=== PATIENT | male | born 1970 | race Caucasian/White ===

== ENCOUNTER 2020-01-08 21:21 | Observation (INO) | payer OTHER, SELFPAY ==
--- NOTE | ~2020-01-08 | XR_ITS ---
EXAMINATION: XR chest 1V portable 01/08/2020 21:52 INDICATION: Chest pain PROCEDURE: AP portable chest COMPARISON: 02/26/2006 FINDINGS: The lungs are clear. The lungs are hyperinflated which is consistent with, but not diagnost ic of chronic obstructive pulmonary disease. The cardiomediastinal silhouette is within normal limit s. There are no pleural effusions. There is no pneumothorax suspected. IMPRESSION: 1: NO ACUTE CARDIOPULMONARY DISEASE. Reviewed, dictated and finalized at location A.
[2020-01-08 21:25] VITALS: BP 181/84; PULSE 105; RESP 21; TEMP 37.5; O2SAT 95
--- NOTE | 2020-01-08 21:37 | ECG_ITS ---
Measurements Intervals [place] Rate: 103 P: 36 RI: 143 QRS: 9 QRSD: 110 T: 38 QT: 373 QTc: 491 Interpretive Statements SINUS TACHYCARDIA POSSIBLE LEFT ATRIAL ENLARGEMENT INCOMPLETE RIGHT BUNDLE BRANCH BLOCK BASELINE ARTIFACT- II, III, AVR, AVL, AVF, V3 BORDERLINE ECG Electronically Signed On 01-09-2020 7:47:16 CDT by Alan Kemp D.O.
[2020-01-08 21:39] VITALS: PULSE 110; O2SAT 100
--- NOTE | 2020-01-08 21:51 | ED.GENADULT ---
HPI - General Adult General Chief complaint: Chest Pain Stated complaint: CP Time Seen by Provider: 01/08/20 21:27 Source: patient Mode of arrival: ambulatory Limitations: no limitations History of Present Illness HPI narrative: 49 yo male with h/o alcoholism, liver disease who presents for evaluation of nausea, vomiting and chest pain. Patient states that he started drinking again 1 week ago. He reports he has been drinking 1 bottle of wine per day and he decided to stop drinking 2 days ago. He reports in the past he drank up to 1 bottle of vodka per day but he stopped drinking last may. He states he started drinking again due to all stress of what is happening with pandemic. He has come to ER today because he develop nausea, vomiting yesterday. He has been unable to keep any thing down. He denies diarrhea or abdominal pain. He denies pain across his chest today. He is seen by liver specialist at [place]. complaint: chest pain Related Data Home Medications Medication Instructions Recorded Confirmed No Home Medications 01/08/20 Allergies Allergy/AdvReac Type Severity Reaction Status Date / Time No Known Allergies Allergy Unknown Verified 11/19/19 13:10 Review of Systems Review of Systems: All systems reviewed & are unremarkable except as noted in HPI and below Constitutional: Constitutional: Denies chills, Denies fever(s) and Denies weakness ENT: Denies dizziness Cardiovascular: Cardiovascular: Reports chest pain and Denies rapid heart rate Respiratory: Respiratory: Denies chest congestion, Denies cough and Denies dyspnea Gastrointestinal: Gastrointestinal: Denies abdominal pain, Denies diarrhea, Reports nausea and Reports vomiting Musculoskeletal: Musculoskeletal: Denies back pain Psychiatric: Psychiatric: Reports anxiety COUNT INCLUDES THE [facility] Past Medical History Medical History (Updated 01/08/20 @ 23:26 by Ayala Willingham MD) Alcoholism Elevated blood pressure reading Jittery Liver disease Surgical History Surgical History (Updated 11/19/19 @ 13:17 by Ileana Tabares CMA) History of appendectomy History of colon resection Family History Family History (Updated 11/19/19 @ 13:14 by Ileana Tabares CMA) Grandparent Diabetes mellitus Social History Social History (Updated 11/19/19 @ 13:16 by Ileana Tabares CMA) Smoking status: Former smoker Second hand tobacco smoke exposure: No Smoking end date: 10/31/16 Alcohol intake: former Substance use: never Substance use type: does not use 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 Gender identity (if verbalized by the patient): Male Spiritual care concerns: Yes Agree to blood products: Yes Exam Const: General: alert and ill appearing acutely Orientation/consciousness: patient oriented x3 Eyes: Sclera: scleral abnormality (icterus) bilateral Pupils: Equal, round and reactive pupils present EOM: EOMs intact bilaterally Neck: Neck: normal visual inspection Chest: Chest palpation & inspection: normal inspection of the chest Resp: Effort & Inspection: normal respiratory effort and no retractions Auscultation: clear to auscultation bilaterally Cardio: Rate: tachycardic Rhythm: regular rhythm Heart sounds: Murmur heart sound present systolic GI: Inspection: non-distended GI Palp: Yes Soft to palpation, No Tenderness to palpation present (GI), No Guarding due to palpation present (GI) and No Rigid due to palpation Back/Spine/Pelvis: Back: no CVA tenderness Skin: General skin exam: normal color Rashes: no rashes Neuro: General: patient oriented x3 and moves all extremities Motor exam (neuro): Tremors during motor activity present Course Reevaluation(s) Reevaluation #1: Patient has been given 4 mg IV ativan in which he has improvement of his symptoms. Date: 01/08/20 Time: 22:38 Consultations Consultation #1: I discussed case with Dr. Orosco who accepts patient to hospitalist service and agr
[2020-01-08] MEDS: ONDANSETRON INJ 4 MG/2 ML VIAL IV PUSH (21:53)
[2020-01-08] MEDS: LORAZEPAM INJ 2 MG/ML VIAL IV PUSH ×2 (21:53→22:22)
[2020-01-08 22:00] LABS: Basophils Absolute Auto 0.1 K/mm3 (0.0-0.1); Basophils Percent Auto 0.9 % (0.2-1.2); Eosinophils Percent Auto 0.6 % (0-4.4); Hematocrit 38.9 % (42.0-52.0); Hemoglobin 13.4 g/dL (14.0-18.0); Immature Granulocyte Absolute 0.04 K/mm3 (0.00-0.031); Immature Granulocyte Percent A 0.6 % (0-0.5); Immature Platelet Fraction Pct 4.6 % (0.9-11.2); Lymphocytes Absolute Auto 1.24 K/mm3 (0.9-3.2); Lymphocytes Percent Auto 18.5 % (18.3-44.2); Mean Corpuscular HGB Conc 34.4 g/dl (32-36); Mean Corpuscular Hemoglobin 34.5 pg (26-34); Mean Corpuscular Volume 100.3 fl (80-100); Mean Platelet Volume 10.5 fl (7.4-10.4); Monocytes Absolute Auto 0.6 K/mm3 (0.1-0.6); Monocytes Percent Auto 8.5 % (2.6-8.5); Neutrophils Absolute Auto 4.7 K/mm3 (1.3-6.7); Neutrophils Percent Auto 70.9 % (45.5-73.1); Platelet Count Result 86 k/mm3 (150-375); Red Blood Count 3.88 M/mm3 (4.6-6.20); Red Cell Distribution Width 13.6 % (11.5-14.5); White Blood Count 6.7 K/mm3 (4.5-10.0)
[2020-01-08 22:09] LABS: INR 1.9; Prothrombin Time 21.7 Seconds (11.1-14.7)
[2020-01-08 22:10] LABS: Partial Thromboplastin Time 42.7 SECONDS (22.3-36.8)
[2020-01-08 22:12] LABS: Alanine Aminotransferase 58 U/L (4-50); Albumin Level 4.5 g/dL (3.5-5.1); Alkaline Phosphatase 158 U/L (38-126); Aspartate Amino Transferase 193 U/L (17-59); Bilirubin,Total 6.3 mg/dL (0.2-1.3); Blood Urea Nitrogen 8 mg/dL (9-20); Calcium 9.6 mg/dL (8.4-10.2); Carbon Dioxide 27 mmol/L (22-30); Chloride 94 mmol/L (98-107); Estimated CRCL calculation 104 ml/min; Estimated Glomerular Filt Rate > 60; Glucose 115 mg/dL (75-110); Lipase 46 U/L (23-300); Magnesium 1.5 mg/dL (1.6-2.3); Potassium 3.8 mmol/L (3.4-5.0); Sodium 134 mmol/L (137-145)
[2020-01-08 22:13] LABS: Ammonia 29 umol/L (9-30); Ethanol 16 mg/dL (<10); Lactic Acid Reflex 3.6 mmol/L (0.7-2.1)
[2020-01-08] MEDS: LACTATED RINGERS 1,000 ML 999 ML IV CONT (22:22)
[2020-01-08 22:24] LABS: Troponin I 0.018 ng/mL (0.000-0.034)
[2020-01-08 22:26] VITALS: BP 167/86; PULSE 104; RESP 15; TEMP 37.3; O2SAT 96
--- NOTE | 2020-01-08 22:41 | PC.NURSE ---
Spoke to Devon in pharmacy, banana bag being mixed at this time.
[2020-01-08 23:20] VITALS: BP 163/79; PULSE 91; RESP 15; TEMP 37.4; O2SAT 94
[2020-01-08 23:55] VITALS: BMI 30.3
--- NOTE | 2020-01-08 23:59 | ADMGEN ---
This patient, Urban Orosco, was admitted to Intensive Care Unit-5. Patient/family oriented to hospital policies and general routines including ID bracelet, bed and alarms, visiting hours, pain management, procedures, bathroom and other care routines, personal items, smoking policy, room service/diet, and visiting hours. Valuables list has been completed. Information on how to activate the Rapid Response Team has been discussed. Patient/Family are encouraged to report perceived risks to care and to ask questions if they do not understand what they are told or what they should do.
[2020-01-09] VITALS (11 sets, daily range): BP systolic 134–159; BP diastolic 67–97; PULSE 63–96; RESP 16–18; TEMP 36.8–37.2; O2SAT 95–97
--- NOTE | 2020-01-09 | ECHO_ITS ---
Patient Info Name: Urban Orosco Age: 49 years : 1970 Gender: Male Ht: 71 in Wt: 217 lbs BSA: 2.24 m2 HR: 67 bpm BP: 155 / 80 mmHg Heart Rhythm: Sinus Rhythm Technical Quality: Good Exam Date: 01/09/2020 9:18 AM Exam Location: [facility] Pulmonary Exam Room: ICU 05 Patient Status: Inpatient Admit Date: 01/08/2020 Staff Ordering Physician: Ricky Herrera MD Wall Scraper: Radha Ramirez RDCS Attending Provider: Joshua Orosco MD Exam Type: CA echo doppler color flow Study Info Indications - nausea vomiting chest pain amor Complete two-dimensional, color flow and Doppler transthoracic echocardiogram is performed. Summary 1. Left ventricular chamber size, systolic function and diastolic function are normal with no regional wall motion abnormalities with an estimated ejection fraction of 65-70%. Mild concentric hypertrophy. No focal wall motion abnormalities. 2. Left atrial chamber dimension is moderately enlarged. 3. There is mild mitral valve regurgitation. 4. There is mild tricuspid valve regurgitation. 5. Moderate pulmonary hypertension, estimated pulmonary arterial systolic pressure is 52 mmHg. 6. Normal sinus rhythm. Left Ventricle Left ventricular chamber dimension is normal. Left ventricular systolic function is normal, estimated at 65-70%. There is mildly increased left ventricular wall thickness. Left ventricular septal wall motion is normal. The left ventricular diastolic function is normal. Left ventricular chamber size, systolic function and diastolic function are normal with no regional wall motion abnormalities with an estimated ejection fraction of 65-70%. Mild concentric hypertrophy. No focal wall motion abnormalities. Right Ventricle Right ventricular chamber dimension is normal. Right ventricular systolic function is normal. Left Atria Left atrial chamber dimension is moderately enlarged. Right Atria Right atrial chamber dimension is normal. Aortic Valve The aortic valve is trileaflet. There is no aortic valve sclerosis. There is no aortic valve stenosis. There is no aortic valve regurgitation. Pulmonic Valve The pulmonic valve is normal. There is no pulmonic valve stenosis. There is no pulmonic regurgitation. Mitral Valve The mitral valve has thickened leaflets. There is no mitral valve stenosis. There is mild mitral valve regurgitation. Tricuspid Valve The tricuspid valve leaflets are normal. There is no significant tricuspid valve stenosis. There is mild tricuspid valve regurgitation. Moderate pulmonary hypertension, estimated pulmonary arterial systolic pressure is 52 mmHg. Pericardium/Pleural The pericardium appears normal. There is no pericardial effusion. Inferior Vena Cava Normal inferior vena cava with >50% collapse upon inspiration consistent with Empty right atrial pressure, 10 mmHg. Aorta The aortic root size at the sinus of Valsalva is normal. The prox ascending aorta size is normal. Left Ventricular Outflow Tract Name Value Normal LVOT 2D LVOT Diameter 2.1 cm LVOT Doppler LVOT Peak Gradient
--- NOTE | 2020-01-09 00:19 | PM.IMHP ---
H&P: HPI History of Present Illness Chief complaint: alcohol withdrawal, Alcoholic hepatitis Narrative: This is a 49 year old male with known history of Alcohlic liver disease and cirrhosis who is followed at [facility] and presented to our ERl with a complaint of nausea, vomiting, shakiness, diaphoresis, chills, and anxiety for the past 2 days. The patient is known to have a history of alcoholism and stopped drinking back in May but remarks that he started drinking wine about 1 week ago. He verbalized that he would like to stop drinking alcohol. Tonight while he was watching television and laying on his bed, he began to experience midsternal chest pain which did not radiate anywhere. The patient has no history of coronary artery disease. He has never had a stress test or a cardiac cath. On my encounter with the patient tonight he no longer has any chest pain. He denies any coughing, sore throat or fever. ER provider has consulted Gluing Machine Adjuster, Dr. Ansari. The patient will be admitted to ICU. Review of Systems Review of Systems: All systems reviewed & are unremarkable except as noted in HPI and below PMFSH Past Medical History Medical History Alcoholism Elevated blood pressure reading Heart murmur, systolic Jittery Liver disease Surgical History Surgical History History of appendectomy History of colon resection Family History Family History Grandparent Diabetes mellitus Social History Social History Smoking packs per day: 2 Smoking cigarettes per day: 40.0 Years smoked: 30 Smoking pack-years: 60.00 Smoking status: Former smoker Tobacco type: cigarettes Second hand tobacco smoke exposure: No Smoking end date: 10/31/16 Alcohol intake: current Substance use: never Substance use type: does not use 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 Gender identity (if verbalized by the patient): Male Spiritual care concerns: No Agree to blood products: Yes Meds Home Medications and Allergies Home Medications Medication Instructions Recorded Confirmed Type No Home Medications 01/08/20 01/09/20 History Allergies Allergy/AdvReac Type Severity Reaction Status Date / Time No Known Allergies Allergy Unknown Verified 01/09/20 00:25 Vital Signs Vital Signs - 24 hr 01/08/20 21:25 01/08/20 21:39 01/08/20 22:26 Temperature 37.5 C 37.3 C Pulse Rate 105 H 110 H 104 H Respiratory Rate 21 H 15 Blood Pressure 181/84 H 167/86 H Pulse Oximetry 95 100 96 01/08/20 23:20 Temperature 37.4 C Pulse Rate 91 Respiratory Rate 15 Blood Pressure 163/79 H Pulse Oximetry 94 Exam Const: General: cooperative, alert, awake and ill appearing chronically Nutritional Appearance: overweight Orientation/consciousness: patient oriented x3 HENMT: Head: normal to inspection General nose exam: Normal external nose present Face and sinus: normal facial exam Mouth: Yes Normal oral and palatal mucosa present and Yes oropharynx normal Eyes: Sclera: scleral abnormality (Jaundiced++ ) bilateral Pupils: Equal, round and reactive pupils present and Other pupil findings EOM: EOMs intact bilaterally Neck: Neck: supple and no JVD Thyroid: thyroid normal Lymphatic: lymphadenopathy not noted Resp: Effort & Inspection: normal respiratory effort Auscultation: clear to auscultation bilaterally Cardio: Rate: tachycardic Rhythm: regular rhythm Heart sounds: Murmur heart sound present systolic GI: Inspection: normal to inspection Auscultation: normal bowel sounds Skin: General skin exam: normal color and no rashes or lesions noted Neuro: General: patient oriented x3 and other (tremors++ ) Cranial nerves: Yes CN's II-XII intact bilaterally and Yes Equal, round
[2020-01-09] MEDS: LORAZEPAM INJ 2 MG/ML VIAL IV PUSH (00:34)
[2020-01-09 00:57] LABS: Reflex Lactic Acid Yes or No Add Lactic
[2020-01-09 03:41] LABS: Lactic Acid Reflex 1.5 mmol/L (0.7-2.1)
[2020-01-09] MEDS: MAGNESIUM SULF 1 GM/D5W 100 ML 1 GM/100 ML BAG IVPB (03:41)
[2020-01-09] MEDS: CHLORDIAZEPOXIDE 25 MG CAPSULE PO (03:42)
[2020-01-09] MEDS: ONDANSETRON INJ 4 MG/2 ML VIAL IV PUSH (03:42)
[2020-01-09 03:43] LABS: Basophils Percent Auto 0.8 % (0.2-1.2); Bilirubin Direct 0.1 mg/dL (0-0.3); Bilirubin,Total 6.3 mg/dL (0.2-1.3); Eosinophils Absolute Auto 0.1 K/mm3 (0-0.3); Eosinophils Percent Auto 2.6 % (0-4.4); Hematocrit 36.7 % (42.0-52.0); Hemoglobin 12.7 g/dL (14.0-18.0); Immature Granulocyte Absolute 0.03 K/mm3 (0.00-0.031); Immature Granulocyte Percent A 0.6 % (0-0.5); Immature Platelet Fraction Pct 4.3 % (0.9-11.2); Lymphocytes Absolute Auto 1.15 K/mm3 (0.9-3.2); Lymphocytes Percent Auto 23.2 % (18.3-44.2); Magnesium 1.8 mg/dL (1.6-2.3); Mean Corpuscular HGB Conc 34.6 g/dl (32-36); Mean Corpuscular Hemoglobin 35.2 pg (26-34); Mean Corpuscular Volume 101.7 fl (80-100); Mean Platelet Volume 10.4 fl (7.4-10.4); Monocytes Absolute Auto 0.5 K/mm3 (0.1-0.6); Monocytes Percent Auto 9.7 % (2.6-8.5); Neutrophils Absolute Auto 3.1 K/mm3 (1.3-6.7); Neutrophils Percent Auto 63.1 % (45.5-73.1); Platelet Count Result 63 k/mm3 (150-375); Red Blood Count 3.61 M/mm3 (4.6-6.20); Red Cell Distribution Width 13.5 % (11.5-14.5)
[2020-01-09 03:44] LABS: Potassium 3.5 mmol/L (3.4-5.0)
[2020-01-09 03:47] LABS: Alanine Aminotransferase 50 U/L (4-50); Albumin Level 3.7 g/dL (3.5-5.1); Alkaline Phosphatase 119 U/L (38-126); Aspartate Amino Transferase 150 U/L (17-59); Bilirubin,Total 6.3 mg/dL (0.2-1.3); Blood Urea Nitrogen 7 mg/dL (9-20); Calcium 8.6 mg/dL (8.4-10.2); Carbon Dioxide 33 mmol/L (22-30); Chloride 96 mmol/L (98-107); Estimated CRCL calculation 116 ml/min; Estimated Glomerular Filt Rate > 60; Glucose 107 mg/dL (75-110); Sodium 135 mmol/L (137-145)
[2020-01-09 03:54] LABS: Troponin I 0.022 ng/mL (0.000-0.034)
--- NOTE | 2020-01-09 08:00 | WPDGICN ---
Assessment and Plan Assessment and plan (1) Alcohol withdrawal: Code(s): F10.239 - Alcohol dependence with withdrawal, unspecified Status: Acute Assessment and Plan: Patient with ongoing alcohol abuse. Now with signs of alcohol withdrawal. He has stopped drinking within the last several days. Plan is to treat conservatively. Watch for signs of alcohol withdrawal and DTs. Advance diet as tolerated. (2) Acute alcoholic hepatitis: Code(s): K70.10 - Alcoholic hepatitis without ascites Status: Acute Assessment and Plan: Alcoholic liver disease evident. Elevated AST greater than ALT consistent with alcoholic liver disease. Patient also has low platelet count suggesting enlarged spleen. Conservative therapy at this time alcohol avoidance strongly encourage. (3) Thrombocytopenia: Code(s): D69.6 - Thrombocytopenia, unspecified Status: Chronic Assessment and Plan: Low platelet count consistent with enlarged spleen. Possible underlying liver damage. Not low enough to contribute to bleeding will continue to observe closely. Continued follow-up with [facility] hepatology Service after discharge encourage. GI Consult Note Consult date/time: 01/09/20 08:00 HPI: Urban Orosco is a 49 year old male seen in evaluation at the request of the intensive care unit service. Patient has a long history of alcoholism. He is known to have alcoholic liver disease. He began drinking more heavily over the last 1 week during the current viral crisis. Drinking a bottle of wine per day. He was tremulous last night but less so this morning. In the past he has been followed at [facility] for his cirrhosis and alcoholic liver disease. Recent ultrasound was unremarkable he reports an EGD several years ago was unremarkable. No varices were identified. Review of Systems Review of Systems: All systems reviewed & are unremarkable except as noted in HPI and below PMFSH Past Medical History Medical History Alcoholism Elevated blood pressure reading Heart murmur, systolic Jittery Liver disease Surgical History Surgical History History of appendectomy History of colon resection Family History Family History Grandparent Diabetes mellitus Social History Social History Smoking packs per day: 2 Smoking cigarettes per day: 40.0 Years smoked: 30 Smoking pack-years: 60.00 Smoking status: Former smoker Tobacco type: cigarettes Second hand tobacco smoke exposure: No Smoking end date: 10/31/16 Alcohol intake: current Substance use: never Substance use type: does not use 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 Gender identity (if verbalized by the patient): Male Spiritual care concerns: No Agree to blood products: Yes Meds Home Medications and Allergies Home Medications Medication Instructions Recorded Confirmed Type No Home Medications 01/08/20 01/09/20 History Allergies Allergy/AdvReac Type Severity Reaction Status Date / Time No Known Allergies Allergy Unknown Verified 01/09/20 00:25 Vital Signs Vital Signs - 24 hr 01/08/20 21:25 01/08/20 21:39 01/08/20 22:26 Temperature 37.5 C 37.3 C Pulse Rate 105 H 110 H 104 H Respiratory Rate 21 H 15 Blood Pressure 181/84 H 167/86 H Pulse Oximetry 95 100 96 01/08/20 23:20 01/09/20 00:00 01/09/20 04:00 Temperature 37.4 C Pulse Rate 91 96 73 Respiratory Rate 15 Blood Pressure 163/79 H Pulse Oximetry 94 01/09/20 06:00 Temperature Pulse Rate 67 Respiratory Rate 18 Blood Pressure 155/80 H Pulse Oximetry 95 Exam Narrative: Exam Narrative: Physical exam reveals patient be alert. Vital signs stable. HEENT exam unremarkable. He is anicteric
[2020-01-09] MEDS: CHLORDIAZEPOXIDE 25 MG CAPSULE 50 MG PO ×4 (08:36→20:44)
[2020-01-09] MEDS: LACTATED RINGERS 1,000 ML 999 ML IV CONT (08:39)
[2020-01-09] MEDS: PANTOPRAZOLE SODIUM IV 40 MG VIAL IV PUSH (09:40)
[2020-01-09] MEDS: SODIUM CHLORIDE 0.9% IV 1,000 ML 125 ML IV CONT (09:46)
--- NOTE | 2020-01-09 12:08 | PM.IMPN ---
Progress Note: A&P Assessment and Plan (1) Chest pain: Code(s): R07.9 - Chest pain, unspecified Status: Acute Assessment and Plan: Troponins are negative and pain reproduced by palpation of chest wall with normal EKG, no coronary syndrome suspected Check echo (2) Alcohol withdrawal: Code(s): F10.239 - Alcohol dependence with withdrawal, unspecified Status: Acute Assessment and Plan: CIWA-AR protocol. Continue Ativan IV prn. Librium PO in am. Antiemetics as needed. Thiamine IV daily. Social Service consult. (3) Acidosis, lactic: Code(s): E87.2 - Acidosis Status: Acute Assessment and Plan: Likely secondary to acute dehydration from N/V, poor PO intake. Continue IV hydration w/ NS. Lactic acid normal. (4) Acute alcoholic hepatitis: Code(s): K70.10 - Alcoholic hepatitis without ascites Status: Acute Assessment and Plan: Monitor LFTs, thought secondary to alcohol with AST greater than ALT. Trend (5) Hyperbilirubinemia: Code(s): E80.6 - Other disorders of bilirubin metabolism Status: Chronic Assessment and Plan: Secondary to cirrhosis and alcoholic hepatitis. (6) Hypomagnesemia: Code(s): E83.42 - Hypomagnesemia Status: Acute Assessment and Plan: replace magnesium. (7) Macrocytic anemia: Code(s): D53.9 - Nutritional anemia, unspecified Status: Chronic Assessment and Plan: Likely secondary to alcoholism. No signs of acute blood loss. Monitor H/H, transfuse prn and check B12 (8) Thrombocytopenia: Code(s): D69.6 - Thrombocytopenia, unspecified Status: Chronic Assessment and Plan: Secondary to chronic alcoholism. Monitor platelets. (9) Heart murmur, systolic: Code(s): R01.1 - Cardiac murmur, unspecified Status: Chronic Assessment and Plan: We will obtain Echocardiogram . Subjective Date/time seen: 01/09/20 12:08 Interval history: Date of visit 01/08. 49 y/o alcoholic recently started drinking again presented to the emergency room with chest discomfort and found to have elevated LFTs compatible with alcoholic hepatitis. He was tremulous and admitted for possible withdrawal. This a.m. feels better and describes the pain is uncomfortable or with worse with change in position and no associated symptoms. Exam Narrative: Exam Narrative: Blood pressure 148/76 pulse is 78 regular respirations 16 and afebrile saturating 97% A pupils equal reactive to light sclera anicteric Neck is soft Lungs clear CV regular rate rhythm systolic ejection murmur Some tenderness on palpation to chest wall at the sternal costal junction Abdomen soft nontender Extremities without edema good distal pulses Neuro alert oriented not tremulous at present time Objective Data Vital Signs Vital Signs: Vital Signs - 24 hr 01/08/20 21:25 01/08/20 21:39 01/08/20 22:26 Temperature 37.5 C 37.3 C Pulse Rate 105 H 110 H 104 H Respiratory Rate 21 H 15 Blood Pressure 181/84 H 167/86 H Pulse Oximetry 95 100 96 01/08/20 23:20 01/09/20 00:00 01/09/20 04:00 Temperature 37.4 C Pulse Rate 91 96 73 Respiratory Rate 15 Blood Pressure 163/79 H Pulse Oximetry 94 01/09/20 06:00 01/09/20 08:00 01/09/20 10:00 Temperature 36.8 C Pulse Rate 67 63 79 Respiratory Rate 18 18 16 Blood Pressure 155/80 H 144/67 H 149/77 H Pulse Oximetry 95 95 97 Intake/Output Intake/Output: Intake & Output 01/06/20 01/07/20 01/08/20 01/09/20 23:59 23:59 23:59 23:59 Intake Total 1000 Output Total 400 Balance 1000 -400 Meds/Results Medications: Active Medications Generic Name Dose Route Start Last Admin Trade Name Freq PRN Reason Stop Dose Admin Chlordiazepoxide HCl 50 mg 01/09/20 09:00 01/09/20 08:36 Librium Po PO 50 mg Q6H SCARLETT Administration Sodium Chloride 1,000 mls @ 125 mls/hr 01/09/20 02:45 01/09/20 09:46 Normal Saline Iv IV CONT 125
--- NOTE | 2020-01-09 12:42 | WPDCNINT ---
Assessment and Plan Assessment and plan (1) Alcohol withdrawal: Code(s): F10.239 - Alcohol dependence with withdrawal, unspecified Status: Acute Assessment and Plan: patient was transferred in the ED to the ICU for alcohol withdrawal and possible Precedex infusion. - Patient given additional IV fluid bolus this morning - patient is tremulous but not combative or agitated - increase Librium (2) Chest pain: Code(s): R07.9 - Chest pain, unspecified Status: Acute Assessment and Plan: patient presented with atypical chest pain most likely related to nausea, vomiting. 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 Additional Plan Discussed with patient updated with his condition and plan of care. Will start patient on a soft diet and he does not have his teeth code status: Full code Critical care time spent: 39 minutes Due to a high probability of clinically significant, life threatening deterioration, the patient required my highest level of preparedness to intervene emergently and I personally spent this critical care time directly and personally managing the patient. This critical care time included obtaining a history; examining the patient; pulse oximetry; ordering and review of studies; arranging urgent treatment with development of a management plan; evaluation of patient's response to treatment; frequent reassessment; and discussions with other providers. It was exclusive of separately billable procedures and treating other patients and teaching time. Please see Assessment and Plan section and the rest of the note for further information on patient assessment and treatment Top Printing Press Operator Consult Note Consult date: 01/09/20 Time Seen: 07:11 Reason for consult: Chest pain, alcohol withdrawal, nausea, vomiting HPI: Urban Orosco is a 49 year old male with history of alcoholism, dry blood pressure, alcoholic liver disease and cirrhosis which he has been followed at [facility], presented to the ED on 01/08/2020 with complains of nausea, vomiting, shakiness, diaphoresis, chills and anxiety for Two days prior to admission. Patient has had history of alcoholism and had stop drinking back in May 2019 with started to drink again 1 week ago. He has been drinking about 1 bottle of wine daily as he stressed out due to the coronavirus pandemic. Patient decided to stops drinking 2 days back and started develop the above symptoms along with chest pain. Patient does not have a known history of coronary artery disease. Patient was transferred to the ICU for possible Precedex infusion due to alcohol withdrawal and chest pain. patient seen and examined the ICU, is awake, alert, answers to questions and follows simple commands appropriately. Patient has not required Precedex infusion. Denies any chest pain, shortness of breath, abdominal pain, nausea vomiting at this time. He states he is hungry and would like to try to eat something, he does not have his teeth is been vomiting at home. Patient is tremulous but calm, not laci
[2020-01-09] MEDS: POTASSIUM CHLORIDE 20 MEQ TABLET 40 MEQ PO (12:49)
--- NOTE | 2020-01-09 13:23 | PC.NURSE ---
Gave report to Chepe on 3rd m/s
--- NOTE | 2020-01-09 13:32 | PC.NURSE ---
Transferred patient to [facility] at 1330.
--- NOTE | 2020-01-09 13:54 | PC.NURSE ---
This patient, Urban Orosco, was received from ICU on 01/09/20 at 1340. Personal belongings list checked and signed. Patient/family oriented to unit policies and routines
[2020-01-10] VITALS: PULSE 71
[2020-01-10] MEDS: CHLORDIAZEPOXIDE 25 MG CAPSULE 50 MG PO ×2 (03:03→08:15)
[2020-01-10 03:59] VITALS: PULSE 67
[2020-01-10 05:16] LABS: Basophils Percent Auto 0.6 % (0.2-1.2); Eosinophils Absolute Auto 0.4 K/mm3 (0-0.3); Eosinophils Percent Auto 8.8 % (0-4.4); Hematocrit 33.8 % (42.0-52.0); Hemoglobin 11.6 g/dL (14.0-18.0); Immature Granulocyte Absolute 0.03 K/mm3 (0.00-0.031); Immature Granulocyte Percent A 0.6 % (0-0.5); Lymphocytes Absolute Auto 1.01 K/mm3 (0.9-3.2); Lymphocytes Percent Auto 20.2 % (18.3-44.2); Mean Corpuscular HGB Conc 34.3 g/dl (32-36); Mean Corpuscular Hemoglobin 35.3 pg (26-34); Mean Corpuscular Volume 102.7 fl (80-100); Mean Platelet Volume 11.2 fl (7.4-10.4); Monocytes Absolute Auto 0.4 K/mm3 (0.1-0.6); Monocytes Percent Auto 8.2 % (2.6-8.5); Neutrophils Absolute Auto 3.1 K/mm3 (1.3-6.7); Neutrophils Percent Auto 61.6 % (45.5-73.1); Platelet Count Result 55 k/mm3 (150-375); Red Blood Count 3.29 M/mm3 (4.6-6.20); Red Cell Distribution Width 13.8 % (11.5-14.5)
[2020-01-10 06:00] VITALS: BP 142/80; PULSE 91; RESP 16; TEMP 37.3; O2SAT 95
[2020-01-10 06:02] LABS: Alanine Aminotransferase 45 U/L (4-50); Albumin Level 3.3 g/dL (3.5-5.1); Alkaline Phosphatase 146 U/L (38-126); Aspartate Amino Transferase 113 U/L (17-59); Bilirubin Direct 0.2 mg/dL (0-0.3); Blood Urea Nitrogen 8 mg/dL (9-20); Calcium 8.4 mg/dL (8.4-10.2); Carbon Dioxide 26 mmol/L (22-30); Chloride 105 mmol/L (98-107); Estimated CRCL calculation 104 ml/min; Estimated Glomerular Filt Rate > 60; Glucose 98 mg/dL (75-110); Magnesium 1.8 mg/dL (1.6-2.3); Phosphorus 3.3 mg/dL (2.5-4.5); Potassium 3.8 mmol/L (3.4-5.0); Sodium 136 mmol/L (137-145)
[2020-01-10 08:00] VITALS: BP 142/80; PULSE 90
--- NOTE | 2020-01-10 08:04 | WPDGIPROGNO ---
Progress Note: A&P Additional Plan Patient alert and comfortable this morning. Denies abdominal pain. Tolerating diet. Physical exam reveals Vital Signs stable. He is alert and oriented x3. He is anicteric. Lungs are clear to auscultation percussion. Heart without murmur. Abdomen is soft and nontender. Labs reveal hemoglobin 11, hematocrit 33, MCV 102. Platelets 68201. Total bilirubin 7, direct bilirubin 0.2, AST 113, ALT 45, alk-phos 146. Impression 1. Alcohol abuse. Patient will need to have stain from alcohol. 2. Alcoholic hepatitis. He may have a component of cirrhosis. Manifested by low platelet count. Strict alcohol avoidance advised. Plan is to increase diet as tolerated. Early discharged advised with alcohol avoidance encourage. He may need alcohol rehab if necessary. Outpatient follow-up suggested. Subjective Date/time seen: 01/10/20 08:04 Objective Data Vital Signs Vital Signs: Vital Signs - 24 hr 01/09/20 10:00 01/09/20 12:00 01/09/20 13:00 Temperature 36.9 C Pulse Rate 79 63 Pulse Rate [Left Radial Palpation] Respiratory Rate 16 18 Blood Pressure 149/77 H 159/97 H Pulse Oximetry 97 95 01/09/20 13:57 01/09/20 14:22 01/09/20 16:00 Temperature 37.2 C Pulse Rate 89 Pulse Rate [Left Radial Palpation] 65 68 Respiratory Rate 18 Blood Pressure 148/78 H 140/68 Pulse Oximetry 97 01/09/20 22:00 01/10/20 00:00 01/10/20 03:59 Temperature 36.8 C Pulse Rate 88 Pulse Rate [Left Radial Palpation] 71 67 Respiratory Rate 16 Blood Pressure 134/75 Pulse Oximetry 97 01/10/20 06:00 Temperature 37.3 C Pulse Rate 91 Pulse Rate [Left Radial Palpation] Respiratory Rate 16 Blood Pressure 142/80 H Pulse Oximetry 95 Intake/Output Intake/Output: Intake & Output 01/07/20 01/08/20 01/09/20 01/10/20 23:59 23:59 23:59 23:59 Intake Total 1000 2210 350 Output Total 1550 Balance 1000 660 350 Meds/Results Medications: Active Medications Generic Name Dose Route Start Last Admin Trade Name Freq PRN Reason Stop Dose Admin Chlordiazepoxide HCl 50 mg 01/09/20 09:00 01/10/20 03:03 Librium Po PO 50 mg Q6H SCARLETT Administration Lorazepam 1 mg 01/09/20 02:38 Ativan Inj IV PUSH Q4H PRN Withdrawal Ondansetron HCl 4 mg 01/08/20 22:41 01/09/20 03:42 Zofran Inj IV PUSH 4 mg Q4H PRN Administration Nausea Pantoprazole Sodium 40 mg 01/10/20 09:00 Protonix PO QAM [facility] Thiamine HCl 100 mg 01/10/20 09:00 Vitamin B-1 PO QAM [facility] Radiology Results: ITS Impressions Chest X-Ray 01/08/20 21:53 IMPRESSION: 1: NO ACUTE CARDIOPULMONARY DISEASE. Labs Labs: Laboratory Results - last 24 hr 01/10/20 01/10/20 01/10/20 04:56 04:56 04:56 WBC 5.0 RBC 3.29 L Hgb 11.6 L Hct 33.8 L MCV 102.7 H MCH 35.3 H MCHC 34.3 RDW 13.8 Plt Count 55 L MPV 11.2 H Immature Gran % (Auto) 0.6 H Neut % (Auto) 61.6 Lymph % (Auto) 20.2 [place] % (Auto) 8.2 Eos % (Auto) 8.8 H Baso % (Auto) 0.6 Lymph # (Auto) 1.01 [place] # (Auto) 0.4 Eos # (Auto) 0.4 H Baso # (Auto) 0.0 Abs Immat Gran (auto) 0.03 Absolute Neuts (auto) 3.1 Absolute Nucleated RBC 0.0 Nucleated RBC % 0.0 % Immature Plt Fraction 5.0 Sodium 136 L Potassium 3.8 Chloride 105 Carbon Dioxide 26 BUN 8 L Creatinine 0.90 Estim Creat Clear Calc 104 Estimated GFR > 60 Glucose 98 Calcium 8.4 Phosphorus 3.3 Magnesium 1.8 Total Bilirubin 7.0 H Direct Bilirubin 0.2 AST 113 H ALT 45 Alkaline Phosphatase 146 H Total Protein 7.0 Albumin 3.3 L Vitamin B12 935.0 H
[2020-01-10] MEDS: THIAMINE HCL 100 MG TABLET PO (08:15)
[2020-01-10] MEDS: PANTOPRAZOLE 40 MG TABLET PO (08:15)
--- NOTE | 2020-01-10 18:02 | PM.DS ---
DS: Diagnosis Admitting Diagnosis Admitting Diagnosis: Alcohol dependence with withdrawal, unspecified Discharge Diagnosis (1) Chest pain: Code(s): R07.9 - Chest pain, unspecified Status: Acute Assessment and Plan: Troponins are negative and pain reproduced by palpation of chest wall with normal EKG, no coronary syndrome suspected Echocardiogram no no wall motion abnormalities with normal ejection fraction and mild aortic stenosis (2) Alcohol withdrawal: Code(s): F10.239 - Alcohol dependence with withdrawal, unspecified Status: Acute Assessment and Plan: Controlled with p.o. Librium. At discharge not agitated at all. An alert and oriented. 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 (3) Acidosis, lactic: Code(s): E87.2 - Acidosis Status: Acute Assessment and Plan: Likely secondary to acute dehydration from N/V, poor PO intake. Continued IV hydration w/ NS. Lactic acid returned to normal . (4) Acute alcoholic hepatitis: Code(s): K70.10 - Alcoholic hepatitis without ascites Status: Acute Assessment and Plan: Bilirubin remains elevated but AST fell for 191 to 113 and alkaline phosphatase fell from 240 to 146 (5) Hyperbilirubinemia: Code(s): E80.6 - Other disorders of bilirubin metabolism Status: Chronic Assessment and Plan: Secondary to cirrhosis and alcoholic hepatitis. (6) Hypomagnesemia: Code(s): E83.42 - Hypomagnesemia Status: Acute Assessment and Plan: replaced magnesium. 1.8 today an 01/08 (7) Macrocytic anemia: Code(s): D53.9 - Nutritional anemia, unspecified Status: Chronic Assessment and Plan: Likely secondary to alcoholism. No signs of acute blood loss. check B12 normal (8) Thrombocytopenia: Code(s): D69.6 - Thrombocytopenia, unspecified Status: Chronic Assessment and Plan: Secondary to chronic alcoholism. 55K at discharge (9) Heart murmur, systolic: Code(s): R01.1 - Cardiac murmur, unspecified Status: Chronic Assessment and Plan: Echocardiogram .mild with normal EF DS: Summary Time Spent with Patient Time attestation: Total time spent providing and/or coordinating discharge services: 35 minutes Exam Narrative: Exam Narrative: Condition on discharge Blood pressure 142/80 pulse 86 sat above 95% on room air temp 37.3? Lungs clear CV regular rate rhythm systolic ejection murmur Abdomen is soft nontender Extremities without edema distal pulse 2 + Neuro alert pleasant cooperative no focal deficits her agitation at time of discharge DS: Data Data Completed and Pending Labs on day of discharge: Labs from last 24 hours 01/10/20 01/10/20 01/10/20 04:56 04:56 04:56 WBC 5.0 RBC 3.29 L Hgb 11.6 L Hct 33.8 L MCV 102.7 H MCH 35.3 H MCHC 34.3 RDW 13.8 Plt Count 55 L MPV 11.2 H Immature Gran % (Auto) 0.6 H Neut % (Auto) 61.6 Lymph % (Auto) 20.2 [place] % (Auto) 8.2 Eos % (Auto) 8.8 H Baso % (Auto) 0.6 Lymph # (Auto) 1.01 [place] # (Auto) 0.4 Eos # (Auto) 0.4 H Baso # (Auto) 0.0 Abs Immat Gran (auto) 0.03 Absolute Neuts (auto) 3.1 Absolute Nucleated RBC 0.0 Nucleated RBC % 0.0 % Immature Plt Fraction 5.0 Sodium 136 L Potassium 3.8 Chloride 105 Carbon Dioxide 26 BUN 8 L Creatinine 0.90 Estim Creat Clear Calc 104 Estimated GFR > 60 Glucose 98 Calcium 8.4 Phosphorus 3.3 Magnesium 1.8 Total Bilirubin 7.0 H Direct Bilirubin 0.2 AST 113 H ALT 45 Alkaline Phosphatase 146 H Total Protein 7.0 Albumin 3.3 L Vitamin B12 935.0 H Discharge Plan Discharge Attending physician on discharge: Ricky Herrera Consulting providers: Dennise Ansari ; Ankit Nguyen Discharging Clinician: Ricky Herrera Patient Disposition: Home,
== END 2020-01-10 12:40 | disposition home or self-care (01) ==
LOC: ANHED 22:44 → ANHICU 23:26 → ANH3MEDSUR 01-09 18:59 → ANHICU 01-11 12:03
PROVIDERS: Admitting Provider Family Medicine; Emergency Provider General Practice; PCP Family Medicine; Visit Provider Internal Medicine
DX: R07.9 Chest pain, unspecified (principal); F10.239 Alcohol dependence with withdrawal, unspecified; K70.10 Alcoholic hepatitis without ascites; K74.60 Unspecified cirrhosis of liver; R11.2 Nausea with vomiting, unspecified; E87.2 Acidosis; E80.6 Other disorders of bilirubin metabolism; D53.9 Nutritional anemia, unspecified; D69.6 Thrombocytopenia, unspecified; R01.1 Cardiac murmur, unspecified; Z87.891 Personal history of nicotine dependence
CPT/HCPCS: 36415; 71045; 80048; 80053; 80076; 80307; 82140; 82247; 82248; 82607; 83605; 83690; 83735; 84100; 84484; 85025; 85055; 85610; 85730; 93005; 93306; 96361; 96374; 96375; 96376; 99285; A9270; C9113; G0378; J2060; J2405; J3411; J3475; J7030; J7120; J7121

== ENCOUNTER 2020-01-29 10:18 | Observation (INO) | payer OTHER, SELFPAY ==
[2020-01-29] VITALS (23 sets, daily range): BP systolic 83–126; BP diastolic 30–89; PULSE 86–113; RESP 16–24; TEMP 36.2–37.3; O2SAT 94–100; BMI 27.2
--- NOTE | ~2020-01-29 | XR_ITS ---
XR abdomen NG/feed tube insert DATE: 01/29/2020 15:40 INDICATION: Nasogastric tube insertion TECHNIQUE: Portable upright AP view on 01/29/2020 at 1541 hours COMPARISON: None FINDINGS: An NG tube is present in the body of the stomach, the proximal port approximately 9 cm dist al to the diaphragmatic hiatus. Only the upper abdomen is included; the bowel gas pattern is nonspecific, without apparent obstructio n. IMPRESSION: NG tube in body of stomach Reviewed, dictated and finalized at [facility]. Reviewed, dictated and finalized at location [facility]. IMPRESSION: NG tube in body of stomach
--- NOTE | ~2020-01-29 | XR_ITS ---
XR abdomen NG/feed tube insert INDICATION: Evaluate NG tube position. TECHNIQUE: Limited KUB perform for evaluating NG tube . COMPARISON: 01/29/2020 FINDINGS: NG tube tip in the stomach. Visualized bowel gas pattern is unremarkable.There are surgica l clips in the right mid abdomen. IMPRESSION: 1: NG tube tip in the stomach. Reviewed, dictated and finalized at location [facility].
[2020-01-29 10:34] LABS: Basophils Absolute Auto 0.1 K/mm3 (0.0-0.1); Basophils Percent Auto 1.4 % (0.2-1.2); Eosinophils Absolute Auto 0.4 K/mm3 (0-0.3); Eosinophils Percent Auto 5.9 % (0-4.4); Hematocrit 32.1 % (42.0-52.0); Hemoglobin 10.7 g/dL (14.0-18.0); Immature Granulocyte Absolute 0.03 K/mm3 (0.00-0.031); Immature Granulocyte Percent A 0.4 % (0-0.5); Lymphocytes Absolute Auto 1.63 K/mm3 (0.9-3.2); Lymphocytes Percent Auto 23.1 % (18.3-44.2); Mean Corpuscular HGB Conc 33.3 g/dl (32-36); Mean Corpuscular Hemoglobin 35.4 pg (26-34); Mean Corpuscular Volume 106.3 fl (80-100); Mean Platelet Volume 9.9 fl (7.4-10.4); Monocytes Absolute Auto 0.5 K/mm3 (0.1-0.6); Monocytes Percent Auto 6.5 % (2.6-8.5); Neutrophils Absolute Auto 4.4 K/mm3 (1.3-6.7); Neutrophils Percent Auto 62.7 % (45.5-73.1); Platelet Count Result 180 k/mm3 (150-375); Red Blood Count 3.02 M/mm3 (4.6-6.20); Red Cell Distribution Width 16.4 % (11.5-14.5); White Blood Count 7.1 K/mm3 (4.5-10.0)
[2020-01-29] MEDS: PANTOPRAZOLE SODIUM IV 40 MG VIAL IV PUSH ×2 (10:34→23:00)
[2020-01-29] MEDS: SODIUM CHLORIDE 0.9% IV 1,000 ML 999 ML IV CONT ×2 (10:34→15:17)
--- NOTE | 2020-01-29 10:40 | ED.GIBLEED ---
HPI - GI Bleed General Chief complaint: GI Bleed Stated complaint: DARK STOOLS Source: RN notes reviewed History of Present Illness HPI Narrative: Patient presents emergency department from home for GI bleed. Patient states he had an episode approximately 1 hour ago of emesis that was dark red in color. States that he has had black tarry bowel movements starting yesterday. States that last night he had some abdominal pain in the upper abdomen and took Pepto-Bismol with relief. Patient does state he has a history of alcoholic cirrhosis and states that he does not currently drink alcohol. Denies any current fevers or chills abdominal pain nausea or any other symptoms Related Data Home Medications Medication Instructions Recorded Confirmed No Home Medications 01/08/20 01/09/20 Allergies Allergy/AdvReac Type Severity Reaction Status Date / Time No Known Allergies Allergy Unknown Verified 01/29/20 10:24 Review of Systems Review of Systems: Narrative: Gen.: Denies fevers or chills Eyes: Denies eye pain or visual change ENT: Denies congestion Respiratory: Denies shortness of breath or cough CV: Denies chest pain or palpitations GI: See HPI Musculoskeletal: Denies back pain or muscle pain Neuro: Denies numbness, tingling, weakness or focal weakness Skin: Denies rash Except as documented, all other systems reviewed and negative [facility] Past Medical History Medical History Alcoholism Elevated blood pressure reading Heart murmur, systolic Jittery Liver disease Social History Social History Smoking packs per day: 2 Smoking cigarettes per day: 40.0 Years smoked: 30 Smoking pack-years: 60.00 Smoking status: Former smoker Tobacco type: cigarettes Second hand tobacco smoke exposure: No Smoking end date: 10/31/16 Alcohol intake: current Substance use: never Substance use type: does not use 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 CARDIOVASCULAR: Regular rate and rhythm without murmurs rubs or gallops. ABDOMINAL: Soft, nontender, nondistended, no rebound or guarding Rectal: No hemorrhoids or fissures, no active bleeding, black stool that is Hemoccult positive MUSCULOSKELETAl: Moves all extremities. No clubbing, cyanosis or edema. NEURO: Awake and alert. Following commands, speech normal, no focal deficits SKIN:: Warm, dry. No rashes lesions or abrasions PSYCHIATRIC: Normal affect/mood, Course Course Emergency Course: Reviewed old records Discussed with Dr. Nguyen presentation work-up. Agrees with consult at this time. Request Protonix 40 mg twice daily Discussed with Dr. Muller presentation work-up. Agrees with admission at this time Discussed with patient and family results of workup and diagnosis. Discussed need for admission. Patient and family understand and agree to current treatment plan Vital Signs Vital signs: Vital Signs Temperature 98.3 F 01/29/20 10:07 Pulse Rate 110 H 01/29/20 10:07 Respiratory Rate 19 01/29/20 10:07 Blood Pressure 124/64 01/29/20 10:07 Pulse Oximetry 96 01/29/20 10:07 Temperature 98.3 F 01/29/20 10:07 Pulse Rate 105 H 01/29/20 10:27 Respiratory Rate 19 01/29/20 10:07 Blood Pressure 119/60 01/29/20 10:27 Pulse Oximetry 96 01/29/20 10:07 MDM - GI Bleed Lab Data Result diagrams: 01/29/20 10:24 01/29/20 10:24 Labs: Lab Results 01/29/20 01/29/20 01/29/20 Range/Units 10:24 10:24 10:24 WBC 7.1 (4.5-10
[2020-01-29 10:43] LABS: INR 1.7; Prothrombin Time 19.2 Seconds (11.1-14.7)
[2020-01-29 10:44] LABS: Partial Thromboplastin Time 36.2 SECONDS (22.3-36.8)
[2020-01-29 10:47] LABS: Alanine Aminotransferase 38 U/L (4-50); Albumin Level 3.6 g/dL (3.5-5.1); Alkaline Phosphatase 138 U/L (38-126); Aspartate Amino Transferase 72 U/L (17-59); Bilirubin,Total 3.3 mg/dL (0.2-1.3); Blood Urea Nitrogen 22 mg/dL (9-20); Calcium 9.5 mg/dL (8.4-10.2); Carbon Dioxide 26 mmol/L (22-30); Chloride 107 mmol/L (98-107); Estimated CRCL calculation 84 ml/min; Estimated Glomerular Filt Rate > 60; Glucose 151 mg/dL (75-110); Magnesium 1.8 mg/dL (1.6-2.3); Potassium 4.8 mmol/L (3.4-5.0); Sodium 139 mmol/L (137-145)
[2020-01-29 10:50] LABS: Ethanol < 10 mg/dL (<10)
--- NOTE | 2020-01-29 10:51 | PC.NURSE ---
PER ERP EVELIA PT DOES NOT NEED TO HAVE ORTHOSTATS DONE.
[2020-01-29] MEDS: SODIUM CHLORIDE 0.9% IV 1,000 ML 125 ML IV CONT (12:25)
--- NOTE | 2020-01-29 12:35 | WPDGICN ---
Assessment and Plan Assessment and plan (1) Acute GI bleeding: Code(s): K92.2 - Gastrointestinal hemorrhage, unspecified Status: Acute Assessment and Plan: Hematemesis identified this morning in the ER and ambulance. Given his history of alcoholic liver disease. We are somewhat suspicious about the potential for esophageal varices. He also is at risk for peptic ulcers. Plan is to keep patient on proton pump inhibitor. Hemoglobin will be monitored closely and transfused if hemoglobin more to fall. An EGD will be performed in the morning. Unless more urgent endoscopy tonight required. We will follow with you during this hospital stay. (2) Anemia: Code(s): D64.9 - Anemia, unspecified Status: Acute Assessment and Plan: Mild anemia identified. Current hemoglobin 10.7. At the time of discharge from the hospital , previous hemoglobin was 11.6 approximately 2 weeks ago. (3) Alcoholism: Code(s): F10.20 - Alcohol dependence, uncomplicated Status: Acute Assessment and Plan: Patient reports no alcohol intake over the last 1 month. Continued alcohol avoidance is strongly encourage. (4) Cirrhosis: Code(s): K74.60 - Unspecified cirrhosis of liver Status: Acute Assessment and Plan: Patient presumed to have alcohol-induced cirrhosis of the liver. Patient now followed at [facility] hepatology. By Dr. Mena. Anticipate them to continue follow-up with him post discharge. GI Consult Note Consult date/time: 01/29/20 12:35 HPI: Urban Orosco is a 49 year old male seen in evaluation at the request of the emergency room. Patient has a long history of alcohol abuse. Admitted to the hospital 2-3 weeks ago found to have alcoholic cirrhosis of the liver. Since that time he has been abstinent from alcohol. Typically drink wine or other alcoholic beverage rather heavily in the past. Patient reports dark stools 1 week ago associated with some loose diarrhea stools after taking Pepto-Bismol. He developed lower abdominal pain last evening. He attributed this to Pepto-Bismol. This morning he vomited dark to maroonish colored emesis. He felt somewhat lightheaded and woozy and for this reason went to the emergency room where he was admitted for further evaluation. He states he has had no alcohol intake over the last month. Previously he has been followed for his cirrhosis at [facility] by Dr. Mena.. He reports an EGD 2 years ago was unremarkable. Review of Systems Review of Systems: All systems reviewed & are unremarkable except as noted in HPI and below PMFSH Past Medical History Medical History Alcoholism Elevated blood pressure reading Heart murmur, systolic Jittery Liver disease Surgical History Surgical History History of appendectomy History of colon resection Family History Family History Grandparent Diabetes mellitus Social History Social History Smoking packs per day: 2 Smoking cigarettes per day: 40.0 Years smoked: 30 Smoking pack-years: 60.00 Smoking status: Former smoker Tobacco type: cigarettes Second hand tobacco smoke exposure: No Smoking end date: 10/31/16 Alcohol intake: current Substance use: never Substance use type: does not use 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
--- NOTE | 2020-01-29 13:00 | PC.NURSE ---
This patient, Urban Orosco, was admitted to Medical Room 250-01. Patient/family oriented to hospital policies and general routines including ID bracelet, bed and alarms, visiting hours, pain management, procedures, bathroom and other care routines, personal items, smoking policy, room service/diet, and visiting hours. Valuables list has been completed. Information on how to activate the Rapid Response Team has been discussed. Patient/Family are encouraged to report perceived risks to care and to ask questions if they do not understand what they are told or what they should do.
[2020-01-29] MEDS: ONDANSETRON INJ 4 MG/2 ML VIAL IV PUSH ×2 (13:59→16:43)
--- NOTE | 2020-01-29 14:45 | PM.IMHP ---
H&P: HPI History of Present Illness Chief complaint: Hematemesis. Narrative: Urban Orosco is a 49-year-old male with alcoholic cirrhosis of the liver, a patient of Dr. Nathalia Purvis at [facility] in [place], who presented to the emergency department earlier this morning from home for evaluation of hematemesis. He is known to the hospitalist service as he was admitted to us January 08, 2020 after presenting to the emergency department with complaints of chest pain as well symptoms of alcohol withdrawal. He was quite dehydrated and was treated with supportive care to include IV fluid rehydration and antiemetics. Chest pain was felt to be noncardiac in etiology, and may have been due to nausea and vomiting. Not long after discharge, he did have several days of diarrhea for which he took Pepto-Bismol and he mentions having dark stools while taking that. His stools are now normal and he has not noticed any further dark stools. In any regard, last evening he developed a cramping discomfort in the periumbilical region for which he once again took Pepto-Bismol. He slept poorly last night due to the abdominal discomfort in addition to getting up every hour to urinate. For some reason, he reports extreme thirst last night and tells me that he drinks 3 glasses of milk, glass of orange juice, and 2 cans of Mountain Dew. Not long after waking this morning at 08:00, he developed nausea and reports 1 fairly large episode of hematemesis described as ?bloody water? which filled almost half of his 13 gallon trash can. Since admission, he has had 1 further episode of hematemesis, and according to the nurse he vomited nearly 1 liter of dark red blood admixed with clots not long prior to my arrival. Currently his blood pressure is 83/30 and he feels lightheaded and weak with some mild nausea. He has no known history of esophageal varices, gastritis, or peptic ulcers. He will on occasion take ibuprofen but typically takes acetaminophen for aches and pains. He is not very forthcoming with his alcohol consumption, as he told me that he quit drinking 3 years ago, however he was just admitted for alcohol withdrawals within the last several weeks as detailed above. Review of Systems Review of Systems: Narrative: Twelve systems were reviewed with pertinent positives and negatives as per HPI. No fever, chills, or sweats. He denies cold and flu symptoms. No recent travel or sick contacts. He was tested for COVID-19 and influenza within the last month or so, both which were negative. He denies chest pain, palpitations, pleuritic pain, and shortness of breath. No significant indigestion. He had a normal bowel movement yesterday. No dysuria or hematuria. Except as documented, all other systems were reviewed and are negative. [facility] Past Medical History Medical History Alcoholic cirrhosis of liver Alcoholism Heart murmur, systolic Echocardiogram from 01/09/2020 done at [facility] showed ejection fraction of 65 to 70%, mild concentric hypertrophy, no regional wall motion abnormalities, moderate pulmonary hypertension with RVSP of 52 millimeters of mercury, and mild aortic stenosis. History of depression Admitted for suicidal ideation in January 2013. Surgical History Surgical History History of appendectomy History of colon resection Related to ruptured appendicitis. Family History Family History Grandparent Diabetes mellitus Legally blind Pneumonia Mother Migraines Sibling Migraines Sibling Pre-diabetes Grandparent Diabetes mellitus Social History Social History Social History: The patient is and shares a home in [place] with his and 2 dogs, a Yorkie and a min-pin. He owns
--- NOTE | 2020-01-29 16:19 | PC.NURSE ---
This patient, Urban Orosco, was transferred to ICU on 01/29/20 at 1619. Personal belongings sent with patient. Belongings list checked and signed with receiving ICU. Report given to NORRIS Serra. Appropriate documentation sent with patient.
[2020-01-29] MEDS: OCTREOTIDE ACETATE 0.1 MG/ML AMP 0.05 MG IV PUSH (16:45)
--- NOTE | 2020-01-29 16:47 | WPDANESEPPF ---
Anes - Initial Pre Proc Eval Procedure: Operation Date: 01/29/20 16:45 Proposed Procedures p Esophagogastroduodenoscopy - Ankit Nguyen MD Operation Date: 01/30/20 07:30 Proposed Procedures p Esophagogastroduodenoscopy - Ankit Nguyen MD Date/Time: 01/29/20 16:47 Surgeon: Justin Muller MD Pre Op Diagnosis: Hematemesis. Patient Data Age: 49 Gender: M Height: 5 ft 11 in Weight: 88.7 kg Last Vital Signs Temp 36.2 C L 01/29/20 15:15 Pulse 96 01/29/20 15:15 Resp 20 01/29/20 15:15 BP 117/42 L 01/29/20 15:15 Pulse Ox 97 01/29/20 15:15 Allergies Allergy/AdvReac Type Severity Reaction Status Date / Time No Known Allergies Allergy Unknown Verified 01/29/20 13:22 Home Medications Medication Instructions Recorded Confirmed Type melatonin 5 mg PO HS PRN 01/29/20 01/29/20 History Laboratory Tests 01/29/20 01/29/20 01/29/20 10:24 10:24 10:24 WBC 7.1 K/mm3 K/mm3 (4.5-10.0) RBC 3.02 M/mm3 L M/mm3 (4.6-6.20) Hgb 10.7 g/dL L g/dL (14.0-18.0) Hct 32.1 % L % (42.0-52.0) MCV 106.3 fl H fl (80-100) MCH 35.4 pg H pg (26-34) MCHC 33.3 g/dl g/dl (32-36) RDW 16.4 % H % (11.5-14.5) Plt Count 180 k/mm3 D k/mm3 (150-375) MPV 9.9 fl fl (7.4-10.4) Immature Gran % (Auto) 0.4 % % (0-0.5) Neut % (Auto) 62.7 % % (45.5-73.1) Lymph % (Auto) 23.1 % % (18.3-44.2) [place] % (Auto) 6.5 % % (2.6-8.5) Eos % (Auto) 5.9 % H % (0-4.4) Baso % (Auto) 1.4 % H % (0.2-1.2) Lymph # (Auto) 1.63 K/mm3 K/mm3 (0.9-3.2) [place] # (Auto) 0.5 K/mm3 K/mm3 (0.1-0.6) Eos # (Auto) 0.4 K/mm3 H K/mm3 (0-0.3) Baso # (Auto) 0.1 K/mm3 K/mm3 (0.0-0.1) Abs Immat Gran (auto) 0.03 K/mm3 K/mm3 (0.00-0.031) Absolute Neuts (auto) 4.4 K/mm3 K/mm3 (1.3-6.7) Absolute Nucleated RBC 0.0 K/mm3 K/mm3 (0.0-0.012) Nucleated RBC % 0.0 % % (0.0-0.2) PT 19.2 Seconds H Seconds (11.1-14.7) INR 1.7 APTT 36.2 SECONDS SECONDS (22.3-36.8) Sodium 139 mmol/L mmol/L (137-145) Potassium 4.8 mmol/L mmol/L (3.4-5.0) Chloride 107 mmol/L mmol/L (98-107) Carbon Dioxide 26 mmol/L mmol/L (22-30) BUN 22 mg/dL H D mg/dL (9-20) Creatinine 1.00 mg/dL mg/dL (0.7-1.3) Estim Creat Clear Calc 84 ml/min ml/min Estimated GFR > 60 (59 - ) Glucose 151 mg/dL H mg/dL (75-110) Calcium 9.5 mg/dL mg/dL (8.4-10.2) Magnesium 1.8 mg/dL mg/dL (1.6-2.3) Total Bilirubin 3.3 mg/dL H mg/dL (0.2-1.3) AST 72 U/L H U/L (17-59) ALT 38 U/L U/L (4-50) Alkaline Phosphatase 138 U/L H U/L (38-126) Total Protein 7.0 g/dL g/dL (6.3-8.2) Albumin 3.6 g/dL g/dL (3.5-5.1) Ethyl Alcohol Blood Type Antibody Screen Crossmatch 01/29/20 01/29/20 01/29/20 10:24 10:25 14:50 WBC RBC Hgb 9.0 g/dL L g/dL (14.0-18.0) Hct 27.0 % L % (42.0-52.0) MCV MCH MCHC RDW Plt Count MPV Immature Gran % (Auto) Neut % (Auto) Lymph % (Auto) [place] % (Auto) Eos % (Auto) Baso % (Auto) Lymph # (Auto) [place] # (Auto) Eos # (Auto) Baso # (Auto) Abs Immat Gran (auto) Absolute Neuts (auto) Absolute Nucleated RBC Nucleated RBC % PT INR APTT Sodium Potassium Chloride Carbon Dioxide BUN Creat
[2020-01-29 16:50] LABS: Hematocrit 26.1 % (42.0-52.0); Hemoglobin 8.7 g/dL (14.0-18.0)
[2020-01-29 17:02] LABS: INR 1.9; Prothrombin Time 21.7 Seconds (11.1-14.7)
[2020-01-29 17:09] LABS: Fibrinogen 157 mg/dl (215-510)
[2020-01-29 17:16] LABS: D Dimer 0.24 ug/mL (<0.48)
[2020-01-29] MEDS: PHYTONADIONE ADULT INJ 10 MG in DEXTROSE 5% IN WATER 50 ML 100 MG IVPB (17:39)
--- NOTE | 2020-01-29 17:43 | P.OPB_ITS ---
Procedure Note - Brief Procedure Note - Brief Date of procedure: 01/29/20 Pre-op diagnosis: Hematemesis. Hematemesis, upper GI bleeding, alcoholic cirrhosis. Procedure performed: EGD. Description of procedure: Informed consent for the procedure is obtained from the patient. Risks benefits alternatives indications are discussed agree 2. Risks include but are not limited to adverse reaction to medications. The risk of bleeding. The risk of perforation. The risk of missed pathology. Based patient voiced clear understanding agreed to proceed. Sedation per anesthesia Fujinon video endoscope is passed to the esophagus. Significant ulcerations at the GE junction are noted but not actively bleeding. Stomach his hands entirety including U-turn reveals large gastric varices. Stigmata of bleeding is noted o n 1 particularly large gastric varix. Visible vessel is present but no bleeding at the time the procedure. The remainder of the stomach unremarkable aside from some residual blood. Duodenum reveals normal bulb sweep 2nd portion. Anesthesia: MAC Surgeon: Ankit Nguyen MD Estimated blood loss (mL): 0 Pathology: none sent Complications: No immediate complications Condition: critical Findings: 1. Distal esophageal ulcerations. Not actively bleeding at this time. Follow-up EGD at some point is advised. Proton pump inhibitor therapy will be implemented. Two. Gastric varices. These are quite large. Stigmata of recent bleeding is identified. These do not respond to banding nor injection therapy by endoscopy. At this point would consider transfer to tertiary care center [facility]. He may benefit from TI PS procedure for decompression. CT scan to evaluate to exclude splenic vein thrombus is advised. Octreotide drip will be started. Continue monitor hemoglobin transfuse as necessary.
[2020-01-29] MEDS: SODIUM CHLORIDE 0.9% IV 250 ML 30 ML IV CONT (18:00)
[2020-01-29] MEDS: THIAMINE HCL 200 MG/2 ML VIAL 100 MG IV PUSH (18:19)
--- NOTE | 2020-01-29 18:41 | PC.NURSE ---
This patient, Urban Orosco, was received from [facility] on 01/29/20 at 1610. Personal belongings list checked and signed. Patient/family oriented to unit policies and routines
--- NOTE | 2020-01-29 20:10 | ECG_ITS ---
Measurements Intervals [place] Rate: 92 P: 48 AK: 147 QRS: 6 QRSD: 100 T: 29 QT: 387 QTc: 480 Interpretive Statements SINUS RHYTHM DELAYED PRECORDIAL R/S TRANSITION BORDERLINE T WAVE ABNORMALITY- INFERIOR LEADS BORDERLINE ECG Electronically Signed On 01-30-2020 7:14:29 CDT by Alan Kemp D.O.
[2020-01-29] MEDS: LORAZEPAM INJ 2 MG/ML VIAL 1 MG IV PUSH (21:32)
--- NOTE | 2020-01-29 22:03 | OP_ITS ---
DATE OF PROCEDURE: 01/29/2020 PROCEDURE: Esophagogastroduodenoscopy. PREOPERATIVE DIAGNOSES: 1. Hematemesis. 2. Upper GI bleeding. 3. Alcoholic cirrhosis. POSTOPERATIVE DIAGNOSES: 1. Distal esophageal ulcerations. 2. Gastric varices. DESCRIPTION OF PROCEDURE: Informed consent for the procedure is obtained from the patient. The risks, benefits, alternatives, and indications are discussed thoroughly with the patient prior to starting the procedure. The risks include, but are not limited to, adverse reaction to medications including allergies, the risk of bleeding and possible need for transfusion, the risk for missed pathology. The patient voiced clear understanding, agreed to proceed. The patient is given anesthesia after intubation by the Anesthesia Service. Following findings, the [facility]ros video endoscope was passed through the esophagus, NG tube in place is removed. At the GE junction, several significant ulcerations are identified, but no active bleeding is noted in this area. Stomach is seen in its entirety including U-turn reveals several large gastric varices, 1 particularly large gastric varix in the gastric cardia have stigmata of recent bleeding. In fact, a visible vessel is present, not active bleeding at the time of the procedure. The remainder of the stomach reveals modest amount of blood. This does not obscure visualization of most of the gastric mucosa. No other lesions. No ulcers are identified. The duodenum reveals normal bulb at the sweep to 2nd portion. IMPRESSION: 1. Gastric varices appear to be etiology for recent bleeding, large varices were identified. These are not injected nor banded because of epigastric nature of these varices. Plan is to obtain a CT scan of the abdomen to exclude splenic vein thrombus. Consider referral to [facility] for possible TIPS decompression shunt. 2. Distal esophageal ulcerations. These are significant, not felt to be the source of recent bleeding. No biopsies were taken at this time because of recent massive blood loss. Plan is for followup EGD at some point to further evaluate. At this time, the patient will be treated with both octreotide drip and intravenous proton pump inhibitor. Continue to monitor hemoglobin. Transfuse as necessary. Consider plasma as needed if the ProTime becomes prolonged. Further recommendations, he will be monitored in the ICU. D I MT: Mathew
[2020-01-29 22:58] LABS: Hematocrit 31.3 % (42.0-52.0); Hemoglobin 10.4 g/dL (14.0-18.0)
--- NOTE | 2020-01-29 23:44 | PM.TDS ---
Transfer Discharge Sum: Prov Provider Date of admission: 01/29/20 11:30 Primary care physician: Eugenia Avalos MD Admitting clinician: Justin Muller MD Consults: 01/29/20 Consult to Physician Routine Consulting Provider: Ankit Nguyen Reason for consultation: GI bleed Consult to Physician Routine Consulting Provider: Dennise Ansari control room agent/MD group to consult: Coty Reason for consultation: Upper GI bleed DS: Diagnosis Admitting Diagnosis Admitting Diagnosis: Gastrointestinal hemorrhage, unspecified Transfer Discharge Sum: Med Medications Active and Home Medications: Home Medications melatonin 5 mg PO HS PRN 01/29/20 [History Confirmed 01/29/20] Active Medications Sodium Chloride (Normal Saline Iv) 1,000 mls @ 999 mls/hr IV CONT .Q1H1M [facility] Last Admin: 01/29/20 17:58 Dose: Not Given Documented by: Sodium Chloride (Normal Saline Iv) 250 mls @ 30 mls/hr IV CONT .Q8H20M STA Stop: 01/30/20 00:01 Last Admin: 01/29/20 18:00 Dose: 30 mls/hr Documented by: Ceftriaxone Sodium/Dextrose (Rocephin 1 Gm/D5w 50 Ml) 1 gm in 50 mls @ 100 mls/hr IVPB Q24H [facility] Last Infusion: 01/29/20 19:41 Dose: Infused Documented by: Octreotide Acetate 0.5 mg/ (Dextrose) 100 mls @ 10 mls/hr IV CONT .Q10H STA Stop: 01/30/20 01:46 Last Admin: 01/29/20 16:52 Dose: 0.05 mg/hr, 10 mls/hr Documented by: Lorazepam (Ativan Inj) 1 mg IV PUSH Q6H PRN PRN Reason: Anxiety Last Admin: 01/29/20 21:32 Dose: 1 mg Documented by: Ondansetron HCl (Zofran Inj) 4 mg IV PUSH Q4H PRN PRN Reason: Nausea Last Admin: 01/29/20 16:43 Dose: 4 mg Documented by: Pantoprazole Sodium (Protonix Iv) 40 mg IV PUSH Q12HR [facility] Last Admin: 01/29/20 23:00 Dose: 40 mg Documented by: Thiamine HCl (Thiamine Hcl Inj) 100 mg IV PUSH QAM [facility] Transfer Discharge Sum: Hosp Hospital Course Hospital course: Urban Orosco is a 49-year-old male with alcoholic cirrhosis of the liver who was admitted to the hospital after having an episode of hematemesis not long prior to arrival. Hemoglobin and hematocrit on arrival to the emergency department were 10.7 and 32.1% respectively. His metabolic panel was essentially unremarkable. He was slightly jaundiced with a total bilirubin of 3.3 and his AST was mildly elevated at 72. Not long after being admitted to the floor, he vomited approximately 1 liter of dark red blood admixed with clots, became diaphoretic, and hypotensive. NG tube was placed and he was lavaged, but unfortunately he continued to have large amounts of bloody output through the NG. He was transferred to the intensive care unit and was started on Protonix IV b.i.d. as well as an octreotide drip. Endoscopy done in the ICU per Dr. Nguyen revealed gastric varices, with one showing evidence of recent bleed, as well as severe ulcerations along GE junction. It was decided that he would need a higher level of care for definitive treatment of these gastric varices, and he was transferred to the medical ICU at [facility] (accepting physician Dr. Washington). Throughout the course of his stay, the patient received 2 units of packed red blood cells with improvement in his hypotension. His hemoglobin and hematocrit post transfusion were 10.4 and 31.3% respectively. The patient was reexamined at the time of transfer, and he reports feeling much better. He was then transferred to [facility] via [facility] ambulance in stable but guarded condition. Time Spent with Patient Time attestation: Total time spent providing and/or coordinating transfer services: 45 minutes. Exam Narrative: Exam Narrative: General: On discharge, the patient appeared much better than he did on admission. He was resting comfortably in bed in no distress. HEENT: Pupils reactive. Extraocular motions intact. Mild scleral icterus. NG tube in the right naris with minimal amounts of old, dark blood. No significant output in canister. Oral mucosa
--- NOTE | 2020-03-28 10:37 | WPDINTPN ---
Subjective Date/time seen: 03/28/20 10:37 Interval history: CONSULT WAS PLACED ON 01/29/2020, NOT ABLE TO SEE THE PATIENT BEFORE HE WAS TRANSFERRED TO THE OUTSIDE HOSPITAL Objective Data Meds/Results Radiology Results: ITS Impressions Abdomen X-Ray 01/29/20 19:33 IMPRESSION: 1: NG tube tip in the stomach. Quality VTE Prophylaxis VTE prophylaxis: mechanical ordered
== END 2020-01-29 23:51 | disposition short-term general hospital (02) ==
LOC: ANHED 11:40 → ANH2MED 12:46 → ANHICU 16:18
PROVIDERS: Internal Medicine Gastroenterology; Physician Assistant; Admitting Provider Internal Medicine; Emergency Provider Emergency Medicine; PCP Family Medicine; Visit Provider Internal Medicine
PROC: 0DJ08ZZ Inspection of Upper Intestinal Tract, Via Natural or Artificial Opening Endoscopic (ICD-10-PCS; CPT 43235; principal; 2020-01-29 16:45)
DX: K92.0 Hematemesis (principal); D62 Acute posthemorrhagic anemia; K22.10 Ulcer of esophagus without bleeding; I86.4 Gastric varices; K70.30 Alcoholic cirrhosis of liver without ascites; F10.20 Alcohol dependence, uncomplicated; Z87.891 Personal history of nicotine dependence
CPT/HCPCS: 43235; 36415; 36430; 80053; 80307; 83735; 85014; 85018; 85025; 85380; 85384; 85610; 85730; 86850; 86900; 86901; 86923; 93005; 96361; 96365; 96374; 96375; 96376; 99285; C9113; G0378; J0696; J2060; J2354; J2370; J2405; J2704; J3411; J3430; J7030; J7050; P9016

== ENCOUNTER 2025-07-04 16:07 | Inpatient (IN) | payer OTHER, SELFPAY ==
[2025-07-04] VITALS (7 sets, daily range): BP systolic 104–145; BP diastolic 55–76; PULSE 83–115; RESP 21–38; TEMP 37.1–37.3; O2SAT 89–99; BMI 25.9
--- NOTE | ~2025-07-04 | CT_ITS ---
EXAMINATION: CT brain wo joel, 07/04/2025 17:20 CDT HISTORY: AMS COMPARISON: No comparisons available. Technique: Axial images obtained of the brain without contrast. One or more of the following dose reduction techniques were used: automated exposure control, adjustment of the mA and/or kV according to patient size, use of iterative reconstruction technique. Findings: No acute infarct or parenchymal hemorrhage. No abnormal mass or mass effect. No midline shift. No extra-axial fluid collections. No hydrocephalus. Mastoid air cells unremarkable. Sinuses and orbits unremarkable. No acute fracture. No significant facial or scalp soft tissue swelling evident. No radiopaque foreign body is seen. Impression: 1.No acute intracranial abnormality. Reviewed, dictated and finalized at location P. Impression: 1.No acute intracranial abnormality.
--- NOTE | ~2025-07-04 | US_ITS ---
EXAMINATION: US venous doppler UE RT, 07/05/2025 16:10 CDT HISTORY: Edema right hand Comparison: None Technique: Multiple de la torre scale and color Doppler sonographic images were obtained of the internal jugular, subclavian, axillary, brachial, basilar, radial and ulnar veins. Findings: Venous System:Normal flow, augmentation and compressibility. No echogenic thrombus identified. Soft tissues: Soft tissues are unremarkable. Impression: Negative for DVT. Reviewed, dictated and finalized at location P. Impression: Negative for DVT.
--- NOTE | ~2025-07-04 | CT_ITS ---
EXAMINATION: CT chest abdomen pelvis w con, 07/04/2025 18:15 CDT HISTORY: sepsis, ams COMPARISON: No comparisons available. TECHNIQUE: CT scan of the chest, abdomen and pelvis was performed with contrast Isovue 300, 92cc injected IV. One or more of the following dose reduction techniques were used: automated exposure control, adjustment of the mA and/or kV according to patient size, use of iterative reconstruction technique. Unless otherwise stated, incidental findings do not require dedicated follow up imaging FINDINGS: CT chest: No significant coronary calcification is present ([id number]) LUNGS: No tracheomalacia. No bronchiectasis. Minimal emphysematous changes. Minimal pulmonary fibrotic changes. Apical scarring bilaterally. Small simple appearing left pleural effusion. Trace simple appearing appearing right pleural effusion. HEART AND PERICARDIUM: Within normal limits. AORTA: Normal caliber aorta. MEDIASTINUM: Calcified mediastinal and hilar lymph nodes. THYROID: The thyroid is unremarkable. CT abdomen: LIVER: The liver contours are nodular with innumerable solid-appearing liver lesions the largest right lobe liver 7 x 8 cm incompletely evaluated. The main portal vein is patent. No intrahepatic biliary duct dilatation. SPLEEN: The spleen appears enlarged.. KIDNEYS: Right Kidney: Unremarkable. No calculi. No hydronephrosis. Left Kidney: There is a device noted within the left renal vein, correlate with clinical history is required. ADRENAL GLANDS: Unremarkable. PANCREAS: Moderate pancreatic atrophy. GALLBLADDER/BILIARY: Cholelithiasis. STOMACH AND ESOPHAGUS: Mild thickening of the esophagus may represent mild esophagitis. The stomach appears decompressed. BOWEL/MESENTERY: Moderate fecal content. No colitis or diverticulitis. Ill- defined stranding throughout the mesentery. Appendix normal. No dilated small bowel loops. RETROPERITONEUM: Unremarkable AORTA/VASCULATURE: Normal caliber aorta. FREE FLUID OR FREE AIR: Moderate free fluid.. CT pelvis: SOLID ORGANS/REPRODUCTIVE: Prostate is enlarged, correlate with PSA BLADDER: Circumferential thickening of the bladder with mucosal hyperemia. LYMPHADENOPATHY: There are no enlarged lymph nodes in the gastrohepatic ligament and peripancreatic space the largest 1.6 x 1.5 cm. OSSEOUS STRUCTURES: No sclerotic or lytic lesions. Adjacent to the left iliac bone there is a cystic focus measuring 2.5 x 2 cm adjacent to the inferior pubic ramus posteriorly possibly a ganglion cyst, other etiologies not excluded, follow-up recommended. OVERLYING SOFT TISSUES: There are multiple collateral vessels within the soft tissues. There is a large supraumbilical ventral hernia containing fat, defect in the abdominal wall 1 cm. IMPRESSION: 1. Chronic changes in the lungs with small pleural effusions. 2. 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 Contrast-enhanced MRI recommended. 3. Incidental findings above Reviewed, dictated and finalized at location P. IMPRESSION: 1. Chronic changes in the lungs with small pleural effusions. 2. Parotid disease of the liver with multiple liver lesions incompletely evalua porfirio. Contrast-enhanced MRI recommended. 3. Incidental findings above
--- NOTE | ~2025-07-04 | XR_ITS ---
EXAMINATION: XR chest 1V portable COMPARISON: No comparisons available. HISTORY: AMS FINDINGS: Scattered bilateral small interstitial airspace opacities. No pneumothorax. Heart is normal size. Mediastinal and hilar contours are within normal limits. Bony thorax no acute abnormality. Miscellaneous: None Impression: Probable viral pneumonitis Reviewed, dictated and finalized at location P. Impression: Probable viral pneumonitis
--- NOTE | ~2025-07-04 | XR_ITS ---
EXAMINATION: XR hand RT 2V, 07/04/2025 22:35 CDT HISTORY: swollenred hand COMPARISON: No comparisons available. Findings: No acute fracture or malalignment. No significant degenerative changes. Soft tissues unremarkable. Impression: No acute fracture or malalignment. Reviewed, dictated and finalized at location P. Impression: No acute fracture or malalignment.
--- NOTE | ~2025-07-04 | US_ITS ---
EXAMINATION: US renal BI DATE: 07/05/2025 17:22 INDICATION: Unknown renal vein device TECHNIQUE: Multiple ultrasound grayscale images of the kidneys were obtained. COMPARISON: CT dated FINDINGS: The right kidney measures 14.7 x 7.2 x 7.4 cm. The left kidney measures 12.4 x 6.5 x 5.8 cm. The kidneys demonstrate normal echogenicity. There is no hydronephrosis in either kidney. No stones identified. The bladder is decompressed with a Clements catheter reportedly in place which limits evaluation. Small amount of ascites. IMPRESSION: 1. Normal kidneys without hydronephrosis. 2. Small amount of ascites likely related to cirrhosis. 3. Review of prior CT images demonstrate a device situated between the cephalad margin of the left renal vein and the left adrenal gland which is not visualized on the provided images. Given the findings of cirrhosis with portal venous hypertension. This could represent occlusion/embolization device for treatment of splenorenal collaterals. Correlate with clinical history. Reviewed, dictated and finalized at location A. IMPRESSION: 1. Normal kidneys without hydronephrosis. 2. Small amount of ascites likely related to cirrhosis. 3. Review of prior CT images demonstrate a device situated between the cephalad margin of the left renal vein and the left adrenal gland which is not visualiz ed on the provided images. Given the findings of cirrhosis with portal venous h ypertension. This could represent occlusion/embolization device for treatment o f splenorenal collaterals. Correlate with clinical history.
--- NOTE | ~2025-07-04 | XR_ITS ---
EXAMINATION: XR abdomen gastric tube insert DATE: 07/13/2025 14:35 INDICATION: Nasogastric tube placement TECHNIQUE: A supine view of the abdomen and lower chest was obtained for evaluation of feeding tube placement. COMPARISON: 07/13/2025 FINDINGS: Again seen is a nasogastric tube with distal tip in proximal side port in the body the stomach. There is a device projecting slightly to the left of the L1 vertebral body appears to correspond to a venous occlusion device positioned along the cephalad margin of the left renal vein on prior CT which may be for treatment of portal venous hypertension related renal collaterals. Ovoid collection of multiple small gallstones projecting to the right side of the L1 vertebral body. There are surgical clips in right lower quadrant suggesting prior appendectomy. No dilated loops of gas-filled bowel to suggest obstruction. Mild opacities in the left lung base which are small left pleural effusion, atelectasis or pneumonia. IMPRESSION: 1. Nasogastric tube in stomach. 2. Mild opacities at the left lung base which could represent small left pleural effusion, atelectasis, pneumonia or some combination thereof. 3. Cholelithiasis. Reviewed, dictated and finalized at location A. IMPRESSION: 1. Nasogastric tube in stomach. 2. Mild opacities at the left lung base which could represent small left pleura l effusion, atelectasis, pneumonia or some combination thereof. 3. Cholelithiasis.
--- NOTE | ~2025-07-04 | US_ITS ---
EXAMINATION: US abdomen limited DATE: 07/05/2025 17:22 INDICATION: Liver mass TECHNIQUE: Multiple grayscale and Doppler ultrasound images of the abdomen were obtained. COMPARISON: CT dated 07/04/2025 FINDINGS: The pancreatic head and body are normal in appearance. The pancreatic tail is not visualized. Nodular cirrhotic liver with heterogeneous echogenicity characterized by masslike hyperechoic regions by intervening hypoechoic likely fibrous septations. The regions of increased echogenicity demonstrate corresponding decreased attenuation on prior CT suggesting regenerative nodules with hepatic steatosis. No intrahepatic biliary duct dilation suspected. Turbulent bidirectional flow is seen within the main portal vein. There is a large recanalized umbilical vein with anterior abdominal wall collaterals. Both findings are consistent with secondary portal venous hypertension. Small amount of perihepatic ascites. There is hypoechoic sludge layering over multiple echogenic and shadowing gallstones in the dependent aspect of the gallbladder. No gallbladder dilation or abnormal wall thickening to suggest acute cholecystitis. The common bile duct measures 5-6 mm diameter which is normal. Sonographic Bojorquez sign was reported as negative by the lineman a class. Right kidney demonstrates normal contour with no hydronephrosis. IMPRESSION: 1. Constellation of findings most consistent with a nodular cirrhotic liver with multiple nodular regions of increased echogenicity with corresponding decreased attenuation on CT suggesting dysplastic/regenerative nodules with hepatic steatosis and intervening hypoechoic fibrous septations. Differential for any given nodule would include hepatocellular carcinoma or metastatic disease if there is known history of prior malignancy. Could consider multiphase pre and postcontrast MRI for further evaluation as clinically indicated. 2. Bidirectional flow in the main portal vein and large recanalized umbilical vein with abdominal wall collaterals consistent with secondary portal venous hypertension. 3. Small amount perihepatic ascites. 4. Cholelithiasis. Reviewed, dictated and finalized at location A. IMPRESSION: 1. Constellation of findings most consistent with a nodular cirrhotic liver wit h multiple nodular regions of increased echogenicity with corresponding decreas ed attenuation on CT suggesting dysplastic/regenerative nodules with hepatic st eatosis and intervening hypoechoic fibrous septations. Differential for any giv en nodule would include hepatocellular carcinoma or metastatic disease if there is known history of prior malignancy. Could consider multiphase pre and postco ntrast MRI for further evaluation as clinically indicated. 2. Bidirectional flow in the main portal vein and large recanalized umbilical v ein with abdominal wall collaterals consistent with secondary portal venous hyp ertension. 3. Small amount perihepatic ascites. 4. Cholelithiasis.
--- NOTE | ~2025-07-04 | XR_ITS ---
EXAMINATION: XR abdomen gastric tube insert, 07/13/2025 11:25 CDT HISTORY: NG tube placement COMPARISON: No comparisons available. Technique: 3 view. Findings: Bowel gas pattern unremarkable. No obstruction. No free air. No abnormal calcifications No acute osseous abnormality. The nasogastric tube terminates overlying the GE junction and should be advanced approximately 5 cm. Impression: 1. No acute abnormality. Reviewed, dictated and finalized at location P. Impression: 1. No acute abnormality.
--- NOTE | 2025-07-04 16:16 | ECG_ITS ---
Test Date: 2025-07-04 16:29:03 Measurements Intervals [place] Rate: 85 P: 35 TX: 202 QRS: -3 QRSD: 100 T: 28 QT: 318 QTc: 379 Interpretive Statements SINUS RHYTHM POSSIBLE LEFT ATRIAL ENLARGEMENT BORDERLINE AV CONDUCTION DELAY INCOMPLETE RIGHT BUNDLE BRANCH BLOCK NONSPECIFIC ST-T WAVE ABNORMALITY- ANT/HIGH LAT LEADS BASELINE ARTIFACT- I, II, III, AVR, AVL, AVF BORDERLINE ECG No previous ECG available for comparison Electronically Signed On 07-04-2025 19:28:23 CDT by Alan Kemp D.O.
--- NOTE | 2025-07-04 16:26 | ED_ITS ---
HPI - Altered Mental Status General Chief Complaint: Altered Mental Status <Hermann Mehta MD - Last Filed: 07/04/25 20:27> Stated Complaint: found on floor, pain all over, trouble speaking, j <Hermann Mehta MD - Last Filed: 07/04/25 20:27> Time Seen by Provider: 07/04/25 16:09 <Hermann Mehta MD - Last Filed: 07/04/25 20:27> History of Present Illness HPI narrative: Patient is a 55-year-old male who presents ER with reports of pain all over and altered mental status. He was found on the floor of his bedroom by his . He apparently has not been seen since sometime yesterday. Patient is oriented to self and place but cannot provide history of what has occurred or why he may have been on the floor or why he hurts. He does have very dry mucous membranes. His eyes are yellow. The patient's was unable to provide any additional information to the paramedics. <Hermann Mehta MD - Last Filed: 07/04/25 20:27> Related Data Allergies/Adverse Reactions: Allergies Allergy/AdvReac Type Severity Reaction Status Date / Time No Known Allergies Allergy Unknown Verified 11/21/20 15:50 <Hermann Mehta MD - Last Filed: 07/04/25 20:27> Review of Systems 2 Review of Systems: ROS unobtainable: Yes unobtainable due to mental status <Hermann Mehta MD - Last Filed: 07/04/25 20:27> [facility] Past Medical History Medical History: Medical History (Updated 07/04/25 @ 20:26 by Hermann Mehta MD) History of depression Admitted for suicidal ideation in January 2013. Alcoholic cirrhosis of liver Heart murmur, systolic Echocardiogram from 01/09/2020 done at [facility] showed ejection fraction of 65 to 70%, mild concentric hypertrophy, no regional wall motion abnormalities, moderate pulmonary hypertension with RVSP of 52 millimeters of mercury, and mild aortic stenosis. Alcoholism <Hermann Mehta MD - Last Filed: 07/04/25 20:27> Surgical History Surgical History: Surgical History History of colon resection Related to ruptured appendicitis. History of appendectomy <Hermann Mehta MD - Last Filed: 07/04/25 20:27> Family History Family History: Family History Grandparent Diabetes mellitus Legally blind Pneumonia Mother Migraines Sibling Migraines Sibling Pre-diabetes Grandparent Diabetes mellitus Grandparent Diabetes mellitus Father Family history of alcoholism Sibling Family history of alcoholism <Hermann Mehta MD - Last Filed: 07/04/25 20:27> Social History Social History: Social History Social History: The patient is and shares a home in [place] with his and 2 dogs, a Yorkie and a min-pin. 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 He also helps care for his , who has early-onset dementia. He smoked between 2 and 3 packs of cigarettes a day for 30 years and he reportedly quit in October 2016. He has a history of alcoholism, but he is not forthcoming with his alcohol consumption and fact told me he quit drinking 3 years ago when he was hospitalized at this facility 3 weeks ago with alcohol withdrawal. He denies drug use. Designates his , Ken Orosco, as his surrogate decision maker and he wishes to be a full code. 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 HEAD: Normocephalic, atraumatic. EYES: PERRL, EOMI, scleral icterus. ENT: Dry mucous membrane CHEST: Clear to auscultation. No respiratory distress. HEART: Regular rate and rhythm. Normal peripheral pulses. ABDOMEN: Soft, nontender, nondistended. Caput medusa present. EXTREMITIES: Normal range of motion. No edema. SKIN: Warm, dry, psoriasis skin changes to arms/legs. NEURO: Alert and oriented x2. <Hermann Mehta MD - Last Filed: 07/04/25 20:27> Course Course Emergency Course: 1939: Patient hyperosmolar hyperglycemic state. He is altered. would like patient treated but should patient code he is a DNR/DNI. I have discussed the case with Dr. Singh with ICU. He recommend the patient be transferred to [place] for further evaluation given significant liver disease on top of the [facility]. He does recommend insulin drip from the antrum showed patient need to be placed in ICU here awaiting a bed at an outside hospital he would be happy to assist. Patient started on Cefepime and Vancomycin. 2017: Patient is on a waitlist at [place] because there are no beds at this time. Discussed with Yadira MCMAHAN, accepts admission while the patient waits for a bed in [place] MICU. 3L fluid given. <Hermann Mehta MD - Last Filed: 07/04/25 20:27> 1940: Patient hyperosmolar hyperglycemic state. He is altered. would like patient treated but should patient code he is a DNR/DNI. I have discussed the case with Dr. Singh with ICU. He recommend the patient be transferred to [place] for further evaluation given significant liver disease on top of the [facility]. He does recommend insulin drip from the antrum showed patient need to be placed in ICU here awaiting a bed at an outside hospital he would be happy to assist. Patient started on Cefepime and Vancomycin. 2017: Patient is on a waitlist at [place] because there are no beds at this time. Discussed with Yadira MCMAHAN, accepts admission while the patient waits for a bed in [place] MICU. 3L fluid given. JOSIAH: Patient remained boarded in the ED. At the time of transportation upstairs to ICU bed, RN does note he is in pain. Morhpine ordered. <Joellen Cabrera MD - Last Filed: 07/04/25 21:55> Vital Signs Vital signs: Vital Signs Pulse Rate 83 07/04/25 16:17 Respiratory Rate 30 H 07/04/25 16:17 Blood Pressure 145/76 H 07/04/25 16:17 Pulse Oximetry 98 07/04/25 16:17 Oxygen Delivery Room Air 07/04/25 16:17 Temperature 99.1 F 07/04/25 21:27 Pulse Rate 94 07/04/25 21:07 Respiratory Rate 38 H 07/04/25 21:07 Blood Pressure 118/63 07/04/25 21:07 Pulse Oximetry 93 07/04/25 21:07 Oxygen Delivery Room Air 07/04/25 16:17 <Hermann Mehta MD - Last Filed: 07/04/25 20:27> Vital Signs Pulse Rate 83 07/04/25 16:17 Respiratory Rate 30 H 07/04/25 16:17 Blood Pressure 145/76 H 07/04/25 16:17 Pulse Oximetry 98 07/04/25 16:17 Oxygen Delivery Room Air 07/04/25 16:17 Temperature 99.1 F 07/04/25 21:27 Pulse Rate 94 07/04/25 21:07 Respiratory Rate 38 H 07/04/25 21:07 Blood Pressure 118/63 07/04/25 21:07 Pulse Oximetry 93 07/04/25 21:07 Oxygen Delivery Room Air 07/04/25 16:17 <Joellen Cabrera MD - Last Filed: 07/04/25 21:55> MDM - Altered Mental Status Lab Data Result diagrams: 07/04/25 16:33 07/04/25 17:25 <Hermann Mehta MD - Last Filed: 07/04/25 20:27> Labs: Lab Results 07/04/25 07/04/25 07/04/25 Range/Units 16:33 16:34 17:25 WBC 15.7 H (4.5-10.0) K/mm3 RBC 4.24 L (4.6-6.20) M/mm3 Hgb 15.2 D (14.0-18.0) g/dL Hct 41.7 L (42.0-52.0) % MCV 98.3 (80-100) fl MCH 35.8 H (26-34) pg MCHC 36.5 H (32-36) g/dl RDW 13.5 (11.5-14.5) % Plt Count 81 L D (150-375) k/mm3 MPV 11.9 H (7.4-10.4) fl Immature Gran % (Auto) 2.9 H (0-0.5) % Neut % (Auto) 88.0 H (45.5-73.1) % Lymph % (Auto) 2.8 L (18.3-44.2) % Dickinson % (Auto) 5.4 (2.6-8.5) % Eos % (Auto) 0.8 (0-4.4) % Baso % (Auto) 0.1 L (0.2-1.2) % Lymph # (Auto) 0.44 L (0.9-3.2) K/mm3 Dickinson # (Auto) 0.9 H (0.1-0.6) K/mm3 Eos # (Auto) 0.1 (0-0.3) K/mm3 Baso # (Auto) 0.0 (0.0-0.1) K/mm3 Abs Immat Gran (auto) 0.45 H (0.00-0.031) K/mm3 Absolute Neuts (auto) 13.8 H (1.3-6.7) K/mm3 Absolute Nucleated RBC 0.000 (0.0-0.012) K/mm3 Band Neutrophils % Not Reportable Nucleated RBC % 0.0 (0.0-0.2) % Platelet Estimate Decreased (Adequate) Clumped Platelets Present % Immature Plt Fraction 7.5 (0.9-11.2) % Schistocytes None seen PT 22.3 H (11.1-14.7) Seconds INR 2.0 APTT 32.8 (22.3-36.8) Seconds Sodium 120 L (137-145) mmol/L Potassium 3.9 (3.4-5.0) mmol/L Chloride 90 L (98-107) mmol/L Carbon Dioxide 19 L (22-30) mmol/L Anion Gap 11 (4-12) mmol/L BUN 86 H D (9-20) mg/dL Creatinine 1.51 H (0.7-1.3) mg/dL Estim Creat Clear Calc 53 ml/min Estimated GFR 48 L (59 - ) Glucose 624 H* (65-110) mg/dL POC Capillary Glucose (65-105) mg/dl Lactic Acid 5.3 H* (0.7-2.0) mmol/L Calcium 7.4 L (8.4-10.2) mg/dL Total Bilirubin 11.8 H (0.2-1.3) mg/dL AST 85 H (17-59) U/L ALT 61 H (6-50) U/L Alkaline Phosphatase 250 H (38-126) U/L Ammonia 31 H (9-30) umol/L Total Creatine Kinase Cancelled 254 H Troponin I 0.035 H* (0.000-0.034) ng/mL NT-Pro-B Natriuret Pep 1030 H (19.9-100) pg/mL Total Protein 6.5 (6.3-8.2) g/dL Albumin 2.4 L (3.5-5.1) g/dL TSH Cancelled 1.050 Urine Color (Yellow) Urine Appearance (Clear) Urine pH (5.0-9.0) Ur Specific Hubbard (1.001-1.035) Urine Protein (Negative) mg/dL Urine Glucose (UA) (Negative) mg/dL Urine Ketones (Negative) mg/dL Ur Blood (Man) (Negative) Urine Nitrate (Negative) Urine Bilirubin (Negative) Urine Urobilinogen (<2.0) mg/dL Add Ur Microanalysis Leukocyte Esterase Rfl (Negative) RINA/UL Urine RBC (0-2) /hpf Urine WBC (0-3) /hpf Ur Squamous Epith Cells (Few) /hpf Urine Bacteria /hpf Urine Casts Salicylates 1.4 L (2-20) mg/dL Urine Opiates Screen (Negative) Urine Methadone Screen (Negative) Acetaminophen < 10 L (10-30) ug/mL Ur Barbiturates Screen (Negative) Ur Phencyclidine Scrn (Negative) Ur Amphetamine Screen (Negative) U Benzodiazepines Scrn (Negative) Urine Cocaine Screen (Negative) U Cannabinoids Screen (Negative) Ethyl Alcohol < 10 (<10) mg/dL Hepatitis A IgM Ab (Negative) Hep Bs Antigen (Negative) Hep B Core IgM Ab (Negative) Hepatitis C Ab Screen (Negative) Influenza A (RT-PCR) Negative (Negative) Influenza B (RT-PCR) Negative (Negative) RSV (RT-PCR) Negative (Negative) SARS-CoV-2 RNA (RT-PCR) Negative (Negative) 10/05/25 10/05/25 10/05/25 Range/Units 19:02 19:36 20:20 WBC (4.5-10.0) K/mm3 RBC (4.6-6.20) M/mm3 Hgb (14.0-18.0) g/dL Hct (42.0-52.0) % MCV (80-100) fl MCH (26-34) pg MCHC (32-36) g/dl RDW (11.5-14.5) % Plt Count (150-375) k/mm3 MPV (7.4-10.4) fl Immature Gran % (Auto) (0-0.5) % Neut % (Auto) (45.5-73.1) % Lymph % (Auto) (18.3-44.2) % Dickinson % (Auto) (2.6-8.5) % Eos % (Auto) (0-4.4) % Baso % (Auto) (0.2-1.2) % Lymph # (Auto) (0.9-3.2) K/mm3 Dickinson # (Auto) (0.1-0.6) K/mm3 Eos # (Auto) (0-0.3) K/mm3 Baso # (Auto) (0.0-0.1) K/mm3 Abs Immat Gran (auto) (0.00-0.031) K/mm3 Absolute Neuts (auto) (1.3-6.7) K/mm3 Absolute Nucleated RBC (0.0-0.012) K/mm3 Band Neutrophils % Nucleated RBC % (0.0-0.2) % Platelet Estimate (Adequate) Clumped Platelets % Immature Plt Fraction (0.9-11.2) % Schistocytes PT (11.1-14.7) Seconds INR APTT (22.3-36.8) Seconds Sodium (137-145) mmol/L Potassium (3.4-5.0) mmol/L Chloride (98-107) mmol/L Carbon Dioxide (22-30) mmol/L Anion Gap (4-12) mmol/L BUN (9-20) mg/dL Creatinine (0.7-1.3) mg/dL Estim Creat Clear Calc ml/min Estimated GFR (59 - ) Glucose (65-110) mg/dL POC Capillary Glucose > 500 H* > 500 H* (65-105) mg/dl Lactic Acid (0.7-2.0) mmol/L Calcium (8.4-10.2) mg/dL Total Bilirubin (0.2-1.3) mg/dL AST (17-59) U/L ALT (6-50) U/L Alkaline Phosphatase (38-126) U/L Ammonia (9-30) umol/L Total Creatine Kinase Troponin I (0.000-0.034) ng/mL NT-Pro-B Natriuret Pep (19.9-100) pg/mL Total Protein (6.3-8.2) g/dL Albumin (3.5-5.1) g/dL TSH Urine Color Dark yellow (Yellow) Urine Appearance Turbid H (Clear) Urine pH 6.0 (5.0-9.0) Ur Specific Hubbard 1.031 (1.001-1.035) Urine Protein 1+ H (Negative) mg/dL Urine Glucose (UA) 3+ H (Negative) mg/dL Urine Ketones Negative (Negative) mg/dL Ur Blood (Man) 3+ H (Negative) Urine Nitrate Positive H (Negative) Urine Bilirubin 3+ H (Negative) Urine Urobilinogen 2.0 H (<2.0) mg/dL Add Ur Microanalysis Reviewed Leukocyte Esterase Rfl 3+ H (Negative) RINA/UL Urine RBC >100 H (0-2) /hpf Urine WBC >100 H (0-3) /hpf Ur Squamous Epith Cells None seen (Few) /hpf Urine Bacteria 4+ /hpf Urine Casts 11-20 Salicylates (2-20) mg/dL Urine Opiates Screen Negative (Negative) Urine Methadone Screen Negative (Negative) Acetaminophen (10-30) ug/mL Ur Barbiturates Screen Negative (Negative) Ur Phencyclidine Scrn Negative (Negative) Ur Amphetamine Screen Negative (Negative) U Benzodiazepines Scrn Negative (Negative) Urine Cocaine Screen Negative (Negative) U Cannabinoids Screen Negative (Negative) Ethyl Alcohol (<10) mg/dL Hepatitis A IgM Ab (Negative) Hep Bs Antigen (Negative) Hep B Core IgM Ab (Negative) Hepatitis C Ab Screen (Negative) Influenza A (RT-PCR) (Negative) Influenza B (RT-PCR) (Negative) RSV (RT-PCR) (Negative) SARS-CoV-2 RNA (RT-PCR) (Negative) 07/04/25 Range/Units 20:22 WBC (4.5-10.0) K/mm3 RBC (4.6-6.20) M/mm3 Hgb (14.0-18.0) g/dL Hct (42.0-52.0) % MCV (80-100) fl MCH (26-34) pg MCHC (32-36) g/dl RDW (11.5-14.5) % Plt Count (150-375) k/mm3 MPV (7.4-10.4) fl Immature Gran % (Auto) (0-0.5) % Neut % (Auto) (45.5-73.1) % Lymph % (Auto) (18.3-44.2) % Dickinson % (Auto) (2.6-8.5) % Eos % (Auto) (0-4.4) % Baso % (Auto) (0.2-1.2) % Lymph # (Auto) (0.9-3.2) K/mm3 Dickinson # (Auto) (0.1-0.6) K/mm3 Eos # (Auto) (0-0.3) K/mm3 Baso # (Auto) (0.0-0.1) K/mm3 Abs Immat Gran (auto) (0.00-0.031) K/mm3 Absolute Neuts (auto) (1.3-6.7) K/mm3 Absolute Nucleated RBC (0.0-0.012) K/mm3 Band Neutrophils % Nucleated RBC % (0.0-0.2) % Platelet Estimate (Adequate) Clumped Platelets % Immature Plt Fraction (0.9-11.2) % Schistocytes PT (11.1-14.7) Seconds INR APTT (22.3-36.8) Seconds Sodium (137-145) mmol/L Potassium (3.4-5.0) mmol/L Chloride (98-107) mmol/L Carbon Dioxide (22-30) mmol/L Anion Gap (4-12) mmol/L BUN (9-20) mg/dL Creatinine (0.7-1.3) mg/dL Estim Creat Clear Calc ml/min Estimated GFR (59 - ) Glucose (65-110) mg/dL POC Capillary Glucose (65-105) mg/dl Lactic Acid 5.3 H* (0.7-2.0) mmol/L Calcium (8.4-10.2) mg/dL Total Bilirubin (0.2-1.3) mg/dL AST (17-59) U/L ALT (6-50) U/L Alkaline Phosphatase (38-126) U/L Ammonia (9-30) umol/L Total Creatine Kinase Troponin I (0.000-0.034) ng/mL NT-Pro-B Natriuret Pep (19.9-100) pg/mL Total Protein (6.3-8.2) g/dL Albumin (3.5-5.1) g/dL TSH Urine Color (Yellow) Urine Appearance (Clear) Urine pH (5.0-9.0) Ur Specific Hubbard (1.001-1.035) Urine Protein (Negative) mg/dL Urine Glucose (UA) (Negative) mg/dL Urine Ketones (Negative) mg/dL Ur Blood (Man) (Negative) Urine Nitrate (Negative) Urine Bilirubin (Negative) Urine Urobilinogen (<2.0) mg/dL Add Ur Microanalysis Leukocyte Esterase Rfl (Negative) RINA/UL Urine RBC (0-2) /hpf Urine WBC (0-3) /hpf Ur Squamous Epith Cells (Few) /hpf Urine Bacteria /hpf Urine Casts Salicylates (2-20) mg/dL Urine Opiates Screen (Negative) Urine Methadone Screen (Negative) Acetaminophen (10-30) ug/mL Ur Barbiturates Screen (Negative) Ur Phencyclidine Scrn (Negative) Ur Amphetamine Screen (Negative) U Benzodiazepines Scrn (Negative) Urine Cocaine Screen (Negative) U Cannabinoids Screen (Negative) Ethyl Alcohol (<10) mg/dL Hepatitis A IgM Ab Negative (Negative) Hep Bs Antigen Negative (Negative) Hep B Core IgM Ab Negative (Negative) Hepatitis C Ab Screen Negative (Negative) Influenza A (RT-PCR) (Negative) Influenza B (RT-PCR) (Negative) RSV (RT-PCR) (Negative) SARS-CoV-2 RNA (RT-PCR) (Negative) <Hermann Mehta MD - Last Filed: 07/04/25 20:27> Lab Results 1007/04/25 07/04/25 Range/Units 16:33 16:34 17:25 WBC 15.7 H (4.5-10.0) K/mm3 RBC 4.24 L (4.6-6.20) M/mm3 Hgb 15.2 D (14.0-18.0) g/dL Hct 41.7 L (42.0-52.0) % MCV 98.3 (80-100) fl MCH 35.8 H (26-34) pg MCHC 36.5 H (32-36) g/dl RDW 13.5 (11.5-14.5) % Plt Count 81 L D (150-375) k/mm3 MPV 11.9 H (7.4-10.4) fl Immature Gran % (Auto) 2.9 H (0-0.5) % Neut % (Auto) 88.0 H (45.5-73.1) % Lymph % (Auto) 2.8 L (18.3-44.2) % Dickinson % (Auto) 5.4 (2.6-8.5) % Eos % (Auto) 0.8 (0-4.4) % Baso % (Auto) 0.1 L (0.2-1.2) % Lymph # (Auto) 0.44 L (0.9-3.2) K/mm3 Dickinson # (Auto) 0.9 H (0.1-0.6) K/mm3 Eos # (Auto) 0.1 (0-0.3) K/mm3 Baso # (Auto) 0.0 (0.0-0.1) K/mm3 Abs Immat Gran (auto) 0.45 H (0.00-0.031) K/mm3 Absolute Neuts (auto) 13.8 H (1.3-6.7) K/mm3 Absolute Nucleated RBC 0.000 (0.0-0.012) K/mm3 Band Neutrophils % Not Reportable Nucleated RBC % 0.0 (0.0-0.2) % Platelet Estimate Decreased (Adequate) Clumped Platelets Present % Immature Plt Fraction 7.5 (0.9-11.2) % Schistocytes None seen PT 22.3 H (11.1-14.7) Seconds INR 2.0 APTT 32.8 (22.3-36.8) Seconds Sodium 120 L (137-145) mmol/L Potassium 3.9 (3.4-5.0) mmol/L Chloride 90 L (98-107) mmol/L Carbon Dioxide 19 L (22-30) mmol/L Anion Gap 11 (4-12) mmol/L BUN 86 H D (9-20) mg/dL Creatinine 1.51 H (0.7-1.3) mg/dL Estim Creat Clear Calc 53 ml/min Estimated GFR 48 L (59 - ) Glucose 624 H* (65-110) mg/dL POC Capillary Glucose (65-105) mg/dl Lactic Acid 5.3 H* (0.7-2.0) mmol/L Calcium 7.4 L (8.4-10.2) mg/dL Total Bilirubin 11.8 H (0.2-1.3) mg/dL AST 85 H (17-59) U/L ALT 61 H (6-50) U/L Alkaline Phosphatase 250 H (38-126) U/L Ammonia 31 H (9-30) umol/L Total Creatine Kinase Cancelled 254 H Troponin I 0.035 H* (0.000-0.034) ng/mL NT-Pro-B Natriuret Pep 1030 H (19.9-100) pg/mL Total Protein 6.5 (6.3-8.2) g/dL Albumin 2.4 L (3.5-5.1) g/dL TSH Cancelled 1.050 Urine Color (Yellow) Urine Appearance (Clear) Urine pH (5.0-9.0) Ur Specific Hubbard (1.001-1.035) Urine Protein (Negative) mg/dL Urine Glucose (UA) (Negative) mg/dL Urine Ketones (Negative) mg/dL Ur Blood (Man) (Negative) Urine Nitrate (Negative) Urine Bilirubin (Negative) Urine Urobilinogen (<2.0) mg/dL Add Ur Microanalysis Leukocyte Esterase Rfl (Negative) RINA/UL Urine RBC (0-2) /hpf Urine WBC (0-3) /hpf Ur Squamous Epith Cells (Few) /hpf Urine Bacteria /hpf Urine Casts Salicylates 1.4 L (2-20) mg/dL Urine Opiates Screen (Negative) Urine Methadone Screen (Negative) Acetaminophen < 10 L (10-30) ug/mL Ur Barbiturates Screen (Negative) Ur Phencyclidine Scrn (Negative) Ur Amphetamine Screen (Negative) U Benzodiazepines Scrn (Negative) Urine Cocaine Screen (Negative) U Cannabinoids Screen (Negative) Ethyl Alcohol < 10 (<10) mg/dL Hepatitis A IgM Ab (Negative) Hep Bs Antigen (Negative) Hep B Core IgM Ab (Negative) Hepatitis C Ab Screen (Negative) Influenza A (RT-PCR) Negative (Negative) Influenza B (RT-PCR) Negative (Negative) RSV (RT-PCR) Negative (Negative) SARS-CoV-2 RNA (RT-PCR) Negative (Negative) 07/04/25 07/04/25 07/04/25 Range/Units 19:02 19:36 20:20 WBC (4.5-10.0) K/mm3 RBC (4.6-6.20) M/mm3 Hgb (14.0-18.0) g/dL Hct (42.0-52.0) % MCV (80-100) fl MCH (26-34) pg MCHC (32-36) g/dl RDW (11.5-14.5) % Plt Count (150-375) k/mm3 MPV (7.4-10.4) fl Immature Gran % (Auto) (0-0.5) % Neut % (Auto) (45.5-73.1) % Lymph % (Auto) (18.3-44.2) % Dickinson % (Auto) (2.6-8.5) % Eos % (Auto) (0-4.4) % Baso % (Auto) (0.2-1.2) % Lymph # (Auto) (0.9-3.2) K/mm3 Dickinson # (Auto) (0.1-0.6) K/mm3 Eos # (Auto) (0-0.3) K/mm3 Baso # (Auto) (0.0-0.1) K/mm3 Abs Immat Gran (auto) (0.00-0.031) K/mm3 Absolute Neuts (auto) (1.3-6.7) K/mm3 Absolute Nucleated RBC (0.0-0.012) K/mm3 Band Neutrophils % Nucleated RBC % (0.0-0.2) % Platelet Estimate (Adequate) Clumped Platelets % Immature Plt Fraction (0.9-11.2) % Schistocytes PT (11.1-14.7) Seconds INR APTT (22.3-36.8) Seconds Sodium (137-145) mmol/L Potassium (3.4-5.0) mmol/L Chloride (98-107) mmol/L Carbon Dioxide (22-30) mmol/L Anion Gap (4-12) mmol/L BUN (9-20) mg/dL Creatinine (0.7-1.3) mg/dL Estim Creat Clear Calc ml/min Estimated GFR (59 - ) Glucose (65-110) mg/dL POC Capillary Glucose > 500 H* > 500 H* (65-105) mg/dl Lactic Acid (0.7-2.0) mmol/L Calcium (8.4-10.2) mg/dL Total Bilirubin (0.2-1.3) mg/dL AST (17-59) U/L ALT (6-50) U/L Alkaline Phosphatase (38-126) U/L Ammonia (9-30) umol/L Total Creatine Kinase Troponin I (0.000-0.034) ng/mL NT-Pro-B Natriuret Pep (19.9-100) pg/mL Total Protein (6.3-8.2) g/dL Albumin (3.5-5.1) g/dL TSH Urine Color Dark yellow (Yellow) Urine Appearance Turbid H (Clear) Urine pH 6.0 (5.0-9.0) Ur Specific Hubbard 1.031 (1.001-1.035) Urine Protein 1+ H (Negative) mg/dL Urine Glucose (UA) 3+ H (Negative) mg/dL Urine Ketones Negative (Negative) mg/dL Ur Blood (Man) 3+ H (Negative) Urine Nitrate Positive H (Negative) Urine Bilirubin 3+ H (Negative) Urine Urobilinogen 2.0 H (<2.0) mg/dL Add Ur Microanalysis Reviewed Leukocyte Esterase Rfl 3+ H (Negative) RINA/UL Urine RBC >100 H (0-2) /hpf Urine WBC >100 H (0-3) /hpf Ur Squamous Epith Cells None seen (Few) /hpf Urine Bacteria 4+ /hpf Urine Casts 11-20 Salicylates (2-20) mg/dL Urine Opiates Screen Negative (Negative) Urine Methadone Screen Negative (Negative) Acetaminophen (10-30) ug/mL Ur Barbiturates Screen Negative (Negative) Ur Phencyclidine Scrn Negative (Negative) Ur Amphetamine Screen Negative (Negative) U Benzodiazepines Scrn Negative (Negative) Urine Cocaine Screen Negative (Negative) U Cannabinoids Screen Negative (Negative) Ethyl Alcohol (<10) mg/dL Hepatitis A IgM Ab (Negative) Hep Bs Antigen (Negative) Hep B Core IgM Ab (Negative) Hepatitis C Ab Screen (Negative) Influenza A (RT-PCR) (Negative) Influenza B (RT-PCR) (Negative) RSV (RT-PCR) (Negative) SARS-CoV-2 RNA (RT-PCR) (Negative) 07/04/25 Range/Units 20:22 WBC (4.5-10.0) K/mm3 RBC (4.6-6.20) M/mm3 Hgb (14.0-18.0) g/dL Hct (42.0-52.0) % MCV (80-100) fl MCH (26-34) pg MCHC (32-36) g/dl RDW (11.5-14.5) % Plt Count (150-375) k/mm3 MPV (7.4-10.4) fl Immature Gran % (Auto) (0-0.5) % Neut % (Auto) (45.5-73.1) % Lymph % (Auto) (18.3-44.2) % Dickinson % (Auto) (2.6-8.5) % Eos % (Auto) (0-4.4) % Baso % (Auto) (0.2-1.2) % Lymph # (Auto) (0.9-3.2) K/mm3 Dickinson # (Auto) (0.1-0.6) K/mm3 Eos # (Auto) (0-0.3) K/mm3 Baso # (Auto) (0.0-0.1) K/mm3 Abs Immat Gran (auto) (0.00-0.031) K/mm3 Absolute Neuts (auto) (1.3-6.7) K/mm3 Absolute Nucleated RBC (0.0-0.012) K/mm3 Band Neutrophils % Nucleated RBC % (0.0-0.2) % Platelet Estimate (Adequate) Clumped Platelets % Immature Plt Fraction (0.9-11.2) % Schistocytes PT (11.1-14.7) Seconds INR APTT (22.3-36.8) Seconds Sodium (137-145) mmol/L Potassium (3.4-5.0) mmol/L Chloride (98-107) mmol/L Carbon Dioxide (22-30) mmol/L Anion Gap (4-12) mmol/L BUN (9-20) mg/dL Creatinine (0.7-1.3) mg/dL Estim Creat Clear Calc ml/min Estimated GFR (59 - ) Glucose (65-110) mg/dL POC Capillary Glucose (65-105) mg/dl Lactic Acid 5.3 H* (0.7-2.0) mmol/L Calcium (8.4-10.2) mg/dL Total Bilirubin (0.2-1.3) mg/dL AST (17-59) U/L ALT (6-50) U/L Alkaline Phosphatase (38-126) U/L Ammonia (9-30) umol/L Total Creatine Kinase Troponin I (0.000-0.034) ng/mL NT-Pro-B Natriuret Pep (19.9-100) pg/mL Total Protein (6.3-8.2) g/dL Albumin (3.5-5.1) g/dL TSH Urine Color (Yellow) Urine Appearance (Clear) Urine pH (5.0-9.0) Ur Specific Hubbard (1.001-1.035) Urine Protein (Negative) mg/dL Urine Glucose (UA) (Negative) mg/dL Urine Ketones (Negative) mg/dL Ur Blood (Man) (Negative) Urine Nitrate (Negative) Urine Bilirubin (Negative) Urine Urobilinogen (<2.0) mg/dL Add Ur Microanalysis Leukocyte Esterase Rfl (Negative) RINA/UL Urine RBC (0-2) /hpf Urine WBC (0-3) /hpf Ur Squamous Epith Cells (Few) /hpf Urine Bacteria /hpf Urine Casts Salicylates (2-20) mg/dL Urine Opiates Screen (Negative) Urine Methadone Screen (Negative) Acetaminophen (10-30) ug/mL Ur Barbiturates Screen (Negative) Ur Phencyclidine Scrn (Negative) Ur Amphetamine Screen (Negative) U Benzodiazepines Scrn (Negative) Urine Cocaine Screen (Negative) U Cannabinoids Screen (Negative) Ethyl Alcohol (<10) mg/dL Hepatitis A IgM Ab Negative (Negative) Hep Bs Antigen Negative (Negative) Hep B Core IgM Ab Negative (Negative) Hepatitis C Ab Screen Negative (Negative) Influenza A (RT-PCR) (Negative) Influenza B (RT-PCR) (Negative) RSV (RT-PCR) (Negative) SARS-CoV-2 RNA (RT-PCR) (Negative) <Joellen Cabrera MD - Last Filed: 07/04/25 21:55> ABG Data ABG results: 07/04/25 16:37 Puncture Site Left radial ABG pH 7.477 H ABG pCO2 30.5 L ABG pO2 64.7 L ABG PO2/FiO2 Ratio 3.08 ABG HCO3 22.1 ABG O2 Saturation 94.2 L ABG O2 Content 20.2 ABG Base Excess -0.3 A-a Gradient 48.5 Oxyhemoglobin 90.9 Total Hemoglobin 15.8 O2 Delivery Device Room air O2 Liters/Min Not Reportable FiO2 21 <Hermann Mehta MD - Last Filed: 07/04/25 20:27> 07/04/25 16:37 Puncture Site Left radial ABG pH 7.477 H ABG pCO2 30.5 L ABG pO2 64.7 L ABG PO2/FiO2 Ratio 3.08 ABG HCO3 22.1 ABG O2 Saturation 94.2 L ABG O2 Content 20.2 ABG Base Excess -0.3 A-a Gradient 48.5 Oxyhemoglobin 90.9 Total Hemoglobin 15.8 O2 Delivery Device Room air O2 Liters/Min Not Reportable FiO2 21 <Joellen Cabrera MD - Last Filed: 07/04/25 21:55> Imaging Data Radiologist's impression: ITS Impressions Chest X-Ray 07/04/25 16:48 Impression: Probable viral pneumonitis Head CT 07/04/25 17:47 Impression: 1.No acute intracranial abnormality. Chest/Abdomen/Pelvis CT 07/04/25 18:37 IMPRESSION: 1. Chronic changes in the lungs with small pleural effusions. 2. 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 Contrast-enhanced MRI recommended. 3. Incidental findings above <Hermann Mehta MD - Last Filed: 07/04/25 20:27> ECG Data EKG #1: ECG completion date: 07/04/25 <Hermann Mehta MD - Last Filed: 07/04/25 20:27> ECG completion time: 16:29 <Hermann Mehta MD - Last Filed: 07/04/25 20:27> EKG Interpretation: normal rate (85), sinus rhythm, non-specific ST changes, normal QRS and RBBB (incomplete) <Hermann Mehta MD - Last Filed: 07/04/25 20:27> Critical Care Time Critical Care Time Critical Care Time: Yes <Hermann Mehta MD - Last Filed: 07/04/25 20:27> Total Critical Care Time: 45 <Hermann Mehta MD - Last Filed: 07/04/25 20:27> Discharge Plan Discharge Clinical Impression: Hyperosmolar hyperglycemic state (HHS), Acute UTI, Sepsis, AMS (altered mental status) <Hermann Mehta MD - Last Filed: 07/04/25 20:27> Patient Disposition: Still a Patient <Hermann Mehta MD - Last Filed: 07/04/25 20:27> Condition: Critical <Hermann Mehta MD - Last Filed: 07/04/25 20:27>
[2025-07-04] MEDS: SODIUM CHLORIDE 0.9% IV 2,000 ML 999 ML IV CONT (16:35)
[2025-07-04] MEDS: THIAMINE HCL 200 MG/2 ML VIAL 100 MG IV PUSH (16:35)
[2025-07-04 16:43] LABS: Hematocrit 41.7 % (42.0-52.0); Hemoglobin 15.2 g/dL (14.0-18.0); Immature Granulocyte Percent A 2.9 % (0-0.5); Immature Platelet Fraction Pct 7.5 % (0.9-11.2); Lymphocytes Absolute Auto 0.44 K/mm3 (0.9-3.2); Mean Corpuscular HGB Conc 36.5 g/dl (32-36); Mean Corpuscular Hemoglobin 35.8 pg (26-34); Mean Corpuscular Volume 98.3 fl (80-100); Nucleated Red Blood Cells Absolute Auto 0.000 K/mm3 (0.0-0.012); Nucleated Red Blood Cells Perc 0.0 % (0.0-0.2); Platelet Count Result 81 k/mm3 (150-375); Red Blood Count 4.24 M/mm3 (4.6-6.20); White Blood Count 15.7 K/mm3 (4.5-10.0)
[2025-07-04 16:44] LABS: Alveolar/Arterial O2 Gradient 48.5 mmHg; Fractional Inspired Oxygen 21 %; HCO3 ABG 22.1 mEq/l (22.0-26.0); Modified Allen's Test Pass; Oxygen Content ABG 20.2 %vol (16.0-22.0); Oxygen Saturation ABG 94.2 % (95.0-100.0); PCO2 ABG 30.5 mmHg (35.0-45.0); PO2 ABG 64.7 mmHg (80.0-100.0); PO2 FiO2 Ratio Arterial Blood 3.08 %; Site Drawn LEFT RADIAL
[2025-07-04 16:52] LABS: INR 2.0; Prothrombin Time 22.3 Seconds (11.1-14.7)
[2025-07-04 16:53] LABS: Partial Thromboplastin Time 32.8 Seconds (22.3-36.8)
[2025-07-04 16:55] LABS: Acetaminophen < 10 ug/mL (10-30); Salicylate 1.4 mg/dL (2-20)
[2025-07-04 16:58] LABS: Schistocytes None Seen
[2025-07-04 17:44] LABS: Ammonia 31 umol/L (9-30)
[2025-07-04 17:55] LABS: Alanine Aminotransferase 61 U/L (6-50); Albumin Level 2.4 g/dL (3.5-5.1); Alkaline Phosphatase 250 U/L (38-126); Anion Gap 11 mmol/L (4-12); Aspartate Amino Transferase 85 U/L (17-59); Bilirubin,Total 11.8 mg/dL (0.2-1.3); Blood Urea Nitrogen 86 mg/dL (9-20); Calcium 7.4 mg/dL (8.4-10.2); Carbon Dioxide 19 mmol/L (22-30); Chloride 90 mmol/L (98-107); Creatine Kinase 254 U/L (55-170); Estimated CRCL calculation 53 ml/min; Estimated Glomerular Filt Rate 48; Glucose 624 mg/dL (65-110); Potassium 3.9 mmol/L (3.4-5.0); Sodium 120 mmol/L (137-145); Total Protein 6.5 g/dL (6.3-8.2)
[2025-07-04 18:01] LABS: NT Pro B Type Natriuretic Pept 1030 pg/mL (19.9-100); Troponin I 0.035 ng/mL (0.000-0.034)
[2025-07-04 18:08] LABS: Influenza A QL RT-PCR Negative (Negative); Influenza B QL RT-PCR Negative (Negative); RSV RNA, RT-PCR Negative (Negative); SARS-CoV-2 RNA PCR Negative (Negative)
[2025-07-04] MEDS: INSULIN HUMAN REGULAR (*BKC) 100 UNITS/ML 10 UNITS IV PUSH (18:16)
[2025-07-04 18:19] LABS: Thyroid Stimulating Hormone 1.050 uIU/mL (0.465-4.680)
[2025-07-04 19:56] LABS: Add Urine Microscopic? YES; Appearance Urine Turbid (Clear); Glucose Urine UA 3+ mg/dL (Negative); Leukocyte Esterase Ur 3+ LEU/UL (Negative); Need Manual Microscopic Reviewed; Nitrate Urine Positive (Negative); Specific Grav Ur 1.031 (1.001-1.035)
[2025-07-04 20:01] LABS: Cannabinoid Screen Urine Negative (Negative)
[2025-07-04] MEDS: SODIUM CHLORIDE 0.9% IV 1,000 ML 999 ML IV CONT (20:24)
[2025-07-04] MEDS: CEFEPIME 2 GM in SODIUM CHLORIDE 0.9% IV 50 ML 100 ML IVPB (20:25)
[2025-07-04] MEDS: INSULIN HUMAN REGULAR (*BKC) 100 UNITS in SODIUM CHLORIDE 0.9% IV 99 ML 8.5 UNITS IV CONT (20:26)
[2025-07-04] MEDS: VANCOMYCIN 1,250 MG/NS 250 ML 1,250 MG/250 ML BAG 166.67 MG IVPB (21:11)
[2025-07-04 21:18] LABS: Hepatitis B Surface Antigen Negative (Negative)
[2025-07-04 21:24] LABS: HAV RESULT Negative (Negative); Hepatitis B Core IgM Result Negative (Negative)
[2025-07-04 21:45] LABS: Troponin I 0.059 ng/mL (0.000-0.034)
[2025-07-04] MEDS: MORPHINE SULFATE (*CRX) 2 MG/ML INJ (21:50)
--- NOTE | 2025-07-04 22:22 | WNDPHOTO ---
PHOTO ONLY - See Nursing Notes and/ or assessments for documentation.
[2025-07-04 22:32] LABS: MRSA (PCR) NOT DETECTED (NOT DETECTE)
--- NOTE | 2025-07-04 22:32 | ADMGEN ---
This patient, Urban Orosco, was admitted to Intensive Care Unit-3. Patient/family oriented to hospital policies and general routines including ID bracelet, bed and alarms, visiting hours, pain management, procedures, bathroom and other care routines, personal items, smoking policy, room service/diet, and visiting hours. Information on how to activate the Rapid Response Team has been discussed. Patient/Family are encouraged to report perceived risks to care and to ask questions if they do not understand what they are told or what they should do.
--- NOTE | 2025-07-04 22:36 | P.HP_ITS ---
H&P: HPI History of Present Illness Date/Time: 07/04/25 22:36 Chief Complaint: Altered mental status Narrative: This is a 55-year-old male patient who lives at home with his . The patient came to the emergency room with complaints of pain all over and altered mental status. EMS was brought to the residence in the patient apparently had not been seen since yesterday. He was only orientated to himself and the patient was found to be on the floor. He has icterus. He has only orientated to himself. He lives with his who has early dementia. His white count is noted to be 15.7. Platelet count 81. Sodium is 120. BUN 86 with creatinine 1.51. His blood sugar was greater than 500 with point care. According to labs his glucose is 624. Lactic acid is 5.3. Calcium 7.4. Troponin 0.035 with a repeat of 0.059. BNP 1030. Urinalysis 3+ blood, 3+ glucose, positive nitrates, 3+ bilirubin, 3+ leukocyte esterase, RBCs greater than 100, urine wbc's greater than 100. Total CK was 254, ammonia 31,and total bilirubin 11.8 Toxicology screen negative. Viral serology negative. Chest x-ray was read as probable viral pneumonitis. Head CT was read as no acute intracranial abnormality. Hea d/abdomen/pelvis CT was read as1. Chronic changes in the lungs with small pleural effusions. 2. 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 Contrast-enhanced MRI recommended. 3. Incidental findings above The patient was placed on an insulin drip. He was given 3 L of IV boluses and started on cefepime and vancomycin. The ER consulted elevator examiner and adjuster who recommended that the patient be transferred to [facility] for further evaluation given significant liver disease. The patient is to be placed in the ICU awaiting bed to [facility]. Patient is being admitted to ICU S observation status on the date of service of 07/04/2025. Review of Systems Review of Systems: ROS unobtainable: Yes unobtainable due to medical condition and unobtainable due to mental status PMFSH Past Medical History Medical History (Updated 07/10/25 @ 16:27 by Macho Gamboa MD) Encephalopathy Bacteremia due to Staphylococcus History of depression Admitted for suicidal ideation in January 2013. Alcoholic cirrhosis of liver Heart murmur, systolic Echocardiogram from 01/09/2020 done at [facility] showed ejection fraction of 65 to 70%, mild concentric hypertrophy, no regional wall motion abnormalities, moderate pulmonary hypertension with RVSP of 52 millimeters of mercury, and mild aortic stenosis. Alcoholism Surgical History Surgical History History of colon resection Related to ruptured appendicitis. History of appendectomy Family History Family History Grandparent Diabetes mellitus Legally blind Pneumonia Mother Migraines Sibling Migraines Sibling Pre-diabetes Grandparent Diabetes mellitus Grandparent Diabetes mellitus Father Family history of alcoholism Sibling Family history of alcoholism Social History Social History Social History: The patient is and shares a home in [place] with his and 2 dogs, a Yorkie and a min-pin. 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 He also helps care for his , who has early-onset dementia. He smoked between 2 and 3 packs of cigarettes a day for 30 years and he reportedly quit in October 2016. He has a history of alcoholism. He denies drug use. Designates his , Ken Orosco, as his surrogate decision maker and he wishes to be a full code. Smoking packs per day: 2 Smoking cigarettes per day: 40.0 Years smoked: 30 Smoking pack-years: 60.00 Smoking status: Former smoker Tobacco type: cigarettes and e-cigarettes/vaping Second hand tobacco smoke exposure: No Smoking end date: 10/31/16 Alcohol intake: former Substance use: former Substance use type: does not use Lack of Transportation: No Lack of Food: Never True Current Housing: I Have Housing Concerned About Future Housing: No Difficulty Paying Gas/Electric Bills: No Difficulty Paying for Meds: No Currently Unemployed: No Education: Trade/Vocational Certificate Difficulty w/ Childcare or Family Care: No Living arrangements: with family 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 Gender identity (if verbalized by the patient): Male Spiritual care concerns: No Agree to blood products: Yes Meds Home Medications and Allergies Home Medications ?Medication ?Instructions ?Recorded ?Confirmed ?Type No Home Medications 07/04/25 07/04/25 H istory Allergies Allergy/AdvReac Type Severity Reaction Status Date / Time No Known Allergies Allergy Unknown Verified 07/04/25 22:59 Vital Signs Vital Signs - 24 hr 07/04/25 16:17 07/04/25 21:07 07/04/25 21:07 Temperature Pulse Rate 83 94 94 Respiratory Rate 30 H 38 H Blood Pressure 145/76 H 118/63 Pulse Oximetry 98 93 Oxygen Delivery Room Air 07/04/25 21:27 07/04/25 22:13 Temperature 99.1 F Pulse Rate 98 Respiratory Rate 37 H Blood Pressure 113/55 L Pulse Oximetry 89 L Oxygen Delivery Exam Const: General: cooperative Orientation/consciousness: oriented to person HENMT: Head: normal to inspection Eyes: General: appearance normal, both eyes and all related structures Alignment and Position: alignment normal Neck: Neck: normal visual inspection and full ROM Chest: Chest palpation & inspection: normal inspection of the chest Resp: Effort & Inspection: normal respiratory effort Auscultation: clear to auscultation bilaterally Percussion: percussion normal Cardio: Palpation: normal PMI Rate: regular rate Rhythm: regular rhythm Heart sounds: S1 normal heart sound present and S2 normal heart sound present Peripheral pulses: Peripheral pulses 2+ throughout GI: Inspection: normal to inspection Back/Spine/Pelvis: Back: no CVA tenderness Cervical Spine: cervical ROM normal Skin: Other: Patient has small round pustules noted on arms, legs, abdomen, feet, and hands. He also has multiple patches to lower extremity and bilateral forearms with patches of white dry flaky skin on top of a brown colored bed. He has a purplish red area noted to left buttocks approximately 1 x 1. Irregular edges with bloody discharge. right hand red and edematous . jaudice skin and scelera Neuro: General: oriented to person Cranial nerves: Yes Normal hearing present Extrem: General: normal to inspection Left upper extremity: normal to inspection and shoulder/upper arm Right lower extremity: normal to inspection Left lower extremity: normal to inspection Other: Right hand red and edematous. Capillary refill within normal limits. Positive radial pulse noted. Psych: Mental Status: other (Altered) H&P: Results Labs Labs: Short CBC 07/04/25 Range/Units 16:33 WBC 15.7 H (4.5-10.0) K/mm3 Hgb 15.2 D (14.0-18.0) g/dL Hct 41.7 L (42.0-52.0) % Plt Count 81 L D (150-375) k/mm3 BMP 07/04/25 17:25 Sodium 120 L Potassium 3.9 Chloride 90 L Carbon Dioxide 19 L BUN 86 H D Creatinine 1.51 H Glucose 624 H* Calcium 7.4 L Cardiac Enzymes 07/04/25 07/04/25 07/04/25 Range/Units 16:34 17:25 21:15 Total Creatine Kinase Cancelled 254 H Troponin I 0.035 H* 0.059 H* D (0.000-0.034) ng/mL Liver Function 07/04/25 Range/Units 17:25 Total Bilirubin 11.8 H (0.2-1.3) mg/dL AST 85 H (17-59) U/L ALT 61 H (6-50) U/L Alkaline Phosphatase 250 H (38-126) U/L Albumin 2.4 L (3.5-5.1) g/dL Urine 07/04/25 Range/Units 19:36 Urine Color Dark yellow (Yellow) Urine Appearance Turbid H (Clear) Urine pH 6.0 (5.0-9.0) Ur Specific [place] 1.031 (1.001-1.035) Urine Protein 1+ H (Negative) mg/dL Urine Glucose (UA) 3+ H (Negative) mg/dL ECG Interpretation: Impressions SINUS RHYTHM POSSIBLE LEFT ATRIAL ENLARGEMENT BORDERLINE AV CONDUCTION DELAY INCOMPLETE RIGHT BUNDLE BRANCH BLOCK NONSPECIFIC ST-T WAVE ABNORMALITY- ANT/HIGH LAT LEADS BASELINE ARTIFACT- I, II, III, AVR, AVL, AVF BORDERLINE ECG No previous ECG available for comparison Electronically Signed On 07-04-2025 19:28:23 CDT by Alan Kemp D.O. Imaging CT scan - abdomen: Radiologist's impression: Impressions Chest X-Ray 07/04/25 16:48 Impression: Probable viral pneumonitis Head CT 07/04/25 17:47 Impression: 1.No acute intracranial abnormality. Chest/Abdomen/Pelvis CT 07/04/25 18:37 IMPRESSION: 1. Chronic changes in the lungs with small pleural effusions. 2. 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 Contrast-enhanced MRI recommended. 3. Incidental findings above Assessment and Plan Assessment and plan (1) Hyperosmolar hyperglycemic state (HHS): Code(s): E11.00 - Type 2 diabetes mellitus with hyperosmolarity without nonketotic hyperglycemic-hyperosmolar coma (NKHHC) Status: Acute Assessment and Plan: -the patient is admitted to ICU while awaiting bed at [facility]. -A1c is 11.3. -DKA protocol. -no previous history of diabetes. -lactic is 5.2 -BMPs every 4 hours. -the patient will require diabetic education and dietitian when he is more awake. -continue with IV fluids as per DKA protocol -sodium 120 with glucose 624. According to med calc calculated sodium is 133 mEq per L considering blood glucose. The elevator examiner and adjuster has been consulted and further recommendations and treatment plan would greatly be appreciated. - (2) Alcoholic cirrhosis of liver: Code(s): K70.30 - Alcoholic cirrhosis of liver without ascites Status: Acute Assessment and Plan: -the patient is awaiting transfer to [facility]. -he has a longstanding history of alcoholism. His a history of binge drinking. -CT of the abdomenCT abdomen: LIVER: The liver contours are nodular with innumerable solid-appearing liver lesions the largest right lobe liver 7 x 8 cm incompletely evaluated. The main portal vein is patent. No intrahepatic biliary duct dilatation. SPLEEN: The spleen appears enlarged.. -continue with CIWA -IV folic acid and IV thiamine. -awaiting bed for [facility]. Meld score according the med calculator is 37 with a 52.6% mortality rate. The patient is a DNI/ DNR. (3) Acute UTI: Code(s): N39.0 - Urinary tract infection, site not specified Status: Acute Assessment and Plan: -blood and urine cultures are pending -the patient is on cefepime, doxycycline, and vancomycin. Pending cultures -lactic is elevated. -patient was given IV fluids. (4) Acidosis, lactic: Code(s): E87.2 - Acidosis Status: Acute Assessment and Plan: -could be multiple factorial. Could be related to dehydration, could be related to the hyper osmolar hyperglycemia, liver failure, alcoholism, and or infection. -continue with IV fluids and continue to monitor lactic acid. Patient's lactic acid continues to be 5.3. -check for HIV. - (5) Hyponatremia: Code(s): E87.1 - Hypo-osmolality and hyponatremia Status: Acute Assessment and Plan: -also multifactorial. Chronic alcoholism, hyperglycemia, and or dehydration -check urine sodium -check urine osmolality and blood osmolality. -corrected sodium with hyperglycemia as per med calc. Sodium 120 with a glucose of 628 equals 133. He has a baseline somewhere between 134 and 136. -continue with IV hydration. -BMPs every 4 hours. (6) Rhabdomyolysis: Code(s): M62.82 - Rhabdomyolysis Status: Acute Assessment and Plan: -creatinine kinase was 254 and then increased to 373. Is was reported that the patient had laid on the floor for over a day. He also has a history of alcoholism. Could be related to infectious disease as well. Could also be related to his electrolyte abnormalities. (7) Pustular rash: Code(s): L08.0 - Pyoderma Status: Acute Assessment and Plan: -will check him for RSV as well as HIV. -doxycycline added for possibility of syphilis? -the patient also appears to have some aphthous ulcers in the mouth as well. This could Coxsackie disease? Could possibly be chickenpox? Although they appear to be more pustular than they are vesicles. -patient also has some on the palms of his hands and feet. - monkey pox? (8) Leukocytosis: Code(s): D72.829 - Elevated white blood cell count, unspecified Status: Acute Assessment and Plan: -the patient was covered with broad-spectrum antibiotics he is on cefepime, doxycycline, and vancomycin. Pending cultures. -blood and urine cultures are pending. -could also be stress induced . -CT LUNGS: No tracheomalacia. No bronchiectasis. Minimal emphysematous changes. Minimal pulmonary fibrotic changes. Apical scarring bilaterally. Small simple appearing left pleural effusion. Trace simple appearing appearing right pleural effusion. -urine was positive for 2+ urine bacteria, 2+ urine leukocyte esterase, urine wbc's 11-20 -CT abdomen: LIVER: The liver contours are nodular with innumerable solid-appearing liver lesions the largest right lobe liver 7 x 8 cm incompletely evaluated. The main portal vein is patent. No intrahepatic biliary duct dilatation. SPLEEN: The spleen appears enlarged.. -he also erythema and edema to right hand. Possible cellulitis. (9) Acute renal failure: Code(s): N17.9 - Acute kidney failure, unspecified Status: Acute Assessment and Plan: -his BUN is 89 now with a previous value of 22 on 01/29/2020 -creatinine is 1.63 now with a normal baseline from 01/29/2020 (10) Elevated troponin: Code(s): R79.89 - Other specified abnormal findings of blood chemistry Status: Acute Assessment and Plan: Initial troponin 0.035, 3 hour troponin 0.059 and 6 hour troponin 0.061. We check in a.m.. -EKG read asSINUS RHYTHM POSSIBLE LEFT ATRIAL ENLARGEMENT BORDERLINE AV CONDUCTION DELAY INCOMPLETE RIGHT BUNDLE BRANCH BLOCK NONSPECIFIC ST-T WAVE ABNORMALITY- ANT/HIGH LAT LEADS BASELINE ARTIFACT- I, II, III, AVR, AVL, AVF BORDERLINE ECG No previous ECG available for comparison Electronically Signed On 07-04-2025 19:28:23 CDT by Alan Kemp D.O. There is some change from previous EKG on 01/29/2020 -repeat troponin in the a.m. -could be heart strain. Could be related to the rhabdo. He also has acute kidney injury which could be elevating the troponins as well. Quality VTE Prophylaxis VTE prophylaxis: mechanical ordered
[2025-07-04] MEDS: SODIUM CHLORIDE 0.9% IV 1,000 ML 150 ML IV CONT (22:49)
[2025-07-04] MEDS: VANCOMYCIN HCL 1,000 MG in SODIUM CHLORIDE 0.9% IV 250 ML 250 MG IVPB (22:55)
[2025-07-04] MEDS: DOXYCYCLINE IV 100 MG in SODIUM CHLORIDE 0.9% IV 100 ML IVPB (23:02)
[2025-07-04 23:05] LABS: Creatine Kinase 373 U/L (55-170)
[2025-07-04 23:13] LABS: Hemoglobin A1C 11.3 % (<5.7)
[2025-07-04 23:20] LABS: Add Urine Microscopic? YES
[2025-07-04 23:22] LABS: Appearance Urine Cloudy (Clear); Specific Grav Ur 1.005 (1.001-1.035)
[2025-07-04 23:23] LABS: Glucose Urine UA Trace mg/dL (Negative); Nitrate Urine Negative (Negative)
[2025-07-04 23:27] LABS: Leukocyte Esterase Ur 2+ LEU/UL (Negative); Need Manual Microscopic Yes
[2025-07-04 23:33] LABS: Anion Gap 12 mmol/L (4-12); Blood Urea Nitrogen 89 mg/dL (9-20); Calcium 7.5 mg/dL (8.4-10.2); Carbon Dioxide 18 mmol/L (22-30); Chloride 94 mmol/L (98-107); Estimated CRCL calculation 49 ml/min; Estimated Glomerular Filt Rate 44; Glucose 403 mg/dL (65-110); Magnesium 3.4 mg/dL (1.6-2.3); Potassium 3.3 mmol/L (3.4-5.0); Sodium 124 mmol/L (137-145)
[2025-07-04 23:34] LABS: Syphilis IgG/IgM Antibody Non-Reactive (Nonreactive)
[2025-07-04 23:51] LABS: Troponin I 0.061 ng/mL (0.000-0.034)
--- NOTE | 2025-07-04 23:54 | PC.NURSE ---
Silver colored ring in ICU safe
[2025-07-04 23:55] LABS: HIV 1/2 Ab P24 Ag Result Negative (Negative)
[2025-07-05] VITALS (21 sets, daily range): BP systolic 103–127; BP diastolic 61–79; PULSE 88–101; RESP 18–37; TEMP 36.1–37.3; O2SAT 89–95; BMI 26.9
--- NOTE | 2025-07-05 | ECHO_ITS ---
Patient Info Name: Urban Orosco Age: 55 years : 1970 Gender: Male Ht: 28 in Wt: 408 lbs BSA: 2.18 m2 HR: 91 bpm BP: 108 / 79 mmHg Heart Rhythm: Sinus Rhythm Technical Quality: Fair Exam Date: 07/05/2025 1:51 PM Patient Status: I Admit Date: 07/05/2025 Exam Type: CA echo doppler color flow Complete two-dimensional, color flow and Doppler transthoracic echocardiogram is performed. Staff Referring Physician: Yadira Vázquez [employer] Jelly Maker: Dana Adair Attending Provider: Daily Penn Summary 1. Complete two-dimensional, color flow and Doppler transthoracic echocardiogram is performed. 2. Left ventricular chamber dimension is normal. 3. Left ventricular systolic function is normal, estimated at 65-70. 4. The left ventricular diastolic function is grade I diastolic dysfunction. 5. E/e' 6 is not elevated. 6. Left atrial chamber dimension is mildly enlarged. 7. There is moderate aortic valve sclerosis. 8. There is trace tricuspid valve regurgitation. 9. Mild pulmonary hypertension, estimated pulmonary arterial systolic pressure is 40 mmHg. Left Ventricle E/e' 6 is not elevated. Left ventricular chamber dimension is normal. Left ventricular systolic function is normal, estimated at 65-70. The left ventricular diastolic function is grade I diastolic dysfunction. Right Ventricle Right ventricular chamber dimension is normal. Right ventricular systolic function is normal and with normal TAPSE 2.5 cm. Left Atria Left atrial chamber dimension is mildly enlarged. Right Atria Right atrial chamber dimension is normal. Aortic Valve The aortic valve is trileaflet. There is moderate aortic valve sclerosis. There is no aortic valve stenosis. There is no aortic valve regurgitation. Pulmonic Valve There is no pulmonic regurgitation. Mitral Valve There is no mitral valve stenosis. There is no mitral valve regurgitation. Tricuspid Valve There is trace tricuspid valve regurgitation. Mild pulmonary hypertension, estimated pulmonary arterial systolic pressure is 40 mmHg. Pericardium/Pleural There is no pericardial effusion. Inferior Vena Cava Normal inferior vena cava with >50% collapse upon inspiration consistent with normal right atrial pressure, 5 mmHg. Aorta The aortic root size at the sinus of Valsalva is normal. Left Ventricular Outflow Tract Name Value Normal LVOT 2D LVOT Diameter 2.0 cm LVOT Doppler LVOT Peak Velocity 155 cm/s LVOT Peak Gradient 10 mmHg LVOT Mean Gradient 6 mmHg LVOT VTI 23 cm LVOT VTI/AV VTI Ratio 0.7 LVOT Stroke Volume 70 ml LVOT CO 6.7 l/min LVOT CI 3.1 l/min/m2 Pulmonic Valve Name Value Normal RVOT Doppler RVOT Peak Velocity 125 cm/s RVOT Peak Gradient 6 mmHg PV Doppler PV Peak Velocity 155 cm/s PV Peak Gradient 10 mmHg Mitral Valve Name Value Normal MV Diastolic Function MV E Peak Velocity 62 cm/s MV A Peak Velocity 72 cm/s MV E/A 0.9 MV Decel Time (PW) 146 ms MV Annular TDI MV E/e' (Septal) 11.9 MV E/e' (Lateral) 4.8 MV E/e' (Average) 8.4 Tricuspid Valve Name Value Normal TV Regurgitation Doppler TR Peak Velocity 297 cm/s TR Peak Gradient 26 mmHg Estimated PAP/RSVP RA Pressure 5 mmHg <=5 PA Systolic Pressure 40 mmHg <36 RV Systolic Pressure 40 mmHg <36 TV Annular TDI TV Lateral Marilynn s' Velocity 22.5 cm/s >=9.5 Aorta Name Value Normal Ascending Aorta Ao Root Diameter (MM) 3.1 cm Ao Root Diam Index (MM) 1.4 cm/m2 Aortic Valve Name Value Normal AV Doppler AV Peak Velocity 227 cm/s AV Peak Gradient 21 mmHg AV Mean Gradient 9 mmHg AV VTI 33 cm AV Area (Cont Eq VTI) 2.1 cm2 >=3.0 AV Area (Cont Eq Linus) 2.1 cm2 AV DI (Linus) 0.68 AV Regurgitation 2D LVOT Area 3.0 cm2 Ventricles Name Value Normal LV Dimensions 2D/MM IVS Diastolic Thickness (2D) 1.1 cm 0.6-1.0 LVID Diastole (2D) 4.0 cm 4.2-5.8 LVIW Diastolic Thickness (2D) 1.1 cm 0.6-1.0 LVID Systole (2D) 2.6 cm 2.5-4.0 LVOT Diameter 2.0 cm LV Mass (2D Cubed) 150.06 g 88.00-224.00 LV Mass Index (2D Cubed) 69 g/m2 49-115 Relative Wall Thickness (2D) 0.54 <=0.42 LV Fractional Shortening/Ejection Fraction 2D/MM LV Fractional Shortening (2D) 35 % 25-43 LV EF (2D Teichholz) 65 % LV Diastolic Volume (4C MOD) 91 ml LV EF (4C MOD) 68 % LV Diastolic Volume (2C MOD) 75 ml LV EF (2C MOD) 80 % LV Diastolic Volume (BP MOD) 83 ml 62-150 LV Diastolic Volume Index (BP MOD) 38 ml/m2 34-74 LV Systolic Volume (BP MOD) 21 ml 21-61 LV Systolic Volume Index (BP MOD) 10 ml/m2 11-31 LV EF (BP MOD) 74 % 52-72 LV Diastolic Length (4C) 9.0 cm LV Systolic Length (4C) 6.7 cm LV Stroke Volume (4C MOD) 62 ml Atria Name Value Normal LA Dimensions LA Dimension (MM) 4.0 cm 3.0-4.0 LA Volume (4C A-L) 78 ml LA Volume (BP A-L) 76 ml RA Dimensions RA Systolic Major Gary Length (4C) 5.9 cm 2.1-2.7 RA Area (4C) 20.6 cm2 <=18.0 Report Signatures
[2025-07-05 02:17] LABS: Alanine Aminotransferase 62 U/L (6-50); Albumin Level 2.3 g/dL (3.5-5.1); Alkaline Phosphatase 212 U/L (38-126); Anion Gap 11 mmol/L (4-12); Aspartate Amino Transferase 95 U/L (17-59); Bilirubin,Total 12.9 mg/dL (0.2-1.3); Blood Urea Nitrogen 92 mg/dL (9-20); Calcium 7.7 mg/dL (8.4-10.2); Carbon Dioxide 18 mmol/L (22-30); Chloride 99 mmol/L (98-107); Estimated CRCL calculation 50 ml/min; Estimated Glomerular Filt Rate 45; Glucose 231 mg/dL (65-110); Potassium 3.3 mmol/L (3.4-5.0); Sodium 128 mmol/L (137-145); Total Protein 6.5 g/dL (6.3-8.2)
[2025-07-05] MEDS: KCL 20 MEQ/D5/0.45% SOD CHL 1,000 ML 150 ML IV CONT ×2 (02:25→09:10)
[2025-07-05] MEDS: INSULIN HUMAN REGULAR (*BKC) 100 UNITS in SODIUM CHLORIDE 0.9% IV 99 ML 9 UNITS IV CONT (03:43)
[2025-07-05 05:50] LABS: Hematocrit 38.9 % (42.0-52.0); Hemoglobin 14.1 g/dL (14.0-18.0); Immature Platelet Fraction Pct 6.2 % (0.9-11.2); Mean Corpuscular HGB Conc 36.2 g/dl (32-36); Mean Corpuscular Hemoglobin 36.0 pg (26-34); Mean Corpuscular Volume 99.2 fl (80-100); Platelet Count Result 68 k/mm3 (150-375); Red Blood Count 3.92 M/mm3 (4.6-6.20); White Blood Count 20.2 K/mm3 (4.5-10.0)
[2025-07-05 06:09] LABS: Anion Gap 8 mmol/L (4-12); Blood Urea Nitrogen 90 mg/dL (9-20); Calcium 7.4 mg/dL (8.4-10.2); Carbon Dioxide 22 mmol/L (22-30); Chloride 98 mmol/L (98-107); Estimated CRCL calculation 49 ml/min; Estimated Glomerular Filt Rate 44; Glucose 187 mg/dL (65-110); Potassium 3.7 mmol/L (3.4-5.0); Sodium 128 mmol/L (137-145)
[2025-07-05 06:24] LABS: Troponin I 0.057 ng/mL (0.000-0.034)
[2025-07-05 06:36] LABS: Band Neutrophils Percent 11 % (0-6); Lymphocytes Absolute Manual 0.40 K/mm3 (1.1-4.5); Lymphocytes Percent Manual 2.0 % (18-44); Monocytes Absolute Manual 0.40 K/mm3 (0.1-0.90); Monocytes Percent Manual 2 % (3-9); Neutrophils Absolute Manual 19.39 K/mm3 (1.3-6.7); Neutrophils Percent Manual 85 % (46-73); Total Cells Counted 100
[2025-07-05 06:43] LABS: Crenated RBC 1+
[2025-07-05 06:44] LABS: Schistocytes None Seen
[2025-07-05] MEDS: THIAMINE HCL 200 MG/2 ML VIAL 100 MG IV PUSH (08:18)
[2025-07-05] MEDS: CEFEPIME 2 GM in SODIUM CHLORIDE 0.9% IV 50 ML 100 ML IVPB ×2 (08:18→20:08)
[2025-07-05] MEDS: FOLIC ACID 1 MG/0.2 ML INJ IV PUSH (08:19)
[2025-07-05] MEDS: FAMOTIDINE 20 MG/2 ML VIAL IV PUSH ×2 (08:19→20:08)
[2025-07-05] MEDS: INSULIN GLARGINE (*BKC) 100 UNITS/ML 20 UNITS SUB-Q (09:12)
[2025-07-05] MEDS: CALCIUM GLUC 2,000 MG/NS 100ML 2,000 MG/100 ML BAG 100 MG IVPB (09:13)
[2025-07-05] MEDS: PHYTONADIONE INJ 10 MG/ML AMP IM (09:14)
--- NOTE | 2025-07-05 09:40 | P.CONGI_ITS ---
Assessment and Plan Assessment and plan (1) Alcoholic cirrhosis of liver: Qualifiers: Ascites presence: without ascites Qualified Code(s): K70.30 - Alcoholic cirrhosis of liver without ascites Code(s): K70.30 - Alcoholic cirrhosis of liver without ascites Status: Acute (2) Liver mass: Code(s): R16.0 - Hepatomegaly, not elsewhere classified Status: Acute (3) Thrombocytopenia: Code(s): D69.6 - Thrombocytopenia, unspecified Status: Chronic (4) Elevated LFTs: Code(s): R79.89 - Other specified abnormal findings of blood chemistry Status: Acute (5) Hyponatremia: Code(s): E87.1 - Hypo-osmolality and hyponatremia Status: Acute (6) Sepsis: Qualifiers: Sepsis acute organ dysfunction status: unspecified Sepsis type: sepsis due to unspecified organism Qualified Code(s): A41.9 - Sepsis, unspecified organism Code(s): A41.9 - Sepsis, unspecified organism Status: Acute (7) AMS (altered mental status): Qualifiers: Altered mental status type: unspecified Qualified Code(s): R41.82 - Altered mental status, unspecified Code(s): R41.82 - Altered mental status, unspecified Status: Acute Plan 1. Cirrhosis-Alcohol related/hyponatremia/thrombocytopenia/elevated LFT's: MELD NA 32. Decompensated. Patient was previously seeing gastroenterology/hepatology at [facility] in [id number] for known alcoholic hepatitis and cirrhosis. According to prior records patient had previously been recommended for a TIPS procedure but given his current meld score this is no longer an option for him. Prior records show that the patient had side effects to Xifaxan and Aldactone but S/E unknown. There is a large gap in the patient care history for cirrhosis as he was seen while inpatient at [facility] December of 2019 but that is the only other records we have regarding his cirrhosis management. CT chest/abd/pelvis 07/04/2025 showed the liver contours are nodular with innumerable solid-appearing liver lesions the largest right lobe liver 7 x 8 cm incompletely evaluated. The main portal vein is patent. No intrahepatic biliary duct dilatation. The spleen appears enlarged, Moderate pancreatic atrophy, cholelithiasis. 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 Contrast-enhanced MRI recommended. Labs today show total bilirubin 13, AST 95, ALT 62, alkaline phosphatase 212, albumin 2.3, ammonia 31, INR 2.0, platelets 68. Sodium 128 (was 120 in admission), potassium 3.7, BUN 90, creatinine 1.64, GFR 44, calcium 7.4 and magnesium 3.4. WBC's 20, HGB 15, HCT 39, MCV 99 and platelets 68. Drug screen negative. HIV, syphilis and hepatitis panel negative. Coxsackie and HSV pending. * More likely metabolic encephalopathy than hepatic encephalopathy as mild ammonia elevation does not exclude hepatic encephalopathy nor reliably distinguish should from other causes of altered mental status * History of HE: Hx of HX in 2018 and per [facility] notes patient was weaned off lactulose therapy in November 2018 * Elevated LFT's secondary to acute on chronic liver failure vs sepsis induced vs cholestasis vs rhabdo vs multifactorial. Lab records available to us show chronic LFT elevation but these labs were normally done during a hospitalization/acute illness * Pancreatic atrophy noted on CT likely secondary to history of EtOH abuse but no CT findings consistent with chronic pancreatitis * RUQ ultrasound previously ordered, pending completion. MRI once more stable to further assess liver lesions * Variceal screening: No prior history of esophageal varices but was noted to have large bleeding gastric varices on EGD January of 2020. Beta aracelis: Unknown if patient has been on BB. * Last paracentesis: Prior Hx on 06/06/2018 but unknown if he has had one since then * Current diuretics: No current diuretics and home medications prior to admission unknown * Diet: 2 gram sodium diet once able to tolerate PO intake * Check AFP and PETH 2. Abnormal imaging digestive/esophagitis/Hx of gastric varices: Last EGD 01/29/2020 revealed no esophageal varices but large gastric varices thought to be previously bleeding along with esophageal ulcers. CT showing mild thickening of the esophagus may represent mild esophagitis. The stomach appears decompressed. * continue acid suppression. Patient is a poor endoscopy candidate at this time Thank you very much for allowing me to share in the care of this very nice patient. This report may have been done utilizing a voice recognition system. Attempts have been made to correct errors. However, there may be uncorrected grammatical, spelling, and recognition errors present. GI Consult Note Consult date/time: 07/05/25 09:40 Reason for consult: Cirrhosis, liver mass and jaundice HPI: Urban Orosco is a 55 year old male with history of EtOH abuse, heart murmur, alcoholic cirrhosis, depression, colon resection 2/2 ruptured appendicitis and history of appendectomy. He presented to the ER yesterday for altered mental status status after being found on the floor of his bedroom by his . Apparently the patient had not been seen since sometime 07/03. Patient was admitted for acute UTI, sepsis, HHS, and AMS. GI has been consulted for cirrhosis, liver mass and jaundice. Unable to obtain subjective information from patient. ENDOSCOPY HISTORY: EGD: 01/29/[address] Nguyen for hematemesis, upper GI bleed, EtOH cirrhosis Findings: One. Gastric varices appear to be etiology for recent bleeding, large varices were identified. These were not injected nor banded because of epigastric nature of these varices. Plan is to obtain CT scan of abdomen to expose include splenic vein thrombus. Consider referral to tertiary care center [facility] for possible tips decompensation shunt 2. Distal esophageal ulceration. These are significant, not felt to be the source of recent bleeding. No biopsies were taken at this time because of recent massive blood loss. Plan for follow-up EGD at some point to further evaluate. COLONOSCOPY: Unknown LABS AND STOOL STUDIES: Labs 07/05/2025: Sodium 128, potassium 3.7, BUN 90, creatinine 1..64, GFR 44, calcium 7.4 WBC 20, Hgb 14, Hct 39, MCV 99, platelets 68 Total bilirubin 13, AST 95, ALT 62, Alkaline Phos 212, albumin 2.3 Labs 07/04/2025: Sodium 120, potassium 3.9, BUN 86, creatinine 1.51, GFR 48, calcium 7.4, magnesium 3.4 WBC 16, Hgb 15, Hct 42, MCV 98, platelets 81, INR 2.0 Total bilirubin 12, AST 85, ALT 61, Alkaline Phos 250, albumin 2.3 IMAGING: CT chest/abd/pelvis w/contrast 07/04/2025: Findings: CT chest: No significant coronary calcification is present ([id number]) LUNGS: No tracheomalacia. No bronchiectasis. Minimal emphysematous changes. Minimal pulmonary fibrotic changes. Apical scarring bilaterally. Small simple appearing left pleural effusion. Trace simple appearing appearing right pleural effusion. HEART AND PERICARDIUM: Within normal limits. AORTA: Normal caliber aorta. MEDIASTINUM: Calcified mediastinal and hilar lymph nodes. THYROID: The thyroid is unremarkable. CT abdomen: LIVER: The liver contours are nodular with innumerable solid-appearing liver lesions the largest right lobe liver 7 x 8 cm incompletely evaluated. The main portal vein is patent. No intrahepatic biliary duct dilatation. SPLEEN: The spleen appears enlarged.. KIDNEYS: Right Kidney: Unremarkable. No calculi. No hydronephrosis. Left Kidney: There is a device noted within the left renal vein, correlate with clinical history is required. ADRENAL GLANDS: Unremarkable. PANCREAS: Moderate pancreatic atrophy. GALLBLADDER/BILIARY: Cholelithiasis. STOMACH AND ESOPHAGUS: Mild thickening of the esophagus may represent mild esophagitis. The stomach appears decompressed. BOWEL/MESENTERY: Moderate fecal content. No colitis or diverticulitis. Ill- defined stranding throughout the mesentery. Appendix normal. No dilated small bowel loops. RETROPERITONEUM: Unremarkable AORTA/VASCULATURE: Normal caliber aorta. FREE FLUID OR FREE AIR: Moderate free fluid.. CT pelvis: SOLID ORGANS/REPRODUCTIVE: Prostate is enlarged, correlate with PSA BLADDER: Circumferential thickening of the bladder with mucosal hyperemia. LYMPHADENOPATHY: There are no enlarged lymph nodes in the gastrohepatic ligament and peripancreatic space the largest 1.6 x 1.5 cm. OSSEOUS STRUCTURES: No sclerotic or lytic lesions. Adjacent to the left iliac bone there is a cystic focus measuring 2.5 x 2 cm adjacent to the inferior pubic ramus posteriorly possibly a ganglion cyst, other etiologies not excluded, follow-up recommended. OVERLYING SOFT TISSUES: There are multiple collateral vessels within the soft tissues. There is a large supraumbilical ventral hernia containing fat, defect in the abdominal wall 1 cm. IMPRESSION: 1. Chronic changes in the lungs with small pleural effusions. 2. 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 Contrast-enhanced MRI recommended. 3. Incidental findings above Review of Systems 2 Review of Systems: ROS unobtainable: Yes unobtainable due to medical condition and unobtainable due to mental status [facility] Past Medical History Medical History History of depression Admitted for suicidal ideation in January 2013. Alcoholic cirrhosis of liver Heart murmur, systolic Echocardiogram from 01/09/2020 done at [facility] showed ejection fraction of 65 to 70%, mild concentric hypertrophy, no regional wall motion abnormalities, moderate pulmonary hypertension with RVSP of 52 millimeters of mercury, and mild aortic stenosis. Alcoholism Surgical History Surgical History History of colon resection Related to ruptured appendicitis. History of appendectomy Family History Family History Grandparent Diabetes mellitus Legally blind Pneumonia Mother Migraines Sibling Migraines Sibling Pre-diabetes Grandparent Diabetes mellitus Grandparent Diabetes mellitus Father Family history of alcoholism Sibling Family history of alcoholism Social History Social History Social History: The patient is and shares a home in [place] with his and 2 dogs, a Yorkie and a min-pin. 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 He also helps care for his , who has early-onset dementia. He smoked between 2 and 3 packs of cigarettes a day for 30 years and he reportedly quit in October 2016. He has a history of alcoholism. He denies drug use. Designates his , Ken Orosco, as his surrogate decision maker and he wishes to be a full code. Smoking packs per day: 2 Smoking cigarettes per day: 40.0 Years smoked: 30 Smoking pack-years: 60.00 Smoking status: Former smoker Tobacco type: cigarettes and e-cigarettes/vaping Second hand tobacco smoke exposure: No Smoking end date: 10/31/16 Alcohol intake: former Substance use: former Substance use type: does not use Lack of Transportation: No Lack of Food: Never True Current Housing: I Have Housing Concerned About Future Housing: No Difficulty Paying Gas/Electric Bills: No Difficulty Paying for Meds: No Currently Unemployed: No Education: Trade/Vocational Certificate Difficulty w/ Childcare or Family Care: No Living arrangements: with family 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 Gender identity (if verbalized by the patient): Male Spiritual care concerns: No Agree to blood products: Yes Meds Home Medications and Allergies Home Medications ?Medication ?Instructions ?Recorded ?Confirmed ?Type No Home Medications 07/04/25 07/04/25 H istory Allergies Allergy/AdvReac Type Severity Reaction Status Date / Time No Known Allergies Allergy Unknown Verified 07/04/25 22:59 Vital Signs Vital Signs - 24 hr 07/04/25 16:17 07/04/25 21:07 07/04/25 21:07 Temperature Pulse Rate 83 94 94 Respiratory Rate 30 H 38 H Blood Pressure 145/76 H 118/63 Pulse Oximetry 98 93 Oxygen Delivery Room Air Oxygen Flow Rate 07/04/25 21:27 07/04/25 22:12 07/04/25 22:13 Temperature 99.1 F 98.8 F Pulse Rate 95 98 Respiratory Rate 37 H Blood Pressure 135/74 113/55 L Pulse Oximetry 89 L Oxygen Delivery Oxygen Flow Rate 07/04/25 23:00 07/04/25 23:10 07/05/25 00:00 Temperature Pulse Rate 115 H 92 Respiratory Rate 21 H Blood Pressure 104/73 Pulse Oximetry 99 94 Oxygen Delivery Nasal Cannula Oxygen Flow Rate 2 07/05/25 00:00 07/05/25 01:00 07/05/25 02:00 Temperature 99.0 F Pulse Rate 92 93 94 Respiratory Rate 34 H 37 H Blood Pressure 114/64 124/68 Pulse Oximetry 93 91 Oxygen Delivery Oxygen Flow Rate 07/05/25 02:00 07/05/25 03:00 07/05/25 04:00 Temperature 98.6 F 98.2 F 97.9 F Pulse Rate 94 93 92 Respiratory Rate 30 H 32 H 30 H Blood Pressure 103/61 109/64 108/69 Pulse Oximetry 90 90 89 L Oxygen Delivery Oxygen Flow Rate 07/05/25 04:00 07/05/25 04:00 07/05/25 05:00 Temperature 97.4 F L Pulse Rate 91 92 Respiratory Rate 31 H Blood Pressure 113/68 Pulse Oximetry 89 L 90 Oxygen Delivery Nasal Cannula Oxygen Flow Rate 3 07/05/25 06:00 07/05/25 06:00 07/05/25 07:00 Temperature 97.2 F L 98.2 F Pulse Rate 90 90 93 Respiratory Rate 30 H 34 H Blood Pressure 106/70 109/64 Pulse Oximetry 91 93 Oxygen Delivery Oxygen Flow Rate 07/05/25 07:38 07/05/25 09:00 Temperature 96.9 F L 96.9 F L Pulse Rate 88 97 Respiratory Rate 18 24 H Blood Pressure 105/66 108/68 Pulse Oximetry 95 91 Oxygen Delivery Oxygen Flow Rate Exam 2 Const: General: comfortable and no acute distress HENMT: Mouth: Yes moist mucous membranes Eyes: Sclera: scleral abnormality (icterus) bilateral Pupils: Equal, round and reactive pupils present Neck: Neck: supple Resp: Effort & Inspection: normal respiratory effort and tachypneic Other: nasal cannula. Cardio: Rhythm: regular rhythm Urinary Catheter: Urinary Catheter: patent and draining and urine dark Skin: General skin exam: No normal color (jaundice) Results Labs 07/05/25 05:40 07/05/25 05:40 Labs: Short CBC 07/04/25 07/05/25 Range/Units 16:33 05:40 WBC 15.7 H 20.2 H (4.5-10.0) K/mm3 Hgb 15.2 D 14.1 (14.0-18.0) g/dL Hct 41.7 L 38.9 L (42.0-52.0) % Plt Count 81 L D 68 L (150-375) k/mm3 BMP 07/04/25 07/04/25 07/05/25 17:25 23:15 01:53 Sodium 120 L 124 L 128 L Potassium 3.9 3.3 L 3.3 L Chloride 90 L 94 L 99 Carbon Dioxide 19 L 18 L 18 L BUN 86 H D 89 H 92 H Creatinine 1.51 H 1.63 H 1.61 H Glucose 624 H* 403 H 231 H Calcium 7.4 L 7.5 L 7.7 L 07/05/25 05:40 Sodium 128 L Potassium 3.7 Chloride 98 Carbon Dioxide 22 BUN 90 H Creatinine 1.64 H Glucose 187 H Calcium 7.4 L Cardiac Enzymes 07/04/25 07/04/25 07/04/25 Range/Units 16:34 17:25 21:14 Total Creatine Kinase Cancelled 254 H 373 H Troponin I 0.035 H* (0.000-0.034) ng/mL 07/04/25 07/04/25 07/05/25 Range/Units 21:15 23:15 05:40 Total Creatine Kinase Troponin I 0.059 H* D 0.061 H* 0.057 H* (0.000-0.034) ng/mL Liver Function 07/04/25 07/05/25 Range/Units 17:25 01:53 Total Bilirubin 11.8 H 12.9 H (0.2-1.3) mg/dL AST 85 H 95 H (17-59) U/L ALT 61 H 62 H (6-50) U/L Alkaline Phosphatase 250 H 212 H (38-126) U/L Albumin 2.4 L 2.3 L (3.5-5.1) g/dL Urine 07/04/25 07/04/25 Range/Units 19:36 22:34 Urine Color Dark yellow Red H (Yellow) Urine Appearance Turbid H Cloudy H (Clear) Urine pH 6.0 6.0 (5.0-9.0) Ur Specific [place] 1.031 1.005 (1.001-1.035) Urine Protein 1+ H 2+ H (Negative) mg/dL Urine Glucose (UA) 3+ H Trace H (Negative) mg/dL
--- NOTE | 2025-07-05 10:02 | P.CONNP_ITS ---
Assessment and Plan Assessment and plan (1) Acute kidney injury: Code(s): N17.9 - Acute kidney failure, unspecified Status: Acute Assessment and Plan: * as noted by admission labs * however, only previous labs for comparison are from August 2021 at [facility] (creatinine was 0.71mg/dL) * suspect multifactorial etiology: * prerenal factors * possible mild rhabdomyolysis * progression of liver disease (element of HRS?) * possible underlying CKD (?) * infection/early sepsis (UTI +/- skin infection) * other (?) * check urine studies and renal ultrasound * follow trend of CPK * continue IVFs * follow trend of repeat labs and UOP (2) Hyperosmolar hyperglycemic state (HHS): Code(s): E11.00 - Type 2 diabetes mellitus with hyperosmolarity without nonketotic hyperglycemic-hyperosmolar coma (N[facility]) Status: Acute Assessment and Plan: * as noted by presentation with hyperglycemia with normal gap * s/p IVF resuscitation and initiation of insulin gtt * poor glycemic control at baseline - A1c 11.3 * plan trasition to SQ insulin therapy * advance diet within limits of mentation (3) Sepsis: Qualifiers: Sepsis acute organ dysfunction status: unspecified Sepsis type: sepsis due to unspecified organism Qualified Code(s): A41.9 - Sepsis, unspecified organism Code(s): A41.9 - Sepsis, unspecified organism Status: Acute Assessment and Plan: * possibly due to UTI versus skin infection * follow trend of hemodynamics * follow culture data * on antibiotic therapy (4) Hyponatremia: Code(s): E87.1 - Hypo-osmolality and hyponatremia Status: Acute Assessment and Plan: * due to several issues: * partly due to hyperglycemia -- admission sodium corrects to 133 given glucose of 624 * liver disease * volume depletion * alcohol (?) * suspect a chronic component present at baseline * follow trend of repeat sodium levels (5) AMS (altered mental status): Qualifiers: Altered mental status type: unspecified Qualified Code(s): R41.82 - Altered mental status, unspecified Code(s): R41.82 - Altered mental status, unspecified Status: Acute Assessment and Plan: * likely due to several issues: * PAPA/ARF * possible uremia * hyperglycemia/HHS * early sepsis/infection * elevated ammonia * other (?) * CT of head negative * minimize sedation/sedative medications * continue supportive therapy (6) Alcoholic cirrhosis of liver: Qualifiers: Ascites presence: without ascites Qualified Code(s): K70.30 - Alcoholic cirrhosis of liver without ascites Code(s): K70.30 - Alcoholic cirrhosis of liver without ascites Status: Acute Assessment and Plan: * known issues since as far back as 2018 (if not longer) * acute decline versus progression of disease(?) * elevated LFTs noted on admission * elevated ammonia noted as well * started on lactulose * Vitamin K for coagulopathy * right upper quadrant ultrasound ordered * complicated by acute on chronic thrombocytopenia * acute drop due to sepsis * chronic component due to liver cirrhosis and alcohol abuse (7) Acute UTI: Code(s): N39.0 - Urinary tract infection, site not specified Status: Acute Assessment and Plan: * admission UA suggestive * follow culture data * on antibiotics (8) Pustular rash: Code(s): L08.0 - Pyoderma Status: Acute Assessment and Plan: * noted on exam * etiology not clear * follow cultures * on antibiotics (9) Rhabdomyolysis: Code(s): M62.82 - Rhabdomyolysis Status: Acute Assessment and Plan: * noted history of being found laying on the floor * duration not clear * mildly elevated CPK noted * follow trend * on IVFs (10) Alcoholism: Code(s): F10.20 - Alcohol dependence, uncomplicated Status: Acute Assessment and Plan: * known history of alcohol abuse * on IV thiamine and folic acid * monitor for withdrawal I will continue to follow the patient with you while he remains hospitalized and make further recommendations as deemed necessary. Thank you for allowing me to participate in the care of this patient. L History of Present Illness Reason for Consult Consult date: 07/05/25 Reason for consult: acute renal failure Chief Complaint Chief complaint: hhs, ams, sepsis, uti, liver lesion, elevated ammo History of Present Illness Narrative: All the information I have obtained is from review of the electronic medical record as well as discussion with the physician/nurses involved in the patient's care as is difficult to get a full and complete history from the patient due to his altered mental status / encephalopathy. The patient is a 55-year-old male with a past medical history as outlined below who presented to [facility] Emergency Room yesterday via EMS due to altered mental status. Apparently, the patient's called EMS after finding the patient on the floor and confused. By report, he had been laying on the 4 for at least 24 hours if not longer although the exact duration is not clear. When the patient's found him, he was complaining of pain all over his body but was quite confused - He was only oriented to himself. Unfortunately, the patient's reportedly has early-onset dementia and was not available when the patient was brought to the ER. Workup and evaluation emergency room demonstrated the patient to be hemodynamically stable and afebrile but was slightly tachypneic. Subsequent testing was significant for white blood cell count of 15.7, hemoglobin 15.2, platelet count of 81, sodium 120, potassium 3.9, bicarb 19, BUN 86, creatinine 1.51, glucose 624, calcium 7.4, elevated liver function tests with a total bilirubin 11.8, AST of 85, ALT 61, alkaline phosphatase of 250 along with an albumin of 2.4, lactic acid of 5.3, ammonia of 31, CPK of 254, and initial troponin of 0.035. His urinalysis was significant for turbid appearance and 1+ protein, 3+ blood, positive nitrates, 3+ leukocyte esterase, greater than 100 red blood cells, and greater than 100 white blood cells and 3+ glucose. Urine tox screen was negative and viral testing for RSV, influenza, and COVID was negative. Subsequent imaging studies included chest x-ray that demonstrated probable viral pneumonitis, a head CT without any acute intracranial abnormality, and a CT scan of the chest/abdomen /pelvis with minimal emphysematous changes, minimal pulmonary fibrotic changes, apical scarring bilaterally, and the small left pleural effusion and a trace simple right pleural effusion, nodular liver with innumerable solid appearing liver lesions with the largest in the right lobe measuring 7 x 8 cm, splenomegaly, unremarkable right kidney, a device noted within the left renal vein mild thickening of the esophagus, moderate fecal content but no evidence of colitis or diverticulitis enlarged prostate, some circumferential thickening of the bladder with mucosal hyperemia and a large supraumbilical ventral hernia containing fat. Given his significant liver dysfunction as noted by his admission labs, it was recommended that the patient be transferred to another facility for further evaluation. Unfortunately, there was no bed availability at [facility] and the patient was subsequent admitted to the intensive care unit unit here at [facility] for further evaluation therapy. Since his admission, he was placed on insulin drip and was given aggressive IV fluid resuscitation and after appropriate cultures were obtained, started on broad-spectrum IV antibiotics due to concerns of possible sepsis. Renal consultation was requested due to his acute kidney injury/acute renal failure. Unfortunately, the only labs I have available to me in comparison to his admission labs were from 2020 that demonstrated his kidney function be well within normal limits. However, it is very possible that he does have some underlying renal insufficiency secondary to his known history of poorly controlled diabetes in association with his known alcoholic liver disease. His hyponatremia is felt to be secondary to his significant hyperglycemia in the context of his known liver dysfunction as it has improved with stabilization of his blood sugar. In spite of his renal insufficiency, he appears to be making reasonable urine output at this time and has no other critical electrolyte abnormalities aside from the admission hyponatremia which, as already mentioned, is already improving. Currently, at the time my evaluation, the patient is somewhat confused and making nonsensical comments when asked questions but in no acute distress Review of Systems 2 Review of Systems: As per HPI. PMF Past Medical History Medical History History of depression Admitted for suicidal ideation in January 2013. Alcoholic cirrhosis of liver Heart murmur, systolic Echocardiogram from 01/09/2020 done at [facility] showed ejection fraction of 65 to 70%, mild concentric hypertrophy, no regional wall motion abnormalities, moderate pulmonary hypertension with RVSP of 52 millimeters of mercury, and mild aortic stenosis. Alcoholism Surgical History Surgical History History of colon resection Related to ruptured appendicitis. History of appendectomy Family History Family History Grandparent Diabetes mellitus Legally blind Pneumonia Mother Migraines Sibling Migraines Sibling Pre-diabetes Grandparent Diabetes mellitus Grandparent Diabetes mellitus Father Family history of alcoholism Sibling Family history of alcoholism Social History Social History Social History: The patient is and shares a home in [place] with his and 2 dogs, a Yorkie and a min-pin. 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 He also helps care for his , who has early-onset dementia. He smoked between 2 and 3 packs of cigarettes a day for 30 years and he reportedly quit in October 2016. He has a history of alcoholism. He denies drug use. Designates his , Ken Orosco, as his surrogate decision maker and he wishes to be a full code. Smoking packs per day: 2 Smoking cigarettes per day: 40.0 Years smoked: 30 Smoking pack-years: 60.00 Smoking status: Former smoker Tobacco type: cigarettes and e-cigarettes/vaping Second hand tobacco smoke exposure: No Smoking end date: 10/31/16 Alcohol intake: former Substance use: former Substance use type: does not use Lack of Transportation: No Lack of Food: Never True Current Housing: I Have Housing Concerned About Future Housing: No Difficulty Paying Gas/Electric Bills: No Difficulty Paying for Meds: No Currently Unemployed: No Education: Trade/Vocational Certificate Difficulty w/ Childcare or Family Care: No Living arrangements: with family 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 Gender identity (if verbalized by the patient): Male Spiritual care concerns: No Agree to blood products: Yes Meds Home Medications and Allergies Home Medications ?Medication ?Instructions ?Recorded ?Confirmed ?Type No Home Medications 07/04/25 07/04/25 H istory Allergies Allergy/AdvReac Type Severity Reaction Status Date / Time No Known Allergies Allergy Unknown Verified 07/04/25 22:59 Vital Signs Vital Signs Temp Pulse Resp BP Pulse Ox O2 Del Method O2 Flow Rate 07/05/25 10:00 98.8 F 98 31 H 120/69 91 07/05/25 09:00 96.9 F L 97 24 H 108/68 91 07/05/25 08:00 88 07/05/25 08:00 97 24 H 91 Nasal Cannula 3 07/05/25 07:38 96.9 F L 88 18 105/66 95 07/05/25 07:00 98.2 F 93 34 H 109/64 93 07/05/25 06:00 90 07/05/25 06:00 97.2 F L 90 30 H 106/70 91 07/05/25 05:00 97.4 F L 92 31 H 113/68 90 07/05/25 04:00 89 L Nasal Cannula 3 07/05/25 04:00 91 07/05/25 04:00 97.9 F 92 30 H 108/69 89 L 07/05/25 03:00 98.2 F 93 32 H 109/64 90 07/05/25 02:00 98.6 F 94 30 H 103/61 90 07/05/25 02:00 94 07/05/25 01:00 93 37 H 124/68 91 07/05/25 00:00 99.0 F 92 34 H 114/64 93 07/05/25 00:00 92 07/04/25 23:10 94 Nasal Cannula 2 07/04/25 23:00 115 H 21 H 104/73 99 07/04/25 22:13 98.8 F 98 37 H 113/55 L 89 L 07/04/25 22:12 95 135/74 07/04/25 21:27 99.1 F 07/04/25 21:07 94 07/04/25 21:07 94 38 H 118/63 93 07/04/25 16:17 83 30 H 145/76 H 98 Room Air Exam 2 Narrative: GENERAL APPEARANCE: middle aged male in no acute distress (but confused HEENT: normocephalic, atraumatic, + scleral icterus, nares patient NECK: no lymphadenopathy, thyromegaly, or JVD MOUTH: dry mucous membranes noted CARDIOVASCULAR: RRR, normal S1 and S2, no rub RESPIRATORY: clear to auscultation bilaterally ABDOMEN: soft, nontender, nondistended, positive bowel sounds present EXTREMITIES: no evidence of cyanosis, clubbing, or edema; erythema noted in right hand/arm NEUROLOGICAL: not oriented and with incomprehensible, mumbling speech Results Lab Results 07/06/25 03:45 07/06/25 03:45 Lab results: Most recent lab results ABG pH 7.477 (7.350-7.450) H 07/04/25 16:37 ABG pCO2 30.5 mmHg (35.0-45.0) L 07/04/25 16:37 ABG pO2 64.7 mmHg (80.0-100.0) L 07/04/25 16:37 ABG HCO3 22.1 mEq/l (22.0-26.0) 07/04/25 16:37 ABG O2 Saturation 94.2 % (95.0-100.0) L 07/04/25 16:37 Calcium 7.4 mg/dL (8.4-10.2) L 07/05/25 05:40 Phosphorus 2.9 mg/dL (2.5-4.5) 07/04/25 23:15 Magnesium 3.4 mg/dL (1.6-2.3) H 07/04/25 23:15
--- NOTE | 2025-07-05 10:23 | PCFNICU ---
ICU Rounding Note: Pt current nutrition is Clear liquids. Nutrition recommendation: Advance diet as medically able per MD. Agree with current nutrition care plan and orders. Last recorded weight is 87.4 kg. Bowel Motility: No BMs are charted Labs Reviewed: Hct 38.9, Alb 2.3, Na 128, BUN 90, Cre 1.64, Glu 187, Mag 3.4 Meds Noted : Thiamine, folic acid, Novolog, Lantus Skin: No pressure injuries Additional Notes: MD consult for DKA. Discussed with MD. Pt is confused and not appropriate for education. Pt is pending transfer to [place]. Will continue to follow and educate if pt's mental status improves. Following daily in ICU rounds. .
--- NOTE | 2025-07-05 10:40 | WPDCNINT ---
Assessment and Plan Assessment and plan (1) Hyperosmolar hyperglycemic state (HHS): Code(s): E11.00 - Type 2 diabetes mellitus with hyperosmolarity without nonketotic hyperglycemic-hyperosmolar coma (NKHHC) Status: Acute Assessment and Plan: Presented with finding consistent with HHS as patient had high blood glucose but normal anion gap Patient was started on insulin infusion and IV fluid Blood sugars have improved Transition to subcutaneous insulin but continue IV fluids Under of nose diabetes mellitus with HbA1c 11.3 Start liquid diet and advance as tolerated (2) AMS (altered mental status): Code(s): R41.82 - Altered mental status, unspecified Status: Acute Assessment and Plan: Patient likely has multifactorial encephalopathy with HHS, sepsis, uremia and very mildly elevated ammonia level Head CT was negative Avoid sedative Treatment of individual problems as below (3) Alcoholism: Code(s): F10.20 - Alcohol dependence, uncomplicated Status: Acute Assessment and Plan: History of alcohol abuse Thiamine folic acid Monitor for signs of withdrawal (4) Thrombocytopenia: Code(s): D69.6 - Thrombocytopenia, unspecified Status: Chronic Assessment and Plan: Chronic thrombocytopenia likely secondary to cirrhosis and alcohol abuse which is now exacerbated by sepsis Monitor platelet counts. Transfuse if needed Hold anticoagulation (5) Hyponatremia: Code(s): E87.1 - Hypo-osmolality and hyponatremia Status: Acute Assessment and Plan: Partially pseudohyponatremia secondary to HHS and secondary to cirrhosis Getting IV fluids for dehydration and acute kidney injury Monitor sodium level Nephrology consultation (6) Hyperbilirubinemia: Code(s): E80.6 - Other disorders of bilirubin metabolism Status: Chronic Assessment and Plan: Secondary to cirrhosis Right upper quadrant ultrasound pending (7) Alcoholic cirrhosis of liver: Code(s): K70.30 - Alcoholic cirrhosis of liver without ascites Status: Acute Assessment and Plan: Lactulose for elevated ammonia Vitamin K for elevated INR Right upper quadrant ultrasound (8) Acute renal failure: Code(s): N17.9 - Acute kidney failure, unspecified Status: Acute Assessment and Plan: Presented with acute kidney injury Patient has mild rhabdomyolysis and likely dehydrated and hypovolemic Getting IV fluids Monitor urine output electrolytes and creatinine Monitor CK level Consult nephrology Check renal ultrasound (9) Acute UTI: Code(s): N39.0 - Urinary tract infection, site not specified Status: Acute Assessment and Plan: Urine culture, cefepime (10) Sepsis: Code(s): A41.9 - Sepsis, unspecified organism Status: Acute Assessment and Plan: Sepsis secondary to UTI and pustular skin infection Continue vanc and cefepime Blood and urine cultures (11) Pustular rash: Code(s): L08.0 - Pyoderma Status: Acute Assessment and Plan: Etiology unknown. Treatment with vancomycin and cultures pending HIV screen ordered ? Viral infection (12) Rhabdomyolysis: Code(s): M62.82 - Rhabdomyolysis Status: Acute Assessment and Plan: Mild rhabdomyolysis from laying on the floor IV fluid Monitor CK level (13) Liver mass: Code(s): R16.0 - Hepatomegaly, not elsewhere classified Status: Acute Assessment and Plan: CT scan shows multiple per liver lesions. Right upper quadrant ultrasound ordered by portal vein is patent. Patient waiting for transfer to tertiary facility for further evaluation. (14) Abnormal CT scan, kidney: Code(s): R93.429 - Abnormal radiologic findings on diagnostic imaging of unspecified kidney Status: Acute Assessment and Plan: CT scan read as device within left renal vein. Ultrasound ordered nephrology consult or Plan DVT prophylaxis -SCD Stress ulcer prophylaxis -protonic Nutrition -start clear liquid diet and advance as tolerated Code Status - DNR/ DNI No family at bedside. Patient is waiting for a bed at [facility]. Spoke to transfer line and hospitalist Dr. Hu. Updated him with events and patient's current status. Patient is waiting for a bed at [facility]. Will wait for another 24 hours may have to call [facility] if no bed is available. Total Critical Care Time - 35 minutes Due to a high probability of clinically significant, life threatening deterioration, the patient required my highest level of preparedness to intervene emergently and I personally spent this critical care time directly and personally managing the patient. This critical care time included obtaining a history; examining the patient; pulse oximetry; ordering and review of studies; arranging urgent treatment with development of a management plan; evaluation of patient's response to treatment; frequent reassessment; and discussions with other providers. It was exclusive of separately billable procedures and treating other patients and teaching time. Please see Assessment and Plan section and the rest of the note for further information on patient assessment and treatment Director Equipment Consult Note Consult date: 07/05/25 Reason for consult: HHS, altered mental status, sepsis HPI: Urban Orosco is a 55 year old male with known past medical history of alcoholic cirrhosis of liver and alcohol abuse was brought to ER yesterday EMS after being called by his with altered mental status. History was provided by patient's significant other to the ER physician was not available at this time and it was reported the patient had been lying on floor for more than 24 hours and was confused. Patient was complaining of pain all over his body. Full history was not obtainable as patient was confused. Apparently his also has early-onset dementia. Workup in the ER showed WBC 15.7. Platelet count 81. Sodium is 120. BUN 86 with creatinine 1.51. His blood sugar was greater than 500 with point care. According to labs his glucose is 624. Lactic acid is 5.3. Calcium 7.4. Troponin 0.035 with a repeat of 0.059. BNP 1030. Urinalysis 3+ blood, 3+ glucose, positive nitrates, 3+ bilirubin, 3+ leukocyte esterase, RBCs greater than 100, urine wbc's greater than 100. Total CK was 254, ammonia 31,and total bilirubin 11.8 Toxicology screen negative. Viral serology negative. Chest x-ray was read as probable viral pneumonitis. Head CT was read as no acute intracranial abnormality. Head/abdomen/pelvis CT was read as 1. Chronic changes in the lungs with small pleural effusions. 2. 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 Contrast-enhanced MRI recommended. 3. Incidental findings above Attempt was made to transfer patient to [facility] but no metacarpal hence patient was placed on the waitlist and then admitted to ICU. Patient was given fluid bolus started on insulin infusion and broad-spectrum antibiotics in the form of cefepime and vancomycin. This morning patient is more awake and following commands but he still confused and not oriented. He is unable to provide any meaningful history and mumbles but does answer some questions by yes and no he. He admitted to drinking alcohol, smoking cigarettes and smoking marijuana daily. He states he has pain all over his body. He states he is hungry and would like to eat food and drink water. He will not answer other questions or provide any meaningful history. Review of Systems Review of Systems: ROS unobtainable: Yes unobtainable due to medical condition and unobtainable due to mental status [facility] Past Medical History Medical History History of depression Admitted for suicidal ideation in January 2013. Alcoholic cirrhosis of liver Heart murmur, systolic Echocardiogram from 01/09/2020 done at [facility] showed ejection fraction of 65 to 70%, mild concentric hypertrophy, no regional wall motion abnormalities, moderate pulmonary hypertension with RVSP of 52 millimeters of mercury, and mild aortic stenosis. Alcoholism Surgical History Surgical History History of colon resection Related to ruptured appendicitis. History of appendectomy Family History Family History Grandparent Diabetes mellitus Legally blind Pneumonia Mother Migraines Sibling Migraines Sibling Pre-diabetes Grandparent Diabetes mellitus Grandparent Diabetes mellitus Father Family history of alcoholism Sibling Family history of alcoholism Social History Social History Social History: The patient is and shares a home in [place] with his and 2 dogs, a Yorkie and a min-pin. 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 He also helps care for his , who has early-onset dementia. He smoked between 2 and 3 packs of cigarettes a day for 30 years and he reportedly quit in October 2016. He has a history of alcoholism. He denies drug use. Designates his , Ken Orosco, as his surrogate decision maker and he wishes to be a full code. Smoking packs per day: 2 Smoking cigarettes per day: 40.0 Years smoked: 30 Smoking pack-years: 60.00 Smoking status: Former smoker Tobacco type: cigarettes and e-cigarettes/vaping Second hand tobacco smoke exposure: No Smoking end date: 10/31/16 Alcohol intake: former Substance use: former Substance use type: does not use Lack of Transportation: No Lack of Food: Never True Current Housing: I Have Housing Concerned About Future Housing: No Difficulty Paying Gas/Electric Bills: No Difficulty Paying for Meds: No Currently Unemployed: No Education: Trade/Vocational Certificate Difficulty w/ Childcare or Family Care: No Living arrangements: with family 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 Gender identity (if verbalized by the patient): Male Spiritual care concerns: No Agree to blood products: Yes Meds Home Medications and Allergies Home Medications ?Medication ?Instructions ?Recorded ?Confirmed ?Type No Home Medications 07/04/25 07/04/25 History Allergies Allergy/AdvReac Type Severity Reaction Status Date / Time No Known Allergies Allergy Unknown Verified 07/04/25 22:59 Vital Signs Vital Signs - 24 hr 07/04/25 16:17 07/04/25 21:07 07/04/25 21:07 Temperature Pulse Rate 83 94 94 Respiratory Rate 30 H 38 H Blood Pressure 145/76 H 118/63 Pulse Oximetry 98 93 Oxygen Delivery Room Air Oxygen Flow Rate 07/04/25 21:27 07/04/25 22:12 07/04/25 22:13 Temperature 37.3 C 37.1 C Pulse Rate 95 98 Respiratory Rate 37 H Blood Pressure 135/74 113/55 L Pulse Oximetry 89 L Oxygen Delivery Oxygen Flow Rate 07/04/25 23:00 07/04/25 23:10 07/05/25 00:00 Temperature Pulse Rate 115 H 92 Respiratory Rate 21 H Blood Pressure 104/73 Pulse Oximetry 99 94 Oxygen Delivery Nasal Cannula Oxygen Flow Rate 2 07/05/25 00:00 07/05/25 01:00 07/05/25 02:00 Temperature 37.2 C Pulse Rate 92 93 94 Respiratory Rate 34 H 37 H Blood Pressure 114/64 124/68 Pulse Oximetry 93 91 Oxygen Delivery Oxygen Flow Rate 07/05/25 02:00 07/05/25 03:00 07/05/25 04:00 Temperature 37.0 C 36.8 C 36.6 C Pulse Rate 94 93 92 Respiratory Rate 30 H 32 H 30 H Blood Pressure 103/61 109/64 108/69 Pulse Oximetry 90 90 89 L Oxygen Delivery Oxygen Flow Rate 07/05/25 04:00 07/05/25 04:00 07/05/25 05:00 Temperature 36.3 C L Pulse Rate 91 92 Respiratory Rate 31 H Blood Pressure 113/68 Pulse Oximetry 89 L 90 Oxygen Delivery Nasal Cannula Oxygen Flow Rate 3 07/05/25 06:00 07/05/25 06:00 07/05/25 07:00 Temperature 36.2 C L 36.8 C Pulse Rate 90 90 93 Respiratory Rate 30 H 34 H Blood Pressure 106/70 109/64 Pulse Oximetry 91 93 Oxygen Delivery Oxygen Flow Rate 07/05/25 07:38 07/05/25 08:00 07/05/25 08:00 Temperature 36.1 C L Pulse Rate 88 97 88 Respiratory Rate 18 24 H Blood Pressure 105/66 Pulse Oximetry 95 91 Oxygen Delivery Nasal Cannula Oxygen Flow Rate 3 07/05/25 09:00 07/05/25 10:00 07/05/25 10:00 Temperature 36.1 C L 37.1 C Pulse Rate 97 98 97 Respiratory Rate 24 H 31 H Blood Pressure 108/68 120/69 Pulse Oximetry 91 91 Oxygen Delivery Oxygen Flow Rate Exam Narrative: General: Pt is awake in no distress but confused Lungs/Chest: Trachea central Clear BS B/L, No crackles or wheezing. Cardiac: RRR. Normal S1 S2. No murmurs Circulation: Pedal pulses are intact and symmetrical. Abdomen: Normal bowel sounds.. Soft. NT. ND. Extremities: Redness in right hand and arm : Clements in place Neurologic: Follows commands. Moves all 4 extremities PERRL AO x0, mumbles with speech often incomprehensible Skin: Several small pustules all over his body including legs and arms, spider nevi on the chest, macerations in the groin, sodium take dry eczematous skin on the arms HEENT: Oral mucosa is dry Results Labs 07/05/25 05:40 07/05/25 05:40 Labs: Impressions Chest X-Ray 07/04/25 16:48 Impression: Probable viral pneumonitis Head CT 07/04/25 17:47 Impression: 1.No acute intracranial abnormality. Chest/Abdomen/Pelvis CT 07/04/25 18:37 IMPRESSION: 1. Chronic changes in the lungs with small pleural effusions. 2. 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 Contrast-enhanced MRI recommended. 3. Incidental findings above Hand X-Ray 07/05/25 08:18 Impression: No acute fracture or malalignment. Short CBC 07/04/25 07/05/25 Range/Units 16:33 05:40 WBC 15.7 H 20.2 H (4.5-10.0) K/mm3 Hgb 15.2 D 14.1 (14.0-18.0) g/dL Hct 41.7 L 38.9 L (42.0-52.0) % Plt Count 81 L D 68 L (150-375) k/mm3 BMP 07/04/25 07/04/25 07/05/25 17:25 23:15 01:53 Sodium 120 L 124 L 128 L Potassium 3.9 3.3 L 3.3 L Chloride 90 L 94 L 99 Carbon Dioxide 19 L 18 L 18 L BUN 86 H D 89 H 92 H Creatinine 1.51 H 1.63 H 1.61 H Glucose 624 H* 403 H 231 H Calcium 7.4 L 7.5 L 7.7 L 07/05/25 05:40 Sodium 128 L Potassium 3.7 Chloride 98 Carbon Dioxide 22 BUN 90 H Creatinine 1.64 H Glucose 187 H Calcium 7.4 L Cardiac Enzymes 07/04/25 07/04/25 07/04/25 Range/Units 16:34 17:25 21:14 Total Creatine Kinase Cancelled 254 H 373 H Troponin I 0.035 H* (0.000-0.034) ng/mL 07/04/25 07/04/25 07/05/25 Range/Units 21:15 23:15 05:40 Total Creatine Kinase Troponin I 0.059 H* D 0.061 H* 0.057 H* (0.000-0.034) ng/mL Liver Function 07/04/25 07/05/25 Range/Units 17:25 01:53 Total Bilirubin 11.8 H 12.9 H (0.2-1.3) mg/dL AST 85 H 95 H (17-59) U/L ALT 61 H 62 H (6-50) U/L Alkaline Phosphatase 250 H 212 H (38-126) U/L Albumin 2.4 L 2.3 L (3.5-5.1) g/dL Urine 07/04/25 07/04/25 Range/Units 19:36 22:34 Urine Color Dark yellow Red H (Yellow) Urine Appearance Turbid H Cloudy H (Clear) Urine pH 6.0 6.0 (5.0-9.0) Ur Specific [place] 1.031 1.005 (1.001-1.035) Urine Protein 1+ H 2+ H (Negative) mg/dL Urine Glucose (UA) 3+ H Trace H (Negative) mg/dL ECG Interpretation: Sinus rhythm with AV conduction delay incomplete right bundle-branch block, nonspecific ST-T changes Quality VTE Prophylaxis VTE prophylaxis: mechanical ordered Hospitalist [facility] Advance Care Plan I have confirmed that the patient's Advanced Care Plan is present, code status is documented, or surrogate decision maker is listed in patient medical record.: Yes Medication Reconciliation I have utilized all available resources to obtain, update and review the patients current medications (includes all prescriptions, OTC, herbals, cannabis, and nutritional supplements).: Yes
[2025-07-05] MEDS: KCL 20 MEQ/0.45% NS 1,000 ML 100 ML IV CONT ×2 (11:08→20:03)
[2025-07-05] MEDS: DOXYCYCLINE IV 100 MG in SODIUM CHLORIDE 0.9% IV 100 ML IVPB ×2 (11:12→23:20)
[2025-07-05] MEDS: INSULIN ASPART (*BKC) 100 UNITS/ML SUB-Q ×3 (12:10→20:45)
[2025-07-05 12:40] LABS: Total Protein Urine Random 29 mg/dL; Ur Ttl Prot Creatinine Ratio 0.38 mg/mg (0-0.20)
[2025-07-05 12:42] LABS: Total Protein Urine Random 29 mg/dL; Urea Random Urine 701 MG/DL
[2025-07-05 12:52] LABS: Urine Eos QC 2nd Tech Confirmed
[2025-07-05] MEDS: VANCOMYCIN 1,500 MG/NS 500 ML 1,500 MG/500 ML BAG 250 MG IVPB (20:08)
[2025-07-06] VITALS (13 sets, daily range): BP systolic 119–141; BP diastolic 54–75; PULSE 92–104; RESP 18–24; TEMP 36.6–36.8; O2SAT 92–96
[2025-07-06] MEDS: INSULIN ASPART (*BKC) 100 UNITS/ML SUB-Q ×3 (00:51→12:35)
[2025-07-06 04:12] LABS: Hematocrit 37.1 % (42.0-52.0); Hemoglobin 13.3 g/dL (14.0-18.0); Mean Corpuscular HGB Conc 35.8 g/dl (32-36); Mean Corpuscular Hemoglobin 35.9 pg (26-34); Mean Corpuscular Volume 100.3 fl (80-100); Platelet Count Result 64 k/mm3 (150-375); Red Blood Count 3.70 M/mm3 (4.6-6.20); White Blood Count 15.2 K/mm3 (4.5-10.0)
[2025-07-06 04:27] LABS: Alanine Aminotransferase 59 U/L (6-50); Albumin Level 2.2 g/dL (3.5-5.1); Alkaline Phosphatase 235 U/L (38-126); Anion Gap 6 mmol/L (4-12); Aspartate Amino Transferase 118 U/L (17-59); Bilirubin,Total 14.1 mg/dL (0.2-1.3); Blood Urea Nitrogen 94 mg/dL (9-20); Calcium 7.4 mg/dL (8.4-10.2); Carbon Dioxide 19 mmol/L (22-30); Chloride 103 mmol/L (98-107); Creatine Kinase 384 U/L (55-170); Estimated CRCL calculation 53 ml/min; Estimated Glomerular Filt Rate 48; Glucose 297 mg/dL (65-110); Magnesium 3.4 mg/dL (1.6-2.3); Potassium 4.3 mmol/L (3.4-5.0); Sodium 128 mmol/L (137-145); Total Protein 6.4 g/dL (6.3-8.2)
[2025-07-06 06:07] LABS: HSV 1 IgG, Type Spec Reactive (Non Reactive); HSV 2 IgG, Type Spec Reactive (Non Reactive)
[2025-07-06] MEDS: KCL 20 MEQ/0.45% NS 1,000 ML 100 ML IV CONT ×2 (06:20→18:23)
[2025-07-06 08:09] LABS: RPR Non Reactive (Non Reactive)
[2025-07-06 08:27] LABS: INR 2.1; Prothrombin Time 23.3 Seconds (11.1-14.7)
[2025-07-06] MEDS: LACTULOSE 20 GM/30 ML UDC PO ×3 (08:54→18:23)
[2025-07-06] MEDS: THIAMINE HCL 200 MG/2 ML VIAL 100 MG IV PUSH (08:54)
[2025-07-06] MEDS: FAMOTIDINE 20 MG/2 ML VIAL IV PUSH ×2 (08:54→20:25)
[2025-07-06] MEDS: FOLIC ACID 1 MG/0.2 ML INJ IV PUSH (08:55)
[2025-07-06] MEDS: CEFEPIME 2 GM in SODIUM CHLORIDE 0.9% IV 50 ML 100 ML IVPB ×2 (09:17→20:25)
--- NOTE | 2025-07-06 10:00 | P.PNNP_ITS ---
Progress Note: A&P Assessment and Plan (1) Acute kidney injury: Code(s): N17.9 - Acute kidney failure, unspecified Status: Acute Assessment and Plan: * as noted by admission labs * however, only previous labs for comparison are from August 2021 at [facility] (creatinine was 0.71mg/dL) * suspect multifactorial etiology: * prerenal factors * possible mild rhabdomyolysis * progression of liver disease * possible underlying CKD (?) * infection/early sepsis (UTI +/- skin infection) * other (?) * evaluation to date: * renal ultrasound w/o hydronephrosis * urine electrolytes are prerenal * negative urine eosinophils * CPK mildly elevated but no high enough to affect kidney function * UA suggestive of infection * mild proteinuria * continue trial of IVFs * follow trend of repeat labs and UOP (2) Hyperosmolar hyperglycemic state (HHS): Code(s): E11.00 - Type 2 diabetes mellitus with hyperosmolarity without nonketotic hyperglycemic-hyperosmolar coma (NKHHC) Status: Acute Assessment and Plan: * resolved * as noted by presentation with hyperglycemia with normal gap * s/p IVF resuscitation and insulin gtt * poor glycemic control at baseline - A1c 11.3 * transitioned to SQ insulin therapy * advance diet within limits of mentation (3) Sepsis: Qualifiers: Sepsis acute organ dysfunction status: unspecified Sepsis type: sepsis due to unspecified organism Qualified Code(s): A41.9 - Sepsis, unspecified organism Code(s): A41.9 - Sepsis, unspecified organism Status: Acute Assessment and Plan: * possibly due to UTI versus skin infection versus other(?) * follow trend of hemodynamics * follow culture data * on antibiotic therapy (4) Hyponatremia: Code(s): E87.1 - Hypo-osmolality and hyponatremia Status: Acute Assessment and Plan: * due to several issues: * partly due to hyperglycemia -- admission sodium corrects to 133 given glucose of 624 * liver disease * volume depletion * alcohol (?) * suspect a chronic component present at baseline * follow trend of repeat sodium levels (5) AMS (altered mental status): Qualifiers: Altered mental status type: unspecified Qualified Code(s): R41.82 - Altered mental status, unspecified Code(s): R41.82 - Altered mental status, unspecified Status: Acute Assessment and Plan: * likely due to several issues: * PAPA/ARF * possible uremia * hyperglycemia/HHS * early sepsis/infection * elevated ammonia * other (?) * CT of head negative * minimize sedation/sedative medications * continue supportive therapy (6) Alcoholic cirrhosis of liver: Qualifiers: Ascites presence: without ascites Qualified Code(s): K70.30 - Alcoholic cirrhosis of liver without ascites Code(s): K70.30 - Alcoholic cirrhosis of liver without ascites Status: Acute Assessment and Plan: * known issues since as far back as 2017 (if not longer) * acute decline versus progression of disease(?) * elevated LFTs and INR noted on admission * elevated ammonia noted as well on admission * on lactulose * s/p vitamin K for coagulopathy * right upper quadrant ultrasound results noted * complicated by acute on chronic thrombocytopenia * acute drop in platelets due to sepsis * chronic component due to liver cirrhosis and alcohol abuse (7) Acute UTI: Code(s): N39.0 - Urinary tract infection, site not specified Status: Acute Assessment and Plan: * admission UA suggestive * follow culture data * on antibiotics (8) Pustular rash: Code(s): L08.0 - Pyoderma Status: Acute Assessment and Plan: * noted on exam * etiology not clear * follow cultures * on antibiotics (9) Rhabdomyolysis: Code(s): M62.82 - Rhabdomyolysis Status: Acute Assessment and Plan: * noted history of being found laying on the floor * duration not clear * mildly elevated CPK noted * follow trend * on IVFs (10) Alcoholism: Code(s): F10.20 - Alcohol dependence, uncomplicated Status: Acute Assessment and Plan: * known history of alcohol abuse * on IV thiamine and folic acid * monitor for withdrawal Will continue to follow. L Subjective Date/time seen: 07/06/25 10:00 Interval history: Follow-up for acute kidney injury/acute renal failure. Renal function/creatinine slightly better if not about the same as on admission; reasonable urine output noted in the last 24 hours; transferred out of ICU yesterday evening; mentation somewhat better (more awake when seen) but still confused in general; no apparent distress noted when seen. Exam 2 Narrative: General: middle aged male in NAD Heart: normal S1 and S2; no rub Lungs: clear anteriorly Abdomen: soft, nontender, nondistended, positive bowel sounds Extremities: no cyanosis or clubbing; no edema Skin: warm and dry Objective Data Vital Signs Vital Signs: Vital Signs Temp Pulse Resp BP Pulse Ox O2 Del Method O2 Flow Rate 07/06/25 08:00 98.3 F 101 H 20 124/66 95 07/06/25 06:00 94 07/06/25 04:00 92 07/06/25 04:00 94 Nasal Cannula 4 07/06/25 04:00 97.8 F 100 18 119/58 L 94 07/06/25 02:00 99 07/06/25 00:00 96 07/06/25 00:00 92 Nasal Cannula 4 07/05/25 23:54 97.8 F 95 18 120/65 92 07/05/25 22:00 93 07/05/25 20:00 90 07/05/25 20:00 97.7 F 91 18 127/78 93 07/05/25 20:00 91 18 93 Nasal Cannula 4 07/05/25 18:00 96 07/05/25 16:00 93 07/05/25 16:00 93 26 H 92 Nasal Cannula 3 07/05/25 16:00 98.1 F 93 26 H 122/79 92 07/05/25 14:00 97 Intake/Output Intake/Output: Intake & Output 07/03/25 07/04/25 07/05/25 07/06/25 23:59 23:59 23:59 23:59 Intake Total 3587.1 3905.0 1450 Output Total 75 1400 1600 Balance 3512.1 2505.0 -150 Meds/Results Medications: Active Medications Generic Name Dose Route Start Last Admin Trade Name Mitra PRN Reason Stop Dose Admin Acetaminophen 650 mg 07/04/25 20:27 Acetaminophen 325 Mg Tablet PO Q4H PRN Mild Pain (1-3) or Fever Dextrose 12.5 gm 07/04/25 22:26 Dextrose 50% 25 Gm/50 Ml Syringe IV PUSH PRN PRN Hypoglycemia Protocol Famotidine 20 mg 07/05/25 09:00 07/06/25 08:54 Famotidine 20 Mg/2 Ml Vial IV PUSH 20 mg Q12HR SCARLETT Administration Folic Acid 1 mg 07/05/25 09:00 07/06/25 08:55 Folic Acid 1 Mg/0.2 Ml Inj IV PUSH 1 mg QAM SCARLETT Administration Glucagon 1 mg 07/04/25 22:26 Glucagon For Inj 1 Mg Vial IM PRN PRN Hypoglycemia Protocol Glucose 15 gm 07/04/25 22:26 Glucose Oral Gel 15 Gm Of Glucse In 37.5 Gm Tube PO PRN PRN Hypoglycemia Protocol Cefepime HCl 2 gm/ Sodium 50 mls @ 100 mls/hr 07/05/25 09:00 07/06/25 09:17 Chloride IVPB 100 mls/hr Q12H SCARLETT Administration Vancomycin HCl 1,500 mg in 500 mls @ 250 mls/hr 07/05/25 21:00 07/05/25 22:08 Vancomycin 1,500 Mg/Ns 500 Ml IVPB Infused Q24H SCARLETT Infusion Dextrose 1,000 mls @ 100 mls/hr 07/04/25 22:26 Dextrose 5% 1,000 Ml IVPB PRN PRN Hypoglycemia Protocol Doxycycline Hyclate 100 mg/ 100 mls @ 100 mls/hr 07/04/25 23:00 07/06/25 00:20 Sodium Chloride IVPB Infused Q12H SCARLETT Infusion Potassium Chloride/Sodium Chloride 1,000 mls @ 100 mls/hr 07/05/25 08:55 07/06/25 06:20 Kcl 20 Meq/0.45% Ns IV CONT 100 mls/hr .Q10H SCARLETT Administration Insulin Aspart 3 - 6 units 07/05/25 08:55 07/06/25 11:24 Insulin Aspart (*Bkc) 100 Units/Ml SUB-Q Not Given Q4H SCARLETT Protocol Insulin Glargine 20 units 07/05/25 09:00 07/05/25 09:12 Insulin Glargine (*Bkc) 100 Units/Ml SUB-Q 20 units QAM SCARLETT Administration Lactulose 20 gm 07/06/25 08:15 07/06/25 08:54 Lactulose 20 Gm/30 Ml Udc PO 20 gm Q8HR SCARLETT Administration Ondansetron HCl 4 mg 07/04/25 20:27 Ondansetron Inj 4 Mg/2 Ml Vial IV PUSH Q4H PRN Nausea Perflutren Lipid Microsphere 0 ml 07/05/25 00:12 Perflutren Lipid Microspheres 1.5 Ml Vial Diluted To 10 Ml Total Volume IV PUSH 07/08/25 00:12 ONCE PRN adequate visualization Protocol Rifaximin 550 mg 07/06/25 09:00 07/06/25 08:54 Rifaximin 550 Mg Tablet PO 550 mg Q12HR SCARLETT Administration Thiamine HCl 100 mg 07/05/25 09:00 07/06/25 08:54 Thiamine Hcl 200 Mg/2 Ml Vial IV PUSH 100 mg QAM SCARLETT Administration Radiology Results: ITS Impressions Chest X-Ray 07/04/25 16:48 Impression: Probable viral pneumonitis Head CT 07/04/25 17:47 Impression: 1.No acute intracranial abnormality. Chest/Abdomen/Pelvis CT 07/04/25 18:37 IMPRESSION: 1. Chronic changes in the lungs with small pleural effusions. 2. 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 Contrast-enhanced MRI recommended. 3. Incidental findings above Hand X-Ray 07/05/25 08:18 Impression: No acute fracture or malalignment. Venous Doppler Study 07/05/25 17:31 Impression: Negative for DVT. Abdomen Ultrasound 07/05/25 22:21 IMPRESSION: 1. Constellation of findings most consistent with a nodular cirrhotic liver with multiple nodular regions of increased echogenicity with corresponding decreased attenuation on CT suggesting dysplastic/regenerative nodules with hepatic steatosis and intervening hypoechoic fibrous septations. Differential for any given nodule would include hepatocellular carcinoma or metastatic disease if there is known history of prior malignancy. Could consider multiphase pre and postcontrast MRI for further evaluation as clinically indicated. 2. Bidirectional flow in the main portal vein and large recanalized umbilical vein with abdominal wall collaterals consistent with secondary portal venous hypertension. 3. Small amount perihepatic ascites. 4. Cholelithiasis. Renal Ultrasound 07/05/25 22:38 IMPRESSION: 1. Normal kidneys without hydronephrosis. 2. Small amount of ascites likely related to cirrhosis. 3. Review of prior CT images demonstrate a device situated between the cephalad margin of the left renal vein and the left adrenal gland which is not visualized on the provided images. Given the findings of cirrhosis with portal venous hypertension. This could represent occlusion/embolization device for treatment of splenorenal collaterals. Correlate with clinical history. Labs Labs: Laboratory Tests 07/06/25 03:45 07/06/25 03:45 Calcium 7.4 L Phosphorus 4.8 H Magnesium 3.4 H Total Bilirubin 14.1 H AST 118 H ALT 59 H Alkaline Phosphatase 235 H Total Creatine Kinase 384 H Total Protein 6.4 Albumin 2.2 L
[2025-07-06] MEDS: DOXYCYCLINE IV 100 MG in SODIUM CHLORIDE 0.9% IV 100 ML IVPB ×2 (12:34→23:17)
[2025-07-06] MEDS: INSULIN GLARGINE (*BKC) 100 UNITS/ML 20 UNITS SUB-Q (12:35)
--- NOTE | 2025-07-06 15:34 | P.PNIM_ITS ---
Progress Note: A&P Assessment and Plan (1) Hyperosmolar hyperglycemic state (HHS): Code(s): E11.00 - Type 2 diabetes mellitus with hyperosmolarity without nonketotic hyperglycemic-hyperosmolar coma (NKHHC) Status: Acute Assessment and Plan: Presented with finding consistent with HHS as patient had high blood glucose but normal anion gap Patient was started on insulin infusion and IV fluid Blood sugars have improved Transition to subcutaneous insulin but continue IV fluids On diagnosed diabetes mellitus with HbA1c 11.3 Start liquid diet and advance as tolerated (2) AMS (altered mental status): Qualifiers: Altered mental status type: unspecified Qualified Code(s): R41.82 - Altered mental status, unspecified Code(s): R41.82 - Altered mental status, unspecified Status: Acute Assessment and Plan: Patient likely has multifactorial encephalopathy with HHS, sepsis, uremia and very mildly elevated ammonia level, hyponatremia Head CT was negative Avoid sedative Treatment of individual problems as below (3) Alcoholism: Code(s): F10.20 - Alcohol dependence, uncomplicated Status: Acute Assessment and Plan: History of alcohol abuse Thiamine folic acid Monitor for signs of withdrawal (4) Thrombocytopenia: Code(s): D69.6 - Thrombocytopenia, unspecified Status: Chronic Assessment and Plan: Chronic thrombocytopenia likely secondary to cirrhosis and alcohol abuse which is now exacerbated by sepsis Monitor platelet counts. Transfuse if needed Hold anticoagulation (5) Hyponatremia: Code(s): E87.1 - Hypo-osmolality and hyponatremia Status: Acute Assessment and Plan: Partially pseudohyponatremia secondary to HHS and secondary to cirrhosis Getting IV fluids for dehydration and acute kidney injury Monitor sodium level Nephrology consultation (6) Hyperbilirubinemia: Code(s): E80.6 - Other disorders of bilirubin metabolism Status: Chronic Assessment and Plan: Secondary to cirrhosis Right upper quadrant ultrasound with findings consistent with nodular cirrhotic liver with multiple nodular regions of increased echogenicity with corresponding decreased attenuation on CT suggestive of dysplastic/knees regenerative nodules with hepatic steatosis and intervening hypoechoic fibrosis septations. Differential for any given nodule would include hepatocellular carcinoma or metastatic disease. Bidirectional flow in the main portal vein and large recanalized umbilical vein with a abdominal wall collaterals consistent with secondary portal venous hypertension. Small amount of perihepatic ascites. Also noted cholelithiasis (7) Alcoholic cirrhosis of liver: Qualifiers: Ascites presence: without ascites Qualified Code(s): K70.30 - Alcoholic cirrhosis of liver without ascites Code(s): K70.30 - Alcoholic cirrhosis of liver without ascites Status: Acute Assessment and Plan: Lactulose for elevated ammonia Vitamin K for elevated INR Right upper quadrant ultrasound as noted above (8) Acute renal failure: Code(s): N17.9 - Acute kidney failure, unspecified Status: Acute Assessment and Plan: Presented with acute kidney injury Patient has mild rhabdomyolysis and likely dehydrated and hypovolemic Getting IV fluids Monitor urine output electrolytes and creatinine Monitor CK level Consult nephrology Renal ultrasound with no hydronephrosis (9) Acute UTI: Code(s): N39.0 - Urinary tract infection, site not specified Status: Acute Assessment and Plan: Urine culture, cefepime (10) Sepsis: Qualifiers: Sepsis acute organ dysfunction status: unspecified Sepsis type: sepsis due to unspecified organism Qualified Code(s): A41.9 - Sepsis, unspecified organism Code(s): A41.9 - Sepsis, unspecified organism Status: Acute Assessment and Plan: Sepsis secondary to UTI and pustular skin infection Continue vanc and cefepime Blood and urine cultures (11) Pustular rash: Code(s): L08.0 - Pyoderma Status: Acute Assessment and Plan: Etiology unknown. Treatment with vancomycin and cultures pending HIV screen negative ? Viral infection Blood culture came back positive for Gram-positive cocci Continue vancomycin RPR negative (12) Rhabdomyolysis: Code(s): M62.82 - Rhabdomyolysis Status: Acute Assessment and Plan: Mild rhabdomyolysis from laying on the floor IV fluid Monitor CK level (13) Liver mass: Code(s): R16.0 - Hepatomegaly, not elsewhere classified Status: Acute Assessment and Plan: CT scan shows multiple per liver lesions. Right upper quadrant ultrasound ordered by portal vein is patent. Patient waiting for transfer to tertiary facility for further evaluation. AFP less than 1.8 Hepatitis panel negative (14) Abnormal CT scan, kidney: Code(s): R93.429 - Abnormal radiologic findings on diagnostic imaging of unspecified kidney Status: Acute Assessment and Plan: CT scan read as device within left renal vein. Ultrasound ordered nephrology consult or Plan Elevated troponin with flat trend next DVT prophylaxis -SCD Stress ulcer prophylaxis -protonix Nutrition -start clear liquid diet and advance as tolerated Code Status - DNR/ DNI Patient is waiting for a bed at [facility] under hospitalist Dr. Hu. Subjective Date/time seen: 07/06/25 15:34 Interval history: Patient transferred out of the ICU yesterday. Remains confused. Answers on the some questions. Review of Systems Review of Systems: ROS unobtainable: Yes unobtainable due to mental status Exam Narrative: General: Pt is awake in no distress but confused Lungs/Chest: Trachea central Clear BS B/L, No crackles or wheezing. Cardiac: RRR. Normal S1 S2. No murmurs Circulation: Pedal pulses are intact and symmetrical. Abdomen: Normal bowel sounds.. Soft. NT. ND. Extremities: Redness in right hand and arm : Clements in place Neurologic: Follows commands. Moves all 4 extremities PERRL AO x 1, mumbles with speech often incomprehensible Skin: Several small pustules all over his body including legs and arms, spider nevi on the chest, macerations in the groin, sodium take dry eczematous skin on the arms HEENT: Oral mucosa is dry Objective Data Vital Signs Vital Signs: Vital Signs - 24 hr 07/05/25 16:00 07/05/25 16:00 07/05/25 16:00 Temperature 98.1 F Pulse Rate 93 93 93 Respiratory Rate 26 H 26 H Blood Pressure 122/79 Pulse Oximetry 92 92 Oxygen Delivery Nasal Cannula Oxygen Flow Rate 3 07/05/25 18:00 07/05/25 20:00 07/05/25 20:00 Temperature 97.7 F Pulse Rate 96 91 91 Respiratory Rate 18 18 Blood Pressure 127/78 Pulse Oximetry 93 93 Oxygen Delivery Nasal Cannula Oxygen Flow Rate 4 07/05/25 20:00 07/05/25 22:00 07/05/25 23:54 Temperature 97.8 F Pulse Rate 90 93 95 Respiratory Rate 18 Blood Pressure 120/65 Pulse Oximetry 92 Oxygen Delivery Oxygen Flow Rate 07/06/25 00:00 07/06/25 00:00 07/06/25 02:00 Temperature Pulse Rate 96 99 Respiratory Rate Blood Pressure Pulse Oximetry 92 Oxygen Delivery Nasal Cannula Oxygen Flow Rate 4 07/06/25 04:00 07/06/25 04:00 07/06/25 04:00 Temperature 97.8 F Pulse Rate 100 92 Respiratory Rate 18 Blood Pressure 119/58 L Pulse Oximetry 94 94 Oxygen Delivery Nasal Cannula Oxygen Flow Rate 4 07/06/25 06:00 07/06/25 08:00 07/06/25 08:00 Temperature 98.3 F Pulse Rate 94 101 H 98 Respiratory Rate 20 Blood Pressure 124/66 Pulse Oximetry 95 Oxygen Delivery Oxygen Flow Rate 07/06/25 10:00 07/06/25 12:00 07/06/25 12:00 Temperature 98.3 F Pulse Rate 104 H 102 H 101 H Respiratory Rate 20 Blood Pressure 126/63 Pulse Oximetry 96 Oxygen Delivery Oxygen Flow Rate 07/06/25 14:00 Temperature Pulse Rate 99 Respiratory Rate Blood Pressure Pulse Oximetry Oxygen Delivery Oxygen Flow Rate Intake/Output Intake/Output: Intake & Output 07/03/25 07/04/25 07/05/25 07/06/25 23:59 23:59 23:59 23:59 Intake Total 3587.1 3905.0 1690 Output Total 75 1400 1600 Balance 3512.1 2505.0 90 Meds/Results Medications: Active Medications Generic Name Dose Route Start Last Admin Trade Name Freq PRN Reason Stop Dose Admin Acetaminophen 650 mg 07/04/25 20:27 Acetaminophen 325 Mg Tablet PO Q4H PRN Mild Pain (1-3) or Fever Dextrose 12.5 gm 07/04/25 22:26 Dextrose 50% 25 Gm/50 Ml Syringe IV PUSH PRN PRN Hypoglycemia Protocol Famotidine 20 mg 07/05/25 09:00 07/06/25 08:54 Famotidine 20 Mg/2 Ml Vial IV PUSH 20 mg Q12HR SCARLETT Administration Folic Acid 1 mg 07/05/25 09:00 07/06/25 08:55 Folic Acid 1 Mg/0.2 Ml Inj IV PUSH 1 mg QAM SCARLETT Administration Glucagon 1 mg 07/04/25 22:26 Glucagon For Inj 1 Mg Vial IM PRN PRN Hypoglycemia Protocol Glucose 15 gm 07/04/25 22:26 Glucose Oral Gel 15 Gm Of Glucse In 37.5 Gm Tube PO PRN PRN Hypoglycemia Protocol Cefepime HCl 2 gm/ Sodium 50 mls @ 100 mls/hr 07/05/25 09:00 07/06/25 09:17 Chloride IVPB 100 mls/hr Q12H SCARLETT Administration Vancomycin HCl 1,500 mg in 500 mls @ 250 mls/hr 07/05/25 21:00 07/05/25 22:08 Vancomycin 1,500 Mg/Ns 500 Ml IVPB Infused Q24H SCARLETT Infusion Dextrose 1,000 mls @ 100 mls/hr 07/04/25 22:26 Dextrose 5% 1,000 Ml IVPB PRN PRN Hypoglycemia Protocol Doxycycline Hyclate 100 mg/ 100 mls @ 100 mls/hr 07/04/25 23:00 07/06/25 12:34 Sodium Chloride IVPB 100 mls/hr Q12H SCARLETT Administration Potassium Chloride/Sodium Chloride 1,000 mls @ 100 mls/hr 07/05/25 08:55 07/06/25 06:20 Kcl 20 Meq/0.45% Ns IV CONT 100 mls/hr .Q10H SCARLETT Administration Insulin Aspart 3 - 6 units 07/05/25 08:55 07/06/25 12:35 Insulin Aspart (*Bkc) 100 Units/Ml SUB-Q 5 units Q4H SCARLETT Administration Protocol Insulin Glargine 20 units 07/05/25 09:00 07/06/25 12:35 Insulin Glargine (*Bkc) 100 Units/Ml SUB-Q 20 units QAM SCARLETT Administration Lactulose 20 gm 07/06/25 08:15 07/06/25 13:42 Lactulose 20 Gm/30 Ml Udc PO 20 gm Q8HR SCARLETT Administration Ondansetron HCl 4 mg 07/04/25 20:27 Ondansetron Inj 4 Mg/2 Ml Vial IV PUSH Q4H PRN Nausea Perflutren Lipid Microsphere 0 ml 07/05/25 00:12 Perflutren Lipid Microspheres 1.5 Ml Vial Diluted To 10 Ml Total Volume IV PUSH 07/08/25 00:12 ONCE PRN adequate visualization Protocol Rifaximin 550 mg 07/06/25 09:00 07/06/25 08:54 Rifaximin 550 Mg Tablet PO 550 mg Q12HR SCARLETT Administration Thiamine HCl 100 mg 07/05/25 09:00 07/06/25 08:54 Thiamine Hcl 200 Mg/2 Ml Vial IV PUSH 100 mg QAM SCARLETT Administration Radiology Results: ITS Impressions Chest X-Ray 07/04/25 16:48 Impression: Probable viral pneumonitis Head CT 07/04/25 17:47 Impression: 1.No acute intracranial abnormality. Chest/Abdomen/Pelvis CT 07/04/25 18:37 IMPRESSION: 1. Chronic changes in the lungs with small pleural effusions. 2. 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 Contrast-enhanced MRI recommended. 3. Incidental findings above Hand X-Ray 07/05/25 08:18 Impression: No acute fracture or malalignment. Venous Doppler Study 07/05/25 17:31 Impression: Negative for DVT. Abdomen Ultrasound 07/05/25 22:21 IMPRESSION: 1. Constellation of findings most consistent with a nodular cirrhotic liver with multiple nodular regions of increased echogenicity with corresponding decreased attenuation on CT suggesting dysplastic/regenerative nodules with hepatic steatosis and intervening hypoechoic fibrous septations. Differential for any given nodule would include hepatocellular carcinoma or metastatic disease if there is known history of prior malignancy. Could consider multiphase pre and postcontrast MRI for further evaluation as clinically indicated. 2. Bidirectional flow in the main portal vein and large recanalized umbilical vein with abdominal wall collaterals consistent with secondary portal venous hypertension. 3. Small amount perihepatic ascites. 4. Cholelithiasis. Renal Ultrasound 07/05/25 22:38 IMPRESSION: 1. Normal kidneys without hydronephrosis. 2. Small amount of ascites likely related to cirrhosis. 3. Review of prior CT images demonstrate a device situated between the cephalad margin of the left renal vein and the left adrenal gland which is not visualized on the provided images. Given the findings of cirrhosis with portal venous hypertension. This could represent occlusion/embolization device for treatment of splenorenal collaterals. Correlate with clinical history. Labs Labs: Laboratory Results - last 24 hr 07/04/25 07/05/25 07/05/25 23:15 05:39 05:40 WBC RBC Hgb Hct MCV MCH MCHC RDW Plt Count MPV PT INR Sodium Potassium Chloride Carbon Dioxide Anion Gap BUN Creatinine Estim Creat Clear Calc Estimated GFR Glucose POC Capillary Glucose Calcium Phosphorus Magnesium Total Bilirubin AST ALT Alkaline Phosphatase Total Creatine Kinase Total Protein Albumin Tumor Marker AFP <1.8 RPR Non reactive HSV1 IgG Type-Specific Ab Reactive A HSV2 IgG Type-Specific Ab Reactive A 07/05/25 07/05/25 07/05/25 15:58 19:47 23:19 WBC RBC Hgb Hct MCV MCH MCHC RDW Plt Count MPV PT INR Sodium Potassium Chloride Carbon Dioxide Anion Gap BUN Creatinine Estim Creat Clear Calc Estimated GFR Glucose POC Capillary Glucose 257 H 270 H 290 H Calcium Phosphorus Magnesium Total Bilirubin AST ALT Alkaline Phosphatase Total Creatine Kinase Total Protein Albumin Tumor Marker AFP RPR HSV1 IgG Type-Specific Ab HSV2 IgG Type-Specific Ab 07/06/25 07/06/25 07/06/25 03:45 07:31 08:54 WBC 15.2 H RBC 3.70 L Hgb 13.3 L Hct 37.1 L MCV 100.3 H MCH 35.9 H MCHC 35.8 RDW 13.9 Plt Count 64 L MPV 11.9 H PT 23.3 H INR 2.1 Sodium 128 L Potassium 4.3 Chloride 103 Carbon Dioxide 19 L Anion Gap 6 BUN 94 H Creatinine 1.52 H Estim Creat Clear Calc 53 Estimated GFR 48 L Glucose 297 H POC Capillary Glucose 302 H Calcium 7.4 L Phosphorus 4.8 H Magnesium 3.4 H Total Bilirubin 14.1 H AST 118 H ALT 59 H Alkaline Phosphatase 235 H Total Creatine Kinase 384 H Total Protein 6.4 Albumin 2.2 L Tumor Marker AFP RPR HSV1 IgG Type-Specific Ab HSV2 IgG Type-Specific Ab 07/06/25 12:13 WBC RBC Hgb Hct MCV MCH MCHC RDW Plt Count MPV PT INR Sodium Potassium Chloride Carbon Dioxide Anion Gap BUN Creatinine Estim Creat Clear Calc Estimated GFR Glucose POC Capillary Glucose 326 H Calcium Phosphorus Magnesium Total Bilirubin AST ALT Alkaline Phosphatase Total Creatine Kinase Total Protein Albumin Tumor Marker AFP RPR HSV1 IgG Type-Specific Ab HSV2 IgG Type-Specific Ab
--- NOTE | 2025-07-06 16:07 | P.PNGI_ITS ---
Progress Note: A&P Assessment and Plan (1) Cirrhosis: Code(s): K74.60 - Unspecified cirrhosis of liver Status: Acute Assessment and Plan: The patient's condition is marked by progressive clinical deterioration due to advanced liver disease, with laboratory findings showing a daily rise in total bilirubin (approximately 1 point/day) and INR, signifying severe and worsening hepatic synthetic dysfunction, resulting in a poor prognosis. As discussed yesterday, he has [id number] liver failure (ACLF-2) with cerebral, and liver failures. HIs estimated mortality according to his ACLF-WESLEY score is 40% in 1 month. A percutaneous biopsy of the multiple liver lesions is being considered especially to provide a definitive tissue diagnosis (e.g., primary HCC vs. metastatic neoplasm) that can further define the etiology and inform about future plans.. In terms of management, we will continue the treatment of hepatic encephalopathy with titrated doses of Lactulose and Rifaximin. Subjective Date/time seen: 07/06/25 16:07 Objective Data Vital Signs Vital Signs: Vital Signs - 24 hr 07/05/25 18:00 07/05/25 20:00 07/05/25 20:00 Temperature 97.7 F Pulse Rate 96 91 91 Respiratory Rate 18 18 Blood Pressure 127/78 Pulse Oximetry 93 93 Oxygen Delivery Nasal Cannula Oxygen Flow Rate 4 07/05/25 20:00 07/05/25 22:00 07/05/25 23:54 Temperature 97.8 F Pulse Rate 90 93 95 Respiratory Rate 18 Blood Pressure 120/65 Pulse Oximetry 92 Oxygen Delivery Oxygen Flow Rate 07/06/25 00:00 07/06/25 00:00 07/06/25 02:00 Temperature Pulse Rate 96 99 Respiratory Rate Blood Pressure Pulse Oximetry 92 Oxygen Delivery Nasal Cannula Oxygen Flow Rate 4 07/06/25 04:00 07/06/25 04:00 07/06/25 04:00 Temperature 97.8 F Pulse Rate 100 92 Respiratory Rate 18 Blood Pressure 119/58 L Pulse Oximetry 94 94 Oxygen Delivery Nasal Cannula Oxygen Flow Rate 4 07/06/25 06:00 07/06/25 08:00 07/06/25 08:00 Temperature 98.3 F Pulse Rate 94 101 H 98 Respiratory Rate 20 Blood Pressure 124/66 Pulse Oximetry 95 Oxygen Delivery Oxygen Flow Rate 07/06/25 10:00 07/06/25 12:00 07/06/25 12:00 Temperature 98.3 F Pulse Rate 104 H 102 H 101 H Respiratory Rate 20 Blood Pressure 126/63 Pulse Oximetry 96 Oxygen Delivery Oxygen Flow Rate 07/06/25 14:00 Temperature Pulse Rate 99 Respiratory Rate Blood Pressure Pulse Oximetry Oxygen Delivery Oxygen Flow Rate Intake/Output Intake/Output: Intake & Output 07/03/25 07/04/25 07/05/25 07/06/25 23:59 23:59 23:59 23:59 Intake Total 3587.1 3905.0 1690 Output Total 75 1400 1600 Balance 3512.1 2505.0 90 Meds/Results Medications: Active Medications Generic Name Dose Route Start Last Admin Trade Name Freq PRN Reason Stop Dose Admin Acetaminophen 650 mg 07/04/25 20:27 Acetaminophen 325 Mg Tablet PO Q4H PRN Mild Pain (1-3) or Fever Dextrose 12.5 gm 07/04/25 22:26 Dextrose 50% 25 Gm/50 Ml Syringe IV PUSH PRN PRN Hypoglycemia Protocol Famotidine 20 mg 07/05/25 09:00 07/06/25 08:54 Famotidine 20 Mg/2 Ml Vial IV PUSH 20 mg Q12HR SCARLETT Administration Folic Acid 1 mg 07/05/25 09:00 07/06/25 08:55 Folic Acid 1 Mg/0.2 Ml Inj IV PUSH 1 mg QAM SCARLETT Administration Glucagon 1 mg 07/04/25 22:26 Glucagon For Inj 1 Mg Vial IM PRN PRN Hypoglycemia Protocol Glucose 15 gm 07/04/25 22:26 Glucose Oral Gel 15 Gm Of Glucse In 37.5 Gm Tube PO PRN PRN Hypoglycemia Protocol Cefepime HCl 2 gm/ Sodium 50 mls @ 100 mls/hr 07/05/25 09:00 07/06/25 09:17 Chloride IVPB 100 mls/hr Q12H SC[facility]TT Administration Vancomycin HCl 1,500 mg in 500 mls @ 250 mls/hr 07/05/25 21:00 07/05/25 22:08 Vancomycin 1,500 Mg/Ns 500 Ml IVPB Infused Q24H SCARLETT Infusion Dextrose 1,000 mls @ 100 mls/hr 07/04/25 22:26 Dextrose 5% 1,000 Ml IVPB PRN PRN Hypoglycemia Protocol Doxycycline Hyclate 100 mg/ 100 mls @ 100 mls/hr 07/04/25 23:00 07/06/25 1 2:34 Sodium Chloride IVPB 100 mls/hr Q12H SCAR[facility]TT Administration Potassium Chloride/Sodium Chloride 1,000 mls @ 100 mls/hr 07/05/25 08:55 07/06/25 06:20 Kcl 20 Meq/0.45% Ns IV CONT 100 mls/hr .Q10H SCARLETT Administration Insulin Aspart 8 units 07/06/25 17:00 Insulin Aspart (*Bkc) 100 Units/Ml 0.083 units/kg (8 units) SUB-Q TIDWM SCAR[facility]TT Insulin Aspart 2 - 5 units 07/06/25 17:00 Insulin Aspart (*Bkc) 100 Units/Ml SUB-Q TIDWM [facility] Protocol Insulin Glargine 26 units 07/07/25 09:00 Insulin Glargine (*Bkc) 100 Units/Ml SUB-Q QAM SCARLETT Lactulose 20 gm 07/06/25 18:00 Lactulose 20 Gm/30 Ml Udc PO Q6HR SCARLETT Ondansetron HCl 4 mg 07/04/25 20:27 Ondansetron Inj 4 Mg/2 Ml Vial IV PUSH Q4H PRN Nausea Perflutren Lipid Microsphere 0 ml 07/05/25 00:12 Perflutren Lipid Microspheres 1.5 Ml Vial Diluted To 10 Ml Total Volume IV PUSH 07/08/25 00:12 ONCE PRN adequate visualization Protocol Rifaximin 550 mg 07/06/25 09:00 07/06/25 08:54 Rifaximin 550 Mg Tablet PO 550 mg Q12HR SCARLETT Administration Thiamine HCl 100 mg 07/05/25 09:00 07/06/25 08:54 Thiamine Hcl 200 Mg/2 Ml Vial IV PUSH 100 mg QAM SCARLETT Administration Radiology Results: ITS Impressions Chest X-Ray 07/04/25 16:48 Impression: Probable viral pneumonitis Head CT 07/04/25 17:47 Impression: 1.No acute intracranial abnormality. Chest/Abdomen/Pelvis CT 07/04/25 18:37 IMPRESSION: 1. Chronic changes in the lungs with small pleural effusions. 2. 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 Contrast-enhanced MRI recommended. 3. Incidental findings above Hand X-Ray 07/05/25 08:18 Impression: No acute fracture or malalignment. Venous Doppler Study 07/05/25 17:31 Impression: Negative for DVT. Abdomen Ultrasound 07/05/25 22:21 IMPRESSION: 1. Constellation of findings most consistent with a nodular cirrhotic liver with multiple nodular regions of increased echogenicity with corresponding decreased attenuation on CT suggesting dysplastic/regenerative nodules with hepatic steatosis and intervening hypoechoic fibrous septations. Differential for any given nodule would include hepatocellular carcinoma or metastatic disease if there is known history of prior malignancy. Could consider multiphase pre and postcontrast MRI for further evaluation as clinically indicated. 2. Bidirectional flow in the main portal vein and large recanalized umbilical vein with abdominal wall collaterals consistent with secondary portal venous hypertension. 3. Small amount perihepatic ascites. 4. Cholelithiasis. Renal Ultrasound 07/05/25 22:38 IMPRESSION: 1. Normal kidneys without hydronephrosis. 2. Small amount of ascites likely related to cirrhosis. 3. Review of prior CT images demonstrate a device situated between the cephalad margin of the left renal vein and the left adrenal gland which is not visualized on the provided images. Given the findings of cirrhosis with portal venous hypertension. This could represent occlusion/embolization device for treatment of splenorenal collaterals. Correlate with clinical history. Labs Labs: Laboratory Results - last 24 hr 07/04/25 07/05/25 07/05/25 23:15 05:39 05:40 WBC RBC Hgb Hct MCV MCH MCHC RDW Plt Count MPV PT INR Sodium Potassium Chloride Carbon Dioxide Anion Gap BUN Creatinine Estim Creat Clear Calc Estimated GFR Glucose POC Capillary Glucose Calcium Phosphorus Magnesium Total Bilirubin AST ALT Alkaline Phosphatase Total Creatine Kinase Total Protein Albumin Tumor Marker AFP <1.8 RPR Non reactive HSV1 IgG Type-Specific Ab Reactive A HSV2 IgG Type-Specific Ab Reactive A 07/05/25 07/05/25 07/06/25 19:47 23:19 03:45 WBC 15.2 H RBC 3.70 L Hgb 13.3 L Hct 37.1 L MCV 100.3 H MCH 35.9 H MCHC 35.8 RDW 13.9 Plt Count 64 L MPV 11.9 H PT INR Sodium 128 L Potassium 4.3 Chloride 103 Carbon Dioxide 19 L Anion Gap 6 BUN 94 H Creatinine 1.52 H Estim Creat Clear Calc 53 Estimated GFR 48 L Glucose 297 H POC Capillary Glucose 270 H 290 H Calcium 7.4 L Phosphorus 4.8 H Magnesium 3.4 H Total Bilirubin 14.1 H AST 118 H ALT 59 H Alkaline Phosphatase 235 H Total Creatine Kinase 384 H Total Protein 6.4 Albumin 2.2 L Tumor Marker AFP RPR HSV1 IgG Type-Specific Ab HSV2 IgG Type-Specific Ab 07/06/25 07/06/25 07/06/25 07:31 08:54 12:13 WBC RBC Hgb Hct MCV MCH MCHC RDW Plt Count MPV PT 23.3 H INR 2.1 Sodium Potassium Chloride Carbon Dioxide Anion Gap BUN Creatinine Estim Creat Clear Calc Estimated GFR Glucose POC Capillary Glucose 302 H 326 H Calcium Phosphorus Magnesium Total Bilirubin AST ALT Alkaline Phosphatase Total Creatine Kinase Total Protein Albumin Tumor Marker AFP RPR HSV1 IgG Type-Specific Ab HSV2 IgG Type-Specific Ab 07/06/25 15:44 WBC RBC Hgb Hct MCV MCH MCHC RDW Plt Count MPV PT INR Sodium Potassium Chloride Carbon Dioxide Anion Gap BUN Creatinine Estim Creat Clear Calc Estimated GFR Glucose POC Capillary Glucose 403 H Calcium Phosphorus Magnesium Total Bilirubin AST ALT Alkaline Phosphatase Total Creatine Kinase Total Protein Albumin Tumor Marker AFP RPR HSV1 IgG Type-Specific Ab HSV2 IgG Type-Specific Ab
[2025-07-06 16:22] LABS: Ammonia 30 umol/L (9-30)
[2025-07-06] MEDS: INSULIN ASPART (*BKC) 100 UNITS/ML 10 UNITS SUB-Q (16:44)
[2025-07-06] MEDS: PHYTONADIONE INJ 10 MG/ML AMP IM (16:44)
[2025-07-06] MEDS: INSULIN GLARGINE (*BKC) 100 UNITS/ML 6 UNITS SUB-Q (16:44)
[2025-07-06] MEDS: INSULIN HUMAN REGULAR (*BKC) 100 UNITS/ML 12 UNITS SUB-Q (20:37)
[2025-07-06] MEDS: VANCOMYCIN 1,500 MG/NS 500 ML 1,500 MG/500 ML BAG 250 MG IVPB (21:59)
[2025-07-06] MEDS: INSULIN HUMAN REGULAR (*BKC) 100 UNITS/ML 20 UNITS SUB-Q (23:19)
[2025-07-07] VITALS (17 sets, daily range): BP systolic 118–146; BP diastolic 63–77; PULSE 92–112; RESP 18–25; TEMP 36.4–36.9; O2SAT 90–100
[2025-07-07 00:25] LABS: INR 2.0; Prothrombin Time 22.8 Seconds (11.1-14.7)
[2025-07-07] MEDS: INSULIN ASPART (*BKC) 100 UNITS/ML 8 UNITS SUB-Q ×3 (01:32→18:35)
[2025-07-07 04:22] LABS: Hematocrit 39.1 % (42.0-52.0); Hemoglobin 13.8 g/dL (14.0-18.0); Immature Platelet Fraction Pct 4.8 % (0.9-11.2); Mean Corpuscular HGB Conc 35.3 g/dl (32-36); Mean Corpuscular Hemoglobin 35.8 pg (26-34); Mean Corpuscular Volume 101.3 fl (80-100); Platelet Count Result 57 k/mm3 (150-375); Red Blood Count 3.86 M/mm3 (4.6-6.20); White Blood Count 14.1 K/mm3 (4.5-10.0)
[2025-07-07 04:32] LABS: Alanine Aminotransferase 79 U/L (6-50); Albumin Level 2.3 g/dL (3.5-5.1); Alkaline Phosphatase 301 U/L (38-126); Anion Gap 6 mmol/L (4-12); Aspartate Amino Transferase 140 U/L (17-59); Bilirubin,Total 17.4 mg/dL (0.2-1.3); Blood Urea Nitrogen 71 mg/dL (9-20); Calcium 7.8 mg/dL (8.4-10.2); Carbon Dioxide 18 mmol/L (22-30); Chloride 108 mmol/L (98-107); Creatine Kinase 190 U/L (55-170); Estimated CRCL calculation 66 ml/min; Estimated Glomerular Filt Rate > 60; Glucose 295 mg/dL (65-110); Magnesium 3.3 mg/dL (1.6-2.3); Potassium 4.0 mmol/L (3.4-5.0); Sodium 132 mmol/L (137-145); Total Protein 7.0 g/dL (6.3-8.2)
[2025-07-07] MEDS: KCL 20 MEQ/0.45% NS 1,000 ML 100 ML IV CONT ×2 (04:56→15:26)
--- NOTE | 2025-07-07 08:12 | PM.IMPN ---
Progress Note: A&P Assessment and Plan (1) Hyperosmolar hyperglycemic state (HHS): Code(s): E11.00 - Type 2 diabetes mellitus with hyperosmolarity without nonketotic hyperglycemic-hyperosmolar coma (NKHHC) Status: Acute Assessment and Plan: Presented with finding consistent with HHS as patient had high blood glucose but normal anion gap Patient was started on insulin infusion and IV fluid Blood sugars have improved Transition to subcutaneous insulin but continue IV fluids On diagnosed diabetes mellitus with HbA1c 11.3 Start liquid diet and advance as tolerated (2) AMS (altered mental status): Qualifiers: Altered mental status type: unspecified Qualified Code(s): R41.82 - Altered mental status, unspecified Code(s): R41.82 - Altered mental status, unspecified Status: Acute Assessment and Plan: Patient likely has multifactorial encephalopathy with HHS, sepsis, uremia and very mildly elevated ammonia level, hyponatremia Head CT was negative Avoid sedative Treatment of individual problems as below (3) Alcoholism: Code(s): F10.20 - Alcohol dependence, uncomplicated Status: Acute Assessment and Plan: History of alcohol abuse Thiamine folic acid Monitor for signs of withdrawal (4) Thrombocytopenia: Code(s): D69.6 - Thrombocytopenia, unspecified Status: Chronic Assessment and Plan: Chronic thrombocytopenia likely secondary to cirrhosis and alcohol abuse which is now exacerbated by sepsis Monitor platelet counts. Transfuse if needed Hold anticoagulation (5) Hyponatremia: Code(s): E87.1 - Hypo-osmolality and hyponatremia Status: Acute Assessment and Plan: Partially pseudohyponatremia secondary to HHS and secondary to cirrhosis Getting IV fluids for dehydration and acute kidney injury Monitor sodium level Nephrology consultation (6) Hyperbilirubinemia: Code(s): E80.6 - Other disorders of bilirubin metabolism Status: Chronic Assessment and Plan: Secondary to cirrhosis Right upper quadrant ultrasound with findings consistent with nodular cirrhotic liver with multiple nodular regions of increased echogenicity with corresponding decreased attenuation on CT suggestive of dysplastic/knees regenerative nodules with hepatic steatosis and intervening hypoechoic fibrosis septations. Differential for any given nodule would include hepatocellular carcinoma or metastatic disease. Bidirectional flow in the main portal vein and large recanalized umbilical vein with a abdominal wall collaterals consistent with secondary portal venous hypertension. Small amount of perihepatic ascites. Also noted cholelithiasis Liver biopsy pending INR improvement Will give 2 units of FFP (7) Alcoholic cirrhosis of liver: Qualifiers: Ascites presence: without ascites Qualified Code(s): K70.30 - Alcoholic cirrhosis of liver without ascites Code(s): K70.30 - Alcoholic cirrhosis of liver without ascites Status: Acute Assessment and Plan: Lactulose for elevated ammonia Vitamin K for elevated INR Right upper quadrant ultrasound as noted above (8) Acute renal failure: Code(s): N17.9 - Acute kidney failure, unspecified Status: Acute Assessment and Plan: Presented with acute kidney injury Patient has mild rhabdomyolysis and likely dehydrated and hypovolemic Getting IV fluids Monitor urine output electrolytes and creatinine Monitor CK level Consult nephrology Renal ultrasound with no hydronephrosis (9) Acute UTI: Code(s): N39.0 - Urinary tract infection, site not specified Status: Acute Assessment and Plan: Urine culture, cefepime (10) Sepsis: Qualifiers: Sepsis acute organ dysfunction status: unspecified Sepsis type: sepsis due to unspecified organism Qualified Code(s): A41.9 - Sepsis, unspecified organism Code(s): A41.9 - Sepsis, unspecified organism Status: Acute Assessment and Plan: Sepsis secondary to UTI and pustular skin infection Continue vanc and cefepime Blood and urine cultures (11) Pustular rash: Code(s): L08.0 - Pyoderma Status: Acute Assessment and Plan: Etiology unknown. Treatment with vancomycin and cultures pending HIV screen negative ? Viral infection Blood culture came back positive for Gram-positive cocci Continue vancomycin RPR negative (12) Rhabdomyolysis: Code(s): M62.82 - Rhabdomyolysis Status: Acute Assessment and Plan: Mild rhabdomyolysis from laying on the floor IV fluid Monitor CK level (13) Liver mass: Code(s): R16.0 - Hepatomegaly, not elsewhere classified Status: Acute Assessment and Plan: CT scan shows multiple per liver lesions. Right upper quadrant ultrasound ordered by portal vein is patent. Patient waiting for transfer to tertiary facility for further evaluation. AFP less than 1.8 Hepatitis panel negative (14) Abnormal CT scan, kidney: Code(s): R93.429 - Abnormal radiologic findings on diagnostic imaging of unspecified kidney Status: Acute Assessment and Plan: CT scan read as device within left renal vein. Ultrasound ordered nephrology consult or Plan Elevated troponin with flat trend next DVT prophylaxis -SCD Stress ulcer prophylaxis -protonix Nutrition -start clear liquid diet and advance as tolerated Code Status - DNR/ DNI Patient is waiting for a bed at [facility] under hospitalist Dr. Hu. Subjective Date/time seen: 07/07/25 08:12 Interval history: Patient more alert and conversive. Knows he is in the hospital Tells me his Name. remains afebrile. Labs reviewed. Review of Systems Review of Systems: ROS unobtainable: Yes unobtainable due to mental status Exam Narrative: General: Pt is awake in no distress but confused Lungs/Chest: Trachea central Clear BS B/L, No crackles or wheezing. Cardiac: RRR. Normal S1 S2. No murmurs Circulation: Pedal pulses are intact and symmetrical. Abdomen: Normal bowel sounds.. Soft. NT. ND. Extremities: Redness in right hand and arm : Clements in place Neurologic: Follows commands. Moves all 4 extremities PERRL AO x 1, mumbles with speech often incomprehensible Skin: Several small pustules all over his body including legs and arms, spider nevi on the chest, macerations in the groin, sodium take dry eczematous skin on the arms HEENT: Oral mucosa is dry Objective Data Vital Signs Vital Signs: Vital Signs - 24 hr 07/06/25 10:00 07/06/25 12:00 07/06/25 12:00 Temperature 98.3 F Pulse Rate 104 H 102 H 101 H Respiratory Rate 20 Blood Pressure 126/63 Pulse Oximetry 96 Oxygen Delivery Oxygen Flow Rate 07/06/25 14:00 07/06/25 16:00 07/06/25 16:00 Temperature 98.3 F Pulse Rate 99 100 Respiratory Rate 24 H Blood Pressure 131/75 Pulse Oximetry 96 96 Oxygen Delivery Nasal Cannula Oxygen Flow Rate 3 07/06/25 16:00 07/06/25 18:00 07/06/25 20:00 Temperature Pulse Rate 97 102 H Respiratory Rate Blood Pressure Pulse Oximetry 95 Oxygen Delivery Nasal Cannula Oxygen Flow Rate 3 07/06/25 20:00 07/06/25 20:00 07/06/25 22:00 Temperature 98.2 F Pulse Rate 103 H 97 99 Respiratory Rate 24 H Blood Pressure 141/54 H Pulse Oximetry 95 Oxygen Delivery Oxygen Flow Rate 07/06/25 23:36 07/07/25 00:00 07/07/25 00:00 Temperature 98.1 F Pulse Rate 92 93 Respiratory Rate 22 H Blood Pressure 124/67 Pulse Oximetry 96 96 Oxygen Delivery Nasal Cannula Oxygen Flow Rate 5 07/07/25 02:00 07/07/25 03:51 07/07/25 04:00 Temperature 98.1 F Pulse Rate 96 97 Respiratory Rate 22 H Blood Pressure 146/63 H Pulse Oximetry 96 96 Oxygen Delivery Nasal Cannula Oxygen Flow Rate 4 07/07/25 04:00 07/07/25 06:00 07/07/25 06:54 Temperature Pulse Rate 94 97 Respiratory Rate Blood Pressure Pulse Oximetry 93 Oxygen Delivery Nasal Cannula Oxygen Flow Rate 3 Intake/Output Intake/Output: Intake & Output 07/04/25 07/05/25 07/06/25 07/07/25 23:59 23:59 23:59 23:59 Intake Total 3587.1 3905.0 3870 1100 Output Total 75 1400 3750 1575 Balance 3512.1 2505.0 120 -475 Meds/Results Medications: Active Medications Generic Name Dose Route Start Last Admin Trade Name Freq PRN Reason Stop Dose Admin Acetaminophen 650 mg 07/04/25 20:27 Acetaminophen 325 Mg Tablet PO Q4H PRN Mild Pain (1-3) or Fever Dextrose 12.5 gm 07/04/25 22:26 Dextrose 50% 25 Gm/50 Ml Syringe IV PUSH PRN PRN Hypoglycemia Protocol Famotidine 20 mg 07/05/25 09:00 07/06/25 20:25 Famotidine 20 Mg/2 Ml Vial IV PUSH 20 mg Q12HR SCARLETT Administration Folic Acid 1 mg 07/05/25 09:00 07/06/25 08:55 Folic Acid 1 Mg/0.2 Ml Inj IV PUSH 1 mg QAM SCARLETT Administration Glucagon 1 mg 07/04/25 22:26 Glucagon For Inj 1 Mg Vial IM PRN PRN Hypoglycemia Protocol Glucose 15 gm 07/04/25 22:26 Glucose Oral Gel 15 Gm Of Glucse In 37.5 Gm Tube PO PRN PRN Hypoglycemia Protocol Cefepime HCl 2 gm/ Sodium 50 mls @ 100 mls/hr 07/05/25 09:00 07/06/25 20:55 Chloride IVPB Infused Q12H SCARLETT Infusion Dextrose 1,000 mls @ 100 mls/hr 07/04/25 22:26 Dextrose 5% 1,000 Ml IVPB PRN PRN Hypoglycemia Protocol Doxycycline Hyclate 100 mg/ 100 mls @ 100 mls/hr 07/04/25 23:00 07/07/25 00:17 Sodium Chloride IVPB Infused Q12H SCARLETT Infusion Potassium Chloride/Sodium Chloride 1,000 mls @ 100 mls/hr 07/05/25 08:55 07/07/25 04:56 Kcl 20 Meq/0.45% Ns IV CONT 100 mls/hr .Q10H SCARLETT Administration Vancomycin HCl 1,500 mg in 500 mls @ 250 mls/hr 07/06/25 21:00 07/06/25 23:59 Vancomycin 1,500 Mg/Ns 500 Ml IVPB Infused Q18H SCARLETT Infusion Insulin Aspart 8 units 07/06/25 17:00 07/06/25 16:10 Insulin Aspart (*Bkc) 100 Units/Ml 0.083 units/kg (8 units) Not Given SUB-Q TIDWM [facility] Insulin Aspart 2 - 5 units 07/06/25 17:00 07/06/25 16:10 Insulin Aspart (*Bkc) 100 Units/Ml SUB-Q Not Given TIDWM [facility] Protocol Insulin Glargine 26 units 07/07/25 09:00 Insulin Glargine (*Bkc) 100 Units/Ml SUB-Q QAM SCARLETT Lactulose 20 gm 07/06/25 18:00 07/07/25 06:23 Lactulose 20 Gm/30 Ml Udc PO Not Given Q6HR [facility] Ondansetron HCl 4 mg 07/04/25 20:27 Ondansetron Inj 4 Mg/2 Ml Vial IV PUSH Q4H PRN Nausea Perflutren Lipid Microsphere 0 ml 07/05/25 00:12 Perflutren Lipid Microspheres 1.5 Ml Vial Diluted To 10 Ml Total Volume IV PUSH 07/08/25 00:12 ONCE PRN adequate visualization Protocol Rifaximin 550 mg 07/06/25 09:00 07/06/25 20:25 Rifaximin 550 Mg Tablet PO 550 mg Q12HR SCARLETT Administration Thiamine HCl 100 mg 07/05/25 09:00 07/06/25 08:54 Thiamine Hcl 200 Mg/2 Ml Vial IV PUSH 100 mg QAM SCARLETT Administration Radiology Results: ITS Impressions Chest X-Ray 07/04/25 16:48 Impression: Probable viral pneumonitis Head CT 07/04/25 17:47 Impression: 1.No acute intracranial abnormality. Chest/Abdomen/Pelvis CT 07/04/25 18:37 IMPRESSION: 1. Chronic changes in the lungs with small pleural effusions. 2. 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 Contrast-enhanced MRI recommended. 3. Incidental findings above Hand X-Ray 07/05/25 08:18 Impression: No acute fracture or malalignment. Venous Doppler Study 07/05/25 17:31 Impression: Negative for DVT. Abdomen Ultrasound 07/05/25 22:21 IMPRESSION: 1. Constellation of findings most consistent with a nodular cirrhotic liver with multiple nodular regions of increased echogenicity with corresponding decreased attenuation on CT suggesting dysplastic/regenerative nodules with hepatic steatosis and intervening hypoechoic fibrous septations. Differential for any given nodule would include hepatocellular carcinoma or metastatic disease if there is known history of prior malignancy. Could consider multiphase pre and postcontrast MRI for further evaluation as clinically indicated. 2. Bidirectional flow in the main portal vein and large recanalized umbilical vein with abdominal wall collaterals consistent with secondary portal venous hypertension. 3. Small amount perihepatic ascites. 4. Cholelithiasis. Renal Ultrasound 07/05/25 22:38 IMPRESSION: 1. Normal kidneys without hydronephrosis. 2. Small amount of ascites likely related to cirrhosis. 3. Review of prior CT images demonstrate a device situated between the cephalad margin of the left renal vein and the left adrenal gland which is not visualized on the provided images. Given the findings of cirrhosis with portal venous hypertension. This could represent occlusion/embolization device for treatment of splenorenal collaterals. Correlate with clinical history. Labs Labs: Laboratory Results - last 24 hr 07/06/25 07/06/25 07/06/25 07:31 08:54 12:13 WBC RBC Hgb Hct MCV MCH MCHC RDW Plt Count MPV % Immature Plt Fraction PT 23.3 H INR 2.1 Sodium Potassium Chloride Carbon Dioxide Anion Gap BUN Creatinine Estim Creat Clear Calc Estimated GFR Glucose POC Capillary Glucose 302 H 326 H Calcium Phosphorus Magnesium Total Bilirubin AST ALT Alkaline Phosphatase Ammonia Total Creatine Kinase Total Protein Albumin Vancomycin Trough 07/06/25 07/06/25 07/06/25 15:44 16:05 19:28 WBC RBC Hgb Hct MCV MCH MCHC RDW Plt Count MPV % Immature Plt Fraction PT INR Sodium Potassium Chloride Carbon Dioxide Anion Gap BUN Creatinine Estim Creat Clear Calc Estimated GFR Glucose POC Capillary Glucose 403 H 488 H Calcium Phosphorus Magnesium Total Bilirubin AST ALT Alkaline Phosphatase Ammonia 30 Total Creatine Kinase Total Protein Albumin Vancomycin Trough 07/06/25 07/06/25 07/06/25 20:10 21:37 22:50 WBC RBC Hgb Hct MCV MCH MCHC RDW Plt Count MPV % Immature Plt Fraction PT INR Sodium Potassium Chloride Carbon Dioxide Anion Gap BUN Creatinine Estim Creat Clear Calc Estimated GFR Glucose POC Capillary Glucose 479 H 478 H Calcium Phosphorus Magnesium Total Bilirubin AST ALT Alkaline Phosphatase Ammonia Total Creatine Kinase Total Protein Albumin Vancomycin Trough 11.7 07/07/25 07/07/25 07/07/25 00:11 00:26 01:21 WBC RBC Hgb Hct MCV MCH MCHC RDW Plt Count MPV % Immature Plt Fraction PT 22.8 H INR 2.0 Sodium Potassium Chloride Carbon Dioxide Anion Gap BUN Creatinine Estim Creat Clear Calc Estimated GFR Glucose POC Capillary Glucose 428 H 359 H Calcium Phosphorus Magnesium Total Bilirubin AST ALT Alkaline Phosphatase Ammonia Total Creatine Kinase Total Protein Albumin Vancomycin Trough 07/07/25 07/07/25 07/07/25 02:21 03:31 03:51 WBC 14.1 H RBC 3.86 L Hgb 13.8 L Hct 39.1 L MCV 101.3 H MCH 35.8 H MCHC 35.3 RDW 14.3 Plt Count 57 L MPV 11.2 H % Immature Plt Fraction 4.8 PT INR Sodium 132 L Potassium 4.0 Chloride 108 H Carbon Dioxide 18 L Anion Gap 6 BUN 71 H D Creatinine 1.21 Estim Creat Clear Calc 66 Estimated GFR > 60 Glucose 295 H POC Capillary Glucose 353 H 272 H Calcium 7.8 L Phosphorus 3.4 Magnesium 3.3 H Total Bilirubin 17.4 H AST 140 H ALT 79 H Alkaline Phosphatase 301 H Ammonia Total Creatine Kinase 190 H Total Protein 7.0 Albumin 2.3 L Vancomycin Trough
--- NOTE | 2025-07-07 09:28 | WNDPHOTO ---
PHOTO ONLY - See Nursing Notes and/ or assessments for documentation.
--- NOTE | 2025-07-07 09:34 | WNDPHOTO ---
PHOTO ONLY - See Nursing Notes and/ or assessments for documentation.
--- NOTE | 2025-07-07 09:35 | WNDPHOTO ---
PHOTO ONLY - See Nursing Notes and/ or assessments for documentation.
--- NOTE | 2025-07-07 09:36 | WNDPHOTO ---
PHOTO ONLY - See Nursing Notes and/ or assessments for documentation.
--- NOTE | 2025-07-07 09:37 | WNDPHOTO ---
PHOTO ONLY - See Nursing Notes and/ or assessments for documentation.
--- NOTE | 2025-07-07 09:38 | WNDPHOTO ---
PHOTO ONLY - See Nursing Notes and/ or assessments for documentation.
--- NOTE | 2025-07-07 09:38 | WNDPHOTO ---
PHOTO ONLY - See Nursing Notes and/ or assessments for documentation.
--- NOTE | 2025-07-07 09:39 | WNDPHOTO ---
PHOTO ONLY - See Nursing Notes and/ or assessments for documentation.
--- NOTE | 2025-07-07 09:40 | WNDPHOTO ---
PHOTO ONLY - See Nursing Notes and/ or assessments for documentation.
--- NOTE | 2025-07-07 09:41 | WNDPHOTO ---
PHOTO ONLY - See Nursing Notes and/ or assessments for documentation.
--- NOTE | 2025-07-07 09:42 | WNDPHOTO ---
PHOTO ONLY - See Nursing Notes and/ or assessments for documentation.
[2025-07-07] MEDS: INSULIN GLARGINE (*BKC) 100 UNITS/ML 30 UNITS SUB-Q (10:15)
[2025-07-07] MEDS: FOLIC ACID 1 MG/0.2 ML INJ IV PUSH (10:16)
[2025-07-07] MEDS: CEFEPIME 2 GM in SODIUM CHLORIDE 0.9% IV 50 ML 100 ML IVPB ×2 (10:16→21:47)
[2025-07-07] MEDS: FAMOTIDINE 20 MG/2 ML VIAL IV PUSH ×2 (10:18→21:48)
[2025-07-07] MEDS: THIAMINE HCL 200 MG/2 ML VIAL 100 MG IV PUSH (10:19)
[2025-07-07] MEDS: DOXYCYCLINE IV 100 MG in SODIUM CHLORIDE 0.9% IV 100 ML IVPB ×2 (11:47→23:54)
[2025-07-07] MEDS: INSULIN ASPART (*BKC) 100 UNITS/ML SUB-Q ×2 (11:53→18:35)
[2025-07-07] MEDS: LACTULOSE 20 GM/30 ML UDC PO ×2 (12:07→21:48)
[2025-07-07] MEDS: DEXTROSE 5% IVPB ×2 (12:52→20:14)
[2025-07-07] MEDS: WATER IVPB ×2 (12:52→20:14)
[2025-07-07] MEDS: ACYCLOVIR SODIUM IVPB ×2 (12:52→20:14)
--- NOTE | 2025-07-07 13:29 | P.PNGI_ITS ---
Progress Note: A&P Assessment and Plan (1) Alcoholic cirrhosis of liver: Qualifiers: Ascites presence: without ascites Qualified Code(s): K70.30 - Alcoholic cirrhosis of liver without ascites Code(s): K70.30 - Alcoholic cirrhosis of liver without ascites Status: Acute Assessment and Plan: The patient remains disoriented from a complex encephalopathy, showing only slight clinical improvement with lactulose and rifaximin, strongly suggesting a hepatic etiology. Current lab data show INR 2.0, Albumin 2.3, and a significantly elevated and rising Bilirubin of 17.4, indicating poor synthetic function despite an improving Creatinine (1.21). Treatment for potential alcohol-related hepatitis (i.e., steroids) is currently contraindicated by the patient's ongoing sepsis. The urgent finding of multiple liver masses requires prompt investigation; a biopsy has been requested, and an MRI will be attempted to better characterize the lesions now that the patient is more cooperative. Subjective Date/time seen: 07/07/25 13:29 Interval history: The patient is somewhat more oriented than yesterday but unable to give accurate information. He had several diarrheal bowel movement yesterday. Exam Narrative: Abdomen: Soft, nontender, nondistended, bowel sounds present. Rest of the exam unchanged from yesterday. Objective Data Vital Signs Vital Signs: Vital Signs - 24 hr 07/06/25 14:00 07/06/25 16:00 07/06/25 16:00 Temperature 98.3 F Pulse Rate 99 100 Respiratory Rate 24 H Blood Pressure 131/75 Pulse Oximetry 96 96 Oxygen Delivery Nasal Cannula Oxygen Flow Rate 3 07/06/25 16:00 07/06/25 18:00 07/06/25 20:00 Temperature Pulse Rate 97 102 H Respiratory Rate Blood Pressure Pulse Oximetry 95 Oxygen Delivery Nasal Cannula Oxygen Flow Rate 3 07/06/25 20:00 07/06/25 20:00 07/06/25 22:00 Temperature 98.2 F Pulse Rate 103 H 97 99 Respiratory Rate 24 H Blood Pressure 141/54 H Pulse Oximetry 95 Oxygen Delivery Oxygen Flow Rate 07/06/25 23:36 07/07/25 00:00 07/07/25 00:00 Temperature 98.1 F Pulse Rate 92 93 Respiratory Rate 22 H Blood Pressure 124/67 Pulse Oximetry 96 96 Oxygen Delivery Nasal Cannula Oxygen Flow Rate 5 07/07/25 02:00 07/07/25 03:51 07/07/25 04:00 Temperature 98.1 F Pulse Rate 96 97 Respiratory Rate 22 H Blood Pressure 146/63 H Pulse Oximetry 96 96 Oxygen Delivery Nasal Cannula Oxygen Flow Rate 4 07/07/25 04:00 07/07/25 06:00 07/07/25 06:54 Temperature Pulse Rate 94 97 Respiratory Rate Blood Pressure Pulse Oximetry 93 Oxygen Delivery Nasal Cannula Oxygen Flow Rate 3 07/07/25 08:00 07/07/25 08:52 07/07/25 11:56 Temperature 97.8 F 97.8 F Pulse Rate 92 99 Respiratory Rate 25 H 20 Blood Pressure 118/69 119/67 Pulse Oximetry 97 97 100 Oxygen Delivery Room Air Oxygen Flow Rate Intake/Output Intake/Output: Intake & Output 07/04/25 07/05/25 07/06/25 07/07/25 23:59 23:59 23:59 23:59 Intake Total 3587.1 3905.0 3870 1250 Output Total 75 1400 3750 1575 Balance 3512.1 2505.0 120 -325 Meds/Results Medications: Active Medications Generic Name Dose Route Start Last Admin Trade Name Freq PRN Reason Stop Dose Admin Acetaminophen 650 mg 07/04/25 20:27 Acetaminophen 325 Mg Tablet PO Q4H PRN Mild Pain (1-3) or Fever Dextrose 12.5 gm 07/04/25 22:26 Dextrose 50% 25 Gm/50 Ml Syringe IV PUSH PRN PRN Hypoglycemia Protocol Famotidine 20 mg 07/05/25 09:00 07/07/25 10:18 Famotidine 20 Mg/2 Ml Vial IV PUSH 20 mg Q12HR SCARLETT Administration Folic Acid 1 mg 07/05/25 09:00 07/07/25 10:16 Folic Acid 1 Mg/0.2 Ml Inj IV PUSH 1 mg QAM SCARLETT Administration Glucagon 1 mg 07/04/25 22:26 Glucagon For Inj 1 Mg Vial IM PRN PRN Hypoglycemia Protocol Glucose 15 gm 07/04/25 22:26 Glucose Oral Gel 15 Gm Of Glucse In 37.5 Gm Tube PO PRN PRN Hypoglycemia Protocol Cefepime HCl 2 gm/ Sodium 50 mls @ 100 mls/hr 07/05/25 09:00 07/07/25 10:50 Chloride IVPB Infused Q12H SCARLETT Infusion Dextrose 1,000 mls @ 100 mls/hr 07/04/25 22:26 Dextrose 5% 1,000 Ml IVPB PRN PRN Hypoglycemia Protocol Doxycycline Hyclate 100 mg/ 100 mls @ 100 mls/hr 07/04/25 23:00 07/07/25 12:52 Sodium Chloride IVPB Infused Q12H SCARLETT Infusion Potassium Chloride/Sodium Chloride 1,000 mls @ 100 mls/hr 07/05/25 08:55 07/07/25 12:06 Kcl 20 Meq/0.45% Ns IV CONT Not Given .Q10H SCARLETT Vancomycin HCl 1,500 mg in 500 mls @ 250 mls/hr 07/06/25 21:00 07/06/25 23:59 Vancomycin 1,500 Mg/Ns 500 Ml IVPB Infused Q18H SCARLETT Infusion Sodium Chloride 250 mls @ 30 mls/hr 07/07/25 08:13 Normal Saline Iv IV CONT 07/07/25 16:32 .Q8H20M STA Acyclovir Sodium 905 mg/ 268.1 mls @ 250 mls/hr 07/07/25 12:00 07/07/25 12:52 Dextrose IVPB 07/10/25 06:00 250 mls/hr Q8H SCARLETT Administration Insulin Aspart 8 units 07/06/25 17:00 07/07/25 11:52 Insulin Aspart (*Bkc) 100 Units/Ml 0.083 units/kg (8 units) 8 units SUB-Q Administration [facility] Insulin Aspart 2 - 5 units 07/06/25 17:00 07/07/25 11:53 Insulin Aspart (*Bkc) 100 Units/Ml SUB-Q 3 units TIDWM SC[facility]TT Administration Protocol Insulin Glargine 30 units 07/07/25 09:00 07/07/25 10:15 Insulin Glargine (*Bkc) 100 Units/Ml SUB-Q 30 units QAM SCARLETT Administration Lactulose 20 gm 07/07/25 11:50 07/07/25 12:07 Lactulose 20 Gm/30 Ml Udc PO 20 gm Q12HR SCARLETT Administration Ondansetron HCl 4 mg 07/04/25 20:27 Ondansetron Inj 4 Mg/2 Ml Vial IV PUSH Q4H PRN Nausea Perflutren Lipid Microsphere 0 ml 07/05/25 00:12 Perflutren Lipid Microspheres 1.5 Ml Vial Diluted To 10 Ml Total Volume IV PUSH 07/08/25 00:12 ONCE PRN adequate visualization Protocol Rifaximin 550 mg 07/06/25 09:00 07/07/25 10:20 Rifaximin 550 Mg Tablet PO 550 mg Q12HR SCARLETT Administration Thiamine HCl 100 mg 07/05/25 09:00 07/07/25 10:19 Thiamine Hcl 200 Mg/2 Ml Vial IV PUSH 100 mg QAM SCARLETT Administration Radiology Results: ITS Impressions Chest X-Ray 07/04/25 16:48 Impression: Probable viral pneumonitis Head CT 07/04/25 17:47 Impression: 1.No acute intracranial abnormality. Chest/Abdomen/Pelvis CT 07/04/25 18:37 IMPRESSION: 1. Chronic changes in the lungs with small pleural effusions. 2. 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 Contrast-enhanced MRI recommended. 3. Incidental findings above Hand X-Ray 07/05/25 08:18 Impression: No acute fracture or malalignment. Venous Doppler Study 07/05/25 17:31 Impression: Negative for DVT. Abdomen Ultrasound 07/05/25 22:21 IMPRESSION: 1. Constellation of findings most consistent with a nodular cirrhotic liver with multiple nodular regions of increased echogenicity with corresponding decreased attenuation on CT suggesting dysplastic/regenerative nodules with hepatic steatosis and intervening hypoechoic fibrous septations. Differential for any given nodule would include hepatocellular carcinoma or metastatic disease if there is known history of prior malignancy. Could consider multiphase pre and postcontrast MRI for further evaluation as clinically indicated. 2. Bidirectional flow in the main portal vein and large recanalized umbilical vein with abdominal wall collaterals consistent with secondary portal venous hypertension. 3. Small amount perihepatic ascites. 4. Cholelithiasis. Renal Ultrasound 07/05/25 22:38 IMPRESSION: 1. Normal kidneys without hydronephrosis. 2. Small amount of ascites likely related to cirrhosis. 3. Review of prior CT images demonstrate a device situated between the cephalad margin of the left renal vein and the left adrenal gland which is not visualized on the provided images. Given the findings of cirrhosis with portal venous hypertension. This could represent occlusion/embolization device for treatment of splenorenal collaterals. Correlate with clinical history. Labs Labs: Laboratory Results - last 24 hr 07/06/25 07/06/25 07/06/25 15:44 16:05 19:28 WBC RBC Hgb Hct MCV MCH MCHC RDW Plt Count MPV % Immature Plt Fraction PT INR Sodium Potassium Chloride Carbon Dioxide Anion Gap BUN Creatinine Estim Creat Clear Calc Estimated GFR Glucose POC Capillary Glucose 403 H 488 H Calcium Phosphorus Magnesium Total Bilirubin AST ALT Alkaline Phosphatase Ammonia 30 Total Creatine Kinase Total Protein Albumin Vancomycin Trough Blood Type 07/06/25 07/06/25 07/06/25 20:10 21:37 22:50 WBC RBC Hgb Hct MCV MCH MCHC RDW Plt Count MPV % Immature Plt Fraction PT INR Sodium Potassium Chloride Carbon Dioxide Anion Gap BUN Creatinine Estim Creat Clear Calc Estimated GFR Glucose POC Capillary Glucose 479 H 478 H Calcium Phosphorus Magnesium Total Bilirubin AST ALT Alkaline Phosphatase Ammonia Total Creatine Kinase Total Protein Albumin Vancomycin Trough 11.7 Blood Type 07/07/25 07/07/25 07/07/25 00:11 00:26 01:21 WBC RBC Hgb Hct MCV MCH MCHC RDW Plt Count MPV % Immature Plt Fraction PT 22.8 H INR 2.0 Sodium Potassium Chloride Carbon Dioxide Anion Gap BUN Creatinine Estim Creat Clear Calc Estimated GFR Glucose POC Capillary Glucose 428 H 359 H Calcium Phosphorus Magnesium Total Bilirubin AST ALT Alkaline Phosphatase Ammonia Total Creatine Kinase Total Protein Albumin Vancomycin Trough Blood Type 07/07/25 07/07/25 07/07/25 02:21 03:31 03:51 WBC 14.1 H RBC 3.86 L Hgb 13.8 L Hct 39.1 L MCV 101.3 H MCH 35.8 H MCHC 35.3 RDW 14.3 Plt Count 57 L MPV 11.2 H % Immature Plt Fraction 4.8 PT INR Sodium 132 L Potassium 4.0 Chloride 108 H Carbon Dioxide 18 L Anion Gap 6 BUN 71 H D Creatinine 1.21 Estim Creat Clear Calc 66 Estimated GFR > 60 Glucose 295 H POC Capillary Glucose 353 H 272 H Calcium 7.8 L Phosphorus 3.4 Magnesium 3.3 H Total Bilirubin 17.4 H AST 140 H ALT 79 H Alkaline Phosphatase 301 H Ammonia Total Creatine Kinase 190 H Total Protein 7.0 Albumin 2.3 L Vancomycin Trough Blood Type 07/07/25 07/07/25 07/07/25 07:58 08:53 11:38 WBC RBC Hgb Hct MCV MCH MCHC RDW Plt Count MPV % Immature Plt Fraction PT INR Sodium Potassium Chloride Carbon Dioxide Anion Gap BUN Creatinine Estim Creat Clear Calc Estimated GFR Glucose POC Capillary Glucose 240 H 286 H Calcium Phosphorus Magnesium Total Bilirubin AST ALT Alkaline Phosphatase Ammonia Total Creatine Kinase Total Protein Albumin Vancomycin Trough Blood Type A Negative
--- NOTE | 2025-07-07 13:37 | P.PNNP_ITS ---
Progress Note: A&P Assessment and Plan (1) Acute kidney injury: Code(s): N17.9 - Acute kidney failure, unspecified Status: Acute Assessment and Plan: * slow improvement noted * as noted by admission labs * however, only previous labs for comparison are from August 2021 at [facility] (creatinine was 0.71mg/dL) * suspect multifactorial etiology: * prerenal factors * possible mild rhabdomyolysis * progression of liver disease * possible underlying CKD (?) * infection/early sepsis (UTI +/- skin infection) * other (?) * evaluation to date: * renal ultrasound w/o hydronephrosis * urine electrolytes are prerenal * negative urine eosinophils * CPK mildly elevated but no high enough to affect kidney function * UA suggestive of infection * mild proteinuria * continue trial of IVFs for another 24 hours * wean off as oral intake improves * follow trend of repeat labs and UOP (2) Hyperosmolar hyperglycemic state (HHS): Code(s): E11.00 - Type 2 diabetes mellitus with hyperosmolarity without nonketotic hyperglycemic-hyperosmolar coma (N[facility]) Status: Acute Assessment and Plan: * resolved * as noted by presentation with hyperglycemia with normal gap * s/p IVF resuscitation and insulin gtt * poor glycemic control at baseline - A1c 11.3 * transitioned to SQ insulin therapy * advance diet within limits of mentation (3) Sepsis: Qualifiers: Sepsis acute organ dysfunction status: unspecified Sepsis type: sepsis due to unspecified organism Qualified Code(s): A41.9 - Sepsis, unspecified organism Code(s): A41.9 - Sepsis, unspecified organism Status: Acute Assessment and Plan: * possibly due to UTI versus skin infection versus other(?) * follow trend of hemodynamics * follow culture data * blood culture (07/04) - Gram positive cocci * urine culture noted * Infectious Disease consulted * on antibiotic therapy (4) Hyponatremia: Code(s): E87.1 - Hypo-osmolality and hyponatremia Status: Acute Assessment and Plan: * improving * due to several issues: * partly due to hyperglycemia -- admission sodium corrects to 133 given glucose of 624 * liver disease * volume depletion * alcohol (?) * suspect a chronic component present at baseline * follow trend of repeat sodium levels (5) AMS (altered mental status): Qualifiers: Altered mental status type: unspecified Qualified Code(s): R41.82 - Altered mental status, unspecified Code(s): R41.82 - Altered mental status, unspecified Status: Acute Assessment and Plan: * ongoing improvement * likely due to several issues: * PAPA/ARF * possible uremia * hyperglycemia/HHS * early sepsis/infection * elevated ammonia * other (?) * CT of head negative * minimize sedation/sedative medications * continue supportive therapy (6) Alcoholic cirrhosis of liver: Qualifiers: Ascites presence: without ascites Qualified Code(s): K70.30 - Alcoholic cirrhosis of liver without ascites Code(s): K70.30 - Alcoholic cirrhosis of liver without ascites Status: Acute Assessment and Plan: * known issues since as far back as 2018 (if not longer) * acute decline versus progression of disease(?) * elevated LFTs and INR noted on admission * elevated ammonia noted as well on admission * on lactulose * s/p vitamin K for coagulopathy * right upper quadrant ultrasound results noted * complicated by acute on chronic thrombocytopenia * acute drop in platelets due to sepsis * chronic component due to liver cirrhosis and alcohol abuse (7) Acute UTI: Code(s): N39.0 - Urinary tract infection, site not specified Status: Acute Assessment and Plan: * admission UA suggestive * follow culture data * on antibiotics (8) Pustular rash: Code(s): L08.0 - Pyoderma Status: Acute Assessment and Plan: * noted on exam * etiology not clear * follow cultures * on antibiotics (9) Rhabdomyolysis: Code(s): M62.82 - Rhabdomyolysis Status: Acute Assessment and Plan: * noted history of being found laying on the floor * duration not clear * mildly elevated CPK noted * follow trend * on IVFs (10) Alcoholism: Code(s): F10.20 - Alcohol dependence, uncomplicated Status: Acute Assessment and Plan: * known history of alcohol abuse * on IV thiamine and folic acid * monitor for withdrawal Will continue to follow. L Subjective Date/time seen: 07/07/25 13:37 Interval history: Follow-up for acute kidney injury/acute renal failure. Mentation appears to be doing better as he is more awake and talkative/communicative at the time of visit; renal function/creatinine continues to improve with reasonable urine output noted; no apparent distress noted at this tin. Exam 2 Narrative: General: middle aged male in NAD Heart: normal S1 and S2; no rub Lungs: clear anteriorly Abdomen: soft, nontender, nondistended, positive bowel sounds Extremities: no cyanosis or clubbing; no edema Skin: warm and intact Objective Data Vital Signs Vital Signs: Vital Signs Temp Pulse Pulse Resp BP Pulse Ox O2 Del Method 07/07/25 11:56 97.8 F 99 20 119/67 100 07/07/25 08:52 97 Room Air 07/07/25 08:00 94 07/07/25 08:00 94 24 H 97 Nasal Cannula 07/07/25 08:00 94 118/69 07/07/25 08:00 97.8 F 92 25 H 118/69 97 07/07/25 06:54 93 Nasal Cannula 07/07/25 06:00 97 07/07/25 04:00 94 07/07/25 04:00 96 Nasal Cannula 07/07/25 03:51 98.1 F 97 22 H 146/63 H 96 07/07/25 02:00 96 07/07/25 00:00 93 07/07/25 00:00 96 Nasal Cannula 07/06/25 23:36 98.1 F 92 22 H 124/67 96 07/06/25 22:00 99 07/06/25 20:00 97 07/06/25 20:00 98.2 F 103 H 24 H 141/54 H 95 07/06/25 20:00 95 Nasal Cannula Intake/Output Intake/Output: Intake & Output 07/04/25 07/05/25 07/06/25 07/07/25 23:59 23:59 23:59 23:59 Intake Total 3587.1 3905.0 3870 2638.1 Output Total 75 1400 3750 2325 Balance 3512.1 2505.0 120 313.1 Meds/Results Medications: Active Medications Generic Name Dose Route Start Last Admin Trade Name Freq PRN Reason Stop Dose Admin Acetaminophen 650 mg 07/04/25 20:27 Acetaminophen 325 Mg Tablet PO Q4H PRN Mild Pain (1-3) or Fever Dextrose 12.5 gm 07/04/25 22:26 Dextrose 50% 25 Gm/50 Ml Syringe IV PUSH PRN PRN Hypoglycemia Protocol Famotidine 20 mg 07/05/25 09:00 07/07/25 10:18 Famotidine 20 Mg/2 Ml Vial IV PUSH 20 mg Q12HR SCARLETT Administration Folic Acid 1 mg 07/05/25 09:00 07/07/25 10:16 Folic Acid 1 Mg/0.2 Ml Inj IV PUSH 1 mg QAM SCARLETT Administration Glucagon 1 mg 07/04/25 22:26 Glucagon For Inj 1 Mg Vial IM PRN PRN Hypoglycemia Protocol Glucose 15 gm 07/04/25 22:26 Glucose Oral Gel 15 Gm Of Glucse In 37.5 Gm Tube PO PRN PRN Hypoglycemia Protocol Cefepime HCl 2 gm/ Sodium 50 mls @ 100 mls/hr 07/05/25 09:00 07/07/25 10:50 Chloride IVPB Infused Q12H SCARLETT Infusion Dextrose 1,000 mls @ 100 mls/hr 07/04/25 22:26 Dextrose 5% 1,000 Ml IVPB PRN PRN Hypoglycemia Protocol Doxycycline Hyclate 100 mg/ 100 mls @ 100 mls/hr 07/04/25 23:00 07/07/25 12:52 Sodium Chloride IVPB Infused Q12H SCARLETT Infusion Potassium Chloride/Sodium Chloride 1,000 mls @ 100 mls/hr 07/05/25 08:55 07/07/25 15:26 Kcl 20 Meq/0.45% Ns IV CONT 100 mls/hr .Q10H SCARLETT Administration Vancomycin HCl 1,500 mg in 500 mls @ 250 mls/hr 07/06/25 21:00 07/07/25 15:28 Vancomycin 1,500 Mg/Ns 500 Ml IVPB 250 mls/hr Q18H SCARLETT Administration Acyclovir Sodium 905 mg/ 268.1 mls @ 250 mls/hr 07/07/25 12:00 07/07/25 14:26 Dextrose IVPB 07/10/25 06:00 Infused Q8H SCARLETT Infusion Insulin Aspart 8 units 07/06/25 17:00 07/07/25 11:52 Insulin Aspart (*Bkc) 100 Units/Ml 0.083 units/kg (8 units) 8 units SUB-Q Administration TIDWM [facility] Insulin Aspart 2 - 5 units 07/06/25 17:00 07/07/25 11:53 Insulin Aspart (*Bkc) 100 Units/Ml SUB-Q 3 units TIDWM [facility] Administration Protocol Insulin Glargine 30 units 07/07/25 09:00 07/07/25 10:15 Insulin Glargine (*Bkc) 100 Units/Ml SUB-Q 30 units QAM SCARLETT Administration Lactulose 20 gm 07/07/25 11:50 07/07/25 12:07 Lactulose 20 Gm/30 Ml Udc PO 20 gm Q12HR SCARLETT Administration Ondansetron HCl 4 mg 07/04/25 20:27 Ondansetron Inj 4 Mg/2 Ml Vial IV PUSH Q4H PRN Nausea Perflutren Lipid Microsphere 0 ml 07/05/25 00:12 Perflutren Lipid Microspheres 1.5 Ml Vial Diluted To 10 Ml Total Volume IV PUSH 07/08/25 00:12 ONCE PRN adequate visualization Protocol Rifaximin 550 mg 07/06/25 09:00 07/07/25 10:20 Rifaximin 550 Mg Tablet PO 550 mg Q12HR SCARLETT Administration Thiamine HCl 100 mg 07/05/25 09:00 07/07/25 10:19 Thiamine Hcl 200 Mg/2 Ml Vial IV PUSH 100 mg QAM SCARLETT Administration Radiology Results: ITS Impressions Chest X-Ray 07/04/25 16:48 Impression: Probable viral pneumonitis Head CT 07/04/25 17:47 Impression: 1.No acute intracranial abnormality. Chest/Abdomen/Pelvis CT 07/04/25 18:37 IMPRESSION: 1. Chronic changes in the lungs with small pleural effusions. 2. 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 Contrast-enhanced MRI recommended. 3. Incidental findings above Hand X-Ray 07/05/25 08:18 Impression: No acute fracture or malalignment. Venous Doppler Study 07/05/25 17:31 Impression: Negative for DVT. Abdomen Ultrasound 07/05/25 22:21 IMPRESSION: 1. Constellation of findings most consistent with a nodular cirrhotic liver with multiple nodular regions of increased echogenicity with corresponding decreased attenuation on CT suggesting dysplastic/regenerative nodules with hepatic steatosis and intervening hypoechoic fibrous septations. Differential for any given nodule would include hepatocellular carcinoma or metastatic disease if there is known history of prior malignancy. Could consider multiphase pre and postcontrast MRI for further evaluation as clinically indicated. 2. Bidirectional flow in the main portal vein and large recanalized umbilical vein with abdominal wall collaterals consistent with secondary portal venous hypertension. 3. Small amount perihepatic ascites. 4. Cholelithiasis. Renal Ultrasound 07/05/25 22:38 IMPRESSION: 1. Normal kidneys without hydronephrosis. 2. Small amount of ascites likely related to cirrhosis. 3. Review of prior CT images demonstrate a device situated between the cephalad margin of the left renal vein and the left adrenal gland which is not visualized on the provided images. Given the findings of cirrhosis with portal venous hypertension. This could represent occlusion/embolization device for treatment of splenorenal collaterals. Correlate with clinical history. Labs Labs: Laboratory Tests 07/07/25 03:51 07/07/25 03:51 Calcium 7.8 L Phosphorus 3.4 Magnesium 3.3 H Total Bilirubin 17.4 H AST 140 H ALT 79 H Alkaline Phosphatase 301 H Total Creatine Kinase 190 H Total Protein 7.0 Albumin 2.3 L Microbiology 07/04/25 20:22 Blood Blood Culture - Preliminary 07/04/25 20:22 Blood Blood Culture - Preliminary 07/05/25 12:14 Urine Catheterized Urine Culture - Preliminary 07/04/25 19:36 Urine Clean Catch - Preliminary
[2025-07-07 15:09] LABS: Myoglobin, Urine 8 ng/mL (0-13)
[2025-07-07] MEDS: VANCOMYCIN 1,500 MG/NS 500 ML 1,500 MG/500 ML BAG 250 MG IVPB (15:28)
--- NOTE | 2025-07-07 16:30 | P.CONINF_ITS ---
Assessment and Plan Assessment and plan (1) Leukocytosis: Code(s): D72.829 - Elevated white blood cell count, unspecified Status: Acute (2) Pustular rash: Code(s): L08.0 - Pyoderma Status: Acute Plan #Bacteremia. Gram-positive cocci. Would be concerned for Staph aureus bacteremia. Patient with underlying hepatic encephalitis/ hepatitis. Otherwise Gram-positive could also include strep species although would be more consistent change. Enteric strep/ oral strep as a possibility. Would then need to also consider endocarditis in the setting of both staph or strep bacteremia. Awaiting formal identification. #disseminated rash. More thin walled. M pox a consideration based on local case but no exposures and lesions are not quite consistent. varicella could also present similar fashion. More disseminated. With increased confusion with underlying hepatic encephalopathy. Cannot rule out the possibility of encephalitis. Had a VZV encephalitis would seem more likely than HSV. LP may be contraindicated early but will need to treat empirically pending further workup. Lb sign acute hepatic hepatitis. Workup ongoing with GI. Considering liver biopsy and possible transfer to tertiary care center. Plan: Maintain vancomycin pending ID of the Gram-positive cocci in blood. Repeat blood cultures x2. Continue ceftriaxone. Add acyclovir IV treatment dose for encephalitis /disseminated VZV. Lesion sent for M Pereira PCR, HSV and VZV PCR. Discussed with infection prevention. No clear indication for M Pereira treatment without clear diagnosis in this patient. It is likely immunocompromised with underlying hepatic status but would not give empirically at this point for dual therapy. Will continue monitor closely. If he has persistent bacteremia, will need to consider ADALBERTO. Patient seen via hippa-protected audio/visual interface with patient at [facility] and me in my office in [place]. HPI Data of Consult Date/Time: 07/07/25 16:30 Requesting Physician: Daily Penn MD Primary Care Provider: Sade Sadler MD Consult Narrative Reason for consult: 1. bacteremia. 2. vesicular/pustular rash. Rule out Mpox/vzv. Narrative: 55 y/o m with a history of alcohol abuse presenting with encephalopathy. he presented with increased confusion. With leukocytosis. Blood cultures on admission are growing Gram-positive cocci in clusters. Awaiting identification. Was started on broad-spectrum antibiotics with ceftriaxone and vancomycin. Noted having some pustular /in [place] vesicular areas in his lower extremities and buttock. Older lesions on his back. Unclear how long these have been occurring but more likely acute. brought him in. States that they have not left the house. No other sexual partners. Patient HIV negative. Mental status waxing and waning. Placed on contact isolation due to concern of Nahomy Pereira with the recent local case. No known exposures with this case. Patient still confused. Workup pending for alcoholic hepatitis. Transfer possible to [facility]. Also having some oral ulcerations specially left tooth. Unclear whether this had been inciting event for the bacteremia. Patient edentulous otherwise. Two pets. Two dogs. No travel. Heavy alcohol use. Apparently recently at a treatment center for withdrawal. No obvious phlebitis related to any recent medical treatments. No acute back pain. No other focal neurological deficits PMFSH Past Medical History Medical History History of depression Admitted for suicidal ideation in January 2013. Alcoholic cirrhosis of liver Heart murmur, systolic Echocardiogram from 01/09/2020 done at [facility] showed ejection fraction of 65 to 70%, mild concentric hypertrophy, no regional wall motion abnormalities, moderate pulmonary hypertension with RVSP of 52 millimeters of mercury, and mild aortic stenosis. Alcoholism Surgical History Surgical History History of colon resection Related to ruptured appendicitis. History of appendectomy Family History Family History Grandparent Diabetes mellitus Legally blind Pneumonia Mother Migraines Sibling Migraines Sibling Pre-diabetes Grandparent Diabetes mellitus Grandparent Diabetes mellitus Father Family history of alcoholism Sibling Family history of alcoholism Social History Social History Social History: The patient is and shares a home in [place] with his and 2 dogs, a Yorkie and a min-pin. 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 He also helps care for his , who has early-onset dementia. He smoked between 2 and 3 packs of cigarettes a day for 30 years and he reportedly quit in October 2016. He has a history of alcoholism. He denies drug use. Designates his , Ken Orosco, as his surrogate decision maker and he wishes to be a full code. Smoking packs per day: 2 Smoking cigarettes per day: 40.0 Years smoked: 30 Smoking pack-years: 60.00 Smoking status: Former smoker Tobacco type: cigarettes and e-cigarettes/vaping Second hand tobacco smoke exposure: No Smoking end date: 10/31/16 Alcohol intake: former Substance use: former Substance use type: does not use Lack of Transportation: No Lack of Food: Never True Current Housing: I Have Housing Concerned About Future Housing: No Difficulty Paying Gas/Electric Bills: No Difficulty Paying for Meds: No Currently Unemployed: No Education: Trade/Vocational Certificate Difficulty w/ Childcare or Family Care: No Living arrangements: with family 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 Gender identity (if verbalized by the patient): Male Spiritual care concerns: No Agree to blood products: Yes Meds Home Medications and Allergies Home Medications ?Medication ?Instructions ?Recorded ?Confirmed ?Type No Home Medications 07/04/25 07/04/25 H istory Allergies Allergy/AdvReac Type Severity Reaction Status Date / Time No Known Allergies Allergy Unknown Verified 07/04/25 22:59 Vital Signs Vital Signs - 24 hr 07/06/25 18:00 07/06/25 20:00 07/06/25 20:00 Temperature 36.8 C Pulse Rate 102 H 103 H Respiratory Rate 24 H Blood Pressure 141/54 H Pulse Oximetry 95 95 Oxygen Delivery Nasal Cannula Oxygen Flow Rate 3 07/06/25 20:00 07/06/25 22:00 07/06/25 23:36 Temperature 36.7 C Pulse Rate 97 99 92 Respiratory Rate 22 H Blood Pressure 124/67 Pulse Oximetry 96 Oxygen Delivery Oxygen Flow Rate 07/07/25 00:00 07/07/25 00:00 07/07/25 02:00 Temperature Pulse Rate 93 96 Respiratory Rate Blood Pressure Pulse Oximetry 96 Oxygen Delivery Nasal Cannula Oxygen Flow Rate 5 07/07/25 03:51 07/07/25 04:00 07/07/25 04:00 Temperature 36.7 C Pulse Rate 97 94 Respiratory Rate 22 H Blood Pressure 146/63 H Pulse Oximetry 96 96 Oxygen Delivery Nasal Cannula Oxygen Flow Rate 4 07/07/25 06:00 07/07/25 06:54 07/07/25 08:00 Temperature 36.6 C Pulse Rate 97 92 Respiratory Rate 25 H Blood Pressure 118/69 Pulse Oximetry 93 97 Oxygen Delivery Nasal Cannula Oxygen Flow Rate 3 07/07/25 08:52 07/07/25 11:56 Temperature 36.6 C Pulse Rate 99 Respiratory Rate 20 Blood Pressure 119/67 Pulse Oximetry 97 100 Oxygen Delivery Room Air Oxygen Flow Rate Exam 2 Narrative: via telemedicine. Very jaundice. Will follow some executive commands. With the aid of resource rounder, left lower jaw with a pustule area in the gumline. Edentulous. Abdomen protuberant. No rebound or guarding. In addition to direct exam, photos of lesions over the pretibial areas bilaterally with some thin walled pus filled vesicles. No clear umbilicated areas or firm based rash. Old lesions on the back over both sides. Symmetric. Not dermatomal. No focal deficits noted neurologically. Patient is confused. Scaly rashes in the left arm consistent with psoriatic process. More chronic. Results Labs 07/07/25 03:51 07/07/25 03:51 Labs: Short CBC 07/07/25 Range/Units 03:51 WBC 14.1 H (4.5-10.0) K/mm3 Hgb 13.8 L (14.0-18.0) g/dL Hct 39.1 L (42.0-52.0) % Plt Count 57 L (150-375) k/mm3 BMP 07/07/25 03:51 Sodium 132 L Potassium 4.0 Chloride 108 H Carbon Dioxide 18 L BUN 71 H D Creatinine 1.21 Glucose 295 H Calcium 7.8 L Cardiac Enzymes 07/07/25 Range/Units 03:51 Total Creatine Kinase 190 H (55-170) U/L Liver Function 07/07/25 Range/Units 03:51 Total Bilirubin 17.4 H (0.2-1.3) mg/dL AST 140 H (17-59) U/L ALT 79 H (6-50) U/L Alkaline Phosphatase 301 H (38-126) U/L Albumin 2.3 L (3.5-5.1) g/dL
--- NOTE | 2025-07-07 21:22 | PC.NURSE ---
[facility] called No bed available, updated with pt condition and new isolation requirements
[2025-07-08] VITALS (15 sets, daily range): BP systolic 120–139; BP diastolic 67–92; PULSE 91–120; RESP 18–22; TEMP 36.3–36.8; O2SAT 90–99
[2025-07-08] MEDS: ACYCLOVIR SODIUM IVPB ×3 (07:16→22:50)
[2025-07-08] MEDS: WATER IVPB ×3 (07:16→22:50)
[2025-07-08] MEDS: DEXTROSE 5% IVPB ×3 (07:16→22:50)
[2025-07-08 08:17] LABS: Hematocrit 39.7 % (42.0-52.0); Hemoglobin 14.0 g/dL (14.0-18.0); Immature Granulocyte Percent A 2.4 % (0-0.5); Immature Platelet Fraction Pct 5.4 % (0.9-11.2); Lymphocytes Absolute Auto 0.54 K/mm3 (0.9-3.2); Mean Corpuscular HGB Conc 35.3 g/dl (32-36); Mean Corpuscular Hemoglobin 35.8 pg (26-34); Mean Corpuscular Volume 101.5 fl (80-100); Nucleated Red Blood Cells Absolute Auto 0.000 K/mm3 (0.0-0.012); Nucleated Red Blood Cells Perc 0.0 % (0.0-0.2); Platelet Count Result 47 k/mm3 (150-375); Red Blood Count 3.91 M/mm3 (4.6-6.20); White Blood Count 11.9 K/mm3 (4.5-10.0)
[2025-07-08 08:29] LABS: INR 2.1; Prothrombin Time 23.3 Seconds (11.1-14.7)
[2025-07-08 08:43] LABS: Alanine Aminotransferase 88 U/L (6-50); Albumin Level 2.3 g/dL (3.5-5.1); Alkaline Phosphatase 302 U/L (38-126); Anion Gap 7 mmol/L (4-12); Aspartate Amino Transferase 128 U/L (17-59); Bilirubin,Total 19.5 mg/dL (0.2-1.3); Blood Urea Nitrogen 47 mg/dL (9-20); Calcium 8.2 mg/dL (8.4-10.2); Carbon Dioxide 20 mmol/L (22-30); Chloride 108 mmol/L (98-107); Creatine Kinase 113 U/L (55-170); Estimated CRCL calculation 79 ml/min; Estimated Glomerular Filt Rate > 60; Glucose 289 mg/dL (65-110); Magnesium 2.6 mg/dL (1.6-2.3); Potassium 4.5 mmol/L (3.4-5.0); Sodium 135 mmol/L (137-145); Total Protein 7.2 g/dL (6.3-8.2)
[2025-07-08] MEDS: LACTULOSE 20 GM/30 ML UDC PO ×2 (09:54→22:49)
[2025-07-08] MEDS: FAMOTIDINE 20 MG/2 ML VIAL IV PUSH ×2 (09:54→22:49)
[2025-07-08] MEDS: THIAMINE HCL 200 MG/2 ML VIAL 100 MG IV PUSH (09:54)
[2025-07-08] MEDS: FOLIC ACID 1 MG/0.2 ML INJ IV PUSH (10:06)
[2025-07-08] MEDS: INSULIN GLARGINE (*BKC) 100 UNITS/ML 30 UNITS SUB-Q (10:06)
[2025-07-08] MEDS: CEFEPIME 2 GM in SODIUM CHLORIDE 0.9% IV 50 ML 100 ML IVPB ×2 (10:07→21:15)
[2025-07-08] MEDS: VANCOMYCIN 2,000 MG/NS 500 ML 2,000 MG/500 ML BAG 250 MG IVPB (10:20)
[2025-07-08] MEDS: DOXYCYCLINE IV 100 MG in SODIUM CHLORIDE 0.9% IV 100 ML IVPB (12:58)
[2025-07-08] MEDS: INSULIN ASPART (*BKC) 100 UNITS/ML 8 UNITS SUB-Q ×2 (13:04→17:04)
[2025-07-08] MEDS: INSULIN ASPART (*BKC) 100 UNITS/ML SUB-Q ×2 (13:05→17:04)
--- NOTE | 2025-07-08 13:38 | P.PNNP_ITS ---
Progress Note: A&P Assessment and Plan (1) Acute kidney injury: Code(s): N17.9 - Acute kidney failure, unspecified Status: Acute Assessment and Plan: * slow improvement noted * as noted by admission labs * however, only previous labs for comparison are from August 2021 at [facility] (creatinine was 0.71mg/dL) * suspect multifactorial etiology: * prerenal factors * possible mild rhabdomyolysis * progression of liver disease * possible underlying CKD (?) * infection/early sepsis (UTI +/- skin infection) * other (?) * evaluation to date: * renal ultrasound w/o hydronephrosis * urine electrolytes are prerenal * negative urine eosinophils * CPK mildly elevated but no high enough to affect kidney function * UA suggestive of infection * mild proteinuria * wean off IVFs as oral intake improves * follow trend of repeat labs and UOP (2) Hyperosmolar hyperglycemic state (HHS): Code(s): E11.00 - Type 2 diabetes mellitus with hyperosmolarity without nonketotic hyperglycemic-hyperosmolar coma ([facility]) Status: Acute Assessment and Plan: * resolved * as noted by presentation with hyperglycemia with normal gap * s/p IVF resuscitation and insulin gtt * poor glycemic control at baseline - A1c 11.3 * transitioned to SQ insulin therapy * advance diet within limits of mentation (3) Sepsis: Qualifiers: Sepsis acute organ dysfunction status: unspecified Sepsis type: sepsis due to unspecified organism Qualified Code(s): A41.9 - Sepsis, unspecified organism Code(s): A41.9 - Sepsis, unspecified organism Status: Acute Assessment and Plan: * possibly due to UTI versus skin infection versus other(?) * follow trend of hemodynamics * follow culture data * blood culture (07/04) - Staphylococcus aureus * blood culture (07/08) - pending * urine culture noted * Infectious Disease following * on antibiotic therapy (4) Hyponatremia: Code(s): E87.1 - Hypo-osmolality and hyponatremia Status: Acute Assessment and Plan: * improving * due to several issues: * partly due to hyperglycemia -- admission sodium corrects to 133 given glucose of 624 * liver disease * volume depletion * alcohol (?) * suspect a chronic component present at baseline * follow trend of repeat sodium levels (5) AMS (altered mental status): Qualifiers: Altered mental status type: unspecified Qualified Code(s): R41.82 - Altered mental status, unspecified Code(s): R41.82 - Altered mental status, unspecified Status: Acute Assessment and Plan: * fluctuating * likely due to several issues: * PAPA/ARF * possible uremia * hyperglycemia/HHS * early sepsis/infection * elevated ammonia * alcohol withdrawal * other (?) * CT of head negative * minimize sedation/sedative medications * continue supportive therapy (6) Alcoholic cirrhosis of liver: Qualifiers: Ascites presence: without ascites Qualified Code(s): K70.30 - Alcoholic cirrhosis of liver without ascites Code(s): K70.30 - Alcoholic cirrhosis of liver without ascites Status: Acute Assessment and Plan: * known issues since as far back as 2018 (if not longer) * acute decline versus progression of disease(?) * elevated LFTs and INR noted on admission * elevated ammonia noted as well on admission * on lactulose * s/p vitamin K for coagulopathy * right upper quadrant ultrasound results noted * complicated by acute on chronic thrombocytopenia * acute drop in platelets due to sepsis * chronic component due to liver cirrhosis and alcohol abuse (7) Acute UTI: Code(s): N39.0 - Urinary tract infection, site not specified Status: Acute Assessment and Plan: * admission UA suggestive * follow culture data * on antibiotics (8) Pustular rash: Code(s): L08.0 - Pyoderma Status: Acute Assessment and Plan: * noted on exam * etiology not clear * follow cultures * on antibiotics (9) Rhabdomyolysis: Code(s): M62.82 - Rhabdomyolysis Status: Acute Assessment and Plan: * noted history of being found laying on the floor * duration not clear * mildly elevated CPK noted * follow trend * on IVFs (10) Alcoholism: Code(s): F10.20 - Alcohol dependence, uncomplicated Status: Acute Assessment and Plan: * known history of alcohol abuse * on IV thiamine and folic acid * monitor for withdrawal Not much else to add --will continue to follow from a distance. L Subjective Date/time seen: 07/08/25 13:38 Interval history: Follow-up for acute kidney injury/acute renal failure. Renal function/creatinine has improved if not stabilized back to baseline with good urine output noted; ongoing rise in bilirubin noted by trend of labs; fluctuating mentation noted as well (there is concern he may also being going through withdrawal; still awaiting possible transfer to [facility]. Exam 2 Narrative: General: middle aged male in NAD Heart: normal S1 and S2; no rub Lungs: clear anteriorly Abdomen: soft, nontender, nondistended, positive bowel sounds Extremities: no cyanosis or clubbing; no edema Skin: noted skin lesions Objective Data Vital Signs Vital Signs: Vital Signs Temp Pulse Pulse Resp BP Pulse Ox O2 Del Method 07/08/25 12:00 97 07/08/25 12:00 Room Air 07/08/25 11:57 98.2 F 91 20 134/67 92 07/08/25 10:00 93 07/08/25 08:00 96 07/08/25 08:00 Room Air 07/08/25 07:48 97.6 F 99 20 138/81 99 07/08/25 04:00 97.7 F 107 H 18 120/73 90 07/08/25 04:00 112 H 07/08/25 04:00 112 H 20 99 Room Air 07/08/25 04:00 100 132/72 07/08/25 02:00 112 H 07/08/25 00:00 112 H 07/08/25 00:00 112 H 20 99 Room Air 07/08/25 00:00 100 132/72 07/07/25 23:48 97.8 F 112 H 20 132/72 99 07/07/25 22:00 110 H 07/07/25 20:00 110 H 07/07/25 20:00 111 H 18 90 Room Air 07/07/25 20:00 100 128/77 07/07/25 20:00 97.6 F 111 H 18 128/77 90 07/07/25 18:00 101 H Intake/Output Intake/Output: Intake & Output 07/05/25 07/06/25 07/07/25 07/08/25 23:59 23:59 23:59 23:59 Intake Total 3905.0 3870 3456.2 1328.1 Output Total 1400 3750 3275 2250 Balance 2505.0 120 181.2 -921.9 Meds/Results Medications: Active Medications Generic Name Dose Route Start Last Admin Trade Name Freq PRN Reason Stop Dose Admin Acetaminophen 650 mg 07/04/25 20:27 Acetaminophen 325 Mg Tablet PO Q4H PRN Mild Pain (1-3) or Fever Dextrose 12.5 gm 07/04/25 22:26 Dextrose 50% 25 Gm/50 Ml Syringe IV PUSH PRN PRN Hypoglycemia Protocol Famotidine 20 mg 07/05/25 09:00 07/08/25 09:54 Famotidine 20 Mg/2 Ml Vial IV PUSH 20 mg Q12HR SCARLETT Administration Folic Acid 1 mg 07/05/25 09:00 07/08/25 10:06 Folic Acid 1 Mg/0.2 Ml Inj IV PUSH 1 mg QAM SCARLETT Administration Glucagon 1 mg 07/04/25 22:26 Glucagon For Inj 1 Mg Vial IM PRN PRN Hypoglycemia Protocol Glucose 15 gm 07/04/25 22:26 Glucose Oral Gel 15 Gm Of Glucse In 37.5 Gm Tube PO PRN PRN Hypoglycemia Protocol Cefepime HCl 2 gm/ Sodium 50 mls @ 100 mls/hr 07/05/25 09:00 07/08/25 10:07 Chloride IVPB 100 mls/hr Q12H SCARLETT Administration Dextrose 1,000 mls @ 100 mls/hr 07/04/25 22:26 Dextrose 5% 1,000 Ml IVPB PRN PRN Hypoglycemia Protocol Potassium Chloride/Sodium Chloride 1,000 mls @ 100 mls/hr 07/05/25 08:55 07/07/25 15:26 Kcl 20 Meq/0.45% Ns IV CONT 100 mls/hr .Q10H SCARLETT Administration Vancomycin HCl 2,000 mg in 500 mls @ 250 mls/hr 07/08/25 09:00 07/08/25 10:20 Vancomycin 2,000 Mg/Ns 500 Ml IVPB 250 mls/hr Q18H SCARLETT Administration Acyclovir Sodium 905 mg/ 268.1 mls @ 250 mls/hr 07/08/25 22:00 Dextrose IVPB 07/10/25 07:05 Q8H SCARLETT Insulin Aspart 8 units 07/06/25 17:00 07/08/25 13:04 Insulin Aspart (*Bkc) 100 Units/Ml 0.083 units/kg (8 units) 8 units SUB-Q Administration TIDWM SCARLETT Insulin Aspart 2 - 5 units 07/06/25 17:00 07/08/25 13:05 Insulin Aspart (*Bkc) 100 Units/Ml SUB-Q 4 units TIDWM [facility] Administration Protocol Insulin Glargine 30 units 07/07/25 09:00 07/08/25 10:06 Insulin Glargine (*Bkc) 100 Units/Ml SUB-Q 30 units QAM SCARLETT Administration Lactulose 20 gm 07/07/25 11:50 07/08/25 09:54 Lactulose 20 Gm/30 Ml Udc PO 20 gm Q12HR SCARLETT Administration Ondansetron HCl 4 mg 07/04/25 20:27 Ondansetron Inj 4 Mg/2 Ml Vial IV PUSH Q4H PRN Nausea Rifaximin 550 mg 07/06/25 09:00 07/08/25 09:54 Rifaximin 550 Mg Tablet PO 550 mg Q12HR SCARLETT Administration Thiamine HCl 100 mg 07/05/25 09:00 07/08/25 09:54 Thiamine Hcl 200 Mg/2 Ml Vial IV PUSH 100 mg QAM SCARLETT Administration Radiology Results: ITS Impressions Chest X-Ray 07/04/25 16:48 Impression: Probable viral pneumonitis Head CT 07/04/25 17:47 Impression: 1.No acute intracranial abnormality. Chest/Abdomen/Pelvis CT 07/04/25 18:37 IMPRESSION: 1. Chronic changes in the lungs with small pleural effusions. 2. 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 Contrast-enhanced MRI recommended. 3. Incidental findings above Hand X-Ray 07/05/25 08:18 Impression: No acute fracture or malalignment. Venous Doppler Study 07/05/25 17:31 Impression: Negative for DVT. Abdomen Ultrasound 07/05/25 22:21 IMPRESSION: 1. Constellation of findings most consistent with a nodular cirrhotic liver with multiple nodular regions of increased echogenicity with corresponding decreased attenuation on CT suggesting dysplastic/regenerative nodules with hepatic steatosis and intervening hypoechoic fibrous septations. Differential for any given nodule would include hepatocellular carcinoma or metastatic disease if there is known history of prior malignancy. Could consider multiphase pre and postcontrast MRI for further evaluation as clinically indicated. 2. Bidirectional flow in the main portal vein and large recanalized umbilical vein with abdominal wall collaterals consistent with secondary portal venous hypertension. 3. Small amount perihepatic ascites. 4. Cholelithiasis. Renal Ultrasound 07/05/25 22:38 IMPRESSION: 1. Normal kidneys without hydronephrosis. 2. Small amount of ascites likely related to cirrhosis. 3. Review of prior CT images demonstrate a device situated between the cephalad margin of the left renal vein and the left adrenal gland which is not visualized on the provided images. Given the findings of cirrhosis with portal venous hypertension. This could represent occlusion/embolization device for treatment of splenorenal collaterals. Correlate with clinical history. Labs Labs: Laboratory Tests 07/08/25 08:09 07/08/25 08:09 PT 23.3 H INR 2.1 Calcium 8.2 L Phosphorus 3.2 Magnesium 2.6 H Total Bilirubin 19.5 H AST 128 H ALT 88 H Alkaline Phosphatase 302 H Total Creatine Kinase 113 Total Protein 7.2 Albumin 2.3 L Vancomycin Trough 13.2 Microbiology 07/04/25 20:22 Blood Blood Culture - Preliminary Staphylococcus aureus Staphylococcus aureus#2 07/04/25 20:22 Blood Blood Culture - Preliminary Staphylococcus aureus Staphylococcus aureus#2 07/05/25 12:14 Urine Catheterized Urine Culture - Preliminary 07/04/25 19:36 Urine Clean Catch - Preliminary
--- NOTE | 2025-07-08 14:53 | P.PNGI_ITS ---
Progress Note: A&P Assessment and Plan (1) Alcoholic cirrhosis of liver: Qualifiers: Ascites presence: without ascites Qualified Code(s): K70.30 - Alcoholic cirrhosis of liver without ascites Code(s): K70.30 - Alcoholic cirrhosis of liver without ascites Status: Acute Assessment and Plan: The patient remains in isolation for evaluation of skin pustules to rule out a highly transmissible disease, with an Infectious Disease consultation completed. While his clinical status remains stable, his total bilirubin continues to rise, suggesting progressive liver failure. Encephalopathy is being managed with lactulose and rifaximin. Evaluation for possible multifocal liver neoplasms via MRI or percutaneous biopsy is currently not possible due to severe coagulopathy (INR > 2) and his altered mental status. will continue expectant management, though the overall prognosis is poor. Subjective Date/time seen: 07/08/25 14:53 Objective Data Vital Signs Vital Signs: Vital Signs - 24 hr 07/07/25 16:00 07/07/25 16:25 07/07/25 16:25 Temperature 98.4 F Pulse Rate 100 100 Pulse Rate [Bilateral Pedal (Dorsalis Pedis) Palpation] 100 Pulse Rate [Bilateral Radial] 100 Respiratory Rate 20 Blood Pressure 135/72 135/72 Pulse Oximetry 93 93 Oxygen Delivery Room Air Fraction of Inspired Oxygen 07/07/25 16:25 07/07/25 18:00 07/07/25 20:00 Temperature 97.6 F Pulse Rate 100 101 H 111 H Pulse Rate [Bilateral Pedal (Dorsalis Pedis) Palpation] Pulse Rate [Bilateral Radial] Respiratory Rate 18 Blood Pressure 128/77 Pulse Oximetry 90 Oxygen Delivery Fraction of Inspired Oxygen 07/07/25 20:00 07/07/25 20:00 07/07/25 20:00 Temperature Pulse Rate 111 H 110 H Pulse Rate [Bilateral Pedal (Dorsalis Pedis) Palpation] Pulse Rate [Bilateral Radial] 100 Respiratory Rate 18 Blood Pressure 128/77 Pulse Oximetry 90 Oxygen Delivery Room Air Fraction of Inspired Oxygen 07/07/25 22:00 07/07/25 23:48 07/08/25 00:00 Temperature 97.8 F Pulse Rate 110 H 112 H Pulse Rate [Bilateral Pedal (Dorsalis Pedis) Palpation] Pulse Rate [Bilateral Radial] 100 Respiratory Rate 20 Blood Pressure 132/72 132/72 Pulse Oximetry 99 Oxygen Delivery Fraction of Inspired Oxygen 07/08/25 00:00 07/08/25 00:00 07/08/25 02:00 Temperature Pulse Rate 112 H 112 H 112 H Pulse Rate [Bilateral Pedal (Dorsalis Pedis) Palpation] Pulse Rate [Bilateral Radial] Respiratory Rate 20 Blood Pressure Pulse Oximetry 99 Oxygen Delivery Room Air Fraction of Inspired Oxygen 32 07/08/25 04:00 07/08/25 04:00 07/08/25 04:00 Temperature Pulse Rate 112 H 112 H Pulse Rate [Bilateral Pedal (Dorsalis Pedis) Palpation] Pulse Rate [Bilateral Radial] 100 Respiratory Rate 20 Blood Pressure 132/72 Pulse Oximetry 99 Oxygen Delivery Room Air Fraction of Inspired Oxygen 32 07/08/25 04:00 07/08/25 07:48 07/08/25 08:00 Temperature 97.7 F 97.6 F Pulse Rate 107 H 99 Pulse Rate [Bilateral Pedal (Dorsalis Pedis) Palpation] Pulse Rate [Bilateral Radial] Respiratory Rate 18 20 Blood Pressure 120/73 138/81 Pulse Oximetry 90 99 Oxygen Delivery Room Air Fraction of Inspired Oxygen 07/08/25 08:00 07/08/25 10:00 07/08/25 11:57 Temperature 98.2 F Pulse Rate 96 93 91 Pulse Rate [Bilateral Pedal (Dorsalis Pedis) Palpation] Pulse Rate [Bilateral Radial] Respiratory Rate 20 Blood Pressure 134/67 Pulse Oximetry 92 Oxygen Delivery Fraction of Inspired Oxygen 07/08/25 12:00 07/08/25 12:00 07/08/25 14:00 Temperature Pulse Rate 97 101 H Pulse Rate [Bilateral Pedal (Dorsalis Pedis) Palpation] Pulse Rate [Bilateral Radial] Respiratory Rate Blood Pressure Pulse Oximetry Oxygen Delivery Room Air Fraction of Inspired Oxygen Intake/Output Intake/Output: Intake & Output 07/05/25 07/06/25 07/07/25 07/08/25 23:59 23:59 23:59 23:59 Intake Total 3905.0 3870 3456.2 1328.1 Output Total 1400 3750 3275 850 Balance 2505.0 120 181.2 478.1 Meds/Results Medications: Active Medications Generic Name Dose Route Start Last Admin Trade Name Freq PRN Reason Stop Dose Admin Acetaminophen 650 mg 07/04/25 20:27 Acetaminophen 325 Mg Tablet PO Q4H PRN Mild Pain (1-3) or Fever Dextrose 12.5 gm 07/04/25 22:26 Dextrose 50% 25 Gm/50 Ml Syringe IV PUSH PRN PRN Hypoglycemia Protocol Famotidine 20 mg 07/05/25 09:00 07/08/25 09:54 Famotidine 20 Mg/2 Ml Vial IV PUSH 20 mg Q12HR SCARLETT Administration Folic Acid 1 mg 07/05/25 09:00 07/08/25 10:06 Folic Acid 1 Mg/0.2 Ml Inj IV PUSH 1 mg QAM SCARLETT Administration Glucagon 1 mg 07/04/25 22:26 Glucagon For Inj 1 Mg Vial IM PRN PRN Hypoglycemia Protocol Glucose 15 gm 07/04/25 22:26 Glucose Oral Gel 15 Gm Of Glucse In 37.5 Gm Tube PO PRN PRN Hypoglycemia Protocol Cefepime HCl 2 gm/ Sodium 50 mls @ 100 mls/hr 07/05/25 09:00 07/08/25 10:07 Chloride IVPB 100 mls/hr Q12H SCARLETT Administration Dextrose 1,000 mls @ 100 mls/hr 07/04/25 22:26 Dextrose 5% 1,000 Ml IVPB PRN PRN Hypoglycemia Protocol Potassium Chloride/Sodium Chloride 1,000 mls @ 100 mls/hr 07/05/25 08:55 07/07/25 15:26 Kcl 20 Meq/0.45% Ns IV CONT 100 mls/hr .Q10H SCARLETT Administration Acyclovir Sodium 905 mg/ 268.1 mls @ 250 mls/hr 07/07/25 12:00 07/08/25 14:22 Dextrose IVPB 07/08/25 15:00 250 mls/hr Q8H SCARLETT Administration Vancomycin HCl 2,000 mg in 500 mls @ 250 mls/hr 07/08/25 09:00 07/08/25 10:20 Vancomycin 2,000 Mg/Ns 500 Ml IVPB 250 mls/hr Q18H SCARLETT Administration Acyclovir Sodium 905 mg/ 268.1 mls @ 250 mls/hr 07/08/25 22:00 Dextrose IVPB 07/10/25 07:05 Q8H SCARLETT Insulin Aspart 8 units 07/06/25 17:00 07/08/25 13:04 Insulin Aspart (*Bkc) 100 Units/Ml 0.083 units/kg (8 units) 8 units SUB-Q Administration TIDWM SCARLETT Insulin Aspart 2 - 5 units 07/06/25 17:00 07/08/25 13:05 Insulin Aspart (*Bkc) 100 Units/Ml SUB-Q 4 units TIDWM SCARLETT Administration Protocol Insulin Glargine 30 units 07/07/25 09:00 07/08/25 10:06 Insulin Glargine (*Bkc) 100 Units/Ml SUB-Q 30 units QAM SCARLETT Administration Lactulose 20 gm 07/07/25 11:50 07/08/25 09:54 Lactulose 20 Gm/30 Ml Udc PO 20 gm Q12HR SCARLETT Administration Ondansetron HCl 4 mg 07/04/25 20:27 Ondansetron Inj 4 Mg/2 Ml Vial IV PUSH Q4H PRN Nausea Rifaximin 550 mg 07/06/25 09:00 07/08/25 09:54 Rifaximin 550 Mg Tablet PO 550 mg Q12HR SCARLETT Administration Thiamine HCl 100 mg 07/05/25 09:00 07/08/25 09:54 Thiamine Hcl 200 Mg/2 Ml Vial IV PUSH 100 mg QAM SCARLETT Administration Radiology Results: ITS Impressions Chest X-Ray 07/04/25 16:48 Impression: Probable viral pneumonitis Head CT 07/04/25 17:47 Impression: 1.No acute intracranial abnormality. Chest/Abdomen/Pelvis CT 07/04/25 18:37 IMPRESSION: 1. Chronic changes in the lungs with small pleural effusions. 2. 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 Contrast-enhanced MRI recommended. 3. Incidental findings above Hand X-Ray 07/05/25 08:18 Impression: No acute fracture or malalignment. Venous Doppler Study 07/05/25 17:31 Impression: Negative for DVT. Abdomen Ultrasound 07/05/25 22:21 IMPRESSION: 1. Constellation of findings most consistent with a nodular cirrhotic liver with multiple nodular regions of increased echogenicity with corresponding decreased attenuation on CT suggesting dysplastic/regenerative nodules with hepatic steato sis and intervening hypoechoic fibrous septations. Differential for any given nodule would include hepatocellular carcinoma or metastatic disease if there is known history of prior malignancy. Could consider multiphase pre and postcontrast MRI for further evaluation as clinically indicated. 2. Bidirectional flow in the main portal vein and large recanalized umbilical vein with abdominal wall collaterals consistent with secondary portal venous hypertension. 3. Small amount perihepatic ascites. 4. Cholelithiasis. Renal Ultrasound 07/05/25 22:38 IMPRESSION: 1. Normal kidneys without hydronephrosis. 2. Small amount of ascites likely related to cirrhosis. 3. Review of prior CT images demonstrate a device situated between the cephalad margin of the left renal vein and the left adrenal gland which is not visualized on the provided images. Given the findings of cirrhosis with portal venous hypertension. This could represent occlusion/embolization device for treatment of splenorenal collaterals. Correlate with clinical history. Labs Labs: Laboratory Results - last 24 hr 07/05/25 07/05/25 07/05/25 01:27 05:40 12:14 WBC RBC Hgb Hct MCV MCH MCHC RDW Plt Count MPV Immature Gran % (Auto) Neut % (Auto) Lymph % (Auto) [place] % (Auto) Eos % (Auto) Baso % (Auto) Lymph # (Auto) [place] # (Auto) Eos # (Auto) Baso # (Auto) Abs Immat Gran (auto) Absolute Neuts (auto) Absolute Nucleated RBC Nucleated RBC % % Immature Plt Fraction PT INR Sodium Potassium Chloride Carbon Dioxide Anion Gap BUN Creatinine Estim Creat Clear Calc Estimated GFR Glucose POC Capillary Glucose Calcium Phosphorus Magnesium Total Bilirubin AST ALT Alkaline Phosphatase Total Creatine Kinase Total Protein Albumin Urine Myoglobin 8 Vancomycin Trough C. trachomatis (PCR) [place] Type B(1) Ab 1:1000 H [place] Type B(2) Ab 1:500 H [place] Type B(3) Ab 1:500 H [place] Type B(4) Ab 1:100 H [place] Type B(5) Ab 1:1000 H [place] Type B(6) Ab 1:100 H N. gonorrhoeae (PCR) VZV (PCR) Negative 07/07/25 07/07/25 07/07/25 11:28 18:02 20:12 WBC RBC Hgb Hct MCV MCH MCHC RDW Plt Count MPV Immature Gran % (Auto) Neut % (Auto) Lymph % (Auto) [place] % (Auto) Eos % (Auto) Baso % (Auto) Lymph # (Auto) [place] # (Auto) Eos # (Auto) Baso # (Auto) Abs Immat Gran (auto) Absolute Neuts (auto) Absolute Nucleated RBC Nucleated RBC % % Immature Plt Fraction PT INR Sodium Potassium Chloride Carbon Dioxide Anion Gap BUN Creatinine Estim Creat Clear Calc Estimated GFR Glucose POC Capillary Glucose 265 H 338 H Calcium Phosphorus Magnesium Total Bilirubin AST ALT Alkaline Phosphatase Total Creatine Kinase Total Protein Albumin Urine Myoglobin Vancomycin Trough C. trachomatis (PCR) Not detected [place] Type B(1) Ab [place] Type B(2) Ab [place] Type B(3) Ab [place] Type B(4) Ab [place] Type B(5) Ab [place] Type B(6) Ab N. gonorrhoeae (PCR) Not detected VZV (PCR) 07/08/25 07/08/25 07/08/25 07:29 08:09 11:18 WBC 11.9 H RBC 3.91 L Hgb 14.0 Hct 39.7 L MCV 101.5 H MCH 35.8 H MCHC 35.3 RDW 14.5 Plt Count 47 L MPV 12.0 H Immature Gran % (Auto) 2.4 H Neut % (Auto) 85.6 H Lymph % (Auto) 4.6 L [place] % (Auto) 6.2 Eos % (Auto) 0.3 Baso % (Auto) 0.9 Lymph # (Auto) 0.54 L [place] # (Auto) 0.7 H Eos # (Auto) 0.0 Baso # (Auto) 0.1 Abs Immat Gran (auto) 0.29 H Absolute Neuts (auto) 10.2 H Absolute Nucleated RBC 0.000 Nucleated RBC % 0.0 % Immature Plt Fraction 5.4 PT 23.3 H INR 2.1 Sodium 135 L Potassium 4.5 Chloride 108 H Carbon Dioxide 20 L Anion Gap 7 BUN 47 H D Creatinine 1.00 Estim Creat Clear Calc 79 Estimated GFR > 60 Glucose 289 H POC Capillary Glucose 278 H 293 H Calcium 8.2 L Phosphorus 3.2 Magnesium 2.6 H Total Bilirubin 19.5 H AST 128 H ALT 88 H Alkaline Phosphatase 302 H Total Creatine Kinase 113 Total Protein 7.2 Albumin 2.3 L Urine Myoglobin Vancomycin Trough 13.2 C. trachomatis (PCR) [place] Type B(1) Ab [place] Type B(2) Ab [place] Type B(3) Ab [place] Type B(4) Ab [place] Type B(5) Ab [place] Type B(6) Ab N. gonorrhoeae (PCR) VZV (PCR) 07/08/25 13:03 WBC RBC Hgb Hct MCV MCH MCHC RDW Plt Count MPV Immature Gran % (Auto) Neut % (Auto) Lymph % (Auto) [place] % (Auto) Eos % (Auto) Baso % (Auto) Lymph # (Auto) [place] # (Auto) Eos # (Auto) Baso # (Auto) Abs Immat Gran (auto) Absolute Neuts (auto) Absolute Nucleated RBC Nucleated RBC % % Immature Plt Fraction PT INR Sodium Potassium Chloride Carbon Dioxide Anion Gap BUN Creatinine Estim Creat Clear Calc Estimated GFR Glucose POC Capillary Glucose 320 H Calcium Phosphorus Magnesium Total Bilirubin AST ALT Alkaline Phosphatase Total Creatine Kinase Total Protein Albumin Urine Myoglobin Vancomycin Trough C. trachomatis (PCR) [place] Type B(1) Ab [place] Type B(2) Ab [place] Type B(3) Ab [place] Type B(4) Ab [place] Type B(5) Ab [place] Type B(6) Ab N. gonorrhoeae (PCR) VZV (PCR)
[2025-07-08] MEDS: KCL 20 MEQ/0.45% NS 1,000 ML 100 ML IV CONT (17:07)
--- NOTE | 2025-07-08 19:12 | P.PNIM_ITS ---
Progress Note: A&P Assessment and Plan (1) Hyperosmolar hyperglycemic state (HHS): Code(s): E11.00 - Type 2 diabetes mellitus with hyperosmolarity without nonketotic hyperglycemic-hyperosmolar coma (NKHHC) Status: Acute Assessment and Plan: Presented with finding consistent with HHS as patient had high blood glucose but normal anion gap Patient was started on insulin infusion and IV fluid Blood sugars have improved Transition to subcutaneous insulin but continue IV fluids On diagnosed diabetes mellitus with HbA1c 11.3 Start liquid diet and advance as tolerated (2) AMS (altered mental status): Qualifiers: Altered mental status type: unspecified Qualified Code(s): R41.82 - Altered mental status, unspecified Code(s): R41.82 - Altered mental status, unspecified Status: Acute Assessment and Plan: Patient likely has multifactorial encephalopathy with HHS, sepsis, uremia and very mildly elevated ammonia level, hyponatremia Head CT was negative Avoid sedative Treatment of individual problems as below (3) Alcoholism: Code(s): F10.20 - Alcohol dependence, uncomplicated Status: Acute Assessment and Plan: History of alcohol abuse Thiamine folic acid Monitor for signs of withdrawal (4) Thrombocytopenia: Code(s): D69.6 - Thrombocytopenia, unspecified Status: Chronic Assessment and Plan: Chronic thrombocytopenia likely secondary to cirrhosis and alcohol abuse which is now exacerbated by sepsis Monitor platelet counts. Transfuse if needed Hold anticoagulation (5) Hyponatremia: Code(s): E87.1 - Hypo-osmolality and hyponatremia Status: Acute Assessment and Plan: Partially pseudohyponatremia secondary to HHS and secondary to cirrhosis Getting IV fluids for dehydration and acute kidney injury Monitor sodium level Nephrology consultation (6) Hyperbilirubinemia: Code(s): E80.6 - Other disorders of bilirubin metabolism Status: Chronic Assessment and Plan: Secondary to cirrhosis Right upper quadrant ultrasound with findings consistent with nodular cirrhotic liver with multiple nodular regions of increased echogenicity with corresponding decreased attenuation on CT suggestive of dysplastic/knees regenerative nodules with hepatic steatosis and intervening hypoechoic fibrosis septations. Differential for any given nodule would include hepatocellular carcinoma or metastatic disease. Bidirectional flow in the main portal vein and large recanalized umbilical vein with a abdominal wall collaterals consistent with secondary portal venous hypertension. Small amount of perihepatic ascites. Also noted cholelithiasis Liver biopsy pending INR improvement Will give 2 units of FFP (7) Alcoholic cirrhosis of liver: Qualifiers: Ascites presence: without ascites Qualified Code(s): K70.30 - Alcoholic cirrhosis of liver without ascites Code(s): K70.30 - Alcoholic cirrhosis of liver without ascites Status: Acute Assessment and Plan: Lactulose for elevated ammonia Vitamin K for elevated INR Right upper quadrant ultrasound as noted above (8) Acute renal failure: Code(s): N17.9 - Acute kidney failure, unspecified Status: Acute Assessment and Plan: Presented with acute kidney injury Patient has mild rhabdomyolysis and likely dehydrated and hypovolemic Getting IV fluids Monitor urine output electrolytes and creatinine Monitor CK level Consult nephrology Renal ultrasound with no hydronephrosis (9) Acute UTI: Code(s): N39.0 - Urinary tract infection, site not specified Status: Acute Assessment and Plan: Urine culture, cefepime (10) Sepsis: Qualifiers: Sepsis acute organ dysfunction status: unspecified Sepsis type: sepsis due to unspecified organism Qualified Code(s): A41.9 - Sepsis, unspecified o rganism Code(s): A41.9 - Sepsis, unspecified organism Status: Acute Assessment and Plan: Sepsis secondary to UTI and pustular skin infection Continue vanc and cefepime Blood and urine cultures (11) Pustular rash: Code(s): L08.0 - Pyoderma Status: Acute Assessment and Plan: Etiology unknown. Treatment with vancomycin and cultures pending HIV screen negative ? Viral infection Blood culture came back positive for Gram-positive cocci Continue vancomycin RPR negative (12) Rhabdomyolysis: Code(s): M62.82 - Rhabdomyolysis Status: Acute Assessment and Plan: Mild rhabdomyolysis from laying on the floor IV fluid Monitor CK level (13) Liver mass: Code(s): R16.0 - Hepatomegaly, not elsewhere classified Status: Acute Assessment and Plan: CT scan shows multiple per liver lesions. Right upper quadrant ultrasound ordered by portal vein is patent. Patient waiting for transfer to tertiary facility for further evaluation. AFP less than 1.8 Hepatitis panel negative (14) Abnormal CT scan, kidney: Code(s): R93.429 - Abnormal radiologic findings on diagnostic imaging of unspecified kidney Status: Acute Assessment and Plan: CT scan read as device within left renal vein. Ultrasound ordered nephrology consult or Plan patient with disseminated rash and bacteremia blood culture is growing gram- positive cocci seen by ID, the lesions are suggestive of M pox but there is no definite diagnosis, however work is going on and patient is being treated empirically with acyclovir, Ancef, rifaximin and vancomycin, will follow up on viral and blood culture and furthe recommendation to follow. Elevated troponin with flat trend next DVT prophylaxis -SCD Stress ulcer prophylaxis -protonix Nutrition -start clear liquid diet and advance as tolerated Code Status - DNR/ DNI Patient is waiting for a bed at [facility] under hospitalist Dr. Hu. Subjective Date/time seen: 07/08/25 19:12 Interval history: today patient is confused and his speech difficulty to understand, patient has poor appetite, will start with clear liquids and advance as tolerated, patient with disseminated rash and bacteremia blood culture is growing gram- positive cocci seen by ID, the lesions are suggestive of M pox but there is no definite diagnosis, however work is going on and patient is being treated empirically with acyclovir, Ancef, rifaximin and vancomycin, will follow up on viral and blood culture and furthe recommendation to follow. Review of Systems Review of Systems: ROS unobtainable: Yes unobtainable due to medical condition and unobtainable due to mental status Exam Narrative: General: Pt is awake in no distress but confused Lungs/Chest: Trachea central Clear BS B/L, No crackles or wheezing. Cardiac: RRR. Normal S1 S2. No murmurs Circulation: Pedal pulses are intact and symmetrical. Abdomen: Normal bowel sounds.. Soft. NT. ND. Extremities: Redness in right hand and arm : Clements in place Neurologic: Follows commands. Moves all 4 extremities PERRL AO x 1, mumbles with speech often incomprehensible Skin: Several small pustules all over his body including legs and arms, spider nevi on the chest, macerations in the groin, sodium take dry eczematous skin on the arms HEENT: Oral mucosa is dry Objective Data Vital Signs Vital Signs: Vital Signs - 24 hr 07/07/25 20:00 07/07/25 20:00 07/07/25 20:00 Temperature 36.4 C Pulse Rate 111 H 111 H Pulse Rate [Bilateral Radial] 100 Respiratory Rate 18 18 Blood Pressure 128/77 128/77 Pulse Oximetry 90 90 Oxygen Delivery Room Air Fraction of Inspired Oxygen 07/07/25 20:00 07/07/25 22:00 07/07/25 23:48 Temperature 36.6 C Pulse Rate 110 H 110 H 112 H Pulse Rate [Bilateral Radial] Respiratory Rate 20 Blood Pressure 132/72 Pulse Oximetry 99 Oxygen Delivery Fraction of Inspired Oxygen 07/08/25 00:00 07/08/25 00:00 07/08/25 00:00 Temperature Pulse Rate 112 H 112 H Pulse Rate [Bilateral Radial] 100 Respiratory Rate 20 Blood Pressure 132/72 Pulse Oximetry 99 Oxygen Delivery Room Air Fraction of Inspired Oxygen 32 07/08/25 02:00 07/08/25 04:00 07/08/25 04:00 Temperature Pulse Rate 112 H 112 H Pulse Rate [Bilateral Radial] 100 Respiratory Rate 20 Blood Pressure 132/72 Pulse Oximetry 99 Oxygen Delivery Room Air Fraction of Inspired Oxygen 32 07/08/25 04:00 07/08/25 04:00 07/08/25 07:48 Temperature 36.5 C 36.4 C Pulse Rate 112 H 107 H 99 Pulse Rate [Bilateral Radial] Respiratory Rate 18 20 Blood Pressure 120/73 138/81 Pulse Oximetry 90 99 Oxygen Delivery Fraction of Inspired Oxygen 07/08/25 08:00 07/08/25 08:00 07/08/25 10:00 Temperature Pulse Rate 96 93 Pulse Rate [Bilateral Radial] Respiratory Rate Blood Pressure Pulse Oximetry Oxygen Delivery Room Air Fraction of Inspired Oxygen 07/08/25 11:57 07/08/25 12:00 07/08/25 12:00 Temperature 36.8 C Pulse Rate 91 97 Pulse Rate [Bilateral Radial] Respiratory Rate 20 Blood Pressure 134/67 Pulse Oximetry 92 Oxygen Delivery Room Air Fraction of Inspired Oxygen 07/08/25 14:00 07/08/25 16:00 07/08/25 16:00 Temperature Pulse Rate 101 H 107 H Pulse Rate [Bilateral Radial] Respiratory Rate Blood Pressure Pulse Oximetry Oxygen Delivery Room Air Fraction of Inspired Oxygen 07/08/25 16:16 Temperature 36.3 C L Pulse Rate 113 H Pulse Rate [Bilateral Radial] Respiratory Rate 22 H Blood Pressure 139/83 Pulse Oximetry 97 Oxygen Delivery Fraction of Inspired Oxygen Intake/Output Intake/Output: Intake & Output 07/05/25 07/06/25 07/07/25 07/08/25 23:59 23:59 23:59 23:59 Intake Total 3905.0 3870 3456.2 3168.1 Output Total 1400 3750 3275 2250 Balance 2505.0 120 181.2 918.1 Meds/Results Medications: Active Medications Generic Name Dose Route Start Last Admin Trade Name Freq PRN Reason Stop Dose Admin Acetaminophen 650 mg 07/04/25 20:27 Acetaminophen 325 Mg Tablet PO Q4H PRN Mild Pain (1-3) or Fever Dextrose 12.5 gm 07/04/25 22:26 Dextrose 50% 25 Gm/50 Ml Syringe IV PUSH PRN PRN Hypoglycemia Protocol Famotidine 20 mg 07/05/25 09:00 07/08/25 09:54 Famotidine 20 Mg/2 Ml Vial IV PUSH 20 mg Q12HR SCARLETT Administration Folic Acid 1 mg 07/05/25 09:00 07/08/25 10:06 Folic Acid 1 Mg/0.2 Ml Inj IV PUSH 1 mg QAM SCARLETT Administration Glucagon 1 mg 07/04/25 22:26 Glucagon For Inj 1 Mg Vial IM PRN PRN Hypoglycemia Protocol Glucose 15 gm 07/04/25 22:26 Glucose Oral Gel 15 Gm Of Glucse In 37.5 Gm Tube PO PRN PRN Hypoglycemia Protocol Cefepime HCl 2 gm/ Sodium 50 mls @ 100 mls/hr 07/05/25 09:00 07/08/25 10:07 Chloride IVPB 100 mls/hr Q12H SCARLETT Administration Dextrose 1,000 mls @ 100 mls/hr 07/04/25 22:26 Dextrose 5% 1,000 Ml IVPB PRN PRN Hypoglycemia Protocol Potassium Chloride/Sodium Chloride 1,000 mls @ 100 mls/hr 07/05/25 08:55 07/08/25 17:07 Kcl 20 Meq/0.45% Ns IV CONT 100 mls/hr .Q10H SCARLETT Administration Vancomycin HCl 2,000 mg in 500 mls @ 250 mls/hr 07/08/25 09:00 07/08/25 10:20 Vancomycin 2,000 Mg/Ns 500 Ml IVPB 250 mls/hr Q18H SCARLETT Administration Acyclovir Sodium 905 mg/ 268.1 mls @ 250 mls/hr 07/08/25 22:00 Dextrose IVPB 07/10/25 07:05 Q8H SCARLETT Insulin Aspart 8 units 07/06/25 17:00 07/08/25 17:04 Insulin Aspart (*Bkc) 100 Units/Ml 0.083 units/kg (8 units) 8 units SUB-Q Administration [facility] Insulin Aspart 2 - 5 units 07/06/25 17:00 07/08/25 17:04 Insulin Aspart (*Bkc) 100 Units/Ml SUB-Q 4 units T[facility] Administration Protocol Insulin Glargine 30 units 07/07/25 09:00 07/08/25 10:06 Insulin Glargine (*Bkc) 100 Units/Ml SUB-Q 30 units QAM [facility] Administration Lactulose 20 gm 07/07/25 11:50 07/08/25 09:54 Lactulose 20 Gm/30 Ml Udc PO 20 gm Q12HR SCARLETT Administration Ondansetron HCl 4 mg 07/04/25 20:27 Ondansetron Inj 4 Mg/2 Ml Vial IV PUSH Q4H PRN Nausea Rifaximin 550 mg 07/06/25 09:00 07/08/25 09:54 Rifaximin 550 Mg Tablet PO 550 mg Q12HR SCARLETT Administration Thiamine HCl 100 mg 07/05/25 09:00 07/08/25 09:54 Thiamine Hcl 200 Mg/2 Ml Vial IV PUSH 100 mg QAM [facility] Administration Radiology Results: ITS Impressions Chest X-Ray 07/04/25 16:48 Impression: Probable viral pneumonitis Head CT 07/04/25 17:47 Impression: 1.No acute intracranial abnormality. Chest/Abdomen/Pelvis CT 07/04/25 18:37 IMPRESSION: 1. Chronic changes in the lungs with small pleural effusions. 2. 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 Contrast-enhanced MRI recommended. 3. Incidental findings above Hand X-Ray 07/05/25 08:18 Impression: No acute fracture or malalignment. Venous Doppler Study 07/05/25 17:31 Impression: Negative for DVT. Abdomen Ultrasound 07/05/25 22:21 IMPRESSION: 1. Constellation of findings most consistent with a nodular cirrhotic liver with multiple nodular regions of increased echogenicity with corresponding decreased attenuation on CT suggesting dysplastic/regenerative nodules with hepatic steatosis and intervening hypoechoic fibrous septations. Differential for any given nodule would include hepatocellular carcinoma or metastatic disease if there is known history of prior malignancy. Could consider multiphase pre and postcontrast MRI for further evaluation as clinically indicated. 2. Bidirectional flow in the main portal vein and large recanalized umbilical vein with abdominal wall collaterals consistent with secondary portal venous hypertension. 3. Small amount perihepatic ascites. 4. Cholelithiasis. Renal Ultrasound 07/05/25 22:38 IMPRESSION: 1. Normal kidneys without hydronephrosis. 2. Small amount of ascites likely related to cirrhosis. 3. Review of prior CT images demonstrate a device situated between the cephalad margin of the left renal vein and the left adrenal gland which is not visualized on the provided images. Given the findings of cirrhosis with portal venous hypertension. This could represent occlusion/embolization device for treatment of splenorenal collaterals. Correlate with clinical history. Labs Labs: Laboratory Results - last 24 hr 07/05/25 07/05/25 07/07/25 01:27 05:40 20:12 WBC RBC Hgb Hct MCV MCH MCHC RDW Plt Count MPV Immature Gran % (Auto) Neut % (Auto) Lymph % (Auto) [place] % (Auto) Eos % (Auto) Baso % (Auto) Lymph # (Auto) [place] # (Auto) Eos # (Auto) Baso # (Auto) Abs Immat Gran (auto) Absolute Neuts (auto) Absolute Nucleated RBC Nucleated RBC % % Immature Plt Fraction PT INR Sodium Potassium Chloride Carbon Dioxide Anion Gap BUN Creatinine Estim Creat Clear Calc Estimated GFR Glucose POC Capillary Glucose 338 H Calcium Phosphorus Magnesium Total Bilirubin AST ALT Alkaline Phosphatase Total Creatine Kinase Total Protein Albumin Vancomycin Trough [place] A(7) IgG Ab 1:400 H [place] A(9) IgG Ab 1:400 H [place] A(16) IgG Ab 1:400 H [place] A(24) IgG Ab 1:400 H [place] Type B(1) Ab 1:1000 H [place] Type B(2) Ab 1:500 H [place] Type B(3) Ab 1:500 H [place] Type B(4) Ab 1:100 H [place] Type B(5) Ab 1:1000 H [place] Type B(6) Ab 1:100 H VZV (PCR) Negative 07/08/25 07/08/25 07/08/25 07:29 08:09 11:18 WBC 11.9 H RBC 3.91 L Hgb 14.0 Hct 39.7 L MCV 101.5 H MCH 35.8 H MCHC 35.3 RDW 14.5 Plt Count 47 L MPV 12.0 H Immature Gran % (Auto) 2.4 H Neut % (Auto) 85.6 H Lymph % (Auto) 4.6 L [place] % (Auto) 6.2 Eos % (Auto) 0.3 Baso % (Auto) 0.9 Lymph # (Auto) 0.54 L [place] # (Auto) 0.7 H Eos # (Auto) 0.0 Baso # (Auto) 0.1 Abs Immat Gran (auto) 0.29 H Absolute Neuts (auto) 10.2 H Absolute Nucleated RBC 0.000 Nucleated RBC % 0.0 % Immature Plt Fraction 5.4 PT 23.3 H INR 2.1 Sodium 135 L Potassium 4.5 Chloride 108 H Carbon Dioxide 20 L Anion Gap 7 BUN 47 H D Creatinine 1.00 Estim Creat Clear Calc 79 Estimated GFR > 60 Glucose 289 H POC Capillary Glucose 278 H 293 H Calcium 8.2 L Phosphorus 3.2 Magnesium 2.6 H Total Bilirubin 19.5 H AST 128 H ALT 88 H Alkaline Phosphatase 302 H Total Creatine Kinase 113 Total Protein 7.2 Albumin 2.3 L Vancomycin Trough 13.2 [place] A(7) IgG Ab [place] A(9) IgG Ab [place] A(16) IgG Ab [place] A(24) IgG Ab [place] Type B(1) Ab [place] Type B(2) Ab [place] Type B(3) Ab [place] Type B(4) Ab [place] Type B(5) Ab [place] Type B(6) Ab VZV (PCR) 07/08/25 07/08/25 13:03 15:49 WBC RBC Hgb Hct MCV MCH MCHC RDW Plt Count MPV Immature Gran % (Auto) Neut % (Auto) Lymph % (Auto) [place] % (Auto) Eos % (Auto) Baso % (Auto) Lymph # (Auto) [place] # (Auto) Eos # (Auto) Baso # (Auto) Abs Immat Gran (auto) Absolute Neuts (auto) Absolute Nucleated RBC Nucleated RBC % % Immature Plt Fraction PT INR Sodium Potassium Chloride Carbon Dioxide Anion Gap BUN Creatinine Estim Creat Clear Calc Estimated GFR Glucose POC Capillary Glucose 320 H 301 H Calcium Phosphorus Magnesium Total Bilirubin AST ALT Alkaline Phosphatase Total Creatine Kinase Total Protein Albumin Vancomycin Trough [place] A(7) IgG Ab [place] A(9) IgG Ab [place] A(16) IgG Ab [place] A(24) IgG Ab [place] Type B(1) Ab [place] Type B(2) Ab [place] Type B(3) Ab [place] Type B(4) Ab [place] Type B(5) Ab [place] Type B(6) Ab VZV (PCR) Quality VTE Prophylaxis VTE prophylaxis: mechanical ordered
--- NOTE | 2025-07-08 19:14 | P.PNINF_ITS ---
Progress Note: A&P Assessment and Plan (1) Leukocytosis: Code(s): D72.829 - Elevated white blood cell count, unspecified Status: Acute (2) Pustular rash: Code(s): L08.0 - Pyoderma Status: Acute Plan #Bacteremia. Gram-positive cocci. Would be concerned for Staph aureus bacteremia. Patient with underlying hepatic encephalitis/ hepatitis. Otherwise Gram-positive could also include strep species although would be more consistent change. Enteric strep/ oral strep as a possibility. Would then need to also consider endocarditis in the setting of both staph or strep bacteremia. Awaiting formal identification. #disseminated rash. More thin walled. M pox a consideration based on local case but no exposures and lesions are not quite consistent. varicella could also present similar fashion. More disseminated. With increased confusion with underlying hepatic encephalopathy. Cannot rule out the possibility of encephalitis. Had a VZV encephalitis would seem more likely than HSV. LP may be contraindicated early but will need to treat empirically pending further workup. --Agree wiht rounding [facility] [place] work up for Scurvy --Not clear Coxsackie serologies represent acute infection Lb sign acute hepatic hepatitis. Workup ongoing with GI. Considering liver biopsy and possible transfer to tertiary care center. Plan: Maintain vancomycin pending ID of the Gram-positive cocci in blood. Continue cefepime. Continue acyclovir IV treatment dose for encephalitis /disseminated VZV. Pending PCR Lesion sent for M Pereira PCR, HSV and VZV PCR. Discussed with infection prevention. No clear indication for M Pereira treatment without clear diagnosis in this patient. It is likely immunocompromised with underlying hepatic status but would not give empirically at this point for dual therapy. Will continue monitor closely. If he has persistent bacteremia, will need to consider ADALBERTO. Follow neuro exam/focal exam. If any LE or UE weakness, will consider MRI back. Patient seen via hippa-protected audio/visual interface with patient at [facility] and me in my office in [place]. Subjective Date/time seen: 07/08/25 19:14 Interval history: still confused but awake. acknowledges me. will follow some commands and answer questions. no new lesions. BCx ID pending. Exam Narrative: via telemedicine. Awake. in soft restraints. jaundice. Follows commands. slow speech Able to move upper and LE with equal ease/ROMl (by telemed). In addition to direct exam, photos of lesions over the pretibial areas bilaterally with some thin walled pus filled vesicles. No clear umbilicated areas or firm based rash. Old lesions on the back over both sides. Symmetric. Not dermatomal. No focal deficits noted neurologically. Patient is confused. Scaly rashes in the left arm consistent with psoriatic process. More chronic. Objective Data Vital Signs Vital Signs: Vital Signs - 24 hr 07/07/25 20:00 07/07/25 20:00 07/07/25 20:00 Temperature 36.4 C Pulse Rate 111 H 111 H Pulse Rate [Bilateral Radial] 100 Respiratory Rate 18 18 Blood Pressure 128/77 128/77 Pulse Oximetry 90 90 Oxygen Delivery Room Air Fraction of Inspired Oxygen 07/07/25 20:00 07/07/25 22:00 07/07/25 23:48 Temperature 36.6 C Pulse Rate 110 H 110 H 112 H Pulse Rate [Bilateral Radial] Respiratory Rate 20 Blood Pressure 132/72 Pulse Oximetry 99 Oxygen Delivery Fraction of Inspired Oxygen 07/08/25 00:00 07/08/25 00:00 07/08/25 00:00 Temperature Pulse Rate 112 H 112 H Pulse Rate [Bilateral Radial] 100 Respiratory Rate 20 Blood Pressure 132/72 Pulse Oximetry 99 Oxygen Delivery Room Air Fraction of Inspired Oxygen 32 07/08/25 02:00 07/08/25 04:00 07/08/25 04:00 Temperature Pulse Rate 112 H 112 H Pulse Rate [Bilateral Radial] 100 Respiratory Rate 20 Blood Pressure 132/72 Pulse Oximetry 99 Oxygen Delivery Room Air Fraction of Inspired Oxygen 32 07/08/25 04:00 07/08/25 04:00 07/08/25 07:48 Temperature 36.5 C 36.4 C Pulse Rate 112 H 107 H 99 Pulse Rate [Bilateral Radial] Respiratory Rate 18 20 Blood Pressure 120/73 138/81 Pulse Oximetry 90 99 Oxygen Delivery Fraction of Inspired Oxygen 07/08/25 08:00 07/08/25 08:00 07/08/25 10:00 Temperature Pulse Rate 96 93 Pulse Rate [Bilateral Radial] Respiratory Rate Blood Pressure Pulse Oximetry Oxygen Delivery Room Air Fraction of Inspired Oxygen 07/08/25 11:57 07/08/25 12:00 07/08/25 12:00 Temperature 36.8 C Pulse Rate 91 97 Pulse Rate [Bilateral Radial] Respiratory Rate 20 Blood Pressure 134/67 Pulse Oximetry 92 Oxygen Delivery Room Air Fraction of Inspired Oxygen 07/08/25 14:00 07/08/25 16:00 07/08/25 16:00 Temperature Pulse Rate 101 H 107 H Pulse Rate [Bilateral Radial] Respiratory Rate Blood Pressure Pulse Oximetry Oxygen Delivery Room Air Fraction of Inspired Oxygen 07/08/25 16:16 Temperature 36.3 C L Pulse Rate 113 H Pulse Rate [Bilateral Radial] Respiratory Rate 22 H Blood Pressure 139/83 Pulse Oximetry 97 Oxygen Delivery Fraction of Inspired Oxygen Intake/Output Intake/Output: Intake & Output 07/05/25 07/06/25 07/07/25 07/08/25 23:59 23:59 23:59 23:59 Intake Total 3905.0 3870 3456.2 3168.1 Output Total 1400 3750 3275 2250 Balance 2505.0 120 181.2 918.1 Meds/Results Medications: Active Medications Generic Name Dose Route Start Last Admin Trade Name Freq PRN Reason Stop Dose Admin Acetaminophen 650 mg 07/04/25 20:27 Acetaminophen 325 Mg Tablet PO Q4H PRN Mild Pain (1-3) or Fever Dextrose 12.5 gm 07/04/25 22:26 Dextrose 50% 25 Gm/50 Ml Syringe IV PUSH PRN PRN Hypoglycemia Protocol Famotidine 20 mg 07/05/25 09:00 07/08/25 09:54 Famotidine 20 Mg/2 Ml Vial IV PUSH 20 mg Q12HR SCARLETT Administration Folic Acid 1 mg 07/05/25 09:00 07/08/25 10:06 Folic Acid 1 Mg/0.2 Ml Inj IV PUSH 1 mg QAM SCARLETT Administration Glucagon 1 mg 07/04/25 22:26 Glucagon For Inj 1 Mg Vial IM PRN PRN Hypoglycemia Protocol Glucose 15 gm 07/04/25 22:26 Glucose Oral Gel 15 Gm Of Glucse In 37.5 Gm Tube PO PRN PRN Hypoglycemia Protocol Cefepime HCl 2 gm/ Sodium 50 mls @ 100 mls/hr 07/05/25 09:00 07/08/25 10:07 Chloride IVPB 100 mls/hr Q12H SC[facility] Administration Dextrose 1,000 mls @ 100 mls/hr 07/04/25 22:26 Dextrose 5% 1,000 Ml IVPB PRN PRN Hypoglycemia Protocol Potassium Chloride/Sodium Chloride 1,000 mls @ 100 mls/hr 07/05/25 08:55 07/08/25 17:07 Kcl 20 Meq/0.45% Ns IV CONT 100 mls/hr .Q10H SC[facility]TT Administration Vancomycin HCl 2,000 mg in 500 mls @ 250 mls/hr 07/08/25 09:00 07/08/25 10:20 Vancomycin 2,000 Mg/Ns 500 Ml IVPB 250 mls/hr Q18H [facility]TT Administration Acyclovir Sodium 905 mg/ 268.1 mls @ 250 mls/hr 07/08/25 22:00 Dextrose IVPB 07/10/25 07:05 Q8H SCAR[facility]TT Insulin Aspart 8 units 07/06/25 17:00 07/08/25 17:04 Insulin Aspart (*Bkc) 100 Units/Ml 0.083 units/kg (8 units) 8 units SUB-Q Administration [facility] Insulin Aspart 2 - 5 units 07/06/25 17:00 07/08/25 17:04 Insulin Aspart (*Bkc) 100 Units/Ml SUB-Q 4 units [facility] Administration Protocol Insulin Glargine 30 units 07/07/25 09:00 07/08/25 10:06 Insulin Glargine (*Bkc) 100 Units/Ml SUB-Q 30 units QAM [facility] Administration Lactulose 20 gm 07/07/25 11:50 07/08/25 09:54 Lactulose 20 Gm/30 Ml Udc PO 20 gm Q12HR SC[facility]TT Administration Ondansetron HCl 4 mg 07/04/25 20:27 Ondansetron Inj 4 Mg/2 Ml Vial IV PUSH Q4H PRN Nausea Rifaximin 550 mg 07/06/25 09:00 07/08/25 09:54 Rifaximin 550 Mg Tablet PO 550 mg Q12HR [facility] Administration Thiamine HCl 100 mg 07/05/25 09:00 07/08/25 09:54 Thiamine Hcl 200 Mg/2 Ml Vial IV PUSH 100 mg QAM [facility] Administration Radiology Results: ITS Impressions Chest X-Ray 07/04/25 16:48 Impression: Probable viral pneumonitis Head CT 07/04/25 17:47 Impression: 1.No acute intracranial abnormality. Chest/Abdomen/Pelvis CT 07/04/25 18:37 IMPRESSION: 1. Chronic changes in the lungs with small pleural effusions. 2. 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 Contrast-enhanced MRI recommended. 3. Incidental findings above Hand X-Ray 07/05/25 08:18 Impression: No acute fracture or malalignment. Venous Doppler Study 07/05/25 17:31 Impression: Negative for DVT. Abdomen Ultrasound 07/05/25 22:21 IMPRESSION: 1. Constellation of findings most consistent with a nodular cirrhotic liver with multiple nodular regions of increased echogenicity with corresponding decreased attenuation on CT suggesting dysplastic/regenerative nodules with hepatic steatosis and intervening hypoechoic fibrous septations. Differential for any given nodule would include hepatocellular carcinoma or metastatic disease if there is known history of prior malignancy. Could consider multiphase pre and postcontrast MRI for further evaluation as clinically indicated. 2. Bidirectional flow in the main portal vein and large recanalized umbilical vein with abdominal wall collaterals consistent with secondary portal venous hypertension. 3. Small amount perihepatic ascites. 4. Cholelithiasis. Renal Ultrasound 07/05/25 22:38 IMPRESSION: 1. Normal kidneys without hydronephrosis. 2. Small amount of ascites likely related to cirrhosis. 3. Review of prior CT images demonstrate a device situated between the cephalad margin of the left renal vein and the left adrenal gland which is not visualized on the provided images. Given the findings of cirrhosis with portal venous hypertension. This could represent occlusion/embolization device for treatment of splenorenal collaterals. Correlate with clinical history. Labs Labs: Laboratory Results - last 24 hr 07/05/25 07/05/25 07/07/25 01:27 05:40 20:12 WBC RBC Hgb Hct MCV MCH MCHC RDW Plt Count MPV Immature Gran % (Auto) Neut % (Auto) Lymph % (Auto) [place] % (Auto) Eos % (Auto) Baso % (Auto) Lymph # (Auto) [place] # (Auto) Eos # (Auto) Baso # (Auto) Abs Immat Gran (auto) Absolute Neuts (auto) Absolute Nucleated RBC Nucleated RBC % % Immature Plt Fraction PT INR Sodium Potassium Chloride Carbon Dioxide Anion Gap BUN Creatinine Estim Creat Clear Calc Estimated GFR Glucose POC Capillary Glucose 338 H Calcium Phosphorus Magnesium Total Bilirubin AST ALT Alkaline Phosphatase Total Creatine Kinase Total Protein Albumin Vancomycin Trough Coxsackie A(7) IgG Ab 1:400 H Coxsackie A(9) IgG Ab 1:400 H Coxsackie A(16) IgG Ab 1:400 H Coxsackie A(24) IgG Ab 1:400 H Coxsackie Type B(1) Ab 1:1000 H Cox[place]ackie Type B(2) Ab 1:500 H Coxsackie Type B(3) Ab 1:500 H Coxsackie Type B(4) Ab 1:100 H Coxsackie Type B(5) Ab 1:1000 H Coxsackie Type B(6) Ab 1:100 H VZV (PCR) Negative 07/08/25 07/08/25 07/08/25 07:29 08:09 11:18 WBC 11.9 H RBC 3.91 L Hgb 14.0 Hct 39.7 L MCV 101.5 H MCH 35.8 H MCHC 35.3 RDW 14.5 Plt Count 47 L MPV 12.0 H Immature Gran % (Auto) 2.4 H Neut % (Auto) 85.6 H Lymph % (Auto) 4.6 L Harding % (Auto) 6.2 Eos % (Auto) 0.3 Baso % (Auto) 0.9 Lymph # (Auto) 0.54 L [place]ing # (Auto) 0.7 H Eos # (Auto) 0.0 Baso # (Auto) 0.1 Abs Immat Gran (auto) 0.29 H Absolute Neuts (auto) 10.2 H Absolute Nucleated RBC 0.000 Nucleated RBC % 0.0 % Immature Plt Fraction 5.4 PT 23.3 H INR 2.1 Sodium 135 L Potassium 4.5 Chloride 108 H Carbon Dioxide 20 L Anion Gap 7 BUN 47 H D Creatinine 1.00 Estim Creat Clear Calc 79 Estimated GFR > 60 Glucose 289 H POC Capillary Glucose 278 H 293 H Calcium 8.2 L Phosphorus 3.2 Magnesium 2.6 H Total Bilirubin 19.5 H AST 128 H ALT 88 H Alkaline Phosphatase 302 H Total Creatine Kinase 113 Total Protein 7.2 Albumin 2.3 L Vancomycin Trough 13.2 Coxsackie A(7) IgG Ab Coxsackie A(9) IgG Ab [place]ackie A(16) IgG Ab Coxsackie A(24) IgG Ab Coxsackie Type B(1) Ab Coxsackie Type B(2) Ab Coxsackie Type B(3) Ab Coxsackie Type B(4) Ab Coxsackie Type B(5) Ab Coxsackie Type B(6) Ab VZV (PCR) 07/08/25 07/08/25 13:03 15:49 WBC RBC Hgb Hct MCV MCH MCHC RDW Plt Count MPV Immature Gran % (Auto) Neut % (Auto) Lymph % (Auto) Harding % (Auto) Eos % (Auto) Baso % (Auto) Lymph # (Auto) Harding # (Auto) Eos # (Auto) Baso # (Auto) Abs Immat Gran (auto) Absolute Neuts (auto) Absolute Nucleated RBC Nucleated RBC % % Immature Plt Fraction PT INR Sodium Potassium Chloride Carbon Dioxide Anion Gap BUN Creatinine Estim Creat Clear Calc Estimated GFR Glucose POC Capillary Glucose 320 H 301 H Calcium Phosphorus Magnesium Total Bilirubin AST ALT Alkaline Phosphatase Total Creatine Kinase Total Protein Albumin Vancomycin Trough Coxsackie A(7) IgG Ab Coxsackie A(9) IgG Ab Coxsackie A(16) IgG Ab Coxsackie A(24) IgG Ab Coxsackie Type B(1) Ab Coxsackie Type B(2) Ab Coxsackie Type B(3) Ab Coxsackie Type B(4) Ab Coxsackie Type B(5) Ab Coxsackie Type B(6) Ab VZV (PCR)
[2025-07-09] VITALS (16 sets, daily range): BP systolic 116–143; BP diastolic 66–87; PULSE 102–125; RESP 18–26; TEMP 36.4–37.1; O2SAT 90–99
[2025-07-09 03:07] LABS: Osmolality, Urine 489 mOsmol/kg (.)
[2025-07-09 04:39] LABS: Hematocrit 40.9 % (42.0-52.0); Hemoglobin 13.9 g/dL (14.0-18.0); Immature Platelet Fraction Pct 5.6 % (0.9-11.2); Mean Corpuscular HGB Conc 34.0 g/dl (32-36); Mean Corpuscular Hemoglobin 35.0 pg (26-34); Mean Corpuscular Volume 103.0 fl (80-100); Platelet Count Result 52 k/mm3 (150-375); Red Blood Count 3.97 M/mm3 (4.6-6.20); White Blood Count 13.6 K/mm3 (4.5-10.0)
[2025-07-09 04:54] LABS: Alanine Aminotransferase 90 U/L (6-50); Albumin Level 2.3 g/dL (3.5-5.1); Alkaline Phosphatase 333 U/L (38-126); Anion Gap 5 mmol/L (4-12); Aspartate Amino Transferase 141 U/L (17-59); Bilirubin,Total 22.0 mg/dL (0.2-1.3); Blood Urea Nitrogen 38 mg/dL (9-20); Calcium 8.2 mg/dL (8.4-10.2); Carbon Dioxide 17 mmol/L (22-30); Chloride 113 mmol/L (98-107); Creatine Kinase 79 U/L (55-170); Estimated CRCL calculation 76 ml/min; Estimated Glomerular Filt Rate > 60; Glucose 220 mg/dL (65-110); Magnesium 2.5 mg/dL (1.6-2.3); Potassium 4.5 mmol/L (3.4-5.0); Sodium 135 mmol/L (137-145); Total Protein 7.2 g/dL (6.3-8.2)
[2025-07-09] MEDS: VANCOMYCIN 2,000 MG/NS 500 ML 2,000 MG/500 ML BAG 250 MG IVPB (05:31)
[2025-07-09 06:07] LABS: Osmolality, Serum 303 mOsmol/kg (275-295)
[2025-07-09] MEDS: ACYCLOVIR SODIUM IVPB ×3 (07:00→22:00)
[2025-07-09] MEDS: WATER IVPB ×3 (07:00→22:00)
[2025-07-09] MEDS: DEXTROSE 5% IVPB ×3 (07:00→22:00)
[2025-07-09] MEDS: CEFEPIME 2 GM in SODIUM CHLORIDE 0.9% IV 50 ML 100 ML IVPB (09:05)
[2025-07-09] MEDS: LACTULOSE 20 GM/30 ML UDC PO ×2 (09:05→21:57)
[2025-07-09] MEDS: INSULIN ASPART (*BKC) 100 UNITS/ML 8 UNITS SUB-Q ×3 (09:06→17:31)
[2025-07-09] MEDS: FAMOTIDINE 20 MG/2 ML VIAL IV PUSH ×2 (09:06→21:56)
[2025-07-09] MEDS: THIAMINE HCL 200 MG/2 ML VIAL 100 MG IV PUSH (09:07)
[2025-07-09] MEDS: INSULIN GLARGINE (*BKC) 100 UNITS/ML 30 UNITS SUB-Q (09:07)
[2025-07-09] MEDS: FOLIC ACID 1 MG/0.2 ML INJ IV PUSH (09:07)
[2025-07-09] MEDS: KCL 20 MEQ/0.45% NS 1,000 ML 100 ML IV CONT (10:30)
[2025-07-09] MEDS: ceFAZolin 2 GM in SODIUM CHLORIDE 0.9% IV 50 ML 100 ML IVPB ×2 (14:46→21:57)
[2025-07-09 16:31] LABS: INR 2.0; Prothrombin Time 22.5 Seconds (11.1-14.7)
[2025-07-09 18:08] LABS: Phosphatidylethanol (PEth) 151 ng/mL (.)
--- NOTE | 2025-07-09 18:13 | WPDINFPN2 ---
Progress Note: A&P Assessment and Plan (1) Leukocytosis: Code(s): D72.829 - Elevated white blood cell count, unspecified Status: Acute (2) Pustular rash: Code(s): L08.0 - Pyoderma Status: Acute Plan #Bacteremia. Gram-positive cocci. Would be concerned for Staph aureus bacteremia. Patient with underlying hepatic encephalitis/ hepatitis. Otherwise Gram-positive could also include strep species although would be more consistent change. Enteric strep/ oral strep as a possibility. Would then need to also consider endocarditis in the setting of both staph or strep bacteremia. Awaiting formal identification. #disseminated rash. More thin walled. M pox a consideration based on local case but no exposures and lesions are not quite consistent. varicella could also present similar fashion. More disseminated. With increased confusion with underlying hepatic encephalopathy. Cannot rule out the possibility of encephalitis. Had a VZV encephalitis would seem more likely than HSV. LP may be contraindicated early but will need to treat empirically pending further workup. --Agree wiht rounding [facility] [place] work up for Scurvy --Not clear Coxsackie serologies represent acute infection Lb sign acute hepatic hepatitis. Workup ongoing with GI. Considering liver biopsy and possible transfer to tertiary care center. Plan: stop Cefepime. Ancef plus vancomycin pending formal susceptibilities of Staph aureus in the blood. If MSSA, stopping, mycin. Continue acyclovir. Thoracic and lumbar MRI inpatient with some possible early weakness yesterday. Appears to improve but will rule out any focal source. If repeat blood cultures are positive, would pursue T. Follow creatinine closely on acyclovir. If he is VZV negative, will stop acyclovir. Lesion sent for Nahomy Pereira PCR, HSV and VZV PCR. Discussed with infection prevention. Patient seen via hippa-protected audio/visual interface with patient at [facility] and me in my office in [place]. Subjective Date/time seen: 07/09/25 18:13 Interval history: he is more alert but still requiring some soft restraints. No fevers. MSSA from urine culture. Staph aureus from blood culture with susceptibilities pending. Exam Narrative: He is alert. Follows commands. Able to follow my instructions to move his arms and legs. He is in soft restraints but has appears to be equal strength bilaterally. Able to flex at the hips as well as knees with full strength bilaterally. Able to continuous pickling line pickler legs from bed to gravity. No new areas of rash. These seem to be progressing/ improving with scabbing. Old lesions on the back over both sides. Symmetric. Not dermatomal. No focal deficits noted neurologically. He is still somewhat confused but improved overall Scaly rashes in the left arm consistent with psoriatic process. More chronic. Objective Data Vital Signs Vital Signs: Vital Signs - 24 hr 07/08/25 19:56 07/08/25 20:00 07/08/25 20:00 Temperature 36.5 C Pulse Rate 105 H 105 H Pulse Rate [Bilateral Radial] 115 H Respiratory Rate 18 18 Blood Pressure 132/92 H 132/92 H Pulse Oximetry 98 98 Oxygen Delivery Room Air Fraction of Inspired Oxygen 32 07/08/25 20:00 07/08/25 22:00 07/09/25 00:00 Temperature 36.6 C Pulse Rate 105 H 120 H 122 H Pulse Rate [Bilateral Radial] Respiratory Rate 18 Blood Pressure 142/82 H Pulse Oximetry 90 Oxygen Delivery Fraction of Inspired Oxygen 07/09/25 00:00 07/09/25 00:00 07/09/25 00:00 Temperature Pulse Rate 122 H 122 H Pulse Rate [Bilateral Radial] 125 H Respiratory Rate 18 Blood Pressure 142/82 H Pulse Oximetry 90 Oxygen Delivery Room Air Fraction of Inspired Oxygen 32 07/09/25 03:00 07/09/25 03:19 07/09/25 03:19 Temperature Pulse Rate 122 H 122 H Pulse Rate [Bilateral Radial] 106 H Respiratory Rate 18 Blood Pressure 142/82 H Pulse Oximetry 90 Oxygen Delivery Room Air Fraction of Inspired Oxygen 32 07/09/25 03:19 07/09/25 04:00 07/09/25 08:00 Temperature 36.9 C 37.1 C Pulse Rate 122 H 114 H 107 H Pulse Rate [Bilateral Radial] Respiratory Rate 18 20 Blood Pressure 116/66 128/76 Pulse Oximetry 94 96 Oxygen Delivery Fraction of Inspired Oxygen 07/09/25 08:00 07/09/25 08:00 07/09/25 10:00 Temperature Pulse Rate 102 H 105 H Pulse Rate [Bilateral Radial] Respiratory Rate Blood Pressure Pulse Oximetry Oxygen Delivery Room Air Fraction of Inspired Oxygen 07/09/25 11:45 07/09/25 11:45 07/09/25 12:00 Temperature 36.4 C Pulse Rate 105 H 104 H Pulse Rate [Bilateral Radial] Respiratory Rate 20 Blood Pressure 142/87 H Pulse Oximetry 97 Oxygen Delivery Room Air Fraction of Inspired Oxygen 07/09/25 14:00 07/09/25 16:00 Temperature 36.7 C Pulse Rate 108 H 108 H Pulse Rate [Bilateral Radial] Respiratory Rate 18 Blood Pressure 143/85 H Pulse Oximetry 98 Oxygen Delivery Fraction of Inspired Oxygen Intake/Output Intake/Output: Intake & Output 07/06/25 07/07/25 07/08/25 07/09/25 23:59 23:59 23:59 23:59 Intake Total 3870 3456.2 4036.2 6546.2 Output Total 3750 3275 2250 850 Balance 120 181.2 1786.2 5696.2 Meds/Results Medications: Active Medications Generic Name Dose Route Start Last Admin Trade Name Freq PRN Reason Stop Dose Admin Acetaminophen 650 mg 07/04/25 20:27 Acetaminophen 325 Mg Tablet PO Q4H PRN Mild Pain (1-3) or Fever Dextrose 12.5 gm 07/04/25 22:26 Dextrose 50% 25 Gm/50 Ml Syringe IV PUSH PRN PRN Hypoglycemia Protocol Famotidine 20 mg 07/05/25 09:00 07/09/25 09:06 Famotidine 20 Mg/2 Ml Vial IV PUSH 20 mg Q12HR SCARLETT Administration Folic Acid 1 mg 07/05/25 09:00 07/09/25 09:07 Folic Acid 1 Mg/0.2 Ml Inj IV PUSH 1 mg QAM [facility]TT Administration Glucagon 1 mg 07/04/25 22:26 Glucagon For Inj 1 Mg Vial IM PRN PRN Hypoglycemia Protocol Glucose 15 gm 07/04/25 22:26 Glucose Oral Gel 15 Gm Of Glucse In 37.5 Gm Tube PO PRN PRN Hypoglycemia Protocol Dextrose 1,000 mls @ 100 mls/hr 07/04/25 22:26 Dextrose 5% 1,000 Ml IVPB PRN PRN Hypoglycemia Protocol Vancomycin HCl 2,000 mg in 500 mls @ 250 mls/hr 07/08/25 09:00 07/09/25 16:10 Vancomycin 2,000 Mg/Ns 500 Ml IVPB Infused Q18H [facility] Infusion Acyclovir Sodium 905 mg/ 268.1 mls @ 250 mls/hr 07/08/25 22:00 07/09/25 16:10 Dextrose IVPB 07/12/25 23:59 Infused Q8H [facility] Infusion Cefazolin Sodium 2 gm/ Sodium 50 mls @ 100 mls/hr 07/09/25 14:00 07/09/25 16:10 Chloride IVPB Infused Q8H [facility] Infusion Insulin Aspart 8 units 07/06/25 17:00 07/09/25 17:31 Insulin Aspart (*Bkc) 100 Units/Ml 0.083 units/kg (8 units) 8 units SUB-Q Administration TIDWM [facility] Insulin Aspart 2 - 5 units 07/06/25 17:00 07/09/25 16:11 Insulin Aspart (*Bkc) 100 Units/Ml SUB-Q Not Given TIDWM [facility] Protocol Insulin Glargine 30 units 07/07/25 09:00 07/09/25 09:07 Insulin Glargine (*Bkc) 100 Units/Ml SUB-Q 30 units QAM [facility] Administration Lactulose 20 gm 07/07/25 11:50 07/09/25 09:05 Lactulose 20 Gm/30 Ml Udc PO 20 gm Q12HR SCARLETT Administration Ondansetron HCl 4 mg 07/04/25 20:27 Ondansetron Inj 4 Mg/2 Ml Vial IV PUSH Q4H PRN Nausea Rifaximin 550 mg 07/06/25 09:00 07/09/25 09:05 Rifaximin 550 Mg Tablet PO 550 mg Q12HR [facility] Administration Thiamine HCl 100 mg 07/05/25 09:00 07/09/25 09:07 Thiamine Hcl 200 Mg/2 Ml Vial IV PUSH 100 mg QAM [facility] Administration Radiology Results: ITS Impressions Chest X-Ray 07/04/25 16:48 Impression: Probable viral pneumonitis Head CT 07/04/25 17:47 Impression: 1.No acute intracranial abnormality. Chest/Abdomen/Pelvis CT 07/04/25 18:37 IMPRESSION: 1. Chronic changes in the lungs with small pleural effusions. 2. 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 Contrast-enhanced MRI recommended. 3. Incidental findings above Hand X-Ray 07/05/25 08:18 Impression: No acute fracture or malalignment. Venous Doppler Study 07/05/25 17:31 Impression: Negative for DVT. Abdomen Ultrasound 07/05/25 22:21 IMPRESSION: 1. Constellation of findings most consistent with a nodular cirrhotic liver with multiple nodular regions of increased echogenicity with corresponding decreased attenuation on CT suggesting dysplastic/regenerative nodules with hepatic steatosis and intervening hypoechoic fibrous septations. Differential for any given nodule would include hepatocellular carcinoma or metastatic disease if there is known history of prior malignancy. Could consider multiphase pre and postcontrast MRI for further evaluation as clinically indicated. 2. Bidirectional flow in the main portal vein and large recanalized umbilical vein with abdominal wall collaterals consistent with secondary portal venous hypertension. 3. Small amount perihepatic ascites. 4. Cholelithiasis. Renal Ultrasound 07/05/25 22:38 IMPRESSION: 1. Normal kidneys without hydronephrosis. 2. Small amount of ascites likely related to cirrhosis. 3. Review of prior CT images demonstrate a device situated between the cephalad margin of the left renal vein and the left adrenal gland which is not visualized on the provided images. Given the findings of cirrhosis with portal venous hypertension. This could represent occlusion/embolization device for treatment of splenorenal collaterals. Correlate with clinical history. Labs Labs: Laboratory Results - last 24 hr 07/04/25 07/05/25 07/08/25 19:36 05:40 08:10 WBC RBC Hgb Hct MCV MCH MCHC RDW Plt Count MPV Lymphocytes # 0.5 L % Immature Plt Fraction PT INR Sodium Potassium Chloride Carbon Dioxide Anion Gap BUN Creatinine Estim Creat Clear Calc Estimated GFR Glucose POC Capillary Glucose Serum Osmolality 303 H Calcium Phosphorus Magnesium Total Bilirubin AST ALT Alkaline Phosphatase Total Creatine Kinase Total Protein Albumin Urine Osmolality 489 Phosphatidylethanol Positive A Phosphatidylethanol Quant 151 07/08/25 07/09/25 07/09/25 20:29 04:21 07:50 WBC 13.6 H RBC 3.97 L Hgb 13.9 L Hct 40.9 L MCV 103.0 H MCH 35.0 H MCHC 34.0 RDW 14.6 H Plt Count 52 L MPV 11.8 H Lymphocytes # % Immature Plt Fraction 5.6 PT INR Sodium 135 L Potassium 4.5 Chloride 113 H Carbon Dioxide 17 L Anion Gap 5 BUN 38 H Creatinine 1.04 Estim Creat Clear Calc 76 Estimated GFR > 60 Glucose 220 H POC Capillary Glucose 263 H 190 H Serum Osmolality Calcium 8.2 L Phosphorus 3.0 Magnesium 2.5 H Total Bilirubin 22.0 H AST 141 H ALT 90 H Alkaline Phosphatase 333 H Total Creatine Kinase 79 Total Protein 7.2 Albumin 2.3 L Urine Osmolality Phosphatidylethanol Phosphatidylethanol Quant 10/10/25 10/10/25 10/10/25 11:22 15:50 16:11 WBC RBC Hgb Hct MCV MCH MCHC RDW Plt Count MPV Lymphocytes # % Immature Plt Fraction PT 22.5 H INR 2.0 Sodium Potassium Chloride Carbon Dioxide Anion Gap BUN Creatinine Estim Creat Clear Calc Estimated GFR Glucose POC Capillary Glucose 175 H 181 H Serum Osmolality Calcium Phosphorus Magnesium Total Bilirubin AST ALT Alkaline Phosphatase Total Creatine Kinase Total Protein Albumin Urine Osmolality Phosphatidylethanol Phosphatidylethanol Quant
--- NOTE | 2025-07-09 18:40 | PM.IMPN ---
Progress Note: A&P Assessment and Plan (1) Hyperosmolar hyperglycemic state (HHS): Code(s): E11.00 - Type 2 diabetes mellitus with hyperosmolarity without nonketotic hyperglycemic-hyperosmolar coma (NKHHC) Status: Acute Assessment and Plan: Presented with finding consistent with HHS as patient had high blood glucose but normal anion gap Patient was started on insulin infusion and IV fluid Blood sugars have improved Transition to subcutaneous insulin but continue IV fluids On diagnosed diabetes mellitus with HbA1c 11.3 Start liquid diet and advance as tolerated (2) AMS (altered mental status): Qualifiers: Altered mental status type: unspecified Qualified Code(s): R41.82 - Altered mental status, unspecified Code(s): R41.82 - Altered mental status, unspecified Status: Acute Assessment and Plan: Patient likely has multifactorial encephalopathy with HHS, sepsis, uremia and very mildly elevated ammonia level, hyponatremia Head CT was negative Avoid sedative Treatment of individual problems as below (3) Alcoholism: Code(s): F10.20 - Alcohol dependence, uncomplicated Status: Acute Assessment and Plan: History of alcohol abuse Thiamine folic acid Monitor for signs of withdrawal (4) Thrombocytopenia: Code(s): D69.6 - Thrombocytopenia, unspecified Status: Chronic Assessment and Plan: Chronic thrombocytopenia likely secondary to cirrhosis and alcohol abuse which is now exacerbated by sepsis Monitor platelet counts. Transfuse if needed Hold anticoagulation (5) Hyponatremia: Code(s): E87.1 - Hypo-osmolality and hyponatremia Status: Acute Assessment and Plan: Partially pseudohyponatremia secondary to HHS and secondary to cirrhosis Getting IV fluids for dehydration and acute kidney injury Monitor sodium level Nephrology consultation (6) Hyperbilirubinemia: Code(s): E80.6 - Other disorders of bilirubin metabolism Status: Chronic Assessment and Plan: Secondary to cirrhosis Right upper quadrant ultrasound with findings consistent with nodular cirrhotic liver with multiple nodular regions of increased echogenicity with corresponding decreased attenuation on CT suggestive of dysplastic/knees regenerative nodules with hepatic steatosis and intervening hypoechoic fibrosis septations. Differential for any given nodule would include hepatocellular carcinoma or metastatic disease. Bidirectional flow in the main portal vein and large recanalized umbilical vein with a abdominal wall collaterals consistent with secondary portal venous hypertension. Small amount of perihepatic ascites. Also noted cholelithiasis Liver biopsy pending INR improvement Will give 2 units of FFP (7) Alcoholic cirrhosis of liver: Qualifiers: Ascites presence: without ascites Qualified Code(s): K70.30 - Alcoholic cirrhosis of liver without ascites Code(s): K70.30 - Alcoholic cirrhosis of liver without ascites Status: Acute Assessment and Plan: Lactulose for elevated ammonia Vitamin K for elevated INR Right upper quadrant ultrasound as noted above (8) Acute renal failure: Code(s): N17.9 - Acute kidney failure, unspecified Status: Acute Assessment and Plan: Presented with acute kidney injury Patient has mild rhabdomyolysis and likely dehydrated and hypovolemic Getting IV fluids Monitor urine output electrolytes and creatinine Monitor CK level Consult nephrology Renal ultrasound with no hydronephrosis (9) Acute UTI: Code(s): N39.0 - Urinary tract infection, site not specified Status: Acute Assessment and Plan: Urine culture, cefepime (10) Sepsis: Qualifiers: Sepsis acute organ dysfunction status: unspecified Sepsis type: sepsis due to unspecified organism Qualified Code(s): A41.9 - Sepsis, unspecified organism Code(s): A41.9 - Sepsis, unspecified organism Status: Acute Assessment and Plan: Sepsis secondary to UTI and pustular skin infection Continue vanc and cefepime Blood and urine cultures (11) Pustular rash: Code(s): L08.0 - Pyoderma Status: Acute Assessment and Plan: Etiology unknown. Treatment with vancomycin and cultures pending HIV screen negative ? Viral infection Blood culture came back positive for Gram-positive cocci Continue vancomycin RPR negative (12) Rhabdomyolysis: Code(s): M62.82 - Rhabdomyolysis Status: Acute Assessment and Plan: Mild rhabdomyolysis from laying on the floor IV fluid Monitor CK level (13) Liver mass: Code(s): R16.0 - Hepatomegaly, not elsewhere classified Status: Acute Assessment and Plan: CT scan shows multiple per liver lesions. Right upper quadrant ultrasound ordered by portal vein is patent. Patient waiting for transfer to tertiary facility for further evaluation. AFP less than 1.8 Hepatitis panel negative (14) Abnormal CT scan, kidney: Code(s): R93.429 - Abnormal radiologic findings on diagnostic imaging of unspecified kidney Status: Acute Assessment and Plan: CT scan read as device within left renal vein. Ultrasound ordered nephrology consult or Plan patient with disseminated rash and bacteremia blood culture is growing gram-positive cocci seen by ID, the lesions are suggestive of M pox but there is no definite diagnosis, however work is going on and patient is being treated empirically with acyclovir, Ancef, rifaximin and vancomycin, will follow up on viral and blood culture and furthe recommendation to follow. patient remained confused and unable to provider any ROS, or history, concerning hepatitis encephalopathy patient is being treated with acyclovir pending viral culture, first of blood culture is growing MSSA and being treated with Ancef and vancomycin, second repeat blood culture no growth so far, discuss with nursing staff, patient oral intake is poor we encouraging, will add protein shake and consult a fork lift technician. Elevated troponin with flat trend next DVT prophylaxis -SCD Stress ulcer prophylaxis -protonix Nutrition -start clear liquid diet and advance as tolerated Code Status - DNR/ DNI Patient is waiting for a bed at [facility] under hospitalist Dr. Hu. Subjective Date/time seen: 07/09/25 18:40 Interval history: today patient is confused and his speech difficulty to understand, patient has poor appetite, will start with clear liquids and advance as tolerated, patient with disseminated rash and bacteremia blood culture is growing gram-positive cocci seen by ID, the lesions are suggestive of M pox but there is no definite diagnosis, however work is going on and patient is being treated empirically with acyclovir, Ancef, rifaximin and vancomycin, will follow up on viral and blood culture and further recommendation to follow. patient remained confused and unable to provider any ROS, or history, concerning hepatitis encephalopathy patient is being treated with acyclovir pending viral culture, first of blood culture is growing MSSA and being treated with Ancef and vancomycin, second repeat blood culture no growth so far, discuss with nursing staff, patient oral intake is poor we encouraging, will add protein shake and consult a fork lift technician. Review of Systems Review of Systems: ROS unobtainable: Yes unobtainable due to medical condition and unobtainable due to mental status Exam Narrative: General: Pt is awake in no distress but confused Lungs/Chest: Trachea central Clear BS B/L, No crackles or wheezing. Cardiac: RRR. Normal S1 S2. No murmurs Circulation: Pedal pulses are intact and symmetrical. Abdomen: Normal bowel sounds.. Soft. NT. ND. Extremities: Redness in right hand and arm : Clements in place Neurologic: Follows commands. Moves all 4 extremities PERRL AO x 1, mumbles with speech often incomprehensible Skin: Several small pustules all over his body including legs and arms, spider nevi on the chest, macerations in the groin, sodium take dry eczematous skin on the arms HEENT: Oral mucosa is dry Objective Data Vital Signs Vital Signs: Vital Signs - 24 hr 07/08/25 19:56 07/08/25 20:00 07/08/25 20:00 Temperature 36.5 C Pulse Rate 105 H 105 H Pulse Rate [Bilateral Radial] 115 H Respiratory Rate 18 18 Blood Pressure 132/92 H 132/92 H Pulse Oximetry 98 98 Oxygen Delivery Room Air Fraction of Inspired Oxygen 32 07/08/25 20:00 07/08/25 22:00 07/09/25 00:00 Temperature 36.6 C Pulse Rate 105 H 120 H 122 H Pulse Rate [Bilateral Radial] Respiratory Rate 18 Blood Pressure 142/82 H Pulse Oximetry 90 Oxygen Delivery Fraction of Inspired Oxygen 07/09/25 00:00 07/09/25 00:00 07/09/25 00:00 Temperature Pulse Rate 122 H 122 H Pulse Rate [Bilateral Radial] 125 H Respiratory Rate 18 Blood Pressure 142/82 H Pulse Oximetry 90 Oxygen Delivery Room Air Fraction of Inspired Oxygen 32 07/09/25 03:00 07/09/25 03:19 07/09/25 03:19 Temperature Pulse Rate 122 H 122 H Pulse Rate [Bilateral Radial] 106 H Respiratory Rate 18 Blood Pressure 142/82 H Pulse Oximetry 90 Oxygen Delivery Room Air Fraction of Inspired Oxygen 32 07/09/25 03:19 07/09/25 04:00 07/09/25 08:00 Temperature 36.9 C 37.1 C Pulse Rate 122 H 114 H 107 H Pulse Rate [Bilateral Radial] Respiratory Rate 18 20 Blood Pressure 116/66 128/76 Pulse Oximetry 94 96 Oxygen Delivery Fraction of Inspired Oxygen 07/09/25 08:00 07/09/25 08:00 07/09/25 10:00 Temperature Pulse Rate 102 H 105 H Pulse Rate [Bilateral Radial] Respiratory Rate Blood Pressure Pulse Oximetry Oxygen Delivery Room Air Fraction of Inspired Oxygen 07/09/25 11:45 07/09/25 11:45 07/09/25 12:00 Temperature 36.4 C Pulse Rate 105 H 104 H Pulse Rate [Bilateral Radial] Respiratory Rate 20 Blood Pressure 142/87 H Pulse Oximetry 97 Oxygen Delivery Room Air Fraction of Inspired Oxygen 07/09/25 14:00 07/09/25 16:00 07/09/25 16:00 Temperature 36.7 C Pulse Rate 108 H 108 H 123 H Pulse Rate [Bilateral Radial] Respiratory Rate 18 Blood Pressure 143/85 H Pulse Oximetry 98 Oxygen Delivery Fraction of Inspired Oxygen 07/09/25 18:00 Temperature Pulse Rate 113 H Pulse Rate [Bilateral Radial] Respiratory Rate Blood Pressure Pulse Oximetry Oxygen Delivery Fraction of Inspired Oxygen Intake/Output Intake/Output: Intake & Output 07/06/25 07/07/25 07/08/25 07/09/25 23:59 23:59 23:59 23:59 Intake Total 3870 3456.2 4036.2 6546.2 Output Total 3750 3275 2250 850 Balance 120 181.2 1786.2 5696.2 Meds/Results Medications: Active Medications Generic Name Dose Route Start Last Admin Trade Name Freq PRN Reason Stop Dose Admin Acetaminophen 650 mg 07/04/25 20:27 Acetaminophen 325 Mg Tablet PO Q4H PRN Mild Pain (1-3) or Fever Dextrose 12.5 gm 07/04/25 22:26 Dextrose 50% 25 Gm/50 Ml Syringe IV PUSH PRN PRN Hypoglycemia Protocol Famotidine 20 mg 07/05/25 09:00 07/09/25 09:06 Famotidine 20 Mg/2 Ml Vial IV PUSH 20 mg Q12HR SCARLETT Administration Folic Acid 1 mg 07/05/25 09:00 07/09/25 09:07 Folic Acid 1 Mg/0.2 Ml Inj IV PUSH 1 mg QAM SCARLETT Administration Glucagon 1 mg 07/04/25 22:26 Glucagon For Inj 1 Mg Vial IM PRN PRN Hypoglycemia Protocol Glucose 15 gm 07/04/25 22:26 Glucose Oral Gel 15 Gm Of Glucse In 37.5 Gm Tube PO PRN PRN Hypoglycemia Protocol Dextrose 1,000 mls @ 100 mls/hr 07/04/25 22:26 Dextrose 5% 1,000 Ml IVPB PRN PRN Hypoglycemia Protocol Vancomycin HCl 2,000 mg in 500 mls @ 250 mls/hr 07/08/25 09:00 07/09/25 16:10 Vancomycin 2,000 Mg/Ns 500 Ml IVPB Infused Q18H SCARLETT Infusion Acyclovir Sodium 905 mg/ 268.1 mls @ 250 mls/hr 07/08/25 22:00 07/09/25 16:10 Dextrose IVPB 07/12/25 23:59 Infused Q8H SCARLETT Infusion Cefazolin Sodium 2 gm/ Sodium 50 mls @ 100 mls/hr 07/09/25 14:00 07/09/25 16:10 Chloride IVPB Infused Q8H SCARLETT Infusion Insulin Aspart 8 units 07/06/25 17:00 07/09/25 17:31 Insulin Aspart (*Bkc) 100 Units/Ml 0.083 units/kg (8 units) 8 units SUB-Q Administration [facility] Insulin Aspart 2 - 5 units 07/06/25 17:00 07/09/25 16:11 Insulin Aspart (*Bkc) 100 Units/Ml SUB-Q Not Given [facility] Protocol Insulin Glargine 30 units 07/07/25 09:00 07/09/25 09:07 Insulin Glargine (*Bkc) 100 Units/Ml SUB-Q 30 units QAM SCARLETT Administration Lactulose 20 gm 07/07/25 11:50 07/09/25 09:05 Lactulose 20 Gm/30 Ml Udc PO 20 gm Q12HR SCARLETT Administration Ondansetron HCl 4 mg 07/04/25 20:27 Ondansetron Inj 4 Mg/2 Ml Vial IV PUSH Q4H PRN Nausea Rifaximin 550 mg 07/06/25 09:00 07/09/25 09:05 Rifaximin 550 Mg Tablet PO 550 mg Q12HR SCARLETT Administration Thiamine HCl 100 mg 07/05/25 09:00 07/09/25 09:07 Thiamine Hcl 200 Mg/2 Ml Vial IV PUSH 100 mg QAM SCARLETT Administration Radiology Results: ITS Impressions Chest X-Ray 07/04/25 16:48 Impression: Probable viral pneumonitis Head CT 07/04/25 17:47 Impression: 1.No acute intracranial abnormality. Chest/Abdomen/Pelvis CT 07/04/25 18:37 IMPRESSION: 1. Chronic changes in the lungs with small pleural effusions. 2. 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 Contrast-enhanced MRI recommended. 3. Incidental findings above Hand X-Ray 07/05/25 08:18 Impression: No acute fracture or malalignment. Venous Doppler Study 07/05/25 17:31 Impression: Negative for DVT. Abdomen Ultrasound 07/05/25 22:21 IMPRESSION: 1. Constellation of findings most consistent with a nodular cirrhotic liver with multiple nodular regions of increased echogenicity with corresponding decreased attenuation on CT suggesting dysplastic/regenerative nodules with hepatic steatosis and intervening hypoechoic fibrous septations. Differential for any given nodule would include hepatocellular carcinoma or metastatic disease if there is known history of prior malignancy. Could consider multiphase pre and postcontrast MRI for further evaluation as clinically indicated. 2. Bidirectional flow in the main portal vein and large recanalized umbilical vein with abdominal wall collaterals consistent with secondary portal venous hypertension. 3. Small amount perihepatic ascites. 4. Cholelithiasis. Renal Ultrasound 07/05/25 22:38 IMPRESSION: 1. Normal kidneys without hydronephrosis. 2. Small amount of ascites likely related to cirrhosis. 3. Review of prior CT images demonstrate a device situated between the cephalad margin of the left renal vein and the left adrenal gland which is not visualized on the provided images. Given the findings of cirrhosis with portal venous hypertension. This could represent occlusion/embolization device for treatment of splenorenal collaterals. Correlate with clinical history. Labs Labs: Laboratory Results - last 24 hr 07/04/25 07/05/25 07/08/25 19:36 05:40 08:10 WBC RBC Hgb Hct MCV MCH MCHC RDW Plt Count MPV Lymphocytes # 0.5 L % Immature Plt Fraction PT INR Sodium Potassium Chloride Carbon Dioxide Anion Gap BUN Creatinine Estim Creat Clear Calc Estimated GFR Glucose POC Capillary Glucose Serum Osmolality 303 H Calcium Phosphorus Magnesium Total Bilirubin AST ALT Alkaline Phosphatase Total Creatine Kinase Total Protein Albumin Urine Osmolality 489 Phosphatidylethanol Positive A Phosphatidylethanol Quant 151 07/08/25 07/09/25 07/09/25 20:29 04:21 07:50 WBC 13.6 H RBC 3.97 L Hgb 13.9 L Hct 40.9 L MCV 103.0 H MCH 35.0 H MCHC 34.0 RDW 14.6 H Plt Count 52 L MPV 11.8 H Lymphocytes # % Immature Plt Fraction 5.6 PT INR Sodium 135 L Potassium 4.5 Chloride 113 H Carbon Dioxide 17 L Anion Gap 5 BUN 38 H Creatinine 1.04 Estim Creat Clear Calc 76 Estimated GFR > 60 Glucose 220 H POC Capillary Glucose 263 H 190 H Serum Osmolality Calcium 8.2 L Phosphorus 3.0 Magnesium 2.5 H Total Bilirubin 22.0 H AST 141 H ALT 90 H Alkaline Phosphatase 333 H Total Creatine Kinase 79 Total Protein 7.2 Albumin 2.3 L Urine Osmolality Phosphatidylethanol Phosphatidylethanol Quant 07/09/25 07/09/25 07/09/25 11:22 15:50 16:11 WBC RBC Hgb Hct MCV MCH MCHC RDW Plt Count MPV Lymphocytes # % Immature Plt Fraction PT 22.5 H INR 2.0 Sodium Potassium Chloride Carbon Dioxide Anion Gap BUN Creatinine Estim Creat Clear Calc Estimated GFR Glucose POC Capillary Glucose 175 H 181 H Serum Osmolality Calcium Phosphorus Magnesium Total Bilirubin AST ALT Alkaline Phosphatase Total Creatine Kinase Total Protein Albumin Urine Osmolality Phosphatidylethanol Phosphatidylethanol Quant Quality VTE Prophylaxis VTE prophylaxis: mechanical ordered
[2025-07-09] MEDS: VANCOMYCIN 1,750 MG/NS 500 ML 1,750 MG/500 ML BAG 250 MG IVPB (23:38)
[2025-07-10] VITALS (15 sets, daily range): BP systolic 120–143; BP diastolic 66–77; PULSE 99–118; RESP 16–20; TEMP 36.4–36.8; O2SAT 98–100
[2025-07-10 05:14] LABS: Hematocrit 37.9 % (42.0-52.0); Hemoglobin 13.4 g/dL (14.0-18.0); Immature Platelet Fraction Pct 8.4 % (0.9-11.2); Mean Corpuscular HGB Conc 35.4 g/dl (32-36); Mean Corpuscular Hemoglobin 36.4 pg (26-34); Mean Corpuscular Volume 103.0 fl (80-100); Platelet Count Result 59 k/mm3 (150-375); Red Blood Count 3.68 M/mm3 (4.6-6.20); White Blood Count 17.1 K/mm3 (4.5-10.0)
[2025-07-10 05:24] LABS: INR 2.1; Prothrombin Time 23.4 Seconds (11.1-14.7)
[2025-07-10 05:37] LABS: Alanine Aminotransferase 86 U/L (6-50); Albumin Level 2.2 g/dL (3.5-5.1); Alkaline Phosphatase 328 U/L (38-126); Anion Gap 8 mmol/L (4-12); Aspartate Amino Transferase 149 U/L (17-59); Bilirubin,Total 23.7 mg/dL (0.2-1.3); Blood Urea Nitrogen 36 mg/dL (9-20); Calcium 8.5 mg/dL (8.4-10.2); Carbon Dioxide 17 mmol/L (22-30); Chloride 110 mmol/L (98-107); Creatine Kinase 67 U/L (55-170); Estimated CRCL calculation 64 ml/min; Estimated Glomerular Filt Rate > 60; Glucose 89 mg/dL (65-110); Magnesium 2.3 mg/dL (1.6-2.3); Potassium 4.4 mmol/L (3.4-5.0); Sodium 135 mmol/L (137-145); Total Protein 7.2 g/dL (6.3-8.2)
[2025-07-10] MEDS: DEXTROSE 5% IVPB ×3 (05:48→21:59)
[2025-07-10] MEDS: ceFAZolin 2 GM in SODIUM CHLORIDE 0.9% IV 50 ML 100 ML IVPB ×3 (05:48→21:57)
[2025-07-10] MEDS: WATER IVPB ×3 (05:48→21:59)
[2025-07-10] MEDS: ACYCLOVIR SODIUM IVPB ×3 (05:48→21:59)
[2025-07-10] MEDS: THIAMINE HCL 200 MG/2 ML VIAL 100 MG IV PUSH (11:04)
[2025-07-10] MEDS: LACTULOSE 20 GM/30 ML UDC PO ×2 (11:04→21:57)
[2025-07-10] MEDS: INSULIN GLARGINE (*BKC) 100 UNITS/ML 30 UNITS SUB-Q (11:05)
[2025-07-10] MEDS: FOLIC ACID 1 MG/0.2 ML INJ IV PUSH (11:05)
[2025-07-10] MEDS: FAMOTIDINE 20 MG/2 ML VIAL IV PUSH ×2 (11:05→21:58)
--- NOTE | 2025-07-10 15:26 | P.PNIM_ITS ---
Progress Note: A&P Assessment and Plan (1) Hyperosmolar hyperglycemic state (HHS): Code(s): E11.00 - Type 2 diabetes mellitus with hyperosmolarity without nonketotic hyperglycemic-hyperosmolar coma (NKHHC) Status: Acute Assessment and Plan: Presented with finding consistent with HHS as patient had high blood glucose but normal anion gap Patient was started on insulin infusion and IV fluid Blood sugars have improved Transition to subcutaneous insulin but continue IV fluids On diagnosed diabetes mellitus with HbA1c 11.3 Start liquid diet and advance as tolerated (2) AMS (altered mental status): Qualifiers: Altered mental status type: unspecified Qualified Code(s): R41.82 - Altered mental status, unspecified Code(s): R41.82 - Altered mental status, unspecified Status: Acute Assessment and Plan: Patient likely has multifactorial encephalopathy with HHS, sepsis, uremia and very mildly elevated ammonia level, hyponatremia Head CT was negative Avoid sedative Treatment of individual problems as below (3) Alcoholism: Code(s): F10.20 - Alcohol dependence, uncomplicated Status: Acute Assessment and Plan: History of alcohol abuse Thiamine folic acid Monitor for signs of withdrawal (4) Thrombocytopenia: Code(s): D69.6 - Thrombocytopenia, unspecified Status: Chronic Assessment and Plan: Chronic thrombocytopenia likely secondary to cirrhosis and alcohol abuse which is now exacerbated by sepsis Monitor platelet counts. Transfuse if needed Hold anticoagulation (5) Hyponatremia: Code(s): E87.1 - Hypo-osmolality and hyponatremia Status: Acute Assessment and Plan: Partially pseudohyponatremia secondary to HHS and secondary to cirrhosis Getting IV fluids for dehydration and acute kidney injury Monitor sodium level Nephrology consultation (6) Hyperbilirubinemia: Code(s): E80.6 - Other disorders of bilirubin metabolism Status: Chronic Assessment and Plan: Secondary to cirrhosis Right upper quadrant ultrasound with findings consistent with nodular cirrhotic liver with multiple nodular regions of increased echogenicity with corresponding decreased attenuation on CT suggestive of dysplastic/knees regenerative nodules with hepatic steatosis and intervening hypoechoic fibrosis septations. Differential for any given nodule would include hepatocellular carcinoma or metastatic disease. Bidirectional flow in the main portal vein and large recanalized umbilical vein with a abdominal wall collaterals consistent with secondary portal venous hypertension. Small amount of perihepatic ascites. Also noted cholelithiasis Liver biopsy pending INR improvement Will give 2 units of FFP (7) Alcoholic cirrhosis of liver: Qualifiers: Ascites presence: without ascites Qualified Code(s): K70.30 - Alcoholic cirrhosis of liver without ascites Code(s): K70.30 - Alcoholic cirrhosis of liver without ascites Status: Acute Assessment and Plan: Lactulose for elevated ammonia Vitamin K for elevated INR Right upper quadrant ultrasound as noted above (8) Acute renal failure: Code(s): N17.9 - Acute kidney failure, unspecified Status: Acute Assessment and Plan: Presented with acute kidney injury Patient has mild rhabdomyolysis and likely dehydrated and hypovolemic Getting IV fluids Monitor urine output electrolytes and creatinine Monitor CK level Consult nephrology Renal ultrasound with no hydronephrosis (9) Acute UTI: Code(s): N39.0 - Urinary tract infection, site not specified Status: Acute Assessment and Plan: Urine culture, cefepime (10) Sepsis: Qualifiers: Sepsis acute organ dysfunction status: unspecified Sepsis type: sepsis due to unspecified organism Qualified Code(s): A41.9 - Sepsis, unspecified o rganism Code(s): A41.9 - Sepsis, unspecified organism Status: Acute Assessment and Plan: Sepsis secondary to UTI and pustular skin infection Continue vanc and cefepime Blood and urine cultures (11) Pustular rash: Code(s): L08.0 - Pyoderma Status: Acute Assessment and Plan: Etiology unknown. Treatment with vancomycin and cultures pending HIV screen negative ? Viral infection Blood culture came back positive for Gram-positive cocci Continue vancomycin RPR negative (12) Rhabdomyolysis: Code(s): M62.82 - Rhabdomyolysis Status: Acute Assessment and Plan: Mild rhabdomyolysis from laying on the floor IV fluid Monitor CK level (13) Liver mass: Code(s): R16.0 - Hepatomegaly, not elsewhere classified Status: Acute Assessment and Plan: CT scan shows multiple per liver lesions. Right upper quadrant ultrasound ordered by portal vein is patent. Patient waiting for transfer to tertiary facility for further evaluation. AFP less than 1.8 Hepatitis panel negative (14) Abnormal CT scan, kidney: Code(s): R93.429 - Abnormal radiologic findings on diagnostic imaging of unspecified kidney Status: Acute Assessment and Plan: CT scan read as device within left renal vein. Ultrasound ordered nephrology consult or Plan patient with disseminated rash and bacteremia blood culture is growing gram- positive cocci seen by ID, the lesions are suggestive of M pox but there is no definite diagnosis, however work is going on and patient is being treated empirically with acyclovir, Ancef, rifaximin and vancomycin, will follow up on viral and blood culture and furthe recommendation to follow. patient remained confused and unable to provider any ROS, or history, concerning hepatitis encephalopathy patient is being treated with acyclovir pending viral culture, first of blood culture is growing MSSA and being treated with Ancef and vancomycin, second repeat blood is growing gram positive cocci suspect most likely MSSA, patient may need ADALBERTO to r/o endocariditis, patient will be seen by ID and further recommendation to follow, patient weakness and back pain to further evaluate MRI of L/S spine is ordered, discuss with nursing staff, patient oral intake is poor we encouraging, will add protein shake and consult a director of global talent. Elevated troponin with flat trend next DVT prophylaxis -SCD Stress ulcer prophylaxis -protonix Nutrition -start clear liquid diet and advance as tolerated Code Status - DNR/ DNI Patient is waiting for a bed at [facility] under hospitalist Dr. Hu. Subjective Date/time seen: 07/10/25 15:26 Interval history: today patient is confused and his speech difficulty to understand, patient has poor appetite, will start with clear liquids and advance as tolerated, patient with disseminated rash and bacteremia blood culture is growing gram- positive cocci seen by ID, the lesions are suggestive of M pox but there is no definite diagnosis, however work is going on and patient is being treated empirically with acyclovir, Ancef, rifaximin and vancomycin, will follow up on viral and blood culture and further recommendation to follow. patient remained confused and unable to provider any ROS, or history, concerning hepatitis encephalopathy patient is being treated with acyclovir pending viral culture, first of blood culture is growing MSSA and being treated with Ancef and vancomycin, second repeat blood is growing gram positive cocci suspect most likely MSSA, patient may need ADALBERTO to r/o endocariditis, patient will be seen by ID and further recommendation to follow, patient weakness and back pain to further evaluate MRI of L/S spine is ordered, discuss with nursing staff, patient oral intake is poor we encouraging, will add protein shake and consult a director of global talent. Review of Systems Review of Systems: ROS unobtainable: Yes unobtainable due to medical condition and unobtainable due to mental status Exam Narrative: General: Pt is awake in no distress but confused Lungs/Chest: Trachea central Clear BS B/L, No crackles or wheezing. Cardiac: RRR. Normal S1 S2. No murmurs Circulation: Pedal pulses are intact and symmetrical. Abdomen: Normal bowel sounds.. Soft. NT. ND. Extremities: Redness in right hand and arm : Clements in place Neurologic: Follows commands. Moves all 4 extremities PERRL AO x 1, mumbles with speech often incomprehensible Skin: Several small pustules all over his body including legs and arms, spider nevi on the chest, macerations in the groin, sodium take dry eczematous skin on the arms HEENT: Oral mucosa is dry Objective Data Vital Signs Vital Signs: Vital Signs - 24 hr 07/09/25 16:00 07/09/25 16:00 07/09/25 18:00 Temperature 36.7 C Pulse Rate 108 H 123 H 113 H Pulse Rate [Apical Monitor] Respiratory Rate 18 Blood Pressure 143/85 H Pulse Oximetry 98 Oxygen Delivery 07/09/25 20:00 07/09/25 20:00 07/09/25 20:16 Temperature 36.6 C Pulse Rate 114 H 113 H Pulse Rate [Apical Monitor] Respiratory Rate 18 Blood Pressure 136/74 Pulse Oximetry 94 98 Oxygen Delivery Room Air 07/09/25 21:02 07/09/25 21:02 07/09/25 22:00 Temperature Pulse Rate 114 H 115 H Pulse Rate [Apical Monitor] 114 H Respiratory Rate 18 Blood Pressure 136/74 Pulse Oximetry 94 Oxygen Delivery Room Air 07/09/25 23:22 07/09/25 23:22 07/09/25 23:22 Temperature 36.9 C Pulse Rate 121 H 121 H Pulse Rate [Apical Monitor] 121 H Respiratory Rate 26 H 26 H Blood Pressure 119/72 119/72 Pulse Oximetry 99 99 Oxygen Delivery Room Air 07/10/25 00:00 07/10/25 01:23 07/10/25 04:00 Temperature Pulse Rate 118 H 111 H 115 H Pulse Rate [Apical Monitor] Respiratory Rate Blood Pressure Pulse Oximetry Oxygen Delivery 07/10/25 04:00 07/10/25 04:12 07/10/25 04:12 Temperature 36.6 C Pulse Rate 111 H 111 H Pulse Rate [Apical Monitor] 111 H Respiratory Rate 16 16 Blood Pressure 126/68 126/68 Pulse Oximetry 98 98 Oxygen Delivery Room Air 07/10/25 05:55 07/10/25 08:00 07/10/25 08:00 Temperature Pulse Rate 108 H 111 H Pulse Rate [Apical Monitor] 111 H Respiratory Rate 16 Blood Pressure 131/77 Pulse Oximetry 98 Oxygen Delivery Room Air 07/10/25 08:00 07/10/25 08:01 07/10/25 10:00 Temperature 36.6 C Pulse Rate 106 H 110 H 108 H Pulse Rate [Apical Monitor] Respiratory Rate 18 Blood Pressure 131/77 Pulse Oximetry 98 Oxygen Delivery 07/10/25 11:52 07/10/25 12:00 07/10/25 12:00 Temperature 36.4 C L Pulse Rate 108 H 110 H 111 H Pulse Rate [Apical Monitor] Respiratory Rate 20 16 Blood Pressure 143/70 H Pulse Oximetry 98 98 Oxygen Delivery Room Air 07/10/25 12:00 Temperature Pulse Rate Pulse Rate [Apical Monitor] 111 H Respiratory Rate Blood Pressure 143/70 H Pulse Oximetry Oxygen Delivery Intake/Output Intake/Output: Intake & Output 07/07/25 07/08/25 07/09/25 07/10/25 23:59 23:59 23:59 23:59 Intake Total 3456.2 4036.2 7514.3 2258.1 Output Total 3275 2250 850 Balance 181.2 1786.2 6664.3 2258.1 Meds/Results Medications: Active Medications Generic Name Dose Route Start Last Admin Trade Name Freq PRN Reason Stop Dose Admin Acetaminophen 650 mg 07/04/25 20:27 Acetaminophen 325 Mg Tablet PO Q4H PRN Mild Pain (1-3) or Fever Dextrose 12.5 gm 07/04/25 22:26 Dextrose 50% 25 Gm/50 Ml Syringe IV PUSH PRN PRN Hypoglycemia Protocol Famotidine 20 mg 07/05/25 09:00 07/10/25 11:05 Famotidine 20 Mg/2 Ml Vial IV PUSH 20 mg Q12HR SCARLETT Administration Folic Acid 1 mg 07/05/25 09:00 07/10/25 11:05 Folic Acid 1 Mg/0.2 Ml Inj IV PUSH 1 mg QAM SCARLETT Administration Glucagon 1 mg 07/04/25 22:26 Glucagon For Inj 1 Mg Vial IM PRN PRN Hypoglycemia Protocol Glucose 15 gm 07/04/25 22:26 Glucose Oral Gel 15 Gm Of Glucse In 37.5 Gm Tube PO PRN PRN Hypoglycemia Protocol Dextrose 1,000 mls @ 100 mls/hr 07/04/25 22:26 Dextrose 5% 1,000 Ml IVPB PRN PRN Hypoglycemia Protocol Acyclovir Sodium 905 mg/ 268.1 mls @ 250 mls/hr 07/08/25 22:00 07/10/25 06:53 Dextrose IVPB 07/12/25 23:59 Infused Q8H SCARLETT Infusion Cefazolin Sodium 2 gm/ Sodium 50 mls @ 100 mls/hr 07/09/25 14:00 07/10/25 06:18 Chloride IVPB Infused Q8H SCARLETT Infusion Vancomycin HCl 1,750 mg in 500 mls @ 250 mls/hr 07/09/25 23:00 07/10/25 01:51 Vancomycin 1,750 Mg/Ns 500 Ml IVPB Infused Q18H SCARLETT Infusion Insulin Aspart 8 units 07/06/25 17:00 07/10/25 11:02 Insulin Aspart (*Bkc) 100 Units/Ml 0.083 units/kg (8 units) Not Given [facility] Insulin Aspart 2 - 5 units 07/06/25 17:00 07/10/25 11:02 Insulin Aspart (*Bkc) 100 Units/Ml SUB-Q Not Given [facility] Protocol Insulin Glargine 30 units 07/07/25 09:00 07/10/25 11:05 Insulin Glargine (*Bkc) 100 Units/Ml SUB-Q 30 units QAM SCARLETT Administration Lactulose 20 gm 07/07/25 11:50 07/10/25 11:04 Lactulose 20 Gm/30 Ml Udc PO 20 gm Q12HR SCARLETT Administration Ondansetron HCl 4 mg 07/04/25 20:27 Ondansetron Inj 4 Mg/2 Ml Vial IV PUSH Q4H PRN Nausea Rifaximin 550 mg 07/06/25 09:00 07/10/25 11:04 Rifaximin 550 Mg Tablet PO 550 mg Q12HR SCARLETT Administration Thiamine HCl 100 mg 07/05/25 09:00 07/10/25 11:04 Thiamine Hcl 200 Mg/2 Ml Vial IV PUSH 100 mg QAM SCARLETT Administration Radiology Results: ITS Impressions Chest X-Ray 07/04/25 16:48 Impression: Probable viral pneumonitis Head CT 07/04/25 17:47 Impression: 1.No acute intracranial abnormality. Chest/Abdomen/Pelvis CT 07/04/25 18:37 IMPRESSION: 1. Chronic changes in the lungs with small pleural effusions. 2. 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 Contrast-enhanced MRI recommended. 3. Incidental findings above Hand X-Ray 07/05/25 08:18 Impression: No acute fracture or malalignment. Venous Doppler Study 07/05/25 17:31 Impression: Negative for DVT. Abdomen Ultrasound 07/05/25 22:21 IMPRESSION: 1. Constellation of findings most consistent with a nodular cirrhotic liver with multiple nodular regions of increased echogenicity with corresponding decreased attenuation on CT suggesting dysplastic/regenerative nodules with hepatic steatosis and intervening hypoechoic fibrous septations. Differential for any gi sofi nodule would include hepatocellular carcinoma or metastatic disease if there is known history of prior malignancy. Could consider multiphase pre and postcontrast MRI for further evaluation as clinically indicated. 2. Bidirectional flow in the main portal vein and large recanalized umbilical vein with abdominal wall collaterals consistent with secondary portal venous hypertension. 3. Small amount perihepatic ascites. 4. Cholelithiasis. Renal Ultrasound 07/05/25 22:38 IMPRESSION: 1. Normal kidneys without hydronephrosis. 2. Small amount of ascites likely related to cirrhosis. 3. Review of prior CT images demonstrate a device situated between the cephalad margin of the left renal vein and the left adrenal gland which is not visualized on the provided images. Given the findings of cirrhosis with portal venous hypertension. This could represent occlusion/embolization device for treatment of splenorenal collaterals. Correlate with clinical history. Labs Labs: Laboratory Results - last 24 hr 07/05/25 07/07/25 07/07/25 05:40 09:54 11:17 WBC RBC Hgb Hct MCV MCH MCHC RDW Plt Count MPV % Immature Plt Fraction PT INR Sodium Potassium Chloride Carbon Dioxide Anion Gap BUN Creatinine Estim Creat Clear Calc Estimated GFR Glucose POC Capillary Glucose Calcium Phosphorus Magnesium Total Bilirubin AST ALT Alkaline Phosphatase Total Creatine Kinase Total Protein Albumin Vancomycin Trough Phosphatidylethanol Positive A Phosphatidylethanol Quant 151 VZV (PCR) Negative Miscellaneous Test Comment 07/09/25 07/09/25 07/09/25 15:50 16:11 20:10 WBC RBC Hgb Hct MCV MCH MCHC RDW Plt Count MPV % Immature Plt Fraction PT 22.5 H INR 2.0 Sodium Potassium Chloride Carbon Dioxide Anion Gap BUN Creatinine Estim Creat Clear Calc Estimated GFR Glucose POC Capillary Glucose 181 H 97 Calcium Phosphorus Magnesium Total Bilirubin AST ALT Alkaline Phosphatase Total Creatine Kinase Total Protein Albumin Vancomycin Trough Phosphatidylethanol Phosphatidylethanol Quant VZV (PCR) Miscellaneous Test 07/09/25 07/10/25 07/10/25 20:31 04:23 07:44 WBC 17.1 H RBC 3.68 L Hgb 13.4 L Hct 37.9 L MCV 103.0 H MCH 36.4 H MCHC 35.4 RDW 14.8 H Plt Count 59 L MPV 12.4 H % Immature Plt Fraction 8.4 PT 23.4 H INR 2.1 Sodium 135 L Potassium 4.4 Chloride 110 H Carbon Dioxide 17 L Anion Gap 8 BUN 36 H Creatinine 1.24 Estim Creat Clear Calc 64 Estimated GFR > 60 Glucose 89 POC Capillary Glucose 103 Calcium 8.5 Phosphorus 3.7 Magnesium 2.3 Total Bilirubin 23.7 H AST 149 H ALT 86 H Alkaline Phosphatase 328 H Total Creatine Kinase 67 Total Protein 7.2 Albumin 2.2 L Vancomycin Trough 18.6 Phosphatidylethanol Phosphatidylethanol Quant VZV (PCR) Miscellaneous Test 07/10/25 11:13 WBC RBC Hgb Hct MCV MCH MCHC RDW Plt Count MPV % Immature Plt Fraction PT INR Sodium Potassium Chloride Carbon Dioxide Anion Gap BUN Creatinine Estim Creat Clear Calc Estimated GFR Glucose POC Capillary Glucose 92 Calcium Phosphorus Magnesium Total Bilirubin AST ALT Alkaline Phosphatase Total Creatine Kinase Total Protein Albumin Vancomycin Trough Phosphatidylethanol Phosphatidylethanol Quant VZV (PCR) Miscellaneous Test Quality VTE Prophylaxis VTE prophylaxis: mechanical ordered
--- NOTE | 2025-07-10 16:24 | P.PNGI_ITS ---
Progress Note: A&P Assessment and Plan (1) Alcoholic cirrhosis of liver: Qualifiers: Ascites presence: without ascites Qualified Code(s): K70.30 - Alcoholic cirrhosis of liver without ascites Code(s): K70.30 - Alcoholic cirrhosis of liver without ascites Status: Acute Assessment and Plan: encephalopathy, worsening jaundice and overall condition also affected by sepsis and Staph bacteremia ID on board, rule out endocarditis, patient is on abx continue with abx treatment, pending repeat set of blood cultures can not do LP or liver bx given high inr and low platelets (from decompensated cirrhosis) prognosis is guarded pending transfer to [facility] will follow as needed (2) Elevated LFTs: Code(s): R79.89 - Other specified abnormal findings of blood chemistry Status: Acute (3) Bacteremia due to Staphylococcus: Code(s): R78.81 - Bacteremia; B95.8 - Unspecified staphylococcus as the cause of diseases classified elsewhere Status: Acute Assessment and Plan: on iv abx by id (4) Sepsis: Qualifiers: Sepsis acute organ dysfunction status: unspecified Sepsis type: sepsis due to unspecified organism Qualified Code(s): A41.9 - Sepsis, unspecified organism Code(s): A41.9 - Sepsis, unspecified organism Status: Acute (5) Encephalopathy: Code(s): G93.40 - Encephalopathy, unspecified Status: Acute Assessment and Plan: multifactorial also on lactulose and xifaxan (6) Leukocytosis: Code(s): D72.829 - Elevated white blood cell count, unspecified Status: Acute (7) Thrombocytopenia: Code(s): D69.6 - Thrombocytopenia, unspecified Status: Chronic Subjective Date/time seen: 07/10/25 16:24 Interval history: no major changes awake but confused, in isolation because Staph bacteremia Review of Systems Review of Systems: All systems reviewed & are unremarkable except as noted in HPI and below Exam Narrative: General: Pt is awake in no distress but confused icteric sclerae neck: supple Lungs/Chest: Trachea central Clear BS B/L, No crackles or wheezing. Cardiac: RRR. Normal S1 S2. No murmurs Circulation: Pedal pulses are intact and symmetrical. Abdomen: Normal bowel sounds. + umbilical hernia. Soft. NT. ND. Extremities: Redness in right hand and arm : Clements in place Neurologic: Follows commands. Moves all 4 extremities PERRL AO x 1, mumbles with speech often incomprehensible Skin: Several small pustules all over his body including legs and arms, spider nevi on the chest, macerations in the groin HEENT: Oral mucosa is dry Objective Data Vital Signs Vital Signs: Vital Signs - 24 hr 07/09/25 18:00 07/09/25 20:00 07/09/25 20:00 Temperature 97.8 F Pulse Rate 113 H 114 H 113 H Pulse Rate [Apical Monitor] Respiratory Rate 18 Blood Pressure 136/74 Pulse Oximetry 94 Oxygen Delivery 07/09/25 20:16 07/09/25 21:02 07/09/25 21:02 Temperature Pulse Rate 114 H Pulse Rate [Apical Monitor] 114 H Respiratory Rate 18 Blood Pressure 136/74 Pulse Oximetry 98 94 Oxygen Delivery Room Air Room Air 07/09/25 22:00 07/09/25 23:22 07/09/25 23:22 Temperature 98.5 F Pulse Rate 115 H 121 H 121 H Pulse Rate [Apical Monitor] Respiratory Rate 26 H 26 H Blood Pressure 119/72 Pulse Oximetry 99 99 Oxygen Delivery Room Air 07/09/25 23:22 07/10/25 00:00 07/10/25 01:23 Temperature Pulse Rate 118 H 111 H Pulse Rate [Apical Monitor] 121 H Respiratory Rate Blood Pressure 119/72 Pulse Oximetry Oxygen Delivery 07/10/25 04:00 07/10/25 04:00 07/10/25 04:12 Temperature 97.9 F Pulse Rate 115 H 111 H 111 H Pulse Rate [Apical Monitor] Respiratory Rate 16 16 Blood Pressure 126/68 Pulse Oximetry 98 98 Oxygen Delivery Room Air 07/10/25 04:12 07/10/25 05:55 07/10/25 08:00 Temperature Pulse Rate 108 H Pulse Rate [Apical Monitor] 111 H 111 H Respiratory Rate Blood Pressure 126/68 131/77 Pulse Oximetry Oxygen Delivery 07/10/25 08:00 07/10/25 08:00 07/10/25 08:01 Temperature 97.9 F Pulse Rate 111 H 106 H 110 H Pulse Rate [Apical Monitor] Respiratory Rate 16 18 Blood Pressure 131/77 Pulse Oximetry 98 98 Oxygen Delivery Room Air 07/10/25 10:00 07/10/25 11:52 07/10/25 12:00 Temperature 97.5 F L Pulse Rate 108 H 108 H 110 H Pulse Rate [Apical Monitor] Respiratory Rate 20 Blood Pressure 143/70 H Pulse Oximetry 98 Oxygen Delivery 07/10/25 12:00 07/10/25 12:00 Temperature Pulse Rate 111 H Pulse Rate [Apical Monitor] 111 H Respiratory Rate 16 Blood Pressure 143/70 H Pulse Oximetry 98 Oxygen Delivery Room Air Intake/Output Intake/Output: Intake & Output 07/07/25 07/08/25 07/09/25 07/10/25 23:59 23:59 23:59 23:59 Intake Total 3456.2 4036.2 7514.3 2258.1 Output Total 3275 2250 850 Balance 181.2 1786.2 6664.3 2258.1 Meds/Results Medications: Active Medications Generic Name Dose Route Start Last Admin Trade Name Freq PRN Reason Stop Dose Admin Acetaminophen 650 mg 07/04/25 20:27 Acetaminophen 325 Mg Tablet PO Q4H PRN Mild Pain (1-3) or Fever Dextrose 12.5 gm 07/04/25 22:26 Dextrose 50% 25 Gm/50 Ml Syringe IV PUSH PRN PRN Hypoglycemia Protocol Famotidine 20 mg 07/05/25 09:00 07/10/25 11:05 Famotidine 20 Mg/2 Ml Vial IV PUSH 20 mg Q12HR SCARLETT Administration Folic Acid 1 mg 07/05/25 09:00 07/10/25 11:05 Folic Acid 1 Mg/0.2 Ml Inj IV PUSH 1 mg QAM SCARLETT Administration Glucagon 1 mg 07/04/25 22:26 Glucagon For Inj 1 Mg Vial IM PRN PRN Hypoglycemia Protocol Glucose 15 gm 07/04/25 22:26 Glucose Oral Gel 15 Gm Of Glucse In 37.5 Gm Tube PO PRN PRN Hypoglycemia Protocol Dextrose 1,000 mls @ 100 mls/hr 07/04/25 22:26 Dextrose 5% 1,000 Ml IVPB PRN PRN Hypoglycemia Protocol Acyclovir Sodium 905 mg/ 268.1 mls @ 250 mls/hr 07/08/25 22:00 07/10/25 15:04 Dextrose IVPB 07/12/25 23:59 250 mls/hr Q8H SCARLETT Administration Cefazolin Sodium 2 gm/ Sodium 50 mls @ 100 mls/hr 07/09/25 14:00 07/10/25 15:53 Chloride IVPB 100 mls/hr Q8H SCARLETT Administration Vancomycin HCl 1,750 mg in 500 mls @ 250 mls/hr 07/09/25 23:00 07/10/25 01:51 Vancomycin 1,750 Mg/Ns 500 Ml IVPB Infused Q18H SCARLETT Infusion Insulin Aspart 8 units 07/06/25 17:00 07/10/25 15:51 Insulin Aspart (*Bkc) 100 Units/Ml 0.083 units/kg (8 units) Not Given SUB-Q TIDWM SCARLETT Insulin Aspart 2 - 5 units 07/06/25 17:00 07/10/25 15:51 Insulin Aspart (*Bkc) 100 Units/Ml SUB-Q Not Given TIDWM [facility] Protocol Insulin Glargine 30 units 07/07/25 09:00 07/10/25 11:05 Insulin Glargine (*Bkc) 100 Units/Ml SUB-Q 30 units QAM SCARLETT Administration Lactulose 20 gm 07/07/25 11:50 07/10/25 11:04 Lactulose 20 Gm/30 Ml Udc PO 20 gm Q12HR SCARLETT Administration Ondansetron HCl 4 mg 07/04/25 20:27 Ondansetron Inj 4 Mg/2 Ml Vial IV PUSH Q4H PRN Nausea Rifaximin 550 mg 07/06/25 09:00 07/10/25 11:04 Rifaximin 550 Mg Tablet PO 550 mg Q12HR SCARLETT Administration Thiamine HCl 100 mg 07/05/25 09:00 07/10/25 11:04 Thiamine Hcl 200 Mg/2 Ml Vial IV PUSH 100 mg QAM SCARLETT Administration Radiology Results: ITS Impressions Chest X-Ray 07/04/25 16:48 Impression: Probable viral pneumonitis Head CT 07/04/25 17:47 Impression: 1.No acute intracranial abnormality. Chest/Abdomen/Pelvis CT 07/04/25 18:37 IMPRESSION: 1. Chronic changes in the lungs with small pleural effusions. 2. 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 Contrast-enhanced MRI recommended. 3. Incidental findings above Hand X-Ray 07/05/25 08:18 Impression: No acute fracture or malalignment. Venous Doppler Study 07/05/25 17:31 Impression: Negative for DVT. Abdomen Ultrasound 07/05/25 22:21 IMPRESSION: 1. Constellation of findings most consistent with a nodular cirrhotic liver with multiple nodular regions of increased echogenicity with corresponding decreased attenuation on CT suggesting dysplastic/regenerative nodules with hepatic steatosis and intervening hypoechoic fibrous septations. Differential for any given nodule would include hepatocellular carcinoma or metastatic disease if there is known history of prior malignancy. Could consider multiphase pre and postcontrast MRI for further evaluation as clinically indicated. 2. Bidirectional flow in the main portal vein and large recanalized umbilical vein with abdominal wall collaterals consistent with secondary portal venous hypertension. 3. Small amount perihepatic ascites. 4. Cholelithiasis. Renal Ultrasound 07/05/25 22:38 IMPRESSION: 1. Normal kidneys without hydronephrosis. 2. Small amount of ascites likely related to cirrhosis. 3. Review of prior CT images demonstrate a device situated between the cephalad margin of the left renal vein and the left adrenal gland which is not visualized on the provided images. Given the findings of cirrhosis with portal venous hypertension. This could represent occlusion/embolization device for treatment of splenorenal collaterals. Correlate with clinical history. Labs Labs: Laboratory Results - last 24 hr 07/05/25 07/07/25 07/07/25 05:40 09:54 11:17 WBC RBC Hgb Hct MCV MCH MCHC RDW Plt Count MPV % Immature Plt Fraction PT INR Sodium Potassium Chloride Carbon Dioxide Anion Gap BUN Creatinine Estim Creat Clear Calc Estimated GFR Glucose POC Capillary Glucose Calcium Phosphorus Magnesium Total Bilirubin AST ALT Alkaline Phosphatase Total Creatine Kinase Total Protein Albumin Vancomycin Trough Phosphatidylethanol Positive A Phosphatidylethanol Quant 151 VZV (PCR) Negative Miscellaneous Test Comment 07/09/25 07/09/25 07/09/25 16:11 20:10 20:31 WBC RBC Hgb Hct MCV MCH MCHC RDW Plt Count MPV % Immature Plt Fraction PT 22.5 H INR 2.0 Sodium Potassium Chloride Carbon Dioxide Anion Gap BUN Creatinine Estim Creat Clear Calc Estimated GFR Glucose POC Capillary Glucose 97 Calcium Phosphorus Magnesium Total Bilirubin AST ALT Alkaline Phosphatase Total Creatine Kinase Total Protein Albumin Vancomycin Trough 18.6 Phosphatidylethanol Phosphatidylethanol Quant VZV (PCR) Miscellaneous Test 07/10/25 07/10/25 07/10/25 04:23 07:44 11:13 WBC 17.1 H RBC 3.68 L Hgb 13.4 L Hct 37.9 L MCV 103.0 H MCH 36.4 H MCHC 35.4 RDW 14.8 H Plt Count 59 L MPV 12.4 H % Immature Plt Fraction 8.4 PT 23.4 H INR 2.1 Sodium 135 L Potassium 4.4 Chloride 110 H Carbon Dioxide 17 L Anion Gap 8 BUN 36 H Creatinine 1.24 Estim Creat Clear Calc 64 Estimated GFR > 60 Glucose 89 POC Capillary Glucose 103 92 Calcium 8.5 Phosphorus 3.7 Magnesium 2.3 Total Bilirubin 23.7 H AST 149 H ALT 86 H Alkaline Phosphatase 328 H Total Creatine Kinase 67 Total Protein 7.2 Albumin 2.2 L Vancomycin Trough Phosphatidylethanol Phosphatidylethanol Quant VZV (PCR) Miscellaneous Test 07/10/25 15:58 WBC RBC Hgb Hct MCV MCH MCHC RDW Plt Count MPV % Immature Plt Fraction PT INR Sodium Potassium Chloride Carbon Dioxide Anion Gap BUN Creatinine Estim Creat Clear Calc Estimated GFR Glucose POC Capillary Glucose 64 L Calcium Phosphorus Magnesium Total Bilirubin AST ALT Alkaline Phosphatase Total Creatine Kinase Total Protein Albumin Vancomycin Trough Phosphatidylethanol Phosphatidylethanol Quant VZV (PCR) Miscellaneous Test
[2025-07-10] MEDS: VANCOMYCIN 1,750 MG/NS 500 ML 1,750 MG/500 ML BAG 250 MG IVPB (18:20)
[2025-07-11] VITALS (13 sets, daily range): BP systolic 123–138; BP diastolic 67–87; PULSE 91–113; RESP 18–22; TEMP 34.7–36.9; O2SAT 96–100
[2025-07-11 05:11] LABS: INR 2.2; Prothrombin Time 23.9 Seconds (11.1-14.7)
[2025-07-11 05:40] LABS: Estimated CRCL calculation 49 ml/min; Estimated Glomerular Filt Rate 44
[2025-07-11] MEDS: ACYCLOVIR SODIUM IVPB ×3 (06:25→22:43)
[2025-07-11] MEDS: ceFAZolin 2 GM in SODIUM CHLORIDE 0.9% IV 50 ML 100 ML IVPB ×3 (06:25→21:34)
[2025-07-11] MEDS: DEXTROSE 5% IVPB ×3 (06:25→22:43)
[2025-07-11] MEDS: WATER IVPB ×3 (06:25→22:43)
[2025-07-11] MEDS: INSULIN ASPART (*BKC) 100 UNITS/ML 8 UNITS SUB-Q (09:09)
[2025-07-11] MEDS: THIAMINE HCL 200 MG/2 ML VIAL 100 MG IV PUSH (09:10)
[2025-07-11] MEDS: LACTULOSE 20 GM/30 ML UDC PO ×2 (09:10→20:24)
[2025-07-11] MEDS: FAMOTIDINE 20 MG/2 ML VIAL IV PUSH ×2 (09:10→20:24)
[2025-07-11] MEDS: INSULIN GLARGINE (*BKC) 100 UNITS/ML 30 UNITS SUB-Q (09:10)
[2025-07-11 09:24] LABS: Hematocrit 37.4 % (42.0-52.0); Hemoglobin 13.0 g/dL (14.0-18.0); Immature Granulocyte Percent A 1.7 % (0-0.5); Immature Platelet Fraction Pct 9.9 % (0.9-11.2); Lymphocytes Absolute Auto 0.72 K/mm3 (0.9-3.2); Mean Corpuscular HGB Conc 34.8 g/dl (32-36); Mean Corpuscular Hemoglobin 35.5 pg (26-34); Mean Corpuscular Volume 102.2 fl (80-100); Nucleated Red Blood Cells Absolute Auto 0.040 K/mm3 (0.0-0.012); Nucleated Red Blood Cells Perc 0.2 % (0.0-0.2); Platelet Count Result 65 k/mm3 (150-375); Red Blood Count 3.66 M/mm3 (4.6-6.20); White Blood Count 18.7 K/mm3 (4.5-10.0)
[2025-07-11 09:44] LABS: Anion Gap 8 mmol/L (4-12); Blood Urea Nitrogen 43 mg/dL (9-20); Carbon Dioxide 14 mmol/L (22-30); Chloride 109 mmol/L (98-107); Potassium 4.6 mmol/L (3.4-5.0); Sodium 131 mmol/L (137-145)
[2025-07-11 09:46] LABS: Glucose 54 mg/dL (65-110)
[2025-07-11 09:47] LABS: Aspartate Amino Transferase 155 U/L (17-59); Bilirubin,Total 22.7 mg/dL (0.2-1.3); Calcium 8.3 mg/dL (8.4-10.2); Magnesium 2.2 mg/dL (1.6-2.3)
[2025-07-11 09:48] LABS: Alanine Aminotransferase 66 U/L (6-50); Albumin Level 2.2 g/dL (3.5-5.1); Alkaline Phosphatase 299 U/L (38-126); Total Protein 7.2 g/dL (6.3-8.2)
[2025-07-11] MEDS: FOLIC ACID 1 MG/0.2 ML INJ IV PUSH (09:55)
[2025-07-11] MEDS: DEXTROSE 50% 25 GM/50 ML SYRINGE IV PUSH ×3 (09:55→18:13)
--- NOTE | 2025-07-11 10:29 | P.CONCA_ITS ---
Assessment and Plan Assessment and plan (1) Alcoholism: Code(s): F10.20 - Alcohol dependence, uncomplicated Status: Acute Assessment and Plan: With cirrhosis. (2) Encephalopathy: Code(s): G93.40 - Encephalopathy, unspecified Status: Acute Assessment and Plan: Bacteremic and concern for viral encephalitis (3) Bacteremia due to Staphylococcus: Code(s): R78.81 - Bacteremia; B95.8 - Unspecified staphylococcus as the cause of diseases classified elsewhere Status: Acute Assessment and Plan: Does have Staph bacteremia. Echocardiogram shows no evidence of endocarditis or even significant valvular regurgitation. Most recent blood cultures from the 07/08 are again positive. When more medically stable, ADALBERTO could be performed. He is currently awaiting transfer where other options could be performed to evaluate for endocarditis utilizing other advanced cardiac imaging. He does not have a significant murmur on exam and transthoracic echo is unremarkable. Continue IV antibiotics History of Present Illness History of Present Illness Consult date/time: 07/11/25 10:29 Requesting physician: Subha Santa MD Consult reason: Other (Bacteremia, eval for transesophageal echo) Reason For Visit: hhs, ams, sepsis, uti, liver lesion, elevated ammo Narrative: Date of service 07/11/2025 Reason for consultation: Bacteremia, evaluate for transesophageal echo Requesting provider: Dr. Santa History patient is a 55-year-old male who is admitted for altered mental status known past medical history of alcoholic cirrhosis of liver and alcohol abuse was brought to ER yesterday EMS after being called by his with altered mental status. History was provided by patient's significant other to the ER physician was not available at this time and it was reported the patient had been lying on floor for more than 24 hours and was confused. Patient was complaining of pain all over his body. Full history was not obtainable as patient was confused. Apparently his also has early-onset dementia. There was concern of monkey pox, HSV, varicella. Blood cultures have grown Staph aureus and question is whether not patient should have a ADALBERTO. He does have cirrhosis of liver due to alcoholism. He is currently confused but denies any chest pain Review of Systems 2 Constitutional: Constitutional: Denies chills Eyes: Eyes: Denies blurry vision ENT: Reports Normal hearing present Cardiovascular: Cardiovascular: Denies chest pain, Reports pedal edema and Reports leg edema Respiratory: Respiratory: Denies hemoptysis Gastrointestinal: Gastrointestinal: Denies hematochezia Genitourinary: Genitourinary: Denies hematuria Musculoskeletal: Musculoskeletal: Denies back pain Integumentary/Breasts: Skin/Breast: Reports erythema and Reports wounds Neurologic: Reports confusion Psychiatric: Psychiatric: Denies anxiety Endocrine: Endocrine: Denies excessive sweating Hematologic/Lymphatic: Hematologic/Lymphatic: Denies easy bleeding Allergic/Immunologic: Allergic/Immunologic: Denies GI upset with certain foods PMFSH Past Medical History Medical History (Updated 07/10/25 @ 16:27 by Macho Gamboa MD) Encephalopathy Bacteremia due to Staphylococcus History of depression Admitted for suicidal ideation in January 2013. Alcoholic cirrhosis of liver Heart murmur, systolic Echocardiogram from 01/09/2020 done at [facility] showed ejection fraction of 65 to 70%, mild concentric hypertrophy, no regional wall motion abnormalities, moderate pulmonary hypertension with RVSP of 52 millimeters of mercury, and mild aortic stenosis. Alcoholism Surgical History Surgical History History of colon resection Related to ruptured appendicitis. History of appendectomy Family History Family History Grandparent Diabetes mellitus Legally blind Pneumonia Mother Migraines Sibling Migraines Sibling Pre-diabetes Grandparent Diabetes mellitus Grandparent Diabetes mellitus Father Family history of alcoholism Sibling Family history of alcoholism Social History Social History Social History: The patient is and shares a home in [place] with his and 2 dogs, a Yorkie and a min-pin. 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 He also helps care for his , who has early-onset dementia. He smoked between 2 and 3 packs of cigarettes a day for 30 years and he reportedly quit in October 2016. He has a history of alcoholism. He denies drug use. Designates his , Ken Orosco, as his surrogate decision maker and he wishes to be a full code. Smoking packs per day: 2 Smoking cigarettes per day: 40.0 Years smoked: 30 Smoking pack-years: 60.00 Smoking status: Former smoker Tobacco type: cigarettes and e-cigarettes/vaping Second hand tobacco smoke exposure: No Smoking end date: 10/31/16 Alcohol intake: former Substance use: former Substance use type: does not use Lack of Transportation: No Lack of Food: Never True Current Housing: I Have Housing Concerned About Future Housing: No Difficulty Paying Gas/Electric Bills: No Difficulty Paying for Meds: No Currently Unemployed: No Education: Trade/Vocational Certificate Difficulty w/ Childcare or Family Care: No Living arrangements: with family Additional occupation/education comments: [employer] Gender identity (if verbalized by the patient): Male Spiritual care concerns: No Agree to blood products: Yes Meds Home Medications and Allergies Home Medications ?Medication ?Instructions ?Recorded ?Confirmed ?Type No Home Medications 07/04/25 07/04/25 H istory Allergies Allergy/AdvReac Type Severity Reaction Status Date / Time No Known Allergies Allergy Unknown Verified 07/04/25 22:59 Vital Signs Vital Signs - 24 hr 07/10/25 11:52 07/10/25 12:00 07/10/25 12:00 Temperature 36.4 C L Pulse Rate 108 H 110 H 111 H Pulse Rate [Apical Monitor] Respiratory Rate 20 16 Blood Pressure 143/70 H Pulse Oximetry 98 98 Oxygen Delivery Room Air Fraction of Inspired Oxygen 07/10/25 12:00 07/10/25 14:00 07/10/25 16:00 Temperature 36.8 C Pulse Rate 110 H 110 H Pulse Rate [Apical Monitor] 111 H Respiratory Rate 18 Blood Pressure 143/70 H 120/66 Pulse Oximetry 98 Oxygen Delivery Fraction of Inspired Oxygen 07/10/25 16:00 07/10/25 16:00 07/10/25 16:00 Temperature Pulse Rate 110 H 110 H Pulse Rate [Apical Monitor] 111 H Respiratory Rate 18 Blood Pressure 120/66 Pulse Oximetry 98 Oxygen Delivery Room Air Fraction of Inspired Oxygen 32 07/10/25 18:00 07/10/25 20:00 07/10/25 20:00 Temperature 36.6 C Pulse Rate 113 H 102 H Pulse Rate [Apical Monitor] Respiratory Rate 20 Blood Pressure 133/71 Pulse Oximetry 100 Oxygen Delivery Room Air Fraction of Inspired Oxygen 07/10/25 20:00 07/10/25 22:00 07/11/25 00:00 Temperature 36.4 C Pulse Rate 105 H 99 111 H Pulse Rate [Apical Monitor] Respiratory Rate 20 Blood Pressure 130/68 Pulse Oximetry 97 Oxygen Delivery Fraction of Inspired Oxygen 07/11/25 00:00 07/11/25 00:00 07/11/25 02:00 Temperature Pulse Rate 111 H 113 H Pulse Rate [Apical Monitor] Respiratory Rate Blood Pressure Pulse Oximetry Oxygen Delivery Room Air Fraction of Inspired Oxygen 07/11/25 04:00 07/11/25 04:00 07/11/25 04:00 Temperature 36.8 C Pulse Rate 100 98 Pulse Rate [Apical Monitor] Respiratory Rate 20 Blood Pressure 123/67 Pulse Oximetry 100 Oxygen Delivery Room Air Fraction of Inspired Oxygen 07/11/25 06:00 07/11/25 07:42 Temperature 36.8 C Pulse Rate 91 105 H Pulse Rate [Apical Monitor] Respiratory Rate 22 H Blood Pressure 138/87 Pulse Oximetry 97 Oxygen Delivery Fraction of Inspired Oxygen Exam 2 Narrative: Patient appears stated age. Confused Const: General: comfortable and no acute distress HENMT: Face/Nose/Sinus: Normal nares present Mouth: Yes moist mucous membranes Eyes: Sclera: sclerae normal Neck: Neck: supple and no JVD Chest: Other: No reproducible chest wall pain to palpation Resp: Auscultation: diminished lung sounds Cardio: Rate: regular rate Rhythm: regular rhythm Heart sounds: no murmurs GI: Inspection: distended GI Palp: Yes Soft to palpation Skin: Lesions: lesion noted Other: Small pustular lesions noted Neuro: Speech: No normal speech Sensory Exam: normal sensation Extrem: General: edema Other: 2 to 3+ bilateral lower extremity edema Psych: Mental Status: mental status grossly abnormal Results Labs and Meds 07/11/25 04:31 07/11/25 04:35 Lab results: Cardiac Enzymes 07/11/25 Range/Units 04:35 AST 155 H (17-59) U/L Coagulation 07/11/25 Range/Units 04:35 PT 23.9 H (11.1-14.7) Seconds CBC 07/11/25 Range/Units 04:31 WBC 18.7 H (4.5-10.0) K/mm3 RBC 3.66 L (4.6-6.20) M/mm3 Hgb 13.0 L (14.0-18.0) g/dL Hct 37.4 L (42.0-52.0) % Plt Count 65 L (150-375) k/mm3 Lymph # (Auto) 0.72 L (0.9-3.2) K/mm3 [place] # (Auto) 1.0 H (0.1-0.6) K/mm3 Eos # (Auto) 0.1 (0-0.3) K/mm3 Baso # (Auto) 0.1 (0.0-0.1) K/mm3 Comprehensive Metabolic Panel 07/11/25 Range/Units 04:35 Sodium 131 L (137-145) mmol/L Potassium 4.6 (3.4-5.0) mmol/L Chloride 109 H (98-107) mmol/L Carbon Dioxide 14 L (22-30) mmol/L BUN 43 H (9-20) mg/dL Creatinine 1.64 H (0.7-1.3) mg/dL Glucose 54 L* (65-110) mg/dL Calcium 8.3 L (8.4-10.2) mg/dL AST 155 H (17-59) U/L ALT 66 H (6-50) U/L Alkaline Phosphatase 299 H (38-126) U/L Total Protein 7.2 (6.3-8.2) g/dL Albumin 2.2 L (3.5-5.1) g/dL Intake and Output 07/10/25 07/11/25 07/11/25 23:59 07:59 15:59 Intake Total 2236.2 550 200 Output Total 400 Balance 2236.2 150 200 Intake: IV 1136.2 50 Acyclovir Sodium Ivpb 905 mg In 536.2 Dextrose 5% in Water 250 ml @ 250 mls/hr IVPB Q8H SCARLETT Rx#: [id number] Vancomycin 1,750 mg/Ns 500 ml 1 500 ,750 mg In 500 ml @ 250 mls/hr IVPB Q18H SCARLETT Rx#:[id number] ceFAZolin 2 gm In Sodium 100 50 Chloride 0.9% IV 50 ml @ 100 mls/hr IVPB Q8H SCARLETT Rx#: [id number] Oral 860 500 200 Oral Supplement 240 Output: Urine 400 Other: # Incontinent Voids 2 # Urine Diapers 1 Number of Bowel Movements Today 1 Patient Weight 07/11/25 23:59 Weight 95.6 kg EKG personally reviewed and independently interpreted showing normal sinus rhythm ECHO: 2. Left ventricular chamber dimension is normal. 3. Left ventricular systolic function is normal, estimated at 65-70. 4. The left ventricular diastolic function is grade I diastolic dysfunction. 5. E/e' 6 is not elevated. 6. Left atrial chamber dimension is mildly enlarged. 7. There is moderate aortic valve sclerosis. 8. There is trace tricuspid valve regurgitation. 9. Mild pulmonary hypertension, estimated pulmonary arterial systolic pressure is 40 mmHg.
--- NOTE | 2025-07-11 17:17 | P.PNIM_ITS ---
Progress Note: A&P Assessment and Plan (1) Hyperosmolar hyperglycemic state (HHS): Code(s): E11.00 - Type 2 diabetes mellitus with hyperosmolarity without nonketotic hyperglycemic-hyperosmolar coma (NKHHC) Status: Acute Assessment and Plan: Presented with finding consistent with HHS as patient had high blood glucose but normal anion gap Patient was started on insulin infusion and IV fluid Blood sugars have improved Transition to subcutaneous insulin but continue IV fluids On diagnosed diabetes mellitus with HbA1c 11.3 Start liquid diet and advance as tolerated (2) AMS (altered mental status): Qualifiers: Altered mental status type: unspecified Qualified Code(s): R41.82 - Altered mental status, unspecified Code(s): R41.82 - Altered mental status, unspecified Status: Acute Assessment and Plan: Patient likely has multifactorial encephalopathy with HHS, sepsis, uremia and very mildly elevated ammonia level, hyponatremia Head CT was negative Avoid sedative Treatment of individual problems as below (3) Alcoholism: Code(s): F10.20 - Alcohol dependence, uncomplicated Status: Acute Assessment and Plan: History of alcohol abuse Thiamine folic acid Monitor for signs of withdrawal (4) Thrombocytopenia: Code(s): D69.6 - Thrombocytopenia, unspecified Status: Chronic Assessment and Plan: Chronic thrombocytopenia likely secondary to cirrhosis and alcohol abuse which is now exacerbated by sepsis Monitor platelet counts. Transfuse if needed Hold anticoagulation (5) Hyponatremia: Code(s): E87.1 - Hypo-osmolality and hyponatremia Status: Acute Assessment and Plan: Partially pseudohyponatremia secondary to HHS and secondary to cirrhosis Getting IV fluids for dehydration and acute kidney injury Monitor sodium level Nephrology consultation (6) Hyperbilirubinemia: Code(s): E80.6 - Other disorders of bilirubin metabolism Status: Chronic Assessment and Plan: Secondary to cirrhosis Right upper quadrant ultrasound with findings consistent with nodular cirrhotic liver with multiple nodular regions of increased echogenicity with corresponding decreased attenuation on CT suggestive of dysplastic/knees regenerative nodules with hepatic steatosis and intervening hypoechoic fibrosis septations. Differential for any given nodule would include hepatocellular carcinoma or metastatic disease. Bidirectional flow in the main portal vein and large recanalized umbilical vein with a abdominal wall collaterals consistent with secondary portal venous hypertension. Small amount of perihepatic ascites. Also noted cholelithiasis Liver biopsy pending INR improvement Will give 2 units of FFP (7) Alcoholic cirrhosis of liver: Qualifiers: Ascites presence: without ascites Qualified Code(s): K70.30 - Alcoholic cirrhosis of liver without ascites Code(s): K70.30 - Alcoholic cirrhosis of liver without ascites Status: Acute Assessment and Plan: Lactulose for elevated ammonia Vitamin K for elevated INR Right upper quadrant ultrasound as noted above (8) Acute renal failure: Code(s): N17.9 - Acute kidney failure, unspecified Status: Acute Assessment and Plan: Presented with acute kidney injury Patient has mild rhabdomyolysis and likely dehydrated and hypovolemic Getting IV fluids Monitor urine output electrolytes and creatinine Monitor CK level Consult nephrology Renal ultrasound with no hydronephrosis (9) Acute UTI: Code(s): N39.0 - Urinary tract infection, site not specified Status: Acute Assessment and Plan: Urine culture, cefepime (10) Sepsis: Qualifiers: Sepsis acute organ dysfunction status: unspecified Sepsis type: sepsis due to unspecified organism Qualified Code(s): A41.9 - Sepsis, unspecified o rganism Code(s): A41.9 - Sepsis, unspecified organism Status: Acute Assessment and Plan: Sepsis secondary to UTI and pustular skin infection Continue vanc and cefepime Blood and urine cultures (11) Pustular rash: Code(s): L08.0 - Pyoderma Status: Acute Assessment and Plan: Etiology unknown. Treatment with vancomycin and cultures pending HIV screen negative ? Viral infection Blood culture came back positive for Gram-positive cocci Continue vancomycin RPR negative (12) Rhabdomyolysis: Code(s): M62.82 - Rhabdomyolysis Status: Acute Assessment and Plan: Mild rhabdomyolysis from laying on the floor IV fluid Monitor CK level (13) Liver mass: Code(s): R16.0 - Hepatomegaly, not elsewhere classified Status: Acute Assessment and Plan: CT scan shows multiple per liver lesions. Right upper quadrant ultrasound ordered by portal vein is patent. Patient waiting for transfer to tertiary facility for further evaluation. AFP less than 1.8 Hepatitis panel negative (14) Abnormal CT scan, kidney: Code(s): R93.429 - Abnormal radiologic findings on diagnostic imaging of unspecified kidney Status: Acute Assessment and Plan: CT scan read as device within left renal vein. Ultrasound ordered nephrology consult or Plan patient with disseminated rash and bacteremia blood culture is growing gram- positive cocci seen by ID, the lesions are suggestive of M pox but there is no definite diagnosis, however work is going on and patient is being treated empirically with acyclovir, Ancef, rifaximin and vancomycin, will follow up on viral and blood culture and furthe recommendation to follow. patient remained confused and unable to provider any ROS, or history, concerning hepatitis encephalopathy patient is being treated with acyclovir pending viral culture, first of blood culture is growing MSSA and being treated with Ancef and vancomycin, second repeat blood is also growing staphylococcus aureus suspect most likely MSSA, patient may need ADALBERTO to r/o endocariditis, patient was seen by the cardiology service, patient had TTE echo did not show any significant pathology and patient is waiting for transfer to [facility], where patient can be evaluted with advance imaging techinque, patient will be seen by ID and further recommendation to follow, patient weakness and back pain to further evaluate MRI of L/S spine is ordered, is pending as patient unable to leave his room until all the cultures are back. discuss with nursing staff, patient oral intake is poor we encouraging, will add protein shake and consult a supervisor travel trailer. Elevated troponin with flat trend next DVT prophylaxis -SCD Stress ulcer prophylaxis -protonix Nutrition -start clear liquid diet and advance as tolerated Code Status - DNR/ DNI Patient is waiting for a bed at [facility] under hospitalist Dr. Hu. Subjective Date/time seen: 07/11/25 17:17 Interval history: patient with disseminated rash and bacteremia blood culture is growing gram- positive cocci seen by ID, the lesions are suggestive of M pox but there is no definite diagnosis, however work is going on and patient is being treated empirically with acyclovir, Ancef, rifaximin and vancomycin, will follow up on viral and blood culture and furthe recommendation to follow. patient remained confused and unable to provider any ROS, or history, concerning hepatitis encephalopathy patient is being treated with acyclovir pending viral culture, first of blood culture is growing MSSA and being treated with Ancef and vancomycin, second repeat blood is also growing staphylococcus aureus suspect most likely MSSA, patient may need ADALBERTO to r/o endocariditis, patient was seen by the cardiology service, patient had TTE echo did not show any significant pathology and patient is waiting for transfer to [facility], where patient can be evaluted with advance imaging techinque, patient will be seen by ID and further recommendation to follow, patient weakness and back pain to further evaluate MRI of L/S spine is ordered, is pending as patient unable to leave his room until all the cultures are back. discuss with nursing staff, patient oral intake is poor we encouraging, will add protein shake and consult a supervisor travel trailer. Review of Systems Review of Systems: ROS unobtainable: Yes unobtainable due to mental status Exam Narrative: General: Pt is awake in no distress but confused Lungs/Chest: Trachea central Clear BS B/L, No crackles or wheezing. Cardiac: RRR. Normal S1 S2. No murmurs Circulation: Pedal pulses are intact and symmetrical. Abdomen: Normal bowel sounds.. Soft. NT. ND. Extremities: Redness in right hand and arm : Clements in place Neurologic: Follows commands. Moves all 4 extremities PERRL AO x 1, mumbles with speech often incomprehensible Skin: Several small pustules all over his body including legs and arms, spider nevi on the chest, macerations in the groin, sodium take dry eczematous skin on the arms HEENT: Oral mucosa is dry Objective Data Vital Signs Vital Signs: Vital Signs - 24 hr 07/10/25 18:00 07/10/25 20:00 07/10/25 20:00 Temperature 36.6 C Pulse Rate 113 H 102 H Respiratory Rate 20 Blood Pressure 133/71 Pulse Oximetry 100 Oxygen Delivery Room Air 07/10/25 20:00 07/10/25 22:00 07/11/25 00:00 Temperature 36.4 C Pulse Rate 105 H 99 111 H Respiratory Rate 20 Blood Pressure 130/68 Pulse Oximetry 97 Oxygen Delivery 07/11/25 00:00 07/11/25 00:00 07/11/25 02:00 Temperature Pulse Rate 111 H 113 H Respiratory Rate Blood Pressure Pulse Oximetry Oxygen Delivery Room Air 07/11/25 04:00 07/11/25 04:00 07/11/25 04:00 Temperature 36.8 C Pulse Rate 100 98 Respiratory Rate 20 Blood Pressure 123/67 Pulse Oximetry 100 Oxygen Delivery Room Air 07/11/25 06:00 07/11/25 07:42 07/11/25 08:00 Temperature 36.8 C Pulse Rate 91 105 H Respiratory Rate 22 H Blood Pressure 138/87 Pulse Oximetry 97 Oxygen Delivery Room Air 07/11/25 08:00 07/11/25 10:00 07/11/25 12:00 Temperature 36.4 C Pulse Rate 103 H 106 H 109 H Respiratory Rate 18 Blood Pressure 123/73 Pulse Oximetry 100 Oxygen Delivery 07/11/25 12:00 07/11/25 12:00 07/11/25 14:00 Temperature Pulse Rate 105 H 105 H Respiratory Rate Blood Pressure Pulse Oximetry Oxygen Delivery Room Air 07/11/25 16:00 Temperature 36.9 C Pulse Rate 109 H Respiratory Rate 22 H Blood Pressure 129/73 Pulse Oximetry 96 Oxygen Delivery Intake/Output Intake/Output: Intake & Output 07/08/25 07/09/25 07/10/25 07/11/25 23:59 23:59 23:59 23:59 Intake Total 4036.2 7514.3 4494.3 1018.1 Output Total 2250 850 600 Balance 1786.2 6664.3 4494.3 418.1 Meds/Results Medications: Active Medications Generic Name Dose Route Start Last Admin Trade Name Freq PRN Reason Stop Dose Admin Acetaminophen 650 mg 07/04/25 20:27 Acetaminophen 325 Mg Tablet PO Q4H PRN Mild Pain (1-3) or Fever Dextrose 12.5 gm 07/04/25 22:26 07/11/25 14:15 Dextrose 50% 25 Gm/50 Ml Syringe IV PUSH 12.5 gm PRN PRN Administration Hypoglycemia Protocol Famotidine 20 mg 07/05/25 09:00 07/11/25 09:10 Famotidine 20 Mg/2 Ml Vial IV PUSH 20 mg Q12HR SCARLETT Administration Folic Acid 1 mg 07/05/25 09:00 07/11/25 09:55 Folic Acid 1 Mg/0.2 Ml Inj IV PUSH 1 mg QAM SCARLETT Administration Glucagon 1 mg 07/04/25 22:26 Glucagon For Inj 1 Mg Vial IM PRN PRN Hypoglycemia Protocol Glucose 15 gm 07/04/25 22:26 Glucose Oral Gel 15 Gm Of Glucse In 37.5 Gm Tube PO PRN PRN Hypoglycemia Protocol Dextrose 1,000 mls @ 100 mls/hr 07/04/25 22:26 Dextrose 5% 1,000 Ml IVPB PRN PRN Hypoglycemia Protocol Acyclovir Sodium 905 mg/ 268.1 mls @ 250 mls/hr 07/08/25 22:00 07/11/25 14:14 Dextrose IVPB 10/13/25 23:59 250 mls/hr Q8H SCARLETT Administration Cefazolin Sodium 2 gm/ Sodium 50 mls @ 100 mls/hr 07/09/25 14:00 07/11/25 14:15 Chloride IVPB 100 mls/hr Q8H SCARLETT Administration Vancomycin HCl 1,500 mg in 500 mls @ 250 mls/hr 07/12/25 06:00 Vancomycin 1,500 Mg/Ns 500 Ml IVPB Q24H SCARLETT Insulin Aspart 8 units 07/06/25 17:00 07/11/25 12:38 Insulin Aspart (*Bkc) 100 Units/Ml 0.083 units/kg (8 units) Not Given On Hold: 07/11/25 12:03 SUB-Q TIDWM [facility] Insulin Aspart 2 - 5 units 07/06/25 17:00 07/11/25 14:05 Insulin Aspart (*Bkc) 100 Units/Ml SUB-Q Not Given TIDWM [facility] Protocol Insulin Glargine 30 units 07/07/25 09:00 07/11/25 09:10 Insulin Glargine (*Bkc) 100 Units/Ml SUB-Q 30 units On Hold: 07/11/25 12:05 QAM SCARLETT Administration Lactulose 20 gm 07/07/25 11:50 07/11/25 09:10 Lactulose 20 Gm/30 Ml Udc PO 20 gm Q12HR SCARLETT Administration Ondansetron HCl 4 mg 07/04/25 20:27 Ondansetron Inj 4 Mg/2 Ml Vial IV PUSH Q4H PRN Nausea Rifaximin 550 mg 07/06/25 09:00 07/11/25 09:10 Rifaximin 550 Mg Tablet PO 550 mg Q12HR SCARLETT Administration Thiamine HCl 100 mg 07/05/25 09:00 07/11/25 09:10 Thiamine Hcl 200 Mg/2 Ml Vial IV PUSH 100 mg QAM SCARLETT Administration Radiology Results: ITS Impressions Chest X-Ray 07/04/25 16:48 Impression: Probable viral pneumonitis Head CT 07/04/25 17:47 Impression: 1.No acute intracranial abnormality. Chest/Abdomen/Pelvis CT 07/04/25 18:37 IMPRESSION: 1. Chronic changes in the lungs with small pleural effusions. 2. 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 Contrast-enhanced MRI recommended. 3. Incidental findings above Hand X-Ray 07/05/25 08:18 Impression: No acute fracture or malalignment. Venous Doppler Study 07/05/25 17:31 Impression: Negative for DVT. Abdomen Ultrasound 07/05/25 22:21 IMPRESSION: 1. Constellation of findings most consistent with a nodular cirrhotic liver with multiple nodular regions of increased echogenicity with corresponding decreased attenuation on CT suggesting dysplastic/regenerative nodules with hepatic steatosis and intervening hypoechoic fibrous septations. Differential for any given nodule would include hepatocellular carcinoma or metastatic disease if there is known history of prior malignancy. Could consider multiphase pre and postcontrast MRI for further evaluation as clinically indicated. 2. Bidirectional flow in the main portal vein and large recanalized umbilical vein with abdominal wall collaterals consistent with secondary portal venous hypertension. 3. Small amount perihepatic ascites. 4. Cholelithiasis. Renal Ultrasound 07/05/25 22:38 IMPRESSION: 1. Normal kidneys without hydronephrosis. 2. Small amount of ascites likely related to cirrhosis. 3. Review of prior CT images demonstrate a device situated between the cephalad margin of the left renal vein and the left adrenal gland which is not visualized on the provided images. Given the findings of cirrhosis with portal venous hypertension. This could represent occlusion/embolization device for treatment of splenorenal collaterals. Correlate with clinical history. Labs Labs: Laboratory Results - last 24 hr 07/10/25 07/11/25 07/11/25 20:38 04:31 04:35 WBC 18.7 H RBC 3.66 L Hgb 13.0 L Hct 37.4 L MCV 102.2 H MCH 35.5 H MCHC 34.8 RDW 15.0 H Plt Count 65 L MPV 12.9 H Immature Gran % (Auto) 1.7 H Neut % (Auto) 88.3 H Lymph % (Auto) 3.8 L [place] % (Auto) 5.3 Eos % (Auto) 0.3 Baso % (Auto) 0.6 Lymph # (Auto) 0.72 L [place] # (Auto) 1.0 H Eos # (Auto) 0.1 Baso # (Auto) 0.1 Abs Immat Gran (auto) 0.32 H Absolute Neuts (auto) 16.5 H Absolute Nucleated RBC 0.040 H Nucleated RBC % 0.2 % Immature Plt Fraction 9.9 PT 23.9 H INR 2.2 Sodium 131 L Potassium 4.6 Chloride 109 H Carbon Dioxide 14 L Anion Gap 8 BUN 43 H Creatinine 1.64 H Estim Creat Clear Calc 49 Estimated GFR 44 L Glucose 54 L* POC Capillary Glucose 76 Calcium 8.3 L Magnesium 2.2 Total Bilirubin 22.7 H AST 155 H ALT 66 H Alkaline Phosphatase 299 H Total Protein 7.2 Albumin 2.2 L Vancomycin Trough 07/11/25 07/11/25 07/11/25 07:46 10:09 12:50 WBC RBC Hgb Hct MCV MCH MCHC RDW Plt Count MPV Immature Gran % (Auto) Neut % (Auto) Lymph % (Auto) [place] % (Auto) Eos % (Auto) Baso % (Auto) Lymph # (Auto) [place] # (Auto) Eos # (Auto) Baso # (Auto) Abs Immat Gran (auto) Absolute Neuts (auto) Absolute Nucleated RBC Nucleated RBC % % Immature Plt Fraction PT INR Sodium Potassium Chloride Carbon Dioxide Anion Gap BUN Creatinine Estim Creat Clear Calc Estimated GFR Glucose POC Capillary Glucose 82 74 Calcium Magnesium Total Bilirubin AST ALT Alkaline Phosphatase Total Protein Albumin Vancomycin Trough 28.2 H
[2025-07-12] VITALS (24 sets, daily range): BP systolic 83–118; BP diastolic 41–58; PULSE 91–105; RESP 20–34; TEMP 35.1–36.7; O2SAT 94–98; BMI 30.7
[2025-07-12] MEDS: DEXTROSE 5%/LACTATED RINGERS 1,000 ML 50 ML IV CONT (02:28)
[2025-07-12 04:51] LABS: Hematocrit 33.6 % (42.0-52.0); Hemoglobin 11.9 g/dL (14.0-18.0); Immature Granulocyte Percent A 1.5 % (0-0.5); Immature Platelet Fraction Pct 7.8 % (0.9-11.2); Lymphocytes Absolute Auto 0.73 K/mm3 (0.9-3.2); Mean Corpuscular HGB Conc 35.4 g/dl (32-36); Mean Corpuscular Hemoglobin 35.5 pg (26-34); Mean Corpuscular Volume 100.3 fl (80-100); Nucleated Red Blood Cells Absolute Auto 0.080 K/mm3 (0.0-0.012); Nucleated Red Blood Cells Perc 0.5 % (0.0-0.2); Platelet Count Result 64 k/mm3 (150-375); Red Blood Count 3.35 M/mm3 (4.6-6.20); White Blood Count 16.8 K/mm3 (4.5-10.0)
[2025-07-12 05:07] LABS: INR 2.4; Prothrombin Time 26.1 Seconds (11.1-14.7)
[2025-07-12] MEDS: ceFAZolin 2 GM in SODIUM CHLORIDE 0.9% IV 50 ML 100 ML IVPB ×3 (05:10→21:18)
[2025-07-12] MEDS: WATER IVPB (05:13)
[2025-07-12] MEDS: ACYCLOVIR SODIUM IVPB (05:13)
[2025-07-12] MEDS: DEXTROSE 5% IVPB (05:13)
[2025-07-12 05:14] LABS: Alanine Aminotransferase 40 U/L (6-50); Albumin Level 1.9 g/dL (3.5-5.1); Alkaline Phosphatase 301 U/L (38-126); Anion Gap 8 mmol/L (4-12); Aspartate Amino Transferase 146 U/L (17-59); Bilirubin,Total 23.1 mg/dL (0.2-1.3); Blood Urea Nitrogen 54 mg/dL (9-20); Calcium 7.7 mg/dL (8.4-10.2); Carbon Dioxide 14 mmol/L (22-30); Chloride 107 mmol/L (98-107); Estimated CRCL calculation 35 ml/min; Estimated Glomerular Filt Rate 29; Glucose 67 mg/dL (65-110); Magnesium 2.3 mg/dL (1.6-2.3); Potassium 4.6 mmol/L (3.4-5.0); Sodium 129 mmol/L (137-145); Total Protein 6.5 g/dL (6.3-8.2)
[2025-07-12] MEDS: VANCOMYCIN 1,500 MG/NS 500 ML 1,500 MG/500 ML BAG 250 MG IVPB (06:34)
[2025-07-12] MEDS: FAMOTIDINE 20 MG/2 ML VIAL IV PUSH ×2 (09:01→21:23)
[2025-07-12] MEDS: LACTULOSE 20 GM/30 ML UDC PO ×2 (09:01→21:25)
[2025-07-12] MEDS: FOLIC ACID 1 MG/0.2 ML INJ IV PUSH (09:01)
[2025-07-12] MEDS: THIAMINE HCL 200 MG/2 ML VIAL 100 MG IV PUSH (09:01)
--- NOTE | 2025-07-12 12:17 | PC.NURSE ---
pt pulled hollis out with balloon inflated. Penis is bloody and clots are noted. balloon intact.
--- NOTE | 2025-07-12 13:02 | PC.NURSE ---
Pt coccyx assessed by this RN and noted a large open area with yellow slough present. I was told in report that coccyx friction/ shearing noted but area was not open. Now seeing area open silk worker consulted to come take a look. meat pumper states that this is still friction/ shear due to middle of open area being blanchable. meat pumper recommends antifungal cream applied to coccux area.
[2025-07-12] MEDS: DEXTROSE 5%/LACTATED RINGERS 1,000 ML 125 ML IV CONT (17:22)
--- NOTE | 2025-07-12 18:43 | PM.IMPN ---
Progress Note: A&P Assessment and Plan (1) Hyperosmolar hyperglycemic state (HHS): Code(s): E11.00 - Type 2 diabetes mellitus with hyperosmolarity without nonketotic hyperglycemic-hyperosmolar coma (NKHHC) Status: Acute Assessment and Plan: Presented with finding consistent with HHS as patient had high blood glucose but normal anion gap Patient was started on insulin infusion and IV fluid Blood sugars have improved Transition to subcutaneous insulin but continue IV fluids On diagnosed diabetes mellitus with HbA1c 11.3 Start liquid diet and advance as tolerated (2) AMS (altered mental status): Qualifiers: Altered mental status type: unspecified Qualified Code(s): R41.82 - Altered mental status, unspecified Code(s): R41.82 - Altered mental status, unspecified Status: Acute Assessment and Plan: Patient likely has multifactorial encephalopathy with HHS, sepsis, uremia and very mildly elevated ammonia level, hyponatremia Head CT was negative Avoid sedative Treatment of individual problems as below (3) Alcoholism: Code(s): F10.20 - Alcohol dependence, uncomplicated Status: Acute Assessment and Plan: History of alcohol abuse Thiamine folic acid Monitor for signs of withdrawal (4) Thrombocytopenia: Code(s): D69.6 - Thrombocytopenia, unspecified Status: Chronic Assessment and Plan: Chronic thrombocytopenia likely secondary to cirrhosis and alcohol abuse which is now exacerbated by sepsis Monitor platelet counts. Transfuse if needed Hold anticoagulation (5) Hyponatremia: Code(s): E87.1 - Hypo-osmolality and hyponatremia Status: Acute Assessment and Plan: Partially pseudohyponatremia secondary to HHS and secondary to cirrhosis Getting IV fluids for dehydration and acute kidney injury Monitor sodium level Nephrology consultation (6) Hyperbilirubinemia: Code(s): E80.6 - Other disorders of bilirubin metabolism Status: Chronic Assessment and Plan: Secondary to cirrhosis Right upper quadrant ultrasound with findings consistent with nodular cirrhotic liver with multiple nodular regions of increased echogenicity with corresponding decreased attenuation on CT suggestive of dysplastic/knees regenerative nodules with hepatic steatosis and intervening hypoechoic fibrosis septations. Differential for any given nodule would include hepatocellular carcinoma or metastatic disease. Bidirectional flow in the main portal vein and large recanalized umbilical vein with a abdominal wall collaterals consistent with secondary portal venous hypertension. Small amount of perihepatic ascites. Also noted cholelithiasis Liver biopsy pending INR improvement Will give 2 units of FFP (7) Alcoholic cirrhosis of liver: Qualifiers: Ascites presence: without ascites Qualified Code(s): K70.30 - Alcoholic cirrhosis of liver without ascites Code(s): K70.30 - Alcoholic cirrhosis of liver without ascites Status: Acute Assessment and Plan: Lactulose for elevated ammonia Vitamin K for elevated INR Right upper quadrant ultrasound as noted above (8) Acute renal failure: Code(s): N17.9 - Acute kidney failure, unspecified Status: Acute Assessment and Plan: Presented with acute kidney injury Patient has mild rhabdomyolysis and likely dehydrated and hypovolemic Getting IV fluids Monitor urine output electrolytes and creatinine Monitor CK level Consult nephrology Renal ultrasound with no hydronephrosis (9) Acute UTI: Code(s): N39.0 - Urinary tract infection, site not specified Status: Acute Assessment and Plan: Urine culture, cefepime (10) Sepsis: Qualifiers: Sepsis acute organ dysfunction status: unspecified Sepsis type: sepsis due to unspecified organism Qualified Code(s): A41.9 - Sepsis, unspecified organism Code(s): A41.9 - Sepsis, unspecified organism Status: Acute Assessment and Plan: Sepsis secondary to UTI and pustular skin infection Continue vanc and cefepime Blood and urine cultures (11) Pustular rash: Code(s): L08.0 - Pyoderma Status: Acute Assessment and Plan: Etiology unknown. Treatment with vancomycin and cultures pending HIV screen negative ? Viral infection Blood culture came back positive for Gram-positive cocci Continue vancomycin RPR negative (12) Rhabdomyolysis: Code(s): M62.82 - Rhabdomyolysis Status: Acute Assessment and Plan: Mild rhabdomyolysis from laying on the floor IV fluid Monitor CK level (13) Liver mass: Code(s): R16.0 - Hepatomegaly, not elsewhere classified Status: Acute Assessment and Plan: CT scan shows multiple per liver lesions. Right upper quadrant ultrasound ordered by portal vein is patent. Patient waiting for transfer to tertiary facility for further evaluation. AFP less than 1.8 Hepatitis panel negative (14) Abnormal CT scan, kidney: Code(s): R93.429 - Abnormal radiologic findings on diagnostic imaging of unspecified kidney Status: Acute Assessment and Plan: CT scan read as device within left renal vein. Ultrasound ordered nephrology consult or Plan patient with disseminated rash and bacteremia blood culture is growing gram-positive cocci seen by ID, the lesions are suggestive of M pox but there is no definite diagnosis, however work is going on and patient is being treated empirically with acyclovir, Ancef, rifaximin and vancomycin, will follow up on viral and blood culture and furthe recommendation to follow. patient remained confused and unable to provider any ROS, or history, concerning hepatitis encephalopathy patient is being treated with acyclovir pending viral culture, first of blood culture is growing MSSA and being treated with Ancef and vancomycin, second repeat blood is also growing staphylococcus aureus suspect most likely MSSA, patient may need ADALBERTO to r/o endocarditis, patient was seen by the cardiology service, and discussed patient had TTE echo did not show any significant pathology and patient is waiting for transfer to [facility], where patient can be evaluated with advance imaging technique, patient will be seen by ID and further recommendation to follow, patient weakness and back pain to further evaluate MRI of L/S spine is ordered, is pending as patient unable to leave his room until all the cultures are back. will increase patient fluid intake as po intake is very poor, will consult plasma cutting machine operator, patient is seen by ID further recommendation to follow, discuss with nursing staff, patient oral intake is poor we encouraging, will add protein shake and consult a plasma cutting machine operator. Elevated troponin with flat trend next DVT prophylaxis -SCD Stress ulcer prophylaxis -protonix Nutrition -start clear liquid diet and advance as tolerated Code Status - DNR/ DNI Patient is waiting for a bed at [facility] under hospitalist Dr. Hu. Subjective Date/time seen: 07/12/25 18:43 Interval history: patient with disseminated rash and bacteremia blood culture is growing gram-positive cocci seen by ID, the lesions are suggestive of M pox but there is no definite diagnosis, however work is going on and patient is being treated empirically with acyclovir, Ancef, rifaximin and vancomycin, will follow up on viral and blood culture and furthe recommendation to follow. patient remained confused and unable to provider any ROS, or history, concerning hepatitis encephalopathy patient is being treated with acyclovir pending viral culture, first of blood culture is growing MSSA and being treated with Ancef and vancomycin, second repeat blood is also growing staphylococcus aureus suspect most likely MSSA, patient may need ADALBERTO to r/o endocarditis, patient was seen by the cardiology service, and discussed patient had TTE echo did not show any significant pathology and patient is waiting for transfer to [facility], where patient can be evaluated with advance imaging technique, patient will be seen by ID and further recommendation to follow, patient weakness and back pain to further evaluate MRI of L/S spine is ordered, is pending as patient unable to leave his room until all the cultures are back. will increase patient fluid intake as po intake is very poor, will consult plasma cutting machine operator, patient is seen by ID further recommendation to follow, discuss with nursing staff, patient oral intake is poor we encouraging, will add protein shake and consult a plasma cutting machine operator. Review of Systems Review of Systems: ROS unobtainable: Yes unobtainable due to medical condition and unobtainable due to mental status Exam Narrative: General: Pt is awake in no distress but confused Lungs/Chest: Trachea central Clear BS B/L, No crackles or wheezing. Cardiac: RRR. Normal S1 S2. No murmurs Circulation: Pedal pulses are intact and symmetrical. Abdomen: Normal bowel sounds.. Soft. NT. ND. Extremities: Redness in right hand and arm : Clements in place Neurologic: Follows commands. Moves all 4 extremities PERRL AO x 1, mumbles with speech often incomprehensible Skin: Several small pustules all over his body including legs and arms, spider nevi on the chest, macerations in the groin, sodium take dry eczematous skin on the arms HEENT: Oral mucosa is dry Objective Data Vital Signs Vital Signs: Vital Signs - 24 hr 07/11/25 20:00 07/11/25 20:00 07/11/25 20:00 Temperature 34.7 C L Pulse Rate 94 Pulse Rate [Apical Monitor] 93 Respiratory Rate 20 Blood Pressure 138/71 Pulse Oximetry 100 Oxygen Delivery Room Air 07/11/25 20:00 07/11/25 22:00 07/12/25 00:00 Temperature Pulse Rate 104 H 96 Pulse Rate [Apical Monitor] 96 Respiratory Rate Blood Pressure Pulse Oximetry Oxygen Delivery 07/12/25 00:00 07/12/25 00:00 07/12/25 00:00 Temperature Pulse Rate 95 91 Pulse Rate [Apical Monitor] Respiratory Rate 21 H Blood Pressure 118/57 L Pulse Oximetry 98 Oxygen Delivery Room Air 07/12/25 01:40 07/12/25 02:00 07/12/25 02:02 Temperature 35.3 C L 35.2 C L Pulse Rate 92 Pulse Rate [Apical Monitor] Respiratory Rate Blood Pressure Pulse Oximetry Oxygen Delivery 07/12/25 02:17 07/12/25 02:32 07/12/25 02:47 Temperature 35.2 C L 35.1 C L 35.1 C L Pulse Rate Pulse Rate [Apical Monitor] Respiratory Rate Blood Pressure Pulse Oximetry Oxygen Delivery 07/12/25 03:02 07/12/25 03:32 07/12/25 04:00 Temperature 35.3 C L 35.6 C L Pulse Rate Pulse Rate [Apical Monitor] 94 Respiratory Rate Blood Pressure Pulse Oximetry Oxygen Delivery 07/12/25 04:00 07/12/25 04:00 07/12/25 04:00 Temperature 36.2 C L Pulse Rate 93 97 Pulse Rate [Apical Monitor] Respiratory Rate 21 H Blood Pressure 83/46 L Pulse Oximetry 95 Oxygen Delivery Room Air 07/12/25 04:02 07/12/25 04:30 07/12/25 05:00 Temperature 35.7 C L 35.9 C L 36.1 C L Pulse Rate Pulse Rate [Apical Monitor] Respiratory Rate Blood Pressure Pulse Oximetry Oxygen Delivery 07/12/25 05:30 07/12/25 06:55 07/12/25 08:00 Temperature 36.2 C L 36.3 C L Pulse Rate 99 98 Pulse Rate [Apical Monitor] Respiratory Rate 20 Blood Pressure 92/41 L Pulse Oximetry 94 Oxygen Delivery 07/12/25 08:00 07/12/25 09:34 07/12/25 11:51 Temperature 36.4 C Pulse Rate 96 105 H Pulse Rate [Apical Monitor] Respiratory Rate 28 H Blood Pressure 93/43 L 102/50 L Pulse Oximetry 96 Oxygen Delivery 07/12/25 14:00 07/12/25 16:00 07/12/25 16:00 Temperature 36.7 C Pulse Rate 104 H 96 104 H Pulse Rate [Apical Monitor] Respiratory Rate 34 H Blood Pressure 92/58 L Pulse Oximetry 98 Oxygen Delivery 07/12/25 17:35 Temperature Pulse Rate 102 H Pulse Rate [Apical Monitor] Respiratory Rate Blood Pressure Pulse Oximetry Oxygen Delivery Intake/Output Intake/Output: Intake & Output 07/09/25 07/10/25 07/11/25 07/12/25 23:59 23:59 23:59 23:59 Intake Total 7514.3 4494.3 1654.3 1095 Output Total 850 600 0 Balance 6664.3 4494.3 1054.3 1095 Meds/Results Medications: Active Medications Generic Name Dose Route Start Last Admin Trade Name Freq PRN Reason Stop Dose Admin Acetaminophen 650 mg 07/04/25 20:27 Acetaminophen 325 Mg Tablet PO Q4H PRN Mild Pain (1-3) or Fever Dextrose 12.5 gm 07/04/25 22:26 07/11/25 18:13 Dextrose 50% 25 Gm/50 Ml Syringe IV PUSH 12.5 gm PRN PRN Administration Hypoglycemia Protocol Famotidine 20 mg 07/05/25 09:00 07/12/25 09:01 Famotidine 20 Mg/2 Ml Vial IV PUSH 20 mg Q12HR SCARLETT Administration Folic Acid 1 mg 07/05/25 09:00 07/12/25 09:01 Folic Acid 1 Mg/0.2 Ml Inj IV PUSH 1 mg QAM SCARLETT Administration Glucagon 1 mg 07/04/25 22:26 Glucagon For Inj 1 Mg Vial IM PRN PRN Hypoglycemia Protocol Glucose 15 gm 07/04/25 22:26 Glucose Oral Gel 15 Gm Of Glucse In 37.5 Gm Tube PO PRN PRN Hypoglycemia Protocol Dextrose 1,000 mls @ 100 mls/hr 07/04/25 22:26 Dextrose 5% 1,000 Ml IVPB PRN PRN Hypoglycemia Protocol Cefazolin Sodium 2 gm/ Sodium 50 mls @ 100 mls/hr 07/09/25 14:00 07/12/25 14:02 Chloride IVPB 100 mls/hr Q8H SCARLETT Administration Dextrose/Lactated Ringer's 1,000 mls @ 125 mls/hr 07/12/25 02:30 07/12/25 17:22 Dextrose 5%/Lactated Ringers IV CONT 125 mls/hr .Q8H SCARLETT Administration Insulin Aspart 8 units 07/06/25 17:00 07/11/25 12:38 Insulin Aspart (*Bkc) 100 Units/Ml 0.083 units/kg (8 units) Not Given On Hold: 07/11/25 12:03 SUB-Q TIDWM SCARLETT Insulin Aspart 2 - 5 units 07/06/25 17:00 07/12/25 17:22 Insulin Aspart (*Bkc) 100 Units/Ml SUB-Q Not Given [facility] Protocol Insulin Glargine 30 units 07/07/25 09:00 07/11/25 09:10 Insulin Glargine (*Bkc) 100 Units/Ml SUB-Q 30 units On Hold: 07/11/25 12:05 QAM SCARLETT Administration Lactulose 20 gm 07/07/25 11:50 07/12/25 09:01 Lactulose 20 Gm/30 Ml Udc PO 20 gm Q12HR SCARLETT Administration Ondansetron HCl 4 mg 07/04/25 20:27 Ondansetron Inj 4 Mg/2 Ml Vial IV PUSH Q4H PRN Nausea Rifaximin 550 mg 07/06/25 09:00 07/12/25 09:01 Rifaximin 550 Mg Tablet PO 550 mg Q12HR SCARLETT Administration Thiamine HCl 100 mg 07/05/25 09:00 07/12/25 09:01 Thiamine Hcl 200 Mg/2 Ml Vial IV PUSH 100 mg QAM SCARLETT Administration Radiology Results: ITS Impressions Chest X-Ray 07/04/25 16:48 Impression: Probable viral pneumonitis Head CT 07/04/25 17:47 Impression: 1.No acute intracranial abnormality. Chest/Abdomen/Pelvis CT 07/04/25 18:37 IMPRESSION: 1. Chronic changes in the lungs with small pleural effusions. 2. 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 Contrast-enhanced MRI recommended. 3. Incidental findings above Hand X-Ray 07/05/25 08:18 Impression: No acute fracture or malalignment. Venous Doppler Study 07/05/25 17:31 Impression: Negative for DVT. Abdomen Ultrasound 07/05/25 22:21 IMPRESSION: 1. Constellation of findings most consistent with a nodular cirrhotic liver with multiple nodular regions of increased echogenicity with corresponding decreased attenuation on CT suggesting dysplastic/regenerative nodules with hepatic steatosis and intervening hypoechoic fibrous septations. Differential for any given nodule would include hepatocellular carcinoma or metastatic disease if there is known history of prior malignancy. Could consider multiphase pre and postcontrast MRI for further evaluation as clinically indicated. 2. Bidirectional flow in the main portal vein and large recanalized umbilical vein with abdominal wall collaterals consistent with secondary portal venous hypertension. 3. Small amount perihepatic ascites. 4. Cholelithiasis. Renal Ultrasound 07/05/25 22:38 IMPRESSION: 1. Normal kidneys without hydronephrosis. 2. Small amount of ascites likely related to cirrhosis. 3. Review of prior CT images demonstrate a device situated between the cephalad margin of the left renal vein and the left adrenal gland which is not visualized on the provided images. Given the findings of cirrhosis with portal venous hypertension. This could represent occlusion/embolization device for treatment of splenorenal collaterals. Correlate with clinical history. Labs Labs: Laboratory Results - last 24 hr 07/11/25 07/11/25 07/12/25 20:36 21:51 00:59 WBC RBC Hgb Hct MCV MCH MCHC RDW Plt Count MPV Immature Gran % (Auto) Neut % (Auto) Lymph % (Auto) Cowley % (Auto) Eos % (Auto) Baso % (Auto) Lymph # (Auto) Cowley # (Auto) Eos # (Auto) Baso # (Auto) Abs Immat Gran (auto) Absolute Neuts (auto) Absolute Nucleated RBC Nucleated RBC % % Immature Plt Fraction PT INR Sodium Potassium Chloride Carbon Dioxide Anion Gap BUN Creatinine Estim Creat Clear Calc Estimated GFR Glucose POC Capillary Glucose 75 76 70 Calcium Magnesium Total Bilirubin AST ALT Alkaline Phosphatase Total Protein Albumin 07/12/25 07/12/25 07/12/25 04:41 07:58 11:04 WBC 16.8 H RBC 3.35 L Hgb 11.9 L Hct 33.6 L MCV 100.3 H MCH 35.5 H MCHC 35.4 RDW 14.6 H Plt Count 64 L MPV 12.4 H Immature Gran % (Auto) 1.5 H Neut % (Auto) 87.9 H Lymph % (Auto) 4.3 L Cowley % (Auto) 5.5 Eos % (Auto) 0.3 Baso % (Auto) 0.5 Lymph # (Auto) 0.73 L Cowley # (Auto) 0.9 H Eos # (Auto) 0.1 Baso # (Auto) 0.1 Abs Immat Gran (auto) 0.25 H Absolute Neuts (auto) 14.8 H Absolute Nucleated RBC 0.080 H Nucleated RBC % 0.5 H % Immature Plt Fraction 7.8 PT 26.1 H INR 2.4 Sodium 129 L Potassium 4.6 Chloride 107 Carbon Dioxide 14 L Anion Gap 8 BUN 54 H D Creatinine 2.33 H Estim Creat Clear Calc 35 Estimated GFR 29 L Glucose 67 POC Capillary Glucose 73 84 Calcium 7.7 L Magnesium 2.3 Total Bilirubin 23.1 H AST 146 H ALT 40 Alkaline Phosphatase 301 H Total Protein 6.5 Albumin 1.9 L 07/12/25 16:47 WBC RBC Hgb Hct MCV MCH MCHC RDW Plt Count MPV Immature Gran % (Auto) Neut % (Auto) Lymph % (Auto) Cowley % (Auto) Eos % (Auto) Baso % (Auto) Lymph # (Auto) Cowley # (Auto) Eos # (Auto) Baso # (Auto) Abs Immat Gran (auto) Absolute Neuts (auto) Absolute Nucleated RBC Nucleated RBC % % Immature Plt Fraction PT INR Sodium Potassium Chloride Carbon Dioxide Anion Gap BUN Creatinine Estim Creat Clear Calc Estimated GFR Glucose POC Capillary Glucose 110 H Calcium Magnesium Total Bilirubin AST ALT Alkaline Phosphatase Total Protein Albumin Quality VTE Prophylaxis VTE prophylaxis: mechanical ordered
--- NOTE | 2025-07-12 19:27 | P.PNINF_ITS ---
Progress Note: A&P Assessment and Plan (1) Leukocytosis: Code(s): D72.829 - Elevated white blood cell count, unspecified Status: Acute (2) Pustular rash: Code(s): L08.0 - Pyoderma Status: Acute Plan #MSSA Bacteremia. High-grade. Possible skin source. With seeding of tract. Monitor for otth metastatic sources Could not tolerated MRI t/l spine but no focal neuro deficits more [id number]--eval for septic emboli. #disseminated rash. More thin walled. M pox a consideration (negaitive PCR) based on local case but no exposures and lesions are not quite consistent. varicella could also present similar fashion. More disseminated. VZV negative Previous HSV exposures by IgG With increased confusion with underlying hepatic encephalopathy. Cannot rule out the possibility of encephalitis. Had a VZV encephalitis would seem more likely than HSV. LP may be contraindicated early but will need to treat empirically pending further workup. --Agree wiht rounding c work up for Scurvy--level not low enough for dx. --Not clear Coxsackie serologies represent acute infection # acute hepatic hepatitis. Workup ongoing with GI. Considering liver biopsy and possible transfer to tertiary care center. Plan: continue ancef (over oxacillin with hepatic issues) Repeat blood cx. ADALBERTO planned when stable CT head to eval for new brain process including septic emboli If persistent lethargy, may need LP. Trial Thoracic and lumbar MRI inpatient but could not cooperate. At this point, would not pursue with anesthesia considering pretest prob and risk. Follow for new sites of infection CT C/A/P if repeat blood cx postive 07/12. Stop acyclovir. Discussed with infection prevention. Patient seen via hippa-protected audio/visual interface with patient at [facility] and me in my office in [place], [place]. Subjective Date/time seen: 07/12/25 19:27 Interval history: no fever. more lethargic today. repeat blood cx positive for Staph aureus. no back pain. could not tolerate MRI. Exam Narrative: More lethargic today. moving extremites. No murmur on Cards exam. could not eval via telemed. reivewed notes. Scaly rashes in the left arm consistent with psoriatic process. More chronic. Objective Data Vital Signs Vital Signs: Vital Signs - 24 hr 07/11/25 20:00 07/11/25 20:00 07/11/25 20:00 Temperature 34.7 C L Pulse Rate 94 Pulse Rate [Apical Monitor] 93 Respiratory Rate 20 Blood Pressure 138/71 Pulse Oximetry 100 Oxygen Delivery Room Air 07/11/25 20:00 07/11/25 22:00 07/12/25 00:00 Temperature Pulse Rate 104 H 96 Pulse Rate [Apical Monitor] 96 Respiratory Rate Blood Pressure Pulse Oximetry Oxygen Delivery 07/12/25 00:00 07/12/25 00:00 07/12/25 00:00 Temperature Pulse Rate 95 91 Pulse Rate [Apical Monitor] Respiratory Rate 21 H Blood Pressure 118/57 L Pulse Oximetry 98 Oxygen Delivery Room Air 07/12/25 01:40 07/12/25 02:00 07/12/25 02:02 Temperature 35.3 C L 35.2 C L Pulse Rate 92 Pulse Rate [Apical Monitor] Respiratory Rate Blood Pressure Pulse Oximetry Oxygen Delivery 07/12/25 02:17 07/12/25 02:32 07/12/25 02:47 Temperature 35.2 C L 35.1 C L 35.1 C L Pulse Rate Pulse Rate [Apical Monitor] Respiratory Rate Blood Pressure Pulse Oximetry Oxygen Delivery 07/12/25 03:02 07/12/25 03:32 07/12/25 04:00 Temperature 35.3 C L 35.6 C L Pulse Rate Pulse Rate [Apical Monitor] 94 Respiratory Rate Blood Pressure Pulse Oximetry Oxygen Delivery 07/12/25 04:00 07/12/25 04:00 07/12/25 04:00 Temperature 36.2 C L Pulse Rate 93 97 Pulse Rate [Apical Monitor] Respiratory Rate 21 H Blood Pressure 83/46 L Pulse Oximetry 95 Oxygen Delivery Room Air 07/12/25 04:02 07/12/25 04:30 07/12/25 05:00 Temperature 35.7 C L 35.9 C L 36.1 C L Pulse Rate Pulse Rate [Apical Monitor] Respiratory Rate Blood Pressure Pulse Oximetry Oxygen Delivery 07/12/25 05:30 07/12/25 06:55 07/12/25 08:00 Temperature 36.2 C L 36.3 C L Pulse Rate 99 98 Pulse Rate [Apical Monitor] Respiratory Rate 20 Blood Pressure 92/41 L Pulse Oximetry 94 Oxygen Delivery 07/12/25 08:00 07/12/25 09:34 07/12/25 11:51 Temperature 36.4 C Pulse Rate 96 105 H Pulse Rate [Apical Monitor] Respiratory Rate 28 H Blood Pressure 93/43 L 102/50 L Pulse Oximetry 96 Oxygen Delivery 07/12/25 14:00 07/12/25 16:00 07/12/25 16:00 Temperature 36.7 C Pulse Rate 104 H 96 104 H Pulse Rate [Apical Monitor] Respiratory Rate 34 H Blood Pressure 92/58 L Pulse Oximetry 98 Oxygen Delivery 07/12/25 17:35 07/12/25 19:13 Temperature 36.4 C Pulse Rate 102 H 101 H Pulse Rate [Apical Monitor] Respiratory Rate 28 H Blood Pressure 99/51 L Pulse Oximetry 94 Oxygen Delivery Intake/Output Intake/Output: Intake & Output 07/09/25 07/10/25 07/11/25 07/12/25 23:59 23:59 23:59 23:59 Intake Total 7514.3 4494.3 1654.3 1095 Output Total 850 600 0 Balance 6664.3 4494.3 1054.3 1095 Meds/Results Medications: Active Medications Generic Name Dose Route Start Last Admin Trade Name Freq PRN Reason Stop Dose Admin Acetaminophen 650 mg 07/04/25 20:27 Acetaminophen 325 Mg Tablet PO Q4H PRN Mild Pain (1-3) or Fever Dextrose 12.5 gm 07/04/25 22:26 07/11/25 18:13 Dextrose 50% 25 Gm/50 Ml Syringe IV PUSH 12.5 gm PRN PRN Administration Hypoglycemia Protocol Famotidine 20 mg 07/05/25 09:00 07/12/25 09:01 Famotidine 20 Mg/2 Ml Vial IV PUSH 20 mg Q12HR SCARLETT Administration Folic Acid 1 mg 07/05/25 09:00 07/12/25 09:01 Folic Acid 1 Mg/0.2 Ml Inj IV PUSH 1 mg QAM SCARLETT Administration Glucagon 1 mg 07/04/25 22:26 Glucagon For Inj 1 Mg Vial IM PRN PRN Hypoglycemia Protocol Glucose 15 gm 07/04/25 22:26 Glucose Oral Gel 15 Gm Of Glucse In 37.5 Gm Tube PO PRN PRN Hypoglycemia Protocol Dextrose 1,000 mls @ 100 mls/hr 07/04/25 22:26 Dextrose 5% 1,000 Ml IVPB PRN PRN Hypoglycemia Protocol Cefazolin Sodium 2 gm/ Sodium 50 mls @ 100 mls/hr 07/09/25 14:00 07/12/25 14:02 Chloride IVPB 100 mls/hr Q8H SCARLETT Administration Dextrose/Lactated Ringer's 1,000 mls @ 125 mls/hr 07/12/25 02:30 07/12/25 17:22 Dextrose 5%/Lactated Ringers IV CONT 125 mls/hr .Q8H SCARLETT Administration Insulin Aspart 8 units 07/06/25 17:00 07/11/25 12:38 Insulin Aspart (*Bkc) 100 Units/Ml 0.083 units/kg (8 units) Not Given On Hold: 07/11/25 12:03 SUB-Q TIDWM SCARLETT Insulin Aspart 2 - 5 units 07/06/25 17:00 07/12/25 17:22 Insulin Aspart (*Bkc) 100 Units/Ml SUB-Q Not Given TIDWM [facility] Protocol Insulin Glargine 30 units 07/07/25 09:00 07/11/25 09:10 Insulin Glargine (*Bkc) 100 Units/Ml SUB-Q 30 units On Hold: 07/11/25 12:05 QAM SCARLETT Administration Lactulose 20 gm 07/07/25 11:50 07/12/25 09:01 Lactulose 20 Gm/30 Ml Udc PO 20 gm Q12HR SCARLETT Administration Ondansetron HCl 4 mg 07/04/25 20:27 Ondansetron Inj 4 Mg/2 Ml Vial IV PUSH Q4H PRN Nausea Rifaximin 550 mg 07/06/25 09:00 07/12/25 09:01 Rifaximin 550 Mg Tablet PO 550 mg Q12HR SCARLETT Administration Thiamine HCl 100 mg 07/05/25 09:00 07/12/25 09:01 Thiamine Hcl 200 Mg/2 Ml Vial IV PUSH 100 mg QAM SCARLETT Administration Radiology Results: ITS Impressions Chest X-Ray 07/04/25 16:48 Impression: Probable viral pneumonitis Head CT 07/04/25 17:47 Impression: 1.No acute intracranial abnormality. Chest/Abdomen/Pelvis CT 07/04/25 18:37 IMPRESSION: 1. Chronic changes in the lungs with small pleural effusions. 2. 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 Contrast-enhanced MRI recommended. 3. Incidental findings above Hand X-Ray 07/05/25 08:18 Impression: No acute fracture or malalignment. Venous Doppler Study 07/05/25 17:31 Impression: Negative for DVT. Abdomen Ultrasound 07/05/25 22:21 IMPRESSION: 1. Constellation of findings most consistent with a nodular cirrhotic liver with multiple nodular regions of increased echogenicity with corresponding decreased attenuation on CT suggesting dysplastic/regenerative nodules with hepatic s teatosis and intervening hypoechoic fibrous septations. Differential for any given nodule would include hepatocellular carcinoma or metastatic disease if there is known history of prior malignancy. Could consider multiphase pre and postcontrast MRI for further evaluation as clinically indicated. 2. Bidirectional flow in the main portal vein and large recanalized umbilical vein with abdominal wall collaterals consistent with secondary portal venous hypertension. 3. Small amount perihepatic ascites. 4. Cholelithiasis. Renal Ultrasound 07/05/25 22:38 IMPRESSION: 1. Normal kidneys without hydronephrosis. 2. Small amount of ascites likely related to cirrhosis. 3. Review of prior CT images demonstrate a device situated between the cephalad margin of the left renal vein and the left adrenal gland which is not visualized on the provided images. Given the findings of cirrhosis with portal venous hypertension. This could represent occlusion/embolization device for treatment of splenorenal collaterals. Correlate with clinical history. Labs Labs: Laboratory Results - last 24 hr 07/11/25 07/11/25 07/12/25 20:36 21:51 00:59 WBC RBC Hgb Hct MCV MCH MCHC RDW Plt Count MPV Immature Gran % (Auto) Neut % (Auto) Lymph % (Auto) [place] % (Auto) Eos % (Auto) Baso % (Auto) Lymph # (Auto) [place] # (Auto) Eos # (Auto) Baso # (Auto) Abs Immat Gran (auto) Absolute Neuts (auto) Absolute Nucleated RBC Nucleated RBC % % Immature Plt Fraction PT INR Sodium Potassium Chloride Carbon Dioxide Anion Gap BUN Creatinine Estim Creat Clear Calc Estimated GFR Glucose POC Capillary Glucose 75 76 70 Calcium Magnesium Total Bilirubin AST ALT Alkaline Phosphatase Total Protein Albumin 07/12/25 07/12/25 07/12/25 04:41 07:58 11:04 WBC 16.8 H RBC 3.35 L Hgb 11.9 L Hct 33.6 L MCV 100.3 H MCH 35.5 H MCHC 35.4 RDW 14.6 H Plt Count 64 L MPV 12.4 H Immature Gran % (Auto) 1.5 H Neut % (Auto) 87.9 H Lymph % (Auto) 4.3 L [place] % (Auto) 5.5 Eos % (Auto) 0.3 Baso % (Auto) 0.5 Lymph # (Auto) 0.73 L [place] # (Auto) 0.9 H Eos # (Auto) 0.1 Baso # (Auto) 0.1 Abs Immat Gran (auto) 0.25 H Absolute Neuts (auto) 14.8 H Absolute Nucleated RBC 0.080 H Nucleated RBC % 0.5 H % Immature Plt Fraction 7.8 PT 26.1 H INR 2.4 Sodium 129 L Potassium 4.6 Chloride 107 Carbon Dioxide 14 L Anion Gap 8 BUN 54 H D Creatinine 2.33 H Estim Creat Clear Calc 35 Estimated GFR 29 L Glucose 67 POC Capillary Glucose 73 84 Calcium 7.7 L Magnesium 2.3 Total Bilirubin 23.1 H AST 146 H ALT 40 Alkaline Phosphatase 301 H Total Protein 6.5 Albumin 1.9 L 07/12/25 16:47 WBC RBC Hgb Hct MCV MCH MCHC RDW Plt Count MPV Immature Gran % (Auto) Neut % (Auto) Lymph % (Auto) [place] % (Auto) Eos % (Auto) Baso % (Auto) Lymph # (Auto) [place] # (Auto) Eos # (Auto) Baso # (Auto) Abs Immat Gran (auto) Absolute Neuts (auto) Absolute Nucleated RBC Nucleated RBC % % Immature Plt Fraction PT INR Sodium Potassium Chloride Carbon Dioxide Anion Gap BUN Creatinine Estim Creat Clear Calc Estimated GFR Glucose POC Capillary Glucose 110 H Calcium Magnesium Total Bilirubin AST ALT Alkaline Phosphatase Total Protein Albumin
[2025-07-13] VITALS (14 sets, daily range): BP systolic 83–106; BP diastolic 45–56; PULSE 87–100; RESP 26–30; TEMP 35.8–36.4; O2SAT 95–100
[2025-07-13 04:12] LABS: Hematocrit 33.0 % (42.0-52.0); Hemoglobin 11.7 g/dL (14.0-18.0); Immature Granulocyte Percent A 1.6 % (0-0.5); Immature Platelet Fraction Pct 7.8 % (0.9-11.2); Lymphocytes Absolute Auto 0.76 K/mm3 (0.9-3.2); Mean Corpuscular HGB Conc 35.5 g/dl (32-36); Mean Corpuscular Hemoglobin 35.6 pg (26-34); Mean Corpuscular Volume 100.3 fl (80-100); Nucleated Red Blood Cells Absolute Auto 0.070 K/mm3 (0.0-0.012); Nucleated Red Blood Cells Perc 0.4 % (0.0-0.2); Platelet Count Result 82 k/mm3 (150-375); Red Blood Count 3.29 M/mm3 (4.6-6.20); White Blood Count 16.7 K/mm3 (4.5-10.0)
[2025-07-13 04:21] LABS: INR 2.7; Prothrombin Time 27.9 Seconds (11.1-14.7)
[2025-07-13 04:32] LABS: Alanine Aminotransferase 24 U/L (6-50); Albumin Level 2.0 g/dL (3.5-5.1); Alkaline Phosphatase 295 U/L (38-126); Anion Gap 11 mmol/L (4-12); Aspartate Amino Transferase 154 U/L (17-59); Bilirubin,Total 23.1 mg/dL (0.2-1.3); Blood Urea Nitrogen 68 mg/dL (9-20); Calcium 7.5 mg/dL (8.4-10.2); Carbon Dioxide 12 mmol/L (22-30); Chloride 106 mmol/L (98-107); Estimated CRCL calculation 26 ml/min; Estimated Glomerular Filt Rate 18; Glucose 140 mg/dL (65-110); Magnesium 2.4 mg/dL (1.6-2.3); Potassium 5.4 mmol/L (3.4-5.0); Sodium 129 mmol/L (137-145); Total Protein 6.6 g/dL (6.3-8.2)
[2025-07-13] MEDS: DEXTROSE 5%/LACTATED RINGERS 1,000 ML 125 ML IV CONT ×2 (04:45→14:24)
[2025-07-13] MEDS: ceFAZolin 2 GM in SODIUM CHLORIDE 0.9% IV 50 ML 100 ML IVPB ×2 (05:12→18:40)
[2025-07-13] MEDS: THIAMINE HCL 200 MG/2 ML VIAL 100 MG IV PUSH (08:03)
[2025-07-13] MEDS: FAMOTIDINE 20 MG/2 ML VIAL IV PUSH ×2 (08:15→22:15)
[2025-07-13] MEDS: THIAMINE HCL INJ 100 MG, FOLIC ACID INJ 1 MG, MAGNESIUM SULFATE INJ 1 GM, MULTIVITAMINS... IV CONT (10:14)
[2025-07-13] MEDS: FOLIC ACID 1 MG/0.2 ML INJ IV PUSH (10:16)
--- NOTE | 2025-07-13 10:33 | WNDPHOTO ---
PHOTO ONLY - See Nursing Notes and/ or assessments for documentation.
--- NOTE | 2025-07-13 12:13 | PCNFU ---
Nutrition Follow-Up Complete: Suboptimal po intake related to poor appetite as evidenced by charted intake Goal:PO intake greater than 50% of meals Pt current nutrition is NPO, NG tube placed for feeding. Nutrition recommendation: start tube feeding to meet needs Last recorded weight is 98.8 kg. Bowel Motility: +BM 07/11 Labs Reviewed: Hgb:11.9, HCt33.6, NA:129, BUN:54, Cr:2.3 Meds Noted: lactated ringers, thiamine, folic acid, lantus, novolog, lactulose Skin: sacral wound - not pressure Additional Notes: Pt NPO today for safety concerns per nursing. NG placed and plans to proceed with tube feeding. Recommend Nepro @ goal rate of 50ml/hr to provide 1980kcals, 89g protein, 799ml free water. This is sufficient to meet estimated needs Monitor intake, wt, labs. Follow up every Saturday and Saturday
--- NOTE | 2025-07-13 12:17 | PCDIET ---
Tube feeding recommendations: Recommend Nepro @ goal rate of 50ml/hr to provide 1980kcals, 89g protein, 799ml free water. This is sufficient to meet estimated needs *Start tube feed at 20ml/hr, advance by 10ml/hr q 4 hrs to goal rate.
--- NOTE | 2025-07-13 12:31 | P.PNINF_ITS ---
Progress Note: A&P Assessment and Plan (1) Leukocytosis: Code(s): D72.829 - Elevated white blood cell count, unspecified Status: Acute (2) Pustular rash: Code(s): L08.0 - Pyoderma Status: Acute Plan #MSSA Bacteremia. High-grade. Possible skin source. With seeding of tract. Monitor for other metastatic sources Could not tolerated MRI t/l spine but no focal neuro deficits more [id number]--eval for septic emboli. #disseminated rash. More thin walled. M pox a consideration (negaitive PCR) based on local case but no exposures and lesions are not quite consistent. varicella could also present similar fashion. More disseminated. VZV negative Previous HSV exposures by IgG With increased confusion with underlying hepatic encephalopathy. Cannot rule out the possibility of encephalitis. Had a VZV encephalitis would seem more likely than HSV. LP may be contraindicated early but will need to treat empirically pending further workup. --Agree with rounding svc work up for Scurvy--level not low enough for dx. --Not clear Coxsackie serologies represent acute infection # acute hepatitis. Workup ongoing with GI. Considering liver biopsy and possible transfer to tertiary care center. Plan: continue ancef (over oxacillin with hepatic issues) Repeat blood cx. so far 1st neg blood cx is 07/12-->continue to monitor ADALBERTO planned when stable CT head to eval for new brain process including septic emboli If persistent lethargy, may need LP. Trial Thoracic and lumbar MRI inpatient but could not cooperate. At this point, would not pursue with anesthesia considering pretest prob and risk. Follow for new sites of infection CT C/A/P if repeat blood cx postive 07/12. Patient seen via hippa-protected audio/visual interface with patient at [facility] and me in my office in [place]. Subjective Date/time seen: 07/13/25 12:31 Interval history: No fevers Objective Data Vital Signs Vital Signs: Vital Signs - 24 hr 07/12/25 14:00 07/12/25 16:00 07/12/25 16:00 Temperature 98.1 F Pulse Rate 104 H 96 104 H Pulse Rate [Apical Monitor] Pulse Rate [Bilateral Pedal (Dorsalis Pedis) Palpation] Respiratory Rate 34 H Blood Pressure 92/58 L Pulse Oximetry 98 Oxygen Delivery Fraction of Inspired Oxygen 07/12/25 17:35 07/12/25 19:13 07/12/25 20:00 Temperature 97.6 F Pulse Rate 102 H 101 H 103 H Pulse Rate [Apical Monitor] Pulse Rate [Bilateral Pedal (Dorsalis Pedis) Palpation] Respiratory Rate 28 H Blood Pressure 99/51 L Pulse Oximetry 94 Oxygen Delivery Fraction of Inspired Oxygen 07/12/25 22:34 07/13/25 00:00 07/13/25 00:00 Temperature 97.5 F L Pulse Rate 93 95 98 Pulse Rate [Apical Monitor] Pulse Rate [Bilateral Pedal (Dorsalis Pedis) Palpation] Respiratory Rate 26 H Blood Pressure 97/46 L Pulse Oximetry 96 Oxygen Delivery Fraction of Inspired Oxygen 07/13/25 02:20 07/13/25 04:00 07/13/25 04:00 Temperature 97.4 F L Pulse Rate 94 92 97 Pulse Rate [Apical Monitor] Pulse Rate [Bilateral Pedal (Dorsalis Pedis) Palpation] Respiratory Rate 26 H Blood Pressure 97/49 L Pulse Oximetry 97 Oxygen Delivery Fraction of Inspired Oxygen 07/13/25 06:17 07/13/25 08:00 07/13/25 08:00 Temperature Pulse Rate 89 89 Pulse Rate [Apical Monitor] 89 Pulse Rate [Bilateral Pedal (Dorsalis Pedis) Palpation] 100 Respiratory Rate 26 H Blood Pressure 97/49 L Pulse Oximetry 97 Oxygen Delivery Room Air Fraction of Inspired Oxygen 32 07/13/25 08:00 07/13/25 08:00 07/13/25 11:53 Temperature 96.4 F L 96.6 F L Pulse Rate 89 91 92 Pulse Rate [Apical Monitor] Pulse Rate [Bilateral Pedal (Dorsalis Pedis) Palpation] Respiratory Rate 26 H 28 H Blood Pressure 106/56 L 83/45 L Pulse Oximetry 100 100 Oxygen Delivery Fraction of Inspired Oxygen Intake/Output Intake/Output: Intake & Output 07/10/25 07/11/25 07/12/25 07/13/25 23:59 23:59 23:59 23:59 Intake Total 4494.3 1654.3 1195 1075 Output Total 600 0 Balance 4494.3 1054.3 1195 1075 Meds/Results Medications: Active Medications Generic Name Dose Route Start Last Admin Trade Name Freq PRN Reason Stop Dose Admin Acetaminophen 650 mg 07/04/25 20:27 Acetaminophen 325 Mg Tablet PO Q4H PRN Mild Pain (1-3) or Fever Dextrose 12.5 gm 07/04/25 22:26 07/11/25 18:13 Dextrose 50% 25 Gm/50 Ml Syringe IV PUSH 12.5 gm PRN PRN Administration Hypoglycemia Protocol Famotidine 20 mg 07/05/25 09:00 07/13/25 08:15 Famotidine 20 Mg/2 Ml Vial IV PUSH 20 mg Q12HR SCARLETT Administration Glucagon 1 mg 07/04/25 22:26 Glucagon For Inj 1 Mg Vial IM PRN PRN Hypoglycemia Protocol Glucose 15 gm 07/04/25 22:26 Glucose Oral Gel 15 Gm Of Glucse In 37.5 Gm Tube PO PRN PRN Hypoglycemia Protocol Dextrose 1,000 mls @ 100 mls/hr 07/04/25 22:26 Dextrose 5% 1,000 Ml IVPB PRN PRN Hypoglycemia Protocol Dextrose/Lactated Ringer's 1,000 mls @ 125 mls/hr 07/12/25 02:30 07/13/25 08:13 Dextrose 5%/Lactated Ringers IV CONT Not Given .Q8H SCARLETT Thiamine HCl 100 mg/ Folic 1,013.2 mls @ 100 mls/hr 07/13/25 09:00 07/13/25 10:14 Acid 1 mg/ Magnesium Sulfate 1 IV CONT 07/13/25 20:13 100 mls/hr gm/ Multivitamins 5 ml/ .Q10H8M SCARLETT Administration Multivitamins 5 ml/ Lactated Ringer's Cefazolin Sodium 2 gm/ Sodium 50 mls @ 100 mls/hr 07/13/25 18:00 Chloride IVPB Q12H SCARLETT Thiamine HCl 100 mg/ Folic 1,013.2 mls @ 100 mls/hr 07/14/25 09:00 Acid 1 mg/ Magnesium Sulfate 1 IV CONT gm/ Multivitamins 5 ml/ DAILY SCARLETT Multivitamins 5 ml/ Lactated Ringer's Insulin Aspart 8 units 07/06/25 17:00 07/11/25 12:38 Insulin Aspart (*Bkc) 100 Units/Ml 0.083 units/kg (8 units) Not Given On Hold: 07/11/25 12:03 SUB-Q TIDWM [facility] Insulin Aspart 2 - 5 units 07/06/25 17:00 07/13/25 08:12 Insulin Aspart (*Bkc) 100 Units/Ml SUB-Q Not Given TIDWM [facility] Protocol Insulin Glargine 30 units 07/07/25 09:00 07/11/25 09:10 Insulin Glargine (*Bkc) 100 Units/Ml SUB-Q 30 units On Hold: 07/11/25 12:05 QAM SCARLETT Administration Lactulose 30 gm 07/13/25 14:00 Lactulose 20 Gm/30 Ml Udc PO Q8HR SCARLETT Ondansetron HCl 4 mg 07/04/25 20:27 Ondansetron Inj 4 Mg/2 Ml Vial IV PUSH Q4H PRN Nausea Rifaximin 550 mg 07/06/25 09:00 07/12/25 21:25 Rifaximin 550 Mg Tablet PO 550 mg Q12HR SCARLETT Administration Radiology Results: ITS Impressions Chest X-Ray 07/04/25 16:48 Impression: Probable viral pneumonitis Head CT 07/04/25 17:47 Impression: 1.No acute intracranial abnormality. Chest/Abdomen/Pelvis CT 07/04/25 18:37 IMPRESSION: 1. Chronic changes in the lungs with small pleural effusions. 2. 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 Contrast-enhanced MRI recommended. 3. Incidental findings above Hand X-Ray 07/05/25 08:18 Impression: No acute fracture or malalignment. Venous Doppler Study 07/05/25 17:31 Impression: Negative for DVT. Abdomen Ultrasound 07/05/25 22:21 IMPRESSION: 1. Constellation of findings most consistent with a nodular cirrhotic liver with multiple nodular regions of increased echogenicity with corresponding decreased attenuation on CT suggesting dysplastic/regenerative nodules with hepatic steatosis and intervening hypoechoic fibrous septations. Differential for any given nodule would include hepatocellular carcinoma or metastatic disease if there is known history of prior malignancy. Could consider multiphase pre and postcontrast MRI for further evaluation as clinically indicated. 2. Bidirectional flow in the main portal vein and large recanalized umbilical vein with abdominal wall collaterals consistent with secondary portal venous hypertension. 3. Small amount perihepatic ascites. 4. Cholelithiasis. Renal Ultrasound 07/05/25 22:38 IMPRESSION: 1. Normal kidneys without hydronephrosis. 2. Small amount of ascites likely related to cirrhosis. 3. Review of prior CT images demonstrate a device situated between the cephalad margin of the left renal vein and the left adrenal gland which is not visualized on the provided images. Given the findings of cirrhosis with portal venous hypertension. This could represent occlusion/embolization device for treatment of splenorenal collaterals. Correlate with clinical history. Abdomen X-Ray 07/13/25 11:37 Impression: 1. No acute abnormality. Labs Labs: Laboratory Results - last 24 hr 07/12/25 07/12/25 07/13/25 16:47 20:21 03:54 WBC 16.7 H RBC 3.29 L Hgb 11.7 L Hct 33.0 L MCV 100.3 H MCH 35.6 H MCHC 35.5 RDW 14.9 H Plt Count 82 L MPV 12.3 H Immature Gran % (Auto) 1.6 H Neut % (Auto) 86.3 H Lymph % (Auto) 4.6 L [place] % (Auto) 6.6 Eos % (Auto) 0.4 Baso % (Auto) 0.5 Lymph # (Auto) 0.76 L [place] # (Auto) 1.1 H Eos # (Auto) 0.1 Baso # (Auto) 0.1 Abs Immat Gran (auto) 0.27 H Absolute Neuts (auto) 14.4 H Absolute Nucleated RBC 0.070 H Nucleated RBC % 0.4 H % Immature Plt Fraction 7.8 PT 27.9 H INR 2.7 Sodium 129 L Potassium 5.4 H Chloride 106 Carbon Dioxide 12 L Anion Gap 11 BUN 68 H D Creatinine 3.55 H Estim Creat Clear Calc 26 Estimated GFR 18 L Glucose 140 H POC Capillary Glucose 110 H 102 Calcium 7.5 L Magnesium 2.4 H Total Bilirubin 23.1 H AST 154 H ALT 24 Alkaline Phosphatase 295 H Total Protein 6.6 Albumin 2.0 L 07/13/25 07/13/25 08:03 11:37 WBC RBC Hgb Hct MCV MCH MCHC RDW Plt Count MPV Immature Gran % (Auto) Neut % (Auto) Lymph % (Auto) [place] % (Auto) Eos % (Auto) Baso % (Auto) Lymph # (Auto) [place] # (Auto) Eos # (Auto) Baso # (Auto) Abs Immat Gran (auto) Absolute Neuts (auto) Absolute Nucleated RBC Nucleated RBC % % Immature Plt Fraction PT INR Sodium Potassium Chloride Carbon Dioxide Anion Gap BUN Creatinine Estim Creat Clear Calc Estimated GFR Glucose POC Capillary Glucose 162 H 158 H Calcium Magnesium Total Bilirubin AST ALT Alkaline Phosphatase Total Protein Albumin
[2025-07-13] MEDS: LACTULOSE 20 GM/30 ML UDC 30 GM PO ×2 (14:59→22:15)
--- NOTE | 2025-07-13 18:53 | P.PNIM_ITS ---
Progress Note: A&P Assessment and Plan (1) Hyperosmolar hyperglycemic state (HHS): Code(s): E11.00 - Type 2 diabetes mellitus with hyperosmolarity without nonketotic hyperglycemic-hyperosmolar coma (NKHHC) Status: Acute Assessment and Plan: Presented with finding consistent with HHS as patient had high blood glucose but normal anion gap Patient was started on insulin infusion and IV fluid Blood sugars have improved Transition to subcutaneous insulin but continue IV fluids On diagnosed diabetes mellitus with HbA1c 11.3 Start liquid diet and advance as tolerated (2) AMS (altered mental status): Qualifiers: Altered mental status type: unspecified Qualified Code(s): R41.82 - Altered mental status, unspecified Code(s): R41.82 - Altered mental status, unspecified Status: Acute Assessment and Plan: Patient likely has multifactorial encephalopathy with HHS, sepsis, uremia and very mildly elevated ammonia level, hyponatremia Head CT was negative Avoid sedative Treatment of individual problems as below (3) Alcoholism: Code(s): F10.20 - Alcohol dependence, uncomplicated Status: Acute Assessment and Plan: History of alcohol abuse Thiamine folic acid Monitor for signs of withdrawal (4) Thrombocytopenia: Code(s): D69.6 - Thrombocytopenia, unspecified Status: Chronic Assessment and Plan: Chronic thrombocytopenia likely secondary to cirrhosis and alcohol abuse which is now exacerbated by sepsis Monitor platelet counts. Transfuse if needed Hold anticoagulation (5) Hyponatremia: Code(s): E87.1 - Hypo-osmolality and hyponatremia Status: Acute Assessment and Plan: Partially pseudohyponatremia secondary to HHS and secondary to cirrhosis Getting IV fluids for dehydration and acute kidney injury Monitor sodium level Nephrology consultation (6) Hyperbilirubinemia: Code(s): E80.6 - Other disorders of bilirubin metabolism Status: Chronic Assessment and Plan: Secondary to cirrhosis Right upper quadrant ultrasound with findings consistent with nodular cirrhotic liver with multiple nodular regions of increased echogenicity with corresponding decreased attenuation on CT suggestive of dysplastic/knees regenerative nodules with hepatic steatosis and intervening hypoechoic fibrosis septations. Differential for any given nodule would include hepatocellular carcinoma or metastatic disease. Bidirectional flow in the main portal vein and large recanalized umbilical vein with a abdominal wall collaterals consistent with secondary portal venous hypertension. Small amount of perihepatic ascites. Also noted cholelithiasis Liver biopsy pending INR improvement Will give 2 units of FFP (7) Alcoholic cirrhosis of liver: Qualifiers: Ascites presence: without ascites Qualified Code(s): K70.30 - Alcoholic cirrhosis of liver without ascites Code(s): K70.30 - Alcoholic cirrhosis of liver without ascites Status: Acute Assessment and Plan: Lactulose for elevated ammonia Vitamin K for elevated INR Right upper quadrant ultrasound as noted above (8) Acute renal failure: Code(s): N17.9 - Acute kidney failure, unspecified Status: Acute Assessment and Plan: Presented with acute kidney injury Patient has mild rhabdomyolysis and likely dehydrated and hypovolemic Getting IV fluids Monitor urine output electrolytes and creatinine Monitor CK level Consult nephrology Renal ultrasound with no hydronephrosis (9) Acute UTI: Code(s): N39.0 - Urinary tract infection, site not specified Status: Acute Assessment and Plan: Urine culture, cefepime (10) Sepsis: Qualifiers: Sepsis acute organ dysfunction status: unspecified Sepsis type: sepsis due to unspecified organism Qualified Code(s): A41.9 - Sepsis, unspecified o rganism Code(s): A41.9 - Sepsis, unspecified organism Status: Acute Assessment and Plan: Sepsis secondary to UTI and pustular skin infection Continue vanc and cefepime Blood and urine cultures (11) Pustular rash: Code(s): L08.0 - Pyoderma Status: Acute Assessment and Plan: Etiology unknown. Treatment with vancomycin and cultures pending HIV screen negative ? Viral infection Blood culture came back positive for Gram-positive cocci Continue vancomycin RPR negative (12) Rhabdomyolysis: Code(s): M62.82 - Rhabdomyolysis Status: Acute Assessment and Plan: Mild rhabdomyolysis from laying on the floor IV fluid Monitor CK level (13) Liver mass: Code(s): R16.0 - Hepatomegaly, not elsewhere classified Status: Acute Assessment and Plan: CT scan shows multiple per liver lesions. Right upper quadrant ultrasound ordered by portal vein is patent. Patient waiting for transfer to tertiary facility for further evaluation. AFP less than 1.8 Hepatitis panel negative (14) Abnormal CT scan, kidney: Code(s): R93.429 - Abnormal radiologic findings on diagnostic imaging of unspecified kidney Status: Acute Assessment and Plan: CT scan read as device within left renal vein. Ultrasound ordered nephrology consult or Plan patient with disseminated rash and bacteremia blood culture is growing gram- positive cocci seen by ID, the lesions are suggestive of M pox but there is no definite diagnosis, however work is going on and patient is being treated empirically with acyclovir, Ancef, rifaximin and vancomycin, will follow up on viral and blood culture and furthe recommendation to follow. patient remained confused and unable to provider any ROS, or history, concerning hepatitis encephalopathy patient is being treated with acyclovir pending viral culture, first of blood culture is growing MSSA and being treated with Ancef and vancomycin, second repeat blood is also growing staphylococcus aureus suspect most likely MSSA, patient may need ADALBERTO to r/o endocarditis, patient was seen by the cardiology service, and discussed patient had TTE echo did not show any significant pathology and patient is waiting for transfer to [facility], where patient can be evaluated with advance imaging technique, patient will be seen by ID and further recommendation to follow, patient weakness and back pain to further evaluate MRI of L/S spine is ordered, is pending as patient unable to leave his room until all the cultures are back. will increase patient fluid intake as po intake is very poor, will consult cut in worker, patient is seen by ID further recommendation to follow, discuss with nursing staff, patient oral intake is poor we encouraging, will add protein shake and consult a cut in worker. patient clinically patient is not improving and he is not very responsive, discussed with nursing staff, family is consdering hospice for the patient, will have meeting and will discuss with the family. Elevated troponin with flat trend next DVT prophylaxis -SCD Stress ulcer prophylaxis -protonix Nutrition -start clear liquid diet and advance as tolerated Code Status - DNR/ DNI Patient is waiting for a bed at [facility] under hospitalist Dr. Hu. Subjective Date/time seen: 07/13/25 18:53 Interval history: patient with disseminated rash and bacteremia blood culture is growing gram- positive cocci seen by ID, the lesions are suggestive of M pox but there is no definite diagnosis, however work is going on and patient is being treated empirically with acyclovir, Ancef, rifaximin and vancomycin, will follow up on viral and blood culture and furthe recommendation to follow. patient remained confused and unable to provider any ROS, or history, concerning hepatitis encephalopathy patient is being treated with acyclovir pending viral culture, first of blood culture is growing MSSA and being treated with Ancef and vancomycin, second repeat blood is also growing staphylococcus aureus suspect most likely MSSA, patient may need ADALBERTO to r/o endocarditis, patient was seen by the cardiology service, and discussed patient had TTE echo did not show any significant pathology and patient is waiting for transfer to [facility], where patient can be evaluated with advance imaging technique, patient will be seen by ID and further recommendation to follow, patient weakness and back pain to further evaluate MRI of L/S spine is ordered, is pending as patient unable to leave his room until all the cultures are back. will increase patient fluid intake as po intake is very poor, will consult cut in worker, patient is seen by ID further recommendation to follow, discuss with nursing staff, patient oral intake is poor we encouraging, will add protein shake and consult a cut in worker. patient clinically patient is not improving and he is not very responsive, discussed with nursing staff, family is consdering hospice for the patient, will have meeting and will discuss with the family. Review of Systems Review of Systems: ROS unobtainable: Yes unobtainable due to medical condition and unobtainable due to mental status ENT: Reports Normal hearing present Neurologic: Reports Normal hearing present Exam Narrative: General: Pt is awake in no distress but confused Lungs/Chest: Trachea central Clear BS B/L, No crackles or wheezing. Cardiac: RRR. Normal S1 S2. No murmurs Circulation: Pedal pulses are intact and symmetrical. Abdomen: Normal bowel sounds.. Soft. NT. ND. Extremities: Redness in right hand and arm : Clements in place Neurologic: Follows commands. Moves all 4 extremities PERRL AO x 1, mumbles with speech often incomprehensible Skin: Several small pustules all over his body including legs and arms, spider nevi on the chest, macerations in the groin, sodium take dry eczematous skin on the arms HEENT: Oral mucosa is dry Objective Data Vital Signs Vital Signs: Vital Signs - 24 hr 07/12/25 19:13 07/12/25 20:00 07/12/25 22:34 Temperature 36.4 C Pulse Rate 101 H 103 H 93 Pulse Rate [Apical Monitor] Pulse Rate [Bilateral Pedal (Dorsalis Pedis) Palpation] Respiratory Rate 28 H Blood Pressure 99/51 L Pulse Oximetry 94 Oxygen Delivery Fraction of Inspired Oxygen 07/13/25 00:00 07/13/25 00:00 07/13/25 02:20 Temperature 36.4 C L Pulse Rate 95 98 94 Pulse Rate [Apical Monitor] Pulse Rate [Bilateral Pedal (Dorsalis Pedis) Palpation] Respiratory Rate 26 H Blood Pressure 97/46 L Pulse Oximetry 96 Oxygen Delivery Fraction of Inspired Oxygen 07/13/25 04:00 07/13/25 04:00 07/13/25 06:17 Temperature 36.3 C L Pulse Rate 92 97 89 Pulse Rate [Apical Monitor] Pulse Rate [Bilateral Pedal (Dorsalis Pedis) Palpation] Respiratory Rate 26 H Blood Pressure 97/49 L Pulse Oximetry 97 Oxygen Delivery Fraction of Inspired Oxygen 07/13/25 08:00 07/13/25 08:00 07/13/25 08:00 Temperature Pulse Rate 89 89 Pulse Rate [Apical Monitor] 89 Pulse Rate [Bilateral Pedal (Dorsalis Pedis) Palpation] 100 Respiratory Rate 26 H Blood Pressure 97/49 L Pulse Oximetry 97 Oxygen Delivery Room Air Fraction of Inspired Oxygen 32 07/13/25 08:00 07/13/25 10:00 07/13/25 11:53 Temperature 35.8 C L 35.9 C L Pulse Rate 91 92 92 Pulse Rate [Apical Monitor] Pulse Rate [Bilateral Pedal (Dorsalis Pedis) Palpation] Respiratory Rate 26 H 28 H Blood Pressure 106/56 L 83/45 L Pulse Oximetry 100 100 Oxygen Delivery Fraction of Inspired Oxygen 07/13/25 12:00 07/13/25 12:00 07/13/25 14:00 Temperature Pulse Rate 92 92 93 Pulse Rate [Apical Monitor] Pulse Rate [Bilateral Pedal (Dorsalis Pedis) Palpation] Respiratory Rate 28 H Blood Pressure Pulse Oximetry 100 Oxygen Delivery Room Air Fraction of Inspired Oxygen 32 07/13/25 16:00 07/13/25 16:00 07/13/25 16:00 Temperature 36.0 C L Pulse Rate 93 92 92 Pulse Rate [Apical Monitor] Pulse Rate [Bilateral Pedal (Dorsalis Pedis) Palpation] Respiratory Rate 30 H 30 H Blood Pressure 94/51 L Pulse Oximetry 95 95 Oxygen Delivery Room Air Fraction of Inspired Oxygen 32 07/13/25 18:00 Temperature Pulse Rate 93 Pulse Rate [Apical Monitor] Pulse Rate [Bilateral Pedal (Dorsalis Pedis) Palpation] Respiratory Rate Blood Pressure Pulse Oximetry Oxygen Delivery Fraction of Inspired Oxygen Intake/Output Intake/Output: Intake & Output 07/10/25 07/11/25 07/12/25 07/13/25 23:59 23:59 23:59 23:59 Intake Total 4494.3 1654.3 1195 2155 Output Total 600 0 300 Balance 4494.3 1054.3 1195 1855 Meds/Results Medications: Active Medications Generic Name Dose Route Start Last Admin Trade Name Freq PRN Reason Stop Dose Admin Acetaminophen 650 mg 07/04/25 20:27 Acetaminophen 325 Mg Tablet PO Q4H PRN Mild Pain (1-3) or Fever Dextrose 12.5 gm 07/04/25 22:26 07/11/25 18:13 Dextrose 50% 25 Gm/50 Ml Syringe IV PUSH 12.5 gm PRN PRN Administration Hypoglycemia Protocol Famotidine 20 mg 07/05/25 09:00 07/13/25 08:15 Famotidine 20 Mg/2 Ml Vial IV PUSH 20 mg Q12HR SCARLETT Administration Glucagon 1 mg 07/04/25 22:26 Glucagon For Inj 1 Mg Vial IM PRN PRN Hypoglycemia Protocol Glucose 15 gm 07/04/25 22:26 Glucose Oral Gel 15 Gm Of Glucse In 37.5 Gm Tube PO PRN PRN Hypoglycemia Protocol Dextrose 1,000 mls @ 100 mls/hr 07/04/25 22:26 Dextrose 5% 1,000 Ml IVPB PRN PRN Hypoglycemia Protocol Dextrose/Lactated Ringer's 1,000 mls @ 125 mls/hr 07/12/25 02:30 07/13/25 14:24 Dextrose 5%/Lactated Ringers IV CONT 125 mls/hr .Q8H SCARLETT Administration Thiamine HCl 100 mg/ Folic 1,013.2 mls @ 100 mls/hr 07/13/25 09:00 07/13/25 10:14 Acid 1 mg/ Magnesium Sulfate 1 IV CONT 07/13/25 20:13 100 mls/hr gm/ Multivitamins 5 ml/ .Q10H8M SCARLETT Administration Multivitamins 5 ml/ Lactated Ringer's Cefazolin Sodium 2 gm/ Sodium 50 mls @ 100 mls/hr 07/13/25 18:00 07/13/25 18:40 Chloride IVPB 100 mls/hr Q12H SCARLETT Administration Thiamine HCl 100 mg/ Folic 1,013.2 mls @ 100 mls/hr 07/14/25 09:00 Acid 1 mg/ Magnesium Sulfate 1 IV CONT gm/ Multivitamins 5 ml/ DAILY SCARLETT Multivitamins 5 ml/ Lactated Ringer's Insulin Aspart 8 units 07/06/25 17:00 07/11/25 12:38 Insulin Aspart (*Bkc) 100 Units/Ml 0.083 units/kg (8 units) Not Given On Hold: 07/11/25 12:03 SUB-Q [facility] Insulin Aspart 2 - 5 units 07/06/25 17:00 07/13/25 14:23 Insulin Aspart (*Bkc) 100 Units/Ml SUB-Q Not Given TIDWM [facility] Protocol Insulin Glargine 30 units 07/07/25 09:00 07/11/25 09:10 Insulin Glargine (*Bkc) 100 Units/Ml SUB-Q 30 units On Hold: 07/11/25 12:05 QAM SCARLETT Administration Lactulose 30 gm 07/13/25 14:00 07/13/25 14:59 Lactulose 20 Gm/30 Ml Udc PO 30 gm Q8HR SCARLETT Administration Ondansetron HCl 4 mg 07/04/25 20:27 Ondansetron Inj 4 Mg/2 Ml Vial IV PUSH Q4H PRN Nausea Rifaximin 550 mg 07/06/25 09:00 07/13/25 14:59 Rifaximin 550 Mg Tablet PO 550 mg Q12HR SCARLETT Administration Radiology Results: ITS Impressions Chest X-Ray 07/04/25 16:48 Impression: Probable viral pneumonitis Head CT 07/04/25 17:47 Impression: 1.No acute intracranial abnormality. Chest/Abdomen/Pelvis CT 07/04/25 18:37 IMPRESSION: 1. Chronic changes in the lungs with small pleural effusions. 2. 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 Contrast-enhanced MRI recommended. 3. Incidental findings above Hand X-Ray 07/05/25 08:18 Impression: No acute fracture or malalignment. Venous Doppler Study 07/05/25 17:31 Impression: Negative for DVT. Abdomen Ultrasound 07/05/25 22:21 IMPRESSION: 1. Constellation of findings most consistent with a nodular cirrhotic liver with multiple nodular regions of increased echogenicity with corresponding decreased attenuation on CT suggesting dysplastic/regenerative nodules with hepatic steatosis and intervening hypoechoic fibrous septations. Differential for any given nodule would include hepatocellular carcinoma or metastatic disease if there is known history of prior malignancy. Could consider multiphase pre and postcontrast MRI for further evaluation as clinically indicated. 2. Bidirectional flow in the main portal vein and large recanalized umbilical vein with abdominal wall collaterals consistent with secondary portal venous hypertension. 3. Small amount perihepatic ascites. 4. Cholelithiasis. Renal Ultrasound 07/05/25 22:38 IMPRESSION: 1. Normal kidneys without hydronephrosis. 2. Small amount of ascites likely related to cirrhosis. 3. Review of prior CT images demonstrate a device situated between the cephalad margin of the left renal vein and the left adrenal gland which is not visualized on the provided images. Given the findings of cirrhosis with portal venous hypertension. This could represent occlusion/embolization device for treatment of splenorenal collaterals. Correlate with clinical history. Abdomen X-Ray 07/13/25 14:39 IMPRESSION: 1. Nasogastric tube in stomach. 2. Mild opacities at the left lung base which could represent small left pleural effusion, atelectasis, pneumonia or some combination thereof. 3. Cholelithiasis. Labs Labs: Laboratory Results - last 24 hr 07/12/25 07/13/25 07/13/25 20:21 03:54 08:03 WBC 16.7 H RBC 3.29 L Hgb 11.7 L Hct 33.0 L MCV 100.3 H MCH 35.6 H MCHC 35.5 RDW 14.9 H Plt Count 82 L MPV 12.3 H Immature Gran % (Auto) 1.6 H Neut % (Auto) 86.3 H Lymph % (Auto) 4.6 L [place] % (Auto) 6.6 Eos % (Auto) 0.4 Baso % (Auto) 0.5 Lymph # (Auto) 0.76 L [place] # (Auto) 1.1 H Eos # (Auto) 0.1 Baso # (Auto) 0.1 Abs Immat Gran (auto) 0.27 H Absolute Neuts (auto) 14.4 H Absolute Nucleated RBC 0.070 H Nucleated RBC % 0.4 H % Immature Plt Fraction 7.8 PT 27.9 H INR 2.7 Sodium 129 L Potassium 5.4 H Chloride 106 Carbon Dioxide 12 L Anion Gap 11 BUN 68 H D Creatinine 3.55 H Estim Creat Clear Calc 26 Estimated GFR 18 L Glucose 140 H POC Capillary Glucose 102 162 H Calcium 7.5 L Magnesium 2.4 H Total Bilirubin 23.1 H AST 154 H ALT 24 Alkaline Phosphatase 295 H Total Protein 6.6 Albumin 2.0 L 07/13/25 07/13/25 11:37 17:00 WBC RBC Hgb Hct MCV MCH MCHC RDW Plt Count MPV Immature Gran % (Auto) Neut % (Auto) Lymph % (Auto) [place] % (Auto) Eos % (Auto) Baso % (Auto) Lymph # (Auto) [place] # (Auto) Eos # (Auto) Baso # (Auto) Abs Immat Gran (auto) Absolute Neuts (auto) Absolute Nucleated RBC Nucleated RBC % % Immature Plt Fraction PT INR Sodium Potassium Chloride Carbon Dioxide Anion Gap BUN Creatinine Estim Creat Clear Calc Estimated GFR Glucose POC Capillary Glucose 158 H 173 H Calcium Magnesium Total Bilirubin AST ALT Alkaline Phosphatase Total Protein Albumin Quality VTE Prophylaxis VTE prophylaxis: mechanical ordered
[2025-07-14] VITALS (13 sets, daily range): BP systolic 80–107; BP diastolic 42–60; PULSE 86–100; RESP 23–40; TEMP 34.4–37.1; O2SAT 94–100
[2025-07-14 04:26] LABS: Hematocrit 33.8 % (42.0-52.0); Hemoglobin 11.9 g/dL (14.0-18.0); Immature Granulocyte Percent A 2.4 % (0-0.5); Immature Platelet Fraction Pct 6.6 % (0.9-11.2); Lymphocytes Absolute Auto 0.71 K/mm3 (0.9-3.2); Mean Corpuscular HGB Conc 35.2 g/dl (32-36); Mean Corpuscular Hemoglobin 35.4 pg (26-34); Mean Corpuscular Volume 100.6 fl (80-100); Nucleated Red Blood Cells Absolute Auto 0.110 K/mm3 (0.0-0.012); Nucleated Red Blood Cells Perc 0.7 % (0.0-0.2); Platelet Count Result 86 k/mm3 (150-375); Red Blood Count 3.36 M/mm3 (4.6-6.20); White Blood Count 15.1 K/mm3 (4.5-10.0)
[2025-07-14 04:33] LABS: INR 2.9; Prothrombin Time 29.4 Seconds (11.1-14.7)
[2025-07-14 04:46] LABS: Alanine Aminotransferase 17 U/L (6-50); Albumin Level 2.0 g/dL (3.5-5.1); Alkaline Phosphatase 336 U/L (38-126); Anion Gap 13 mmol/L (4-12); Aspartate Amino Transferase 139 U/L (17-59); Bilirubin,Total 25.1 mg/dL (0.2-1.3); Blood Urea Nitrogen 76 mg/dL (9-20); Calcium 7.4 mg/dL (8.4-10.2); Carbon Dioxide 10 mmol/L (22-30); Chloride 107 mmol/L (98-107); Estimated CRCL calculation 18 ml/min; Estimated Glomerular Filt Rate 12; Glucose 190 mg/dL (65-110); Magnesium 2.7 mg/dL (1.6-2.3); Potassium 5.2 mmol/L (3.4-5.0); Sodium 130 mmol/L (137-145); Total Protein 6.7 g/dL (6.3-8.2)
[2025-07-14 04:51] LABS: Burr Cells 1+; Schistocytes None Seen
[2025-07-14 04:52] LABS: Anisocytosis Occasional
[2025-07-14] MEDS: FAMOTIDINE 20 MG/2 ML VIAL IV PUSH (08:40)
[2025-07-14] MEDS: THIAMINE HCL INJ 100 MG, FOLIC ACID INJ 1 MG, MAGNESIUM SULFATE INJ 1 GM, MULTIVITAMINS... IV CONT (10:20)
--- NOTE | 2025-07-14 10:31 | PC.NURSE ---
Chung farris placed on noc shift.
--- NOTE | 2025-07-14 14:18 | P.PNNP_ITS ---
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 * see discussion below (2) Hyperosmolar hyperglycemic state (HHS): Code(s): E11.00 - Type 2 diabetes mellitus with hyperosmolarity without nonketotic hyperglycemic-hyperosmolar coma ([facility]) Status: Acute Assessment and Plan: * resolved * as noted by presentation with hyperglycemia with normal gap * s/p IVF resuscitation and insulin gtt * poor glycemic control at baseline - A1c 11.3 * transitioned to SQ insulin therapy * advance diet within limits of mentation (3) Sepsis: Qualifiers: Sepsis acute organ dysfunction status: unspecified Sepsis type: sepsis due to unspecified organism Qualified Code(s): A41.9 - Sepsis, unspecified organism Code(s): A41.9 - Sepsis, unspecified organism Status: Acute Assessment and Plan: * possibly due to UTI versus skin infection versus other(?) * follow trend of hemodynamics * follow culture data * blood cultures (07/04) - Staphylococcus aureus * blood cultures (07/08) - Staphylococcus aureus * blood cultures (07/12) - pending * urine culture (07/05) - Staphylococcus aureus * Infectious Disease following * on antibiotic therapy (4) Hyponatremia: Code(s): E87.1 - Hypo-osmolality and hyponatremia Status: Acute Assessment and Plan: * improving * due to several issues: * partly due to hyperglycemia -- admission sodium corrects to 133 given glucose of 624 * liver disease * volume depletion * alcohol (?) * suspect a chronic component present at baseline * follow trend of repeat sodium levels (5) AMS (altered mental status): Qualifiers: Altered mental status type: unspecified Qualified Code(s): R41.82 - Altered mental status, unspecified Code(s): R41.82 - Altered mental status, unspecified Status: Acute Assessment and Plan: * worsening * likely due to several issues: * PAPA/ARF * possible uremia * sepsis/infection * elevated ammonia * alcohol withdrawal * other (?) * CT of head negative * minimize sedation/sedative medications * continue supportive therapy (6) Alcoholic cirrhosis of liver: Qualifiers: Ascites presence: without ascites Qualified Code(s): K70.30 - Alcoholic cirrhosis of liver without ascites Code(s): K70.30 - Alcoholic cirrhosis of liver without ascites Status: Acute Assessment and Plan: * known issues since as far back as 2018 (if not longer) * acute decline versus progression of disease(?) * elevated LFTs and INR noted on admission * elevated ammonia noted as well on admission * on lactulose * INR continues to rise * right upper quadrant ultrasound results noted * complicated by acute on chronic thrombocytopenia * acute drop in platelets due to sepsis * chronic component due to liver cirrhosis and alcohol abuse (7) Acute UTI: Code(s): N39.0 - Urinary tract infection, site not specified Status: Acute Assessment and Plan: * admission UA suggestive * follow culture data - urine culture with Staphylococcus aureus * on antibiotics (8) Pustular rash: Code(s): L08.0 - Pyoderma Status: Acute Assessment and Plan: * noted on exam * etiology not clear - related to infection (?) * follow cultures * on antibiotics Long extensive discussion (greater than 20 minutes) with multiple family members at bedside regarding the patient's worsening/deteriorating renal function. I discussed in detail that his kidney function has progressed to the point where he will likely needs renal replacement therapy/dialysis. Unfortunately, I also discussed with them in great detail the high risk nature of hemodialysis in the context of his multiple medical issues and problems including his coagulopathy, ongoing liver dysfunction, persistent infection/bacteremia, and relative hypotension and my concern that he would not likely tolerate this procedure/intervention given his current clinical state. Furthermore, although dialysis may help stabilize his renal function, it will not change the underlying issues that led to his renal dysfunction with regard to his progressive decline in liver function and his current infection/bacteremia and I suspect that renal replacement therapy/dialysis may actually do more harm than good. I do not think renal replacement therapy/dialysis is even a feasible option at this juncture and more importantly, will not likely change his long- term prognosis given all evidence to date. I discussed the case with Dr. Santa as well as his nurse... given his poor long-term prognosis, I would advocate discussion with family regarding goals of therapy/plans of care given the limited options we have available at this time. Will continue to follow. L Subjective Date/time seen: 07/14/25 14:18 Interval history: Follow-up for acute kidney injury/acute renal failure. Asked to see patient again due to recurrence of acute kidney injury (renal function had stabilized/improved to baseline on 07/07 but started to deteriorate again on 07/11); review of records indicate ongoing clinical deterioration in general with hypotension, worsening mental status, persistent bacteremia, and hypothermia; multiple family members at bedside and discussed the situation with them extensively. Exam 2 Narrative: General: middle aged but ill-appearing male laying in bed, unresponsive Heart: normal S1 and S2; no rub Lungs: coarse breath sounds Abdomen: soft, nontender, nondistended, positive bowel sounds Extremities: no cyanosis or clubbing; 1+ edema Skin: noted skin lesions and jaundice Objective Data Vital Signs Vital Signs: Vital Signs Temp Pulse Resp BP Pulse Ox O2 Del Method FiO2 07/14/25 12:00 98.2 F 96 40 H 92/43 L 99 07/14/25 10:00 98.7 F 07/14/25 10:00 93 07/14/25 09:00 96.8 F L 07/14/25 08:00 91 07/14/25 08:00 88 26 H 100 Room Air 32 07/14/25 08:00 96.8 F L 07/14/25 08:00 97.3 F L 88 26 H 96/42 L 100 07/14/25 06:48 94.1 F L 07/14/25 06:48 94.1 F L 07/14/25 06:13 93.9 F L 07/14/25 06:00 86 07/14/25 04:00 90 07/14/25 04:00 86 30 H 107/60 100 07/14/25 04:00 87 Room Air 07/14/25 02:00 89 07/14/25 00:00 97.4 F L 94 23 H 105/59 L 100 07/14/25 00:00 88 07/14/25 00:00 89 Room Air 07/13/25 22:00 90 07/13/25 20:00 98 07/13/25 20:00 87 Room Air 07/13/25 19:04 96.9 F L 91 30 H 91/45 L 95 07/13/25 18:00 93 07/13/25 16:00 92 30 H 95 Room Air 32 07/13/25 16:00 92 07/13/25 16:00 96.8 F L 93 30 H 94/51 L 95 Intake/Output Intake/Output: Intake & Output 07/11/25 07/12/25 07/13/25 07/14/25 23:59 23:59 23:59 23:59 Intake Total 1654.3 1195 3218.2 0 Output Total 600 0 300 Balance 1054.3 1195 2918.2 0 Meds/Results Medications: Active Medications Generic Name Dose Route Start Last Admin Trade Name Freq PRN Reason Stop Dose Admin Acetaminophen 650 mg 07/04/25 20:27 Acetaminophen 325 Mg Tablet PO Q4H PRN Mild Pain (1-3) or Fever Dextrose 12.5 gm 07/04/25 22:26 07/11/25 18:13 Dextrose 50% 25 Gm/50 Ml Syringe IV PUSH 12.5 gm PRN PRN Administration Hypoglycemia Protocol Famotidine 20 mg 07/05/25 09:00 07/14/25 08:40 Famotidine 20 Mg/2 Ml Vial IV PUSH 20 mg Q12HR SCARLETT Administration Glucagon 1 mg 07/04/25 22:26 Glucagon For Inj 1 Mg Vial IM PRN PRN Hypoglycemia Protocol Glucose 15 gm 07/04/25 22:26 Glucose Oral Gel 15 Gm Of Glucse In 37.5 Gm Tube PO PRN PRN Hypoglycemia Protocol Dextrose 1,000 mls @ 100 mls/hr 07/04/25 22:26 Dextrose 5% 1,000 Ml IVPB PRN PRN Hypoglycemia Protocol Dextrose/Lactated Ringer's 1,000 mls @ 125 mls/hr 07/12/25 02:30 07/13/25 14:24 Dextrose 5%/Lactated Ringers IV CONT 125 mls/hr On Hold: 07/13/25 21:56 .Q8H SCARLETT Administration Cefazolin Sodium 2 gm/ Sodium 50 mls @ 100 mls/hr 07/13/25 18:00 07/13/25 19:15 Chloride IVPB Infused Q12H SCARLETT Infusion Thiamine HCl 100 mg/ Folic 1,013.2 mls @ 100 mls/hr 07/14/25 09:00 07/14/25 10:20 Acid 1 mg/ Magnesium Sulfate 1 IV CONT 100 mls/hr gm/ Multivitamins 5 ml/ DAILY SCARLETT Administration Multivitamins 5 ml/ Lactated Ringer's Insulin Aspart 8 units 07/06/25 17:00 07/11/25 12:38 Insulin Aspart (*Bkc) 100 Units/Ml 0.083 units/kg (8 units) Not Given On Hold: 07/11/25 12:03 SUB-Q [facility] Insulin Aspart 2 - 5 units 07/06/25 17:00 07/14/25 12:02 Insulin Aspart (*Bkc) 100 Units/Ml SUB-Q Not Given [facility] Protocol Insulin Glargine 30 units 07/07/25 09:00 07/11/25 09:10 Insulin Glargine (*Bkc) 100 Units/Ml SUB-Q 30 units On Hold: 07/11/25 12:05 QAM SCARLETT Administration Lactulose 30 gm 07/13/25 14:00 07/13/25 22:15 Lactulose 20 Gm/30 Ml Udc PO 30 gm Q8HR SCARLETT Administration Ondansetron HCl 4 mg 07/04/25 20:27 Ondansetron Inj 4 Mg/2 Ml Vial IV PUSH Q4H PRN Nausea Rifaximin 550 mg 07/06/25 09:00 07/14/25 08:40 Rifaximin 550 Mg Tablet PO 550 mg Q12HR SCARLETT Administration Radiology Results: ITS Impressions Chest X-Ray 07/04/25 16:48 Impression: Probable viral pneumonitis Chest/Abdomen/Pelvis CT 07/04/25 18:37 IMPRESSION: 1. Chronic changes in the lungs with small pleural effusions. 2. 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 Contrast-enhanced MRI recommended. 3. Incidental findings above Hand X-Ray 07/05/25 08:18 Impression: No acute fracture or malalignment. Venous Doppler Study 07/05/25 17:31 Impression: Negative for DVT. Abdomen Ultrasound 07/05/25 22:21 IMPRESSION: 1. Constellation of findings most consistent with a nodular cirrhotic liver with multiple nodular regions of increased echogenicity with corresponding decreased attenuation on CT suggesting dysplastic/regenerative nodules with hepatic steatosis and intervening hypoechoic fibrous septations. Differential for any given nodule would include hepatocellular carcinoma or metastatic disease if there is known history of prior malignancy. Could consider multiphase pre and postcontrast MRI for further evaluation as clinically indicated. 2. Bidirectional flow in the main portal vein and large recanalized umbilical vein with abdominal wall collaterals consistent with secondary portal venous hypertension. 3. Small amount perihepatic ascites. 4. Cholelithiasis. Renal Ultrasound 07/05/25 22:38 IMPRESSION: 1. Normal kidneys without hydronephrosis. 2. Small amount of ascites likely related to cirrhosis. 3. Review of prior CT images demonstrate a device situated between the cephalad margin of the left renal vein and the left adrenal gland which is not visualized on the provided images. Given the findings of cirrhosis with portal venous hypertension. This could represent occlusion/embolization device for treatment of splenorenal collaterals. Correlate with clinical history. Abdomen X-Ray 07/13/25 14:39 IMPRESSION: 1. Nasogastric tube in stomach. 2. Mild opacities at the left lung base which could represent small left pleural effusion, atelectasis, pneumonia or some combination thereof. 3. Cholelithiasis. Labs Labs: Laboratory Tests 07/14/25 04:08 07/14/25 04:08 PT 29.4 H INR 2.9 Calcium 7.4 L Magnesium 2.7 H Total Bilirubin 25.1 H AST 139 H ALT 17 Alkaline Phosphatase 336 H Total Protein 6.7 Albumin 2.0 L Microbiology 07/08/25 12:09 Blood Blood Culture - Final Staphylococcus aureus 07/08/25 11:56 Blood Blood Culture - Final Staphylococcus aureus
[2025-07-14] MEDS: MORPHINE SULFATE (*CRX) 4 MG/ML INJ 0.5 MG IV PUSH ×9 (14:48→23:38)
--- NOTE | 2025-07-14 15:04 | WPDINFPN2 ---
Progress Note: A&P Assessment and Plan (1) Leukocytosis: Code(s): D72.829 - Elevated white blood cell count, unspecified Status: Acute (2) Pustular rash: Code(s): L08.0 - Pyoderma Status: Acute Plan #MSSA Bacteremia. High-grade. Possible skin source. With seeding of tract. Monitor for other metastatic sources Could not tolerated MRI t/l spine but no focal neuro deficits more [id number]--eval for septic emboli. #disseminated rash. More thin walled. M pox a consideration (negative PCR) based on local case but no exposures and lesions are not quite consistent. varicella could also present similar fashion. More disseminated. VZV negative Previous HSV exposures by IgG With increased confusion with underlying hepatic encephalopathy. Cannot rule out the possibility of encephalitis. Had a VZV encephalitis would seem more likely than HSV. LP may be contraindicated early but will need to treat empirically pending further workup. --Agree with rounding svc work up for Scurvy--level not low enough for dx. --Not clear Coxsackie serologies represent acute infection # acute hepatitis. Workup ongoing with GI. Considering liver biopsy and possible transfer to tertiary care center. #alcoholic cirrhosis #PAPA Plan: continue ancef (over oxacillin with hepatic issues) Repeat blood cx. so far 1st neg blood cx is 07/12-->continue to monitor ADALBERTO planned when stable CT head to eval for new brain process including septic emboli If persistent lethargy, may need LP. Trial Thoracic and lumbar MRI inpatient but could not cooperate. At this point, would not pursue with anesthesia considering pretest prob and risk. Follow for new sites of infection CT C/A/P if repeat blood cx positive 07/12. poor prognosis-->discussed with several family members d/w pharmacy staff and Dr. Santa Patient seen via hipaa-protected audio/visual interface with patient at [facility] and me in my office in [place]. Subjective Date/time seen: 07/14/25 15:04 Interval history: restless No fevers WBC count down not following commands Exam Narrative: +mittens on on room air +NGT abd soft Objective Data Vital Signs Vital Signs: Vital Signs - 24 hr 07/13/25 16:00 07/13/25 16:00 07/13/25 16:00 Temperature 96.8 F L Pulse Rate 93 92 92 Respiratory Rate 30 H 30 H Blood Pressure 94/51 L Pulse Oximetry 95 95 Oxygen Delivery Room Air Fraction of Inspired Oxygen 32 07/13/25 18:00 07/13/25 19:04 07/13/25 20:00 Temperature 96.9 F L Pulse Rate 93 91 87 Respiratory Rate 30 H Blood Pressure 91/45 L Pulse Oximetry 95 Oxygen Delivery Room Air Fraction of Inspired Oxygen 07/13/25 20:00 07/13/25 22:00 07/14/25 00:00 Temperature Pulse Rate 98 90 89 Respiratory Rate Blood Pressure Pulse Oximetry Oxygen Delivery Room Air Fraction of Inspired Oxygen 07/14/25 00:00 07/14/25 00:00 07/14/25 02:00 Temperature 97.4 F L Pulse Rate 88 94 89 Respiratory Rate 23 H Blood Pressure 105/59 L Pulse Oximetry 100 Oxygen Delivery Fraction of Inspired Oxygen 07/14/25 04:00 07/14/25 04:00 07/14/25 04:00 Temperature Pulse Rate 87 86 90 Respiratory Rate 30 H Blood Pressure 107/60 Pulse Oximetry 100 Oxygen Delivery Room Air Fraction of Inspired Oxygen 07/14/25 06:00 07/14/25 06:13 07/14/25 06:48 Temperature 93.9 F L 94.1 F L Pulse Rate 86 Respiratory Rate Blood Pressure Pulse Oximetry Oxygen Delivery Fraction of Inspired Oxygen 07/14/25 06:48 07/14/25 08:00 07/14/25 08:00 Temperature 94.1 F L 97.3 F L 96.8 F L Pulse Rate 88 Respiratory Rate 26 H Blood Pressure 96/42 L Pulse Oximetry 100 Oxygen Delivery Fraction of Inspired Oxygen 07/14/25 08:00 07/14/25 08:00 07/14/25 09:00 Temperature 96.8 F L Pulse Rate 88 91 Respiratory Rate 26 H Blood Pressure Pulse Oximetry 100 Oxygen Delivery Room Air Fraction of Inspired Oxygen 32 07/14/25 10:00 07/14/25 10:00 07/14/25 12:00 Temperature 98.7 F 98.2 F Pulse Rate 93 96 Respiratory Rate 40 H Blood Pressure 92/43 L Pulse Oximetry 99 Oxygen Delivery Fraction of Inspired Oxygen Intake/Output Intake/Output: Intake & Output 07/11/25 07/12/25 07/13/25 07/14/25 23:59 23:59 23:59 23:59 Intake Total 1654.3 1195 3218.2 0 Output Total 600 0 300 Balance 1054.3 1195 2918.2 0 Meds/Results Medications: Active Medications Generic Name Dose Route Start Last Admin Trade Name Freq PRN Reason Stop Dose Admin Acetaminophen 650 mg 07/04/25 20:27 Acetaminophen 325 Mg Tablet PO Q4H PRN Mild Pain (1-3) or Fever Atropine Sulfate 1 - 2 drop 07/14/25 14:27 Atropine Sulfate 1% Ophth Soln 5 Ml Bottle SUBLINGUAL Q4H PRN Secretions Dextrose 12.5 gm 07/04/25 22:26 07/11/25 18:13 Dextrose 50% 25 Gm/50 Ml Syringe IV PUSH 12.5 gm PRN PRN Administration Hypoglycemia Protocol Famotidine 20 mg 07/05/25 09:00 07/14/25 08:40 Famotidine 20 Mg/2 Ml Vial IV PUSH 20 mg Q12HR SCARLETT Administration Glucagon 1 mg 07/04/25 22:26 Glucagon For Inj 1 Mg Vial IM PRN PRN Hypoglycemia Protocol Glucose 15 gm 07/04/25 22:26 Glucose Oral Gel 15 Gm Of Glucse In 37.5 Gm Tube PO PRN PRN Hypoglycemia Protocol Dextrose 1,000 mls @ 100 mls/hr 07/04/25 22:26 Dextrose 5% 1,000 Ml IVPB PRN PRN Hypoglycemia Protocol Dextrose/Lactated Ringer's 1,000 mls @ 125 mls/hr 07/12/25 02:30 07/13/25 14:24 Dextrose 5%/Lactated Ringers IV CONT 125 mls/hr On Hold: 07/13/25 21:56 .Q8H SCARLETT Administration Cefazolin Sodium 2 gm/ Sodium 50 mls @ 100 mls/hr 07/13/25 18:00 07/13/25 19:15 Chloride IVPB Infused Q12H SC[facility]LETT Infusion Thiamine HCl 100 mg/ Folic 1,013.2 mls @ 100 mls/hr 07/14/25 09:00 07/14/25 10:20 Acid 1 mg/ Magnesium Sulfate 1 IV CONT 100 mls/hr gm/ Multivitamins 5 ml/ DAILY SCARLETT Administration Multivitamins 5 ml/ Lactated Ringer's Insulin Aspart 8 units 07/06/25 17:00 07/11/25 12:38 Insulin Aspart (*Bkc) 100 Units/Ml 0.083 units/kg (8 units) Not Given On Hold: 07/11/25 12:03 SUB-Q [facility] Insulin Aspart 2 - 5 units 07/06/25 17:00 07/14/25 12:02 Insulin Aspart (*Bkc) 100 Units/Ml SUB-Q Not Given [facility] Protocol Insulin Glargine 30 units 07/07/25 09:00 07/11/25 09:10 Insulin Glargine (*Bkc) 100 Units/Ml SUB-Q 30 units On Hold: 07/11/25 12:05 QAM [facility]TT Administration Lactulose 30 gm 07/13/25 14:00 07/13/25 22:15 Lactulose 20 Gm/30 Ml Udc PO 30 gm Q8HR SCARLETT Administration Morphine Sulfate 0.5 mg 07/14/25 14:31 07/14/25 14:48 Morphine Sulfate (*Crx) 4 Mg/Ml Inj IV PUSH 0.5 mg Q30M PRN Administration COMFORT Ondansetron HCl 4 mg 07/04/25 20:27 Ondansetron Inj 4 Mg/2 Ml Vial IV PUSH Q4H PRN Nausea Rifaximin 550 mg 07/06/25 09:00 07/14/25 08:40 Rifaximin 550 Mg Tablet PO 550 mg Q12HR SCARLETT Administration Radiology Results: ITS Impressions Chest X-Ray 07/04/25 16:48 Impression: Probable viral pneumonitis Chest/Abdomen/Pelvis CT 07/04/25 18:37 IMPRESSION: 1. Chronic changes in the lungs with small pleural effusions. 2. 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 Contrast-enhanced MRI recommended. 3. Incidental findings above Hand X-Ray 07/05/25 08:18 Impression: No acute fracture or malalignment. Venous Doppler Study 07/05/25 17:31 Impression: Negative for DVT. Abdomen Ultrasound 07/05/25 22:21 IMPRESSION: 1. Constellation of findings most consistent with a nodular cirrhotic liver with multiple nodular regions of increased echogenicity with corresponding decreased attenuation on CT suggesting dysplastic/regenerative nodules with hepatic steatosis and intervening hypoechoic fibrous septations. Differential for any given nodule would include hepatocellular carcinoma or metastatic disease if there is known history of prior malignancy. Could consider multiphase pre and postcontrast MRI for further evaluation as clinically indicated. 2. Bidirectional flow in the main portal vein and large recanalized umbilical vein with abdominal wall collaterals consistent with secondary portal venous hypertension. 3. Small amount perihepatic ascites. 4. Cholelithiasis. Renal Ultrasound 07/05/25 22:38 IMPRESSION: 1. Normal kidneys without hydronephrosis. 2. Small amount of ascites likely related to cirrhosis. 3. Review of prior CT images demonstrate a device situated between the cephalad margin of the left renal vein and the left adrenal gland which is not visualized on the provided images. Given the findings of cirrhosis with portal venous hypertension. This could represent occlusion/embolization device for treatment of splenorenal collaterals. Correlate with clinical history. Abdomen X-Ray 07/13/25 14:39 IMPRESSION: 1. Nasogastric tube in stomach. 2. Mild opacities at the left lung base which could represent small left pleural effusion, atelectasis, pneumonia or some combination thereof. 3. Cholelithiasis. Labs Labs: Laboratory Results - last 24 hr 07/13/25 07/13/25 07/14/25 17:00 20:14 04:08 WBC 15.1 H RBC 3.36 L Hgb 11.9 L Hct 33.8 L MCV 100.6 H MCH 35.4 H MCHC 35.2 RDW 15.2 H Plt Count 86 L MPV 12.5 H Immature Gran % (Auto) 2.4 H Neut % (Auto) 84.3 H Lymph % (Auto) 4.7 L Cuming % (Auto) 7.5 Eos % (Auto) 0.7 Baso % (Auto) 0.4 Lymph # (Auto) 0.71 L Cuming # (Auto) 1.1 H Eos # (Auto) 0.1 Baso # (Auto) 0.1 Abs Immat Gran (auto) 0.37 H Absolute Neuts (auto) 12.8 H Absolute Nucleated RBC 0.110 H Band Neutrophils % Not Reportable Nucleated RBC % 0.7 H Platelet Estimate Decreased % Immature Plt Fraction 6.6 Anisocytosis Occasional [place] Cells 1+ Schistocytes None seen PT 29.4 H INR 2.9 Sodium 130 L Potassium 5.2 H Chloride 107 Carbon Dioxide 10 L Anion Gap 13 H BUN 76 H Creatinine 5.04 H Estim Creat Clear Calc 18 Estimated GFR 12 L Glucose 190 H POC Capillary Glucose 173 H 197 H Calcium 7.4 L Magnesium 2.7 H Total Bilirubin 25.1 H AST 139 H ALT 17 Alkaline Phosphatase 336 H Total Protein 6.7 Albumin 2.0 L 07/14/25 07/14/25 07:18 11:57 WBC RBC Hgb Hct MCV MCH MCHC RDW Plt Count MPV Immature Gran % (Auto) Neut % (Auto) Lymph % (Auto) Cuming % (Auto) Eos % (Auto) Baso % (Auto) Lymph # (Auto) Cuming # (Auto) Eos # (Auto) Baso # (Auto) Abs Immat Gran (auto) Absolute Neuts (auto) Absolute Nucleated RBC Band Neutrophils % Nucleated RBC % Platelet Estimate % Immature Plt Fraction Anisocytosis Olivia Cells Schistocytes PT INR Sodium Potassium Chloride Carbon Dioxide Anion Gap BUN Creatinine Estim Creat Clear Calc Estimated GFR Glucose POC Capillary Glucose 172 H 172 H Calcium Magnesium Total Bilirubin AST ALT Alkaline Phosphatase Total Protein Albumin
--- NOTE | 2025-07-14 18:40 | PC.NURSE ---
Report given to NORRIS Kamara for transfer to room 320. Discussed with Anh that care coordination was called and gone for the day to report that the patient family has chosen [facility] for hospice. Verbalized understanding. The charge nurse from the third floor called this RN to confirm [facility] as the hospice of choice and stated that she notified a care provider.
--- NOTE | 2025-07-14 18:42 | PM.IMPN ---
Subjective Date/time seen: 07/14/25 18:42 Objective Data Vital Signs Vital Signs: Vital Signs - 24 hr 07/13/25 19:04 07/13/25 20:00 07/13/25 20:00 Temperature 36.1 C L Pulse Rate 91 87 98 Respiratory Rate 30 H Blood Pressure 91/45 L Pulse Oximetry 95 Oxygen Delivery Room Air Fraction of Inspired Oxygen 07/13/25 22:00 07/14/25 00:00 07/14/25 00:00 Temperature Pulse Rate 90 89 88 Respiratory Rate Blood Pressure Pulse Oximetry Oxygen Delivery Room Air Fraction of Inspired Oxygen 07/14/25 00:00 07/14/25 02:00 07/14/25 04:00 Temperature 36.3 C L Pulse Rate 94 89 87 Respiratory Rate 23 H Blood Pressure 105/59 L Pulse Oximetry 100 Oxygen Delivery Room Air Fraction of Inspired Oxygen 07/14/25 04:00 07/14/25 04:00 07/14/25 06:00 Temperature Pulse Rate 86 90 86 Respiratory Rate 30 H Blood Pressure 107/60 Pulse Oximetry 100 Oxygen Delivery Fraction of Inspired Oxygen 07/14/25 06:13 07/14/25 06:48 07/14/25 06:48 Temperature 34.4 C L 34.5 C L 34.5 C L Pulse Rate Respiratory Rate Blood Pressure Pulse Oximetry Oxygen Delivery Fraction of Inspired Oxygen 07/14/25 08:00 07/14/25 08:00 07/14/25 08:00 Temperature 36.3 C L 36.0 C L Pulse Rate 88 88 Respiratory Rate 26 H 26 H Blood Pressure 96/42 L Pulse Oximetry 100 100 Oxygen Delivery Room Air Fraction of Inspired Oxygen 32 07/14/25 08:00 07/14/25 09:00 07/14/25 10:00 Temperature 36.0 C L Pulse Rate 91 93 Respiratory Rate Blood Pressure Pulse Oximetry Oxygen Delivery Fraction of Inspired Oxygen 07/14/25 10:00 07/14/25 12:00 07/14/25 12:00 Temperature 37.1 C 36.8 C Pulse Rate 96 100 Respiratory Rate 40 H Blood Pressure 92/43 L Pulse Oximetry 99 Oxygen Delivery Fraction of Inspired Oxygen 07/14/25 14:00 Temperature Pulse Rate 94 Respiratory Rate Blood Pressure Pulse Oximetry Oxygen Delivery Fraction of Inspired Oxygen Intake/Output Intake/Output: Intake & Output 07/11/25 07/12/25 07/13/2515/25 23:59 23:59 23:59 23:59 Intake Total 1654.3 1195 3218.2 0 Output Total 600 0 300 50 Balance 1054.3 1195 2918.2 -50 Meds/Results Medications: Active Medications Generic Name Dose Route Start Last Admin Trade Name Freq PRN Reason Stop Dose Admin Atropine Sulfate 1 - 2 drop 07/14/25 14:27 Atropine Sulfate 1% Ophth Soln 5 Ml Bottle SUBLINGUAL Q4H PRN Secretions Morphine Sulfate 0.5 mg 07/14/25 14:31 07/14/25 18:27 Morphine Sulfate (*Crx) 4 Mg/Ml Inj IV PUSH 0.5 mg Q30M PRN Administration COMFORT Ondansetron HCl 4 mg 07/04/25 20:27 Ondansetron Inj 4 Mg/2 Ml Vial IV PUSH Q4H PRN Nausea Radiology Results: ITS Impressions Chest X-Ray 07/04/25 16:48 Impression: Probable viral pneumonitis Head CT 07/04/25 17:47 Impression: 1.No acute intracranial abnormality. Chest/Abdomen/Pelvis CT 07/04/25 18:37 IMPRESSION: 1. Chronic changes in the lungs with small pleural effusions. 2. 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 Contrast-enhanced MRI recommended. 3. Incidental findings above Hand X-Ray 07/05/25 08:18 Impression: No acute fracture or malalignment. Venous Doppler Study 07/05/25 17:31 Impression: Negative for DVT. Abdomen Ultrasound 07/05/25 22:21 IMPRESSION: 1. Constellation of findings most consistent with a nodular cirrhotic liver with multiple nodular regions of increased echogenicity with corresponding decreased attenuation on CT suggesting dysplastic/regenerative nodules with hepatic steatosis and intervening hypoechoic fibrous septations. Differential for any given nodule would include hepatocellular carcinoma or metastatic disease if there is known history of prior malignancy. Could consider multiphase pre and postcontrast MRI for further evaluation as clinically indicated. 2. Bidirectional flow in the main portal vein and large recanalized umbilical vein with abdominal wall collaterals consistent with secondary portal venous hypertension. 3. Small amount perihepatic ascites. 4. Cholelithiasis. Renal Ultrasound 07/05/25 22:38 IMPRESSION: 1. Normal kidneys without hydronephrosis. 2. Small amount of ascites likely related to cirrhosis. 3. Review of prior CT images demonstrate a device situated between the cephalad margin of the left renal vein and the left adrenal gland which is not visualized on the provided images. Given the findings of cirrhosis with portal venous hypertension. This could represent occlusion/embolization device for treatment of splenorenal collaterals. Correlate with clinical history. Abdomen X-Ray 07/13/25 14:39 IMPRESSION: 1. Nasogastric tube in stomach. 2. Mild opacities at the left lung base which could represent small left pleural effusion, atelectasis, pneumonia or some combination thereof. 3. Cholelithiasis. Labs Labs: Laboratory Results - last 24 hr 07/13/25 07/14/25 07/14/25 20:14 04:08 07:18 WBC 15.1 H RBC 3.36 L Hgb 11.9 L Hct 33.8 L MCV 100.6 H MCH 35.4 H MCHC 35.2 RDW 15.2 H Plt Count 86 L MPV 12.5 H Immature Gran % (Auto) 2.4 H Neut % (Auto) 84.3 H Lymph % (Auto) 4.7 L [place] % (Auto) 7.5 Eos % (Auto) 0.7 Baso % (Auto) 0.4 Lymph # (Auto) 0.71 L [place] # (Auto) 1.1 H Eos # (Auto) 0.1 Baso # (Auto) 0.1 Abs Immat Gran (auto) 0.37 H Absolute Neuts (auto) 12.8 H Absolute Nucleated RBC 0.110 H Band Neutrophils % Not Reportable Nucleated RBC % 0.7 H Platelet Estimate Decreased % Immature Plt Fraction 6.6 Anisocytosis Occasional Olivia Cells 1+ Schistocytes None seen PT 29.4 H INR 2.9 Sodium 130 L Potassium 5.2 H Chloride 107 Carbon Dioxide 10 L Anion Gap 13 H BUN 76 H Creatinine 5.04 H Estim Creat Clear Calc 18 Estimated GFR 12 L Glucose 190 H POC Capillary Glucose 197 H 172 H Calcium 7.4 L Magnesium 2.7 H Total Bilirubin 25.1 H AST 139 H ALT 17 Alkaline Phosphatase 336 H Total Protein 6.7 Albumin 2.0 L 07/14/25 11:57 WBC RBC Hgb Hct MCV MCH MCHC RDW Plt Count MPV Immature Gran % (Auto) Neut % (Auto) Lymph % (Auto) [place] % (Auto) Eos % (Auto) Baso % (Auto) Lymph # (Auto) [place] # (Auto) Eos # (Auto) Baso # (Auto) Abs Immat Gran (auto) Absolute Neuts (auto) Absolute Nucleated RBC Band Neutrophils % Nucleated RBC % Platelet Estimate % Immature Plt Fraction Anisocytosis Olivia Cells Schistocytes PT INR Sodium Potassium Chloride Carbon Dioxide Anion Gap BUN Creatinine Estim Creat Clear Calc Estimated GFR Glucose POC Capillary Glucose 172 H Calcium Magnesium Total Bilirubin AST ALT Alkaline Phosphatase Total Protein Albumin
--- NOTE | 2025-07-14 18:45 | PC.NURSE ---
pt transferred in to room 320 via bed, pt is sleeping soundly, several family members at bedside, oriented to new room and environment
--- NOTE | 2025-07-14 19:03 | PCCCNOTE ---
Called from the pt's nurse, that family has made a decision to use [facility] and they would like them to come as soon as possible. I spoke with Christine at [facility], , regarding pt's family wanting pt to go on hospice. The information is faxed to the office and a copy is made and will be taken to the floor for the nurse when she arrives. Maryse is who will be coming to see pt and should be here in ~ 1999.
--- NOTE | 2025-07-18 09:13 | P.DS_ITS ---
DS: Admitting Diagnosis Discharge Date 07/14/25 Admitting Diagnosis Altered mental status DS: Discharge Diagnosis Discharge Diagnosis (1) Hyperosmolar hyperglycemic state (HHS): Code(s): E11.00 - Type 2 diabetes mellitus with hyperosmolarity without nonketotic hyperglycemic-hyperosmolar coma (NKHHC) Status: Acute Assessment and Plan: -the patient is admitted to ICU while awaiting bed at [facility]. -A1c is 11.3. -DKA protocol. -no previous history of diabetes. -lactic is 5.2 -BMPs every 4 hours. -the patient will require diabetic education and dietitian when he is more awake. -continue with IV fluids as per DKA protocol -sodium 120 with glucose 624. According to med calc calculated sodium is 133 mEq per L considering blood glucose. The tile molder has been consulted and further recommendations and treatment plan would greatly be appreciated. - (2) Alcoholic cirrhosis of liver: Qualifiers: Ascites presence: without ascites Qualified Code(s): K70.30 - Alcoholic cirrhosis of liver without ascites Code(s): K70.30 - Alcoholic cirrhosis of liver without ascites Status: Acute Assessment and Plan: -the patient is awaiting transfer to [facility]. -he has a longstanding history of alcoholism. His a history of binge drinking. -CT of the abdomenCT abdomen: LIVER: The liver contours are nodular with innumerable solid-appearing liver lesions the largest right lobe liver 7 x 8 cm incompletely evaluated. The main portal vein is patent. No intrahepatic biliary duct dilatation. SPLEEN: The spleen appears enlarged.. -continue with CIWA -IV folic acid and IV thiamine. -awaiting bed for [facility]. Meld score according the med calculator is 37 with a 52.6% mortality rate. The patient is a DNI/ DNR. (3) Acute UTI: Code(s): N39.0 - Urinary tract infection, site not specified Status: Acute Assessment and Plan: -blood and urine cultures are pending -the patient is on cefepime, doxycycline, and vancomycin. Pending cultures -lactic is elevated. -patient was given IV fluids. (4) Acidosis, lactic: Code(s): E87.2 - Acidosis Status: Acute Assessment and Plan: -could be multiple factorial. Could be related to dehydration, could be related to the hyper osmolar hyperglycemia, liver failure, alcoholism, and or infection. -continue with IV fluids and continue to monitor lactic acid. Patient's lactic acid continues to be 5.3. -check for HIV. - (5) Hyponatremia: Code(s): E87.1 - Hypo-osmolality and hyponatremia Status: Acute Assessment and Plan: -also multifactorial. Chronic alcoholism, hyperglycemia, and or dehydration -check urine sodium -check urine osmolality and blood osmolality. -corrected sodium with hyperglycemia as per med calc. Sodium 120 with a glucose of 628 equals 133. He has a baseline somewhere between 134 and 136. -continue with IV hydration. -BMPs every 4 hours. (6) Rhabdomyolysis: Code(s): M62.82 - Rhabdomyolysis Status: Acute Assessment and Plan: -creatinine kinase was 254 and then increased to 373. Is was reported that the patient had laid on the floor for over a day. He also has a history of alcoholism. Could be related to infectious disease as well. Could also be related to his electrolyte abnormalities. (7) Pustular rash: Code(s): L08.0 - Pyoderma Status: Acute Assessment and Plan: -will check him for RSV as well as HIV. -doxycycline added for possibility of syphilis? -the patient also appears to have some aphthous ulcers in the mouth as well. This could Coxsackie disease? Could possibly be chickenpox? Although they appear to be more pustular than they are vesicles. -patient also has some on the palms of his hands and feet. - monkey pox? (8) Leukocytosis: Code(s): D72.829 - Elevated white blood cell count, unspecified Status: Acute Assessment and Plan: -the patient was covered with broad-spectrum antibiotics he is on cefepime, doxycycline, and vancomycin. Pending cultures. -blood and urine cultures are pending. -could also be stress induced . -CT LUNGS: No tracheomalacia. No bronchiectasis. Minimal emphysematous changes. Minimal pulmonary fibrotic changes. Apical scarring bilaterally. Small simple appearing left pleural effusion. Trace simple appearing appearing right pleural effusion. -urine was positive for 2+ urine bacteria, 2+ urine leukocyte esterase, urine wbc's 11-20 -CT abdomen: LIVER: The liver contours are nodular with innumerable solid-appearing liver lesions the largest right lobe liver 7 x 8 cm incompletely evaluated. The main portal vein is patent. No intrahepatic biliary duct dilatation. SPLEEN: The spleen appears enlarged.. -he also erythema and edema to right hand. Possible cellulitis. (9) Acute renal failure: Code(s): N17.9 - Acute kidney failure, unspecified Status: Acute Assessment and Plan: -his BUN is 89 now with a previous value of 22 on 01/29/2020 -creatinine is 1.63 now with a normal baseline from 01/29/2020 (10) Elevated troponin: Code(s): R79.89 - Other specified abnormal findings of blood chemistry Status: Acute Assessment and Plan: Initial troponin 0.035, 3 hour troponin 0.059 and 6 hour troponin 0.061. We check in a.m.. -EKG read asSINUS RHYTHM POSSIBLE LEFT ATRIAL ENLARGEMENT BORDERLINE AV CONDUCTION DELAY INCOMPLETE RIGHT BUNDLE BRANCH BLOCK NONSPECIFIC ST-T WAVE ABNORMALITY- ANT/HIGH LAT LEADS BASELINE ARTIFACT- I, II, III, AVR, AVL, AVF BORDERLINE ECG No previous ECG available for comparison Electronically Signed On 07-04-2025 19:28:23 CDT by Alan Kemp D.O. There is some change from previous EKG on 01/29/2020 -repeat troponin in the a.m. -could be heart strain. Could be related to the rhabdo. He also has acute kidney injury which could be elevating the troponins as well. DS: Summary Hospital Course Hospital Course: patient with disseminated rash and bacteremia blood culture is growing gram- positive cocci seen by ID, the lesions are suggestive of M pox but there is no definite diagnosis, however work is going on and patient is being treated e mpirically with acyclovir, Ancef, rifaximin and vancomycin, will follow up on viral and blood culture and furthe recommendation to follow. patient remained confused and unable to provider any ROS, or history, concerning hepatitis encephalopathy patient is being treated with acyclovir pending viral culture, first of blood culture is growing MSSA and being treated with Ancef and vancomycin, second repeat blood is also growing staphylococcus aureus suspect most likely MSSA, patient may need ADALBERTO to r/o endocarditis, patient was seen by the cardiology service, and discussed patient had TTE echo did not show any significant pathology and patient is waiting for transfer to [facility] [place], where patient can be evaluated with advance imaging technique, patient will be seen by ID and further recommendation to follow, patient weakness and back pain to further evaluate MRI of L/S spine is ordered, is pending as patient unable to leave his room until all the cultures are back. will increase patient fluid intake as po intake is very poor, will consult research associate molecular biology, patient is seen by ID further recommendation to follow, discuss with nursing staff, patient oral intake is poor we encouraging, will add protein shake and consult a research associate molecular biology. patient clinically patient is not improving and he is not very responsive, discussed with nursing staff, family is considering hospice for the patient, wi ll have meeting and will discuss with the family. Today again had long discussion with family and they decided to place patient under hospice care. Time Spent with Patient Time attestation: Total time spent providing and/or coordinating discharge services: Exam Narrative: General: Pt is awake in no distress but confused Lungs/Chest: Trachea central Clear BS B/L, No crackles or wheezing. Cardiac: RRR. Normal S1 S2. No murmurs Circulation: Pedal pulses are intact and symmetrical. Abdomen: Normal bowel sounds.. Soft. NT. ND. Extremities: Redness in right hand and arm : Clements in place Neurologic: Follows commands. Moves all 4 extremities PERRL AO x 1, mumbles with speech often incomprehensible Skin: Several small pustules all over his body including legs and arms, spider nevi on the chest, macerations in the groin, sodium take dry eczematous skin on the arms HEENT: Oral mucosa is dry DS: Data Data Completed and Pending Labs on day of discharge: Preliminary micro results at discharge 07/12/25 13:46 Blood Culture - Preliminary Blood 07/12/25 13:46 Blood Culture - Preliminary Blood Discharge Plan Discharge Attending physician on discharge: Daily Penn Consulting providers: Atilio Singh; Logan Jean; Bryan Gonzalez; Ghassan Evangelista; Yolanda Hutton; Jeferson Devi; Alan Kemp; Joellen Cabrera; Yadira Vázquez; Jon Burks; Macho Whitman; Regina Baeza; Angel Oliveros; Emiliano Coello Discharging Clinician: Nnanna,Onyema Anticipated Discharge Date/Time: 07/14/25 23:54 Patient Disposition: Other Activity: no shower Diet: NPO Discharge Instructions: Discharge to [facility] inpatient hospice Patient Instructions: Antibiotic Form, How to Stop Smoking (DC), Hyperosmolar Hyperglycemic State (DC) Patient Language: Iraqi Stand Alone Forms: General Discharge Information Discharge Medications: No Action No Home Medications Date of admission: 07/05/25 07:27 Primary Care Provider: Sade Sadler Admitting Provider: Daily Penn Attending physician on admission: Subha Santa Condition: Critical
== END 2025-07-14 23:55 | disposition hospice, inpatient (51) | DRG 871 ==
LOC: ANHED 20:26 → ANHICU 21:05 → ANHIMU 07-05 22:39 → ANH3MEDSUR 07-14 23:53 → ANHIMU 07-15 08:38 → ANH3MEDSUR 07-15 08:38
PROVIDERS: Internal Medicine; Internal Medicine Gastroenterology; Internal Medicine Nephrology; Nurse Practitioner; Nurse Practitioner Family; Admitting Provider Internal Medicine; Emergency Provider Emergency Medicine; PCP Family Medicine; Visit Provider Family Medicine
DX: A41.9 Sepsis, unspecified organism (principal); E11.00 Type 2 diabetes mellitus with hyperosmolarity without nonketotic hyperglycemic-hyperosmolar coma (NKHHC); G93.41 Metabolic encephalopathy; E87.1 Hypo-osmolality and hyponatremia; N39.0 Urinary tract infection, site not specified; E87.20 Acidosis, unspecified; M62.82 Rhabdomyolysis; N17.9 Acute kidney failure, unspecified; R65.20 Severe sepsis without septic shock; K70.30 Alcoholic cirrhosis of liver without ascites; B95.61 Methicillin susceptible Staphylococcus aureus infection as the cause of diseases classified elsewhere; E86.0 Dehydration; D72.829 Elevated white blood cell count, unspecified; K76.82 Hepatic encephalopathy; R16.0 Hepatomegaly, not elsewhere classified; L08.0 Pyoderma; Z20.822 Contact with and (suspected) exposure to COVID-19; R79.89 Other specified abnormal findings of blood chemistry; I95.9 Hypotension, unspecified; E80.6 Other disorders of bilirubin metabolism; E86.1 Hypovolemia; D69.59 Other secondary thrombocytopenia; Z66 Do not resuscitate; R93.422 Abnormal radiologic findings on diagnostic imaging of left kidney; F10.10 Alcohol abuse, uncomplicated; K08.409 Partial loss of teeth, unspecified cause, unspecified class; I78.1 Nevus, non-neoplastic; R63.0 Anorexia; R68.0 Hypothermia, not associated with low environmental temperature; Z91.51 Personal history of suicidal behavior; Z90.49 Acquired absence of other specified parts of digestive tract; Z86.19 Personal history of other infectious and parasitic diseases; Z51.5 Encounter for palliative care
CPT/HCPCS: 36415; 36600; 70450; 71045; 71260; 73120; 74177; 76705; 76770; 80048; 80053; 80074; 80143; 80179; 80202; 80307; 80321; 81001; 81050; 82077; 82105; 82140; 82180; 82550; 82565; 82570; 82805; 82948; 83036; 83605; 83735; 83874; 83880; 83930; 83935; 84100; 84156; 84300; 84443; 84484; 84540; 85018; 85025; 85027; 85055; 85610; 85730; 85999; 86592; 86593; 86658; 86695; 86696; 86703; 86900; 86901; 87040; 87086; 87186; 87255; 87389; 87491; 87591; 87593; 87637; 87641; 87798; 93005; 93306; 93971; 96361; 96365; 96366; 96367; 96375; 99285; J0690; A9270; G0378; G0432; G0480; J0133; J0613; J0692; J1815; J2270; J3373; J3411; J3430; J3475; J3480; J7030; J7050; J7060; J7120; J7121; Q9967

== ENCOUNTER 2025-07-14 23:55 | HOS | payer OTHER, SELFPAY ==
[2025-07-15 01:15] VITALS: PULSE 80; RESP 20; O2SAT 90
[2025-07-15] MEDS: HYDROmorphone HCL/PF (*CRX) 50 MG in SODIUM CHLORIDE 0.9% IV 95 ML IV CONT (01:21)
[2025-07-15] MEDS: HYDROmorphone HCL INJ (*CRX) 1 MG/ML SYR 0.5 MG IV PUSH ×2 (01:38→03:46)
[2025-07-15 01:42] VITALS: BMI 31.0
[2025-07-15 02:18] VITALS: O2SAT 96
[2025-07-15 08:00] VITALS: BP 73/36; PULSE 95; RESP 18; TEMP 36.8; O2SAT 92
[2025-07-15] MEDS: GLYCOPYRROLATE INJ (*SP) 0.2 MG/ML VIAL 0.1 MG IV PUSH ×2 (09:05→15:02)
--- NOTE | 2025-07-15 09:57 | PCCCNOTE ---
07/14/25 1900 late entry- Pt's nurse spoke with family regarding hospice and they choose to use [facility] at that time. I was then contacted to arrange for them to come. ili
[2025-07-15 15:00] VITALS: BP 62/29; PULSE 86; RESP 24; TEMP 37.3; O2SAT 90
--- NOTE | 2025-07-15 16:40 | P.HP_ITS ---
H&P: HPI History of Present Illness Date/Time: 07/15/25 16:40 Chief Complaint: Uncontrolled pain and agitation Narrative: 85-year-old gentleman with alcoholic cirrhosis and hepatic encephalopathy was admitted [facility] on July 04 due to mental status changes. He was found to have hyperosmolar hyperglycemic coma. Blood cultures grew Staph aureus. This was treated with Ancef and vancomycin. He had acute kidney injury upon admission. This initially improved and then worsened. His bilirubin worsened as well. He was treated with lactulose and rifaximin without improvement. He was treated with acyclovir empirically for possible encephalitis. Because of his restlessness obvious discomfort and deteriorating condition is family opted for hospice care for symptom management. Note that at baseline he is oriented to person due to hepatic encephalopathy. Currently his PPS score is 10. Review of Systems Review of Systems: ROS unobtainable: Yes unobtainable due to medical condition PMFSH Past Medical History Medical History Encephalopathy Bacteremia due to Staphylococcus History of depression Admitted for suicidal ideation in January 2013. Alcoholic cirrhosis of liver Heart murmur, systolic Echocardiogram from 01/09/2020 done at [facility] showed ejection fraction of 65 to 70%, mild concentric hypertrophy, no regional wall motion abnormalities, moderate pulmonary hypertension with RVSP of 52 millimeters of mercury, and mild aortic stenosis. Alcoholism Surgical History Surgical History History of colon resection Related to ruptured appendicitis. History of appendectomy Family History Family History Grandparent Diabetes mellitus Legally blind Pneumonia Mother Migraines Sibling Migraines Sibling Pre-diabetes Grandparent Diabetes mellitus Grandparent Diabetes mellitus Father Family history of alcoholism Sibling Family history of alcoholism Social History Social History (Updated 07/15/25 @ 16:58 by Justin Muller MD) Social History: The patient is and shares a home in [place] with his and 2 dogs, a Yorkie and a min-pin. 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 He also helps care for his , who has early-onset dementia due to TBI. He smoked between 2 and 3 packs of cigarettes a day for 30 years and he reportedly quit in October 2016. He has a history of alcoholism. He denies drug use. Designates his , Ken Orosco, as his surrogate decision maker. Code Status: DNR Smoking packs per day: 2 Smoking cigarettes per day: 40.0 Years smoked: 30 Smoking pack-years: 60.00 Smoking status: Former smoker Tobacco type: cigarettes and e-cigarettes/vaping Second hand tobacco smoke exposure: No Smoking end date: 10/31/16 Alcohol intake: former Substance use: former Substance use type: does not use Lack of Transportation: No Lack of Food: Never True Current Housing: I Have Housing Concerned About Future Housing: No Difficulty Paying Gas/Electric Bills: No Difficulty Paying for Meds: No Currently Unemployed: No Education: Trade/Vocational Certificate Difficulty w/ Childcare or Family Care: No Living arrangements: with family Additional occupation/education comments: [employer] Gender identity (if verbalized by the patient): Male Spiritual care concerns: No Agree to blood products: Yes Meds Home Medications and Allergies Home Medications ?Medication ?Instructions ?Recorded ?Confirmed ?Type No Home Medications 07/04/25 07/04/25 H istory Allergies Allergy/AdvReac Type Severity Reaction Status Date / Time No Known Allergies Allergy Unknown Verified 07/15/25 01:45 Vital Signs Vital Signs - 24 hr 07/15/25 01:15 07/15/25 01:15 07/15/25 02:18 Temperature Pulse Rate 80 80 Respiratory Rate 20 20 Blood Pressure Pulse Oximetry 90 90 96 Oxygen Delivery Room Air Nasal Cannula Nasal Cannula Oxygen Flow Rate 2 2 Fraction of Inspired Oxygen 21 28 07/15/25 08:00 07/15/25 15:00 Temperature 98.2 F 99.2 F Pulse Rate 95 86 Respiratory Rate 18 24 H Blood Pressure 73/36 L 62/29 L Pulse Oximetry 92 90 Oxygen Delivery Oxygen Flow Rate Fraction of Inspired Oxygen Exam Narrative: SKIN: Deeply jaundiced HEENT: Pharyngeal mucosa pink NECK: No JVD CHEST: Normal effort, coarse breath sounds with scattered coarse crackles HEART: NL S1/S2, regular, no murmur ABDOMEN: BS hypoactive, soft, nontender, no mass, no bruits EXTREMITIES: 1+ pitting edema of feet NEUROLOGIC: CN intact and symmetric to inspection MUSCULOSKELETAL: No deformity to visual inspection PSYCH: Unresponsive to verbal or tactile stimuli Assessment and Plan Assessment and plan (1) Hospice care: Code(s): Z51.5 - Encounter for palliative care Status: Acute Assessment and Plan: * Meet inpatient hospice criteria due to requiring continuous IV hydromorphone at 0.25 milligrams/hour for control of discomfort and agitation * P.r.n. palliative regimen ordered * 07/15/2025 discussed care prognosis with spouse, brother, and sister at bedside (2) Hyperosmolar hyperglycemic state (HHS): Code(s): E11.00 - Type 2 diabetes mellitus with hyperosmolarity without nonketotic hyperglycemic-hyperosmolar coma (NKHHC) Status: Acute (3) Sepsis: Qualifiers: Sepsis acute organ dysfunction status: unspecified Sepsis type: sepsis due to unspecified organism Qualified Code(s): A41.9 - Sepsis, unspecified organism Code(s): A41.9 - Sepsis, unspecified organism Status: Acute (4) Bacteremia due to Staphylococcus: Code(s): R78.81 - Bacteremia; B95.8 - Unspecified staphylococcus as the cause of diseases classified elsewhere Status: Acute (5) Encephalopathy: Code(s): G93.40 - Encephalopathy, unspecified Status: Acute (6) Alcoholic cirrhosis of liver: Qualifiers: Ascites presence: without ascites Qualified Code(s): K70.30 - Alcoholic cirrhosis of liver without ascites Code(s): K70.30 - Alcoholic cirrhosis of liver without ascites Status: Acute (7) Thrombocytopenia: Code(s): D69.6 - Thrombocytopenia, unspecified Status: Chronic (8) Acute kidney injury: Code(s): N17.9 - Acute kidney failure, unspecified Status: Acute
[2025-07-15] MEDS: diazePAM INJ (*CRX) 10 MG/2 ML SYRINGE 5 MG IV PUSH (16:42)
[2025-07-15 18:00] VITALS: BP 74/40
--- NOTE | 2025-07-16 12:40 | PM.DDS ---
Discharge Summary Date and Time Date of : 07/15/25 Time of : 19:25 Provider Pronounced By: 2 RNs Name of First RN That Pronounced: Anand Ward RN Name of Second RN That Pronounced: Debbie Lawson RN Probable Cause of Probable Cause of : Acute renal failure in the setting of liver failure due to alcoholic cirrhosis and sepsis due to MSSA bacteremia of uncertain source with sepsis Summary Hospital Course: Admitted to inpatient hospice service for symptom management. Medications were titrated to comfort. Mr. Orosco peacefully. Additional Data Confirmation of as documented by pronouncing clinician: Pupillary Reflex, Palpable Pulses, Response to Stimuli, Heart Tones and Breath Sounds Name of Provider Notified: Yohana Time Provider Notified: 19:27 Provider Requests Autopsy: No Family Requests Autopsy: No Tool Maker Bench Notified: Yes Date [facility] Notified of : 07/15/25 Time [facility] Notified of : 20:03
== END 2025-07-15 19:25 | disposition expired | DRG 951 ==
PROVIDERS: Admitting Provider Internal Medicine; PCP Family Medicine; Visit Provider Internal Medicine
DX: Z51.5 Encounter for palliative care (principal); A41.9 Sepsis, unspecified organism; E11.01 Type 2 diabetes mellitus with hyperosmolarity with coma; G93.41 Metabolic encephalopathy; G04.90 Encephalitis and encephalomyelitis, unspecified; N17.9 Acute kidney failure, unspecified; E87.20 Acidosis, unspecified; E87.1 Hypo-osmolality and hyponatremia; M62.82 Rhabdomyolysis; N39.0 Urinary tract infection, site not specified; K76.82 Hepatic encephalopathy; K70.30 Alcoholic cirrhosis of liver without ascites; L08.0 Pyoderma; Z66 Do not resuscitate
CPT/HCPCS: A9270; J1171; J1596; J3360